=== PATIENT | female | born 1965 | race Caucasian/White ===

== ENCOUNTER → 2018-01-24 | Outpatient (CLI) | payer OTHER | END | disposition home or self-care (01) | LOC: C.LABMFLN 16:44 | PROVIDERS: ATTEND Family Medicine | DX: R60.0 Localized edema (principal) ==

== ENCOUNTER 2023-07-26 14:58 | Inpatient (IN) ==
[2023-07-26 16:12] LABS: Basophils # (auto) 0.05 K/uL (0.00-0.20); Basophils % (auto) 0.6 %; Eosinophils # (auto) 0.21 K/uL (0.00-0.50); Eosinophils % (auto) 2.6 %; Hematocrit (blood only) 38.3 % (37.0-47.0); Hemoglobin 12.8 g/dl (12.0-16.0); Immature Granulocytes # (auto) 0.04 K/uL (0.01-0.20); Immature Granulocytes % (auto) 0.5 %; Lymphocytes % (auto) 19.5 %; Mean Corpuscular Hemoglobin 32.3 pg (25.0-34.0); Mean Corpuscular Hgb Conc 33.4 g/dL (32.0-36.0); Mean Corpuscular Volume 96.7 fL (80.0-100.0); Mean Platelet Volume 9.7 fL (9.4-12.4); Monocytes % (auto) 10.9 %; Neutrophils # (auto) 5.42 K/uL (1.40-6.50); Neutrophils % (auto) 65.9 %; Platelet Count 299 K/uL (130-400); RDW Coefficient of Variation 12.2 % (11.5-14.5); RDW Standard Deviation 43.5 fL (36.4-46.3); Red Blood Count 3.96 M/uL (4.20-5.40); White Blood Count 8.22 K/ul (4.8-10.8)
[2023-07-26 16:30] LABS: Alanine Aminotransferase 50 U/L (7-52); Albumin Globulin Ratio 1.7 (0.9-2); Albumin Level 4.6 gm/dl (3.4-5.0); Alkaline Phosphatase 102 U/L (34-104); Anion Gap 11 (3-11); BUN Creatinine Ratio 22.5 (10-20); Bilirubin,Total 0.6 mg/dl (0.2-1.0); Blood Urea Nitrogen 50 mg/dl (6-23); Carbon Dioxide 19 mmol/L (21-32); Chloride 100 mmol/L (98-107); Est GFR (Non-African American) 23.3 ml/min; Globulin 2.7 gm/dl (2.5-4.0); Glucose 82 mg/dl (70-99(Fasting)); Sodium 130 mmol/L (136-145); Total Protein 7.3 gm/dl (6.0-8.3)
[2023-07-26 16:39] LABS: Partial Thromboplastin Ratio 0.9; Partial Thromboplastin Time 26 Seconds (21-31)
[2023-07-26 18:40] LABS: Appearance Urine Clear (Clear); Bacteria Urine Automated Negative (Negative); Bilirubin Urine Negative (Negative); Blood Urine Negative (Negative); Color Urine Yellow; Glucose Urine UA Negative (Negative); Ketones Urine Negative (Negative); Leukocyte Esterase Urine 3+ (Negative); Nitrite Urine Negative (Negative); Protein Urine Negative (Negative); RBC Urine Automated 0-4 /hpf (0-4); Specific Gravity Urine 1.007 (1.000-1.030); Urobilinogen Urine Negative (Negative)
--- NOTE | 2023-07-26 18:59 | Emergency Department Note ---
Impression & Plan Hypotension, ARTUR (acute kidney injury), Weakness, Acute hyponatremia, Fall ED Provider Note NAME: JADEN NOBLE AGE: 58 SEX: F : 1965 ARRIVES VIA: Walk-In INFORMANT: [Patient][family] ED PROVIDER(S): [Ricky Gatica MD] CHIEF COMPLAINT: Fall HISTORY OF PRESENT ILLNESS: The patient is a 58-year-old female who fell a few days ago, she tripped going into her home and hit her right lower jaw. She did not seek medical attention. The patient states that today, she was having some outpatient laboratory work performed and she fell off a stool. The patient was sent here for evaluation because of the falling. The patient has been weaker. Her blood pressure was noted to be low in her doctor's office recently and they did cut back on some of her BP meds. There has been no fever, no cough or congestion. No chest pain or shortness of breath. No vomiting or diarrhea. No real urinary complaints. She states that she is keeping up with her fluid intake. PMHx/PSHx/Social Hx: See Below PHYSICAL EXAM: GENERAL: Patient is in no acute distress. HEENT: There is an older contusion and healing laceration to the right lower jaw. Bite is intact. No other facial trauma seen. NECK: No stridor, no adenopathy, nontender cervical spine, trachea is midline. LUNGS: Clear to auscultation bilaterally, no wheeze, no rhonchi, breath sounds equal. Breath sounds are diminished bilaterally. HEART: Without murmurs gallops or rubs, regular rate and rhythm. Heart tones are distant. ABDOMEN: Soft, nontender, no peritonitis. EXTREMITIES: No cyanosis, full range of motion of all the joints without pain or difficulty. NEUROLOGIC: Oriented x 3, no acute motor or sensory deficits, no focal weakness. Excellent historian. SKIN: No jaundice, no diaphoresis. DIFFERENTIAL DIAGNOSIS: Dehydration, facial fracture, intracranial bleeding, electrolyte imbalance, anemia, UTI, medication reaction, among others. EMERGENCY DEPARTMENT PROCEDURES: MEDICAL DECISION MAKING: There is no leukocytosis or concerning anemia. There is a normal platelet count. Renal panel testing shows acute kidney injury with a creatinine over 2. Patient was hyponatremic with a sodium of 130. No concerning liver enzyme elevation. The patient appeared to be in a euthyroid state. ECG shows a sinus rhythm, no ischemia. Cardiac enzyme testing x 1 is not consistent with acute cardiac injury. Urinalysis shows potential infection. Chest x-ray does not show pneumonia or CHF. Brain CT shows no acute bleed or mass effect. Sinusitis was seen. Facial CT did not show any acute fracture. On exam, the patient was somewhat hypotensive. She did have a contusion to the right lower jaw. The patient was aggressively managed given the hypotension. She was given IV saline, 1 L. She received IV ceftriaxone as empiric antibiotic coverage. The ceftriaxone was for the urinary infection and sinusitis. Patient was found to be in acute kidney injury. She was hyponatremic, she has fallen, she is hypotensive. She appears to have a UTI in addition to a sinusitis. She does require a hospital stay. Patient's blood pressure has improved status post IV fluids. I did speak with case management, the on-call hospitalist was consulted. Prior/Outside records/notes reviewed: None. ECG per my interpretation: Indication was weakness. The ECG shows a normal sinus rhythm with a rate of 82. There is no ST elevation, no PVCs. The QTc is 443. Continuous Cardiac Monitoring per my interpretation: An order was placed for continuous cardiac monitoring. The monitor shows a rate of 74 with normal sinus rhythm. Imaging/x-ray results per my interpretation: Chest x-ray does not show mediastinal widening, pneumonia or pneumothorax. Chronic Medical/Social conditions affecting care: Care/Management discussed with: Case management, the on-call hospitalist. Level of care consideration(s): After review of the information above and other included data: --I believe the patient requires escalation of care to admission Critical Care Note: I have personally spent 42 minutes of critical care time in the direct management of this patient. This includes bedside care, interpretation of diagnostic studies, and testing, discussion with consultants, patient, and family members, and other required patient management activities. This 42 minutes is in excess of all separately billable procedures. DISPOSITION: Admission Past Med/Surg History Medical History MCCLAIN (nonalcoholic steatohepatitis) hx Depression Asthma no inhalers, well controlled per pt Enlarged liver hx > resolved per pt Arthritis Spinal stenosis History of urinary retention "just happens when I take too many pain pills" GERD (gastroesophageal reflux disease) Hyperlipidemia DVT (deep venous thrombosis) 2020 > can't recall which leg > no longer on thinner > s/p fall HTN (hypertension) History of COVID-19 06/29/20 HOSPITALIZED WITH PNEUMONIA DIA HAINES 06/2021 RECOVERED AT HOME Opioid dependence with current use Anxiety disorder Cervical post-laminectomy syndrome Postlaminectomy syndrome of lumbosacral region Surgical History (Updated 07/26/23 @ 14:32 by Lela Obrien RN) History of colonoscopy History of tooth extraction History of surgery on right wrist History of cataract surgery bilat Nausea and vomiting after administration of anesthetic agent History of back surgery x3 total > 06/02/19 Dr. Simon Templeton at [facility]- Midline prone multilevel osteotomies, Correction of flat back deformity, Extension of fusion to T9, T10, and T11 kyphoplasty History of tonsillectomy and adenoidectomy History of appendectomy History of gastric bypass History of neck surgery ACDF > has trouble tilting head back for long periods History of hysterectomy History of esophagogastroduodenoscopy History of cholecystectomy History of section x4 History of arthroscopy of knee right Family History Father Diabetes Heart problem Cancer Other No family history of adverse response to anesthesia Social History Smoking Status: Former smoker Second Hand Exposure: No; Do You Dip or Chew Tobacco: No; Hx Alcohol Use: No Hx Substance Use: No Preferred Language: Macedonian Communication Ability: Effective Hearing Ability: Use of Hearing Aid Press Assistant Required: No Beliefs That Will Affect Care: None marital status: Current Living Situation: Spouse Current Living Situation Comment: LIVES WITH SPOUSE, ADULT SON current occupational status: disabled Feels Safe at Home: Yes Assistive Devices: Cane, Glasses, Hearing Aid - Bilateral and Walker Allergies Allergies Allergy/AdvReac Type Severity Reaction Status Date / Time carisoprodol Allergy Intermediate HALLUCINATI Verified 07/26/23 14:17 ONS Penicillins Allergy Intermediate Hives Verified 07/26/23 14:17 aspirin Allergy Unknown NOT TO Verified 07/26/23 14:17 TAKE S/P GATRIC BYPASS clarithromycin [From Biaxin] Allergy Unknown Unknown Verified 07/26/23 14:17 glycopyrrolate [From Evelyn] Allergy Unknown Unknown Verified 07/26/23 14:17 oxymorphone Allergy Unknown Unknown Verified 07/26/23 14:17 lactose AdvReac Mild Gastrointestinal Verified 07/26/23 14:17 Upset Home Meds Home Medications Medication Instructions Recorded Confirmed ferrous sulfate 325 mg (65 mg 325 mg PO BID 10/23/19 07/26/23 iron) tablet bupropion HCl 150 mg tablet,12 hr 150 mg PO QAM 01/13/22 07/26/23 sustained-release diclofenac sodium 1 % topical gel 2 gm topical QID PRN Pain 01/13/22 07/26/23 calcium citrate 200 mg (950 mg) 200 mg PO DAILY 05/15/22 07/26/23 tablet docusate sodium 100 mg capsule 100 mg PO BID PRN Constipation 05/22/23 07/26/23 (Colace) nystatin-triamcinolone 100,000 1 applic topical BID PRN Rash 05/22/23 07/26/23 unit/g-0.1 % topical cream cetirizine 5 mg-pseudoephedrine ER 1 tab PO BID PRN Congestion 07/26/23 07/26/23 120 mg tablet,extended release,12hr lisinopril 10 mg tablet 10 mg PO QAM 07/26/23 07/26/23 pantoprazole 40 mg tablet,delayed 40 mg PO QAM 07/26/23 07/26/23 release Previous Rx's Medication Instructions Recorded multivitamin (Multiple Vitamins 1 tab PO BID #90 tabs 06/22/20 tablet) buspirone 15 mg tablet 15 mg PO TID #90 tabs 10/20/21 montelukast 10 mg tablet 10 mg PO HS #90 tabs 01/16/23 pravastatin 40 mg tablet 40 mg PO QAM #90 tabs 02/08/23 metoprolol succinate 100 mg 100 mg PO QAM #90 tabs 02/16/23 tablet,extended release 24 hr ketoconazole 1 % shampoo (Nizoral 1 applic topical .twice daily #125 03/29/23 A-D) mL furosemide 20 mg tablet 20 mg PO QAM #90 tabs 05/24/23 cyclobenzaprine 10 mg tablet 10 mg PO TID #90 tabs 01/15/24 gabapentin 600 mg tablet 600 mg PO TID #90 tabs 06/24/23 lorazepam 0.5 mg tablet 0.5 mg PO HS #30 tabs 06/24/23 meclizine 25 mg tablet 25 mg PO TID PRN dizziness #90 tabs 06/25/23 oxycodone 10 mg tablet 10 mg PO Q6H PRN pain #60 tabs 06/28/23 sucralfate 1 gram tablet 1 g PO QID #120 tabs 07/07/23 nystatin 100,000 unit/gram topical 1 applic topical BID PRN yeast #60 07/10/23 powder grams ondansetron 4 mg disintegrating 4 mg PO TID PRN nausea and 07/18/23 tablet vomiting #30 tabs sulfamethoxazole 800 1 tab PO BID #20 tabs 07/19/23 mg-trimethoprim 160 mg tablet (Bactrim DS) Results & Data (ED) Vital Signs Vital Signs - 24 hr 07/26/23 15:33 07/26/23 19:14 07/26/23 20:00 Temperature 36.1 C L Temperature Source Temporal Artery Scan Pulse Rate 74 77 Pulse Rate [Apical] 77 Pulse Rhythm Regular Pulse Strength Normal Respiratory Rate 20 18 Respiratory Effort / Characteristics Non-Labored Spontaneous Respiratory Depth Normal Blood Pressure 97/50 L Blood Pressure [Right Arm] 117/70 Blood Pressure Mean 65 Blood Pressure Mean [Right Arm] 85 Blood Pressure Position Sitting Pulse Oximetry 96 98 Oxygen Delivery Method Room Air Room Air Sepsis Recent Fever Within 48 Hours No Sepsis New/Unexplained Change in Mental Status N/A Sepsis Action Taken by Nursing No Action Required 07/26/23 23:10 07/26/23 23:19 07/26/23 23:56 Temperature Temperature Source Pulse Rate 80 Pulse Rate [Apical] 85 63 Pulse Rhythm Pulse Strength Respiratory Rate 15 16 Respiratory Effort / Characteristics Respiratory Depth Blood Pressure Blood Pressure [Right Arm] 95/60 L 104/52 L Blood Pressure Mean Blood Pressure Mean [Right Arm] 71 69 Blood Pressure Position Pulse Oximetry 95 94 Oxygen Delivery Method Room Air Room Air Sepsis Recent Fever Within 48 Hours Sepsis New/Unexplained Change in Mental Status Sepsis Action Taken by Usp Medications Current Medication List: was personally reviewed by me Laboratory Data Attestation: I reviewed the patient's lab results. 07/26/23 15:52 07/26/23 18:35 Lab Results 07/26/23 07/26/23 07/26/23 Range/Units 15:52 18:05 18:35 WBC 8.22 (4.8-10.8) K/ul RBC 3.96 L (4.20-5.40) M/uL Hgb 12.8 (12.0-16.0) g/dl Hct 38.3 (37.0-47.0) % MCV 96.7 (80.0-100.0) fL MCH 32.3 (25.0-34.0) pg MCHC 33.4 (32.0-36.0) g/dL RDW Std Deviation 43.5 (36.4-46.3) fL RDW Coeff of Arvin 12.2 (11.5-14.5) % Plt Count 299 (130-400) K/uL MPV 9.7 (9.4-12.4) fL Immature Gran % (Auto) 0.5 % Neut % (Auto) 65.9 % Lymph % (Auto) 19.5 % Rooks % (Auto) 10.9 % Eos % (Auto) 2.6 % Baso % (Auto) 0.6 % Neut # (Auto) 5.42 (1.40-6.50) K/uL Lymph # (Auto) 1.60 (1.20-3.40) K/uL Rooks # (Auto) 0.90 H (0.11-0.59) K/uL Eos # (Auto) 0.21 (0.00-0.50) K/uL Baso # (Auto) 0.05 (0.00-0.20) K/uL Immature Gran # (Auto) 0.04 (0.01-0.20) K/uL APTT 26 (21-31) Seconds PTT Ratio 0.9 Sodium 130 L (136-145) mmol/L Potassium TNP 3.7 Chloride 100 (98-107) mmol/L Carbon Dioxide 19 L (21-32) mmol/L Anion Gap 11 (3-11) BUN 50 H (6-23) mg/dl Creatinine 2.22 H (0.6-1.2) mg/dl Est Cr Clr Drug Dosing Not Reportable Est GFR ( Amer) 27.0 ml/min Est GFR (Non-Af Amer) 23.3 ml/min BUN/Creatinine Ratio 22.5 H (10-20) Glucose 82 (70-99(Fasting)) mg/dl Osmolality 284 (280-300) mOsm/kg Calcium 9.0 (8.6-10.3) mg/dl Magnesium 2.0 (1.7-2.4) mg/dl Total Bilirubin 0.6 (0.2-1.0) mg/dl AST TNP 39 ALT 50 (7-52) U/L Alkaline Phosphatase 102 (34-104) U/L Troponin I High Sens 2.6 (0-14) pg/ml Total Protein 7.3 (6.0-8.3) gm/dl Albumin 4.6 (3.4-5.0) gm/dl Globulin 2.7 (2.5-4.0) gm/dl Albumin/Globulin Ratio 1.7 (0.9-2) TSH 2.027 (0.300-4.500) uIu/ml Urine Color Yellow Urine Appearance Clear (Clear) Urine pH 6.0 (4.5-7.5) Ur Specific [place] 1.007 (1.000-1.030) Urine Protein Negative (Negative) Urine Glucose (UA) Negative (Negative) Urine Ketones Negative (Negative) Urine Blood Negative (Negative) Urine Nitrite Negative (Negative) Urine Bilirubin Negative (Negative) Urine Urobilinogen Negative (Negative) Ur Leukocyte Esterase 3+ H (Negative) Urine WBC (Auto) 10-30 H (0-5) /hpf Urine RBC (Auto) 0-4 (0-4) /hpf U Hyaline Cast (Auto) 0 (0-5) /lpf U Epithel Cells (Auto) 5-10 H (0-5) /lpf Urine Bacteria (Auto) Negative (Negative) Urine Crystals Not Reportable Urine Osmolality 197 L (500-800) mOsm/kg Ur Random Sodium 42 mmol/L Administered Medications Sodium Chloride (Nss) 1,000 mls @ 100 mls/hr IV .Q10H BRAYDEN Stop: 07/27/23 07:29 Last Admin: 07/26/23 22:58 Dose: 100 mls/hr Documented By: BS Discontinued Medications Sodium Chloride (Nss) 1,000 mls @ 999 mls/hr IV .Q1H1M ONE Stop: 07/26/23 19:44 Last Infusion: 07/26/23 21:37 Dose: Infused Documented By: Admin: 07/26/23 19:21 Dose: 999 mls/hr Documented By: CHRISTOPHER Ceftriaxone Sodium (Rocephin) 2,000 mg in 50 mls @ 100 mls/hr IV NOW STA Stop: 07/26/23 19:44 Last Infusion: 07/26/23 20:23 Dose: Infused Documented By: Admin: 07/26/23 19:21 Dose: 100 mls/hr Documented By: CHRISTOPHER Imaging Data Radiologist's Impression: Head CT 07/26/23 18:44 Exam(s): CT HEAD Without Contrast EXAM: CT Head Without Intravenous Contrast CLINICAL HISTORY: Trauma. TECHNIQUE: Axial computed tomography images of the head/brain without intravenous contrast. CTDI is 36.9 mGy and DLP is 624.41 mGy-cm. Automated exposure control was utilized for the study. A dose lowering technique was utilized adhering to the principles of ALARA. COMPARISON: No relevant prior studies available. FINDINGS: Brain: No intracranial hemorrhage, mass-effect or midline shift. No abnormal extra axial fluid. No evidence of acute infarct. Mild periventricular white matter hypodensities are most consistent with chronic microangiopathy. Ventricles: Unremarkable. No ventriculomegaly. Bones/joints: Unremarkable. No acute fracture. Soft tissues: Unremarkable. Sinuses: Unremarkable as visualized. No acute sinusitis. Mastoid air cells: Unremarkable as visualized. No mastoid effusion. IMPRESSION: No acute intracranial finding. Electronically signed by: Ruth Olivares MD 07/26/23 19:[address] 07/26/23 18:53 Exam(s): CT FACIAL Without Contrast EXAM: CT Maxillofacial Without Intravenous Contrast CLINICAL HISTORY: Fall. TECHNIQUE: Axial computed tomography images of the face without intravenous contrast. CTDI is 9.61 mGy and DLP is 167.87 mGy-cm. Automated exposure control was utilized for the study. A dose lowering technique was utilized adhering to the principles of ALARA. COMPARISON: No relevant prior studies available. FINDINGS: Bones/joints: No fracture. Soft tissues: There is a contusion and laceration of the right lower lip. Orbits: Unremarkable. Sinuses: There is mucus in the right ethmoid and maxillary sinus is concerning for acute sinusitis. IMPRESSION: 1. No fracture. 2. There is mucus in the right ethmoid and maxillary sinus is concerning for acute sinusitis. 3. There is a contusion and laceration of the right lower lip. Electronically signed by: Ruth Olivares MD 07/26/23 19:58 PM Discharge Plan Visit Data Chief Complaint: Fall Stated Complaint: FALLS AND HEADACHES ED Provider: Ricky Gatica Discharge Problem: Hypotension, ARTUR (acute kidney injury), Weakness, Acute hyponatremia, Fall Patient Disposition: Admitted As Inpatient Condition: Fair Discharge Instructions Interventions: ED Discharge Assessment Last Done: 07/27/23 00:01 Prescriptions Prescriptions: No Action multivitamin [Multiple Vitamins] Tablet 1 tab PO BID Qty: 90 3RF buspirone 15 mg tablet 15 mg PO TID Qty: 90 0RF montelukast 10 mg tablet 10 mg PO HS Qty: 90 3RF pravastatin 40 mg tablet 40 mg PO QAM Qty: 90 3RF metoprolol succinate 100 mg tablet extended release 24 hr 100 mg PO QAM Qty: 90 1RF furosemide 20 mg tablet 20 mg PO QAM Qty: 90 0RF cyclobenzaprine 10 mg tablet 10 mg PO TID Qty: 90 1RF lorazepam 0.5 mg tablet 0.5 mg PO HS Qty: 30 0RF gabapentin 600 mg tablet 600 mg PO TID Qty: 90 0RF meclizine 25 mg tablet 25 mg PO TID PRN (Reason: dizziness) Qty: 90 2RF oxycodone 10 mg tablet 10 mg PO Q6H PRN (Reason: pain) Qty: 60 0RF sucralfate 1 gram tablet 1 g PO QID Qty: 120 1RF nystatin 100,000 unit/gram powder 1 applic topical BID PRN (Reason: yeast) Qty: 60 0RF ondansetron 4 mg tablet,disintegrating 4 mg PO TID PRN (Reason: nausea and vomiting) Qty: 30 0RF sulfamethoxazole-trimethoprim [Bactrim DS] 800-160 mg tablet 1 tab PO BID Qty: 20 0RF Patient Comments: for UTI calcium citrate 200 mg (950 mg) tablet 200 mg PO DAILY ferrous sulfate 325 mg (65 mg iron) tablet 325 mg PO BID docusate sodium [Colace] 100 mg capsule 100 mg PO BID PRN (Reason: Constipation) nystatin-triamcinolone 100,000-0.1 unit/g-% cream 1 applic topical BID PRN (Reason: Rash) Nizoral A-D 1 % shampoo 1 applic topical .twice daily Qty: 125 0RF bupropion HCl 150 mg tablet sustained-release 12 hr 150 mg PO QAM diclofenac sodium 1 % gel 2 gm TOP QID PRN (Reason: Pain) Rx Instructions: apply to single elbow, wrist or hand; for hand includes palm/fingers/back of hand cetirizine-pseudoephedrine 5-120 mg tablet extended release 12 hr 1 tab PO BID PRN (Reason: Congestion) pantoprazole 40 mg tablet,delayed release (DR/EC) 40 mg PO QAM lisinopril 10 mg tablet 10 mg PO QAM Discharge Problem: Hypotension Qualifiers: Hypotension type: unspecified hypotension type Qualified Code(s): I95.9 - Hypotension, unspecified Fall Qualifiers: Encounter type: initial encounter Qualified Code(s): W19.XXXA - Unspecified fall, initial encounter
[2023-07-26 19:00] LABS: Cast Urine Automated 0 /lpf (0-5)
[2023-07-26 19:05] LABS: Potassium 3.7 mmol/L (3.5-5.1)
[2023-07-26 19:20] LABS: Thyroid Stimulating Hormone 2.027 uIu/ml (0.300-4.500)
[2023-07-26] MEDS: cefTRIAXone SODIUM 2,000 MG/50 ML BAG IV STA (19:21)
[2023-07-26] MEDS: SODIUM CHLORIDE 0.9% 1,000 ML IV ONE (19:21)
[2023-07-26 19:36] LABS: Troponin I High Sensitivity 2.6 pg/ml (0-14)
--- NOTE | 2023-07-26 19:58 | CT Scan Report ---
Exam(s): CT HEAD Without Contrast EXAM: CT Head Without Intravenous Contrast CLINICAL HISTORY: Trauma. TECHNIQUE: Axial computed tomography images of the head/brain without intravenous contrast. CTDI is 36.9 mGy and DLP is 624.41 mGy-cm. Automated exposure control was utilized for the study. A dose lowering technique was utilized adhering to the principles of ALARA. COMPARISON: No relevant prior studies available. FINDINGS: Brain: No intracranial hemorrhage, mass-effect or midline shift. No abnormal extra axial fluid. No evidence of acute infarct. Mild periventricular white matter hypodensities are most consistent with chronic microangiopathy. Ventricles: Unremarkable. No ventriculomegaly. Bones/joints: Unremarkable. No acute fracture. Soft tissues: Unremarkable. Sinuses: Unremarkable as visualized. No acute sinusitis. Mastoid air cells: Unremarkable as visualized. No mastoid effusion. IMPRESSION: No acute intracranial finding. Electronically signed by: Ruth Olivares MD 07/26/23 19:57 PM
--- NOTE | 2023-07-26 19:59 | CT Scan Report ---
Exam(s): CT FACIAL Without Contrast EXAM: CT Maxillofacial Without Intravenous Contrast CLINICAL HISTORY: Fall. TECHNIQUE: Axial computed tomography images of the face without intravenous contrast. CTDI is 9.61 mGy and DLP is 167.87 mGy-cm. Automated exposure control was utilized for the study. A dose lowering technique was utilized adhering to the principles of ALARA. COMPARISON: No relevant prior studies available. FINDINGS: Bones/joints: No fracture. Soft tissues: There is a contusion and laceration of the right lower lip. Orbits: Unremarkable. Sinuses: There is mucus in the right ethmoid and maxillary sinus is concerning for acute sinusitis. IMPRESSION: 1. No fracture. 2. There is mucus in the right ethmoid and maxillary sinus is concerning for acute sinusitis. 3. There is a contusion and laceration of the right lower lip. Electronically signed by: Ruth Olivares MD 07/26/23 19:58 PM
[2023-07-26] MEDS ORDERED: ACETAMINOPHEN 325 MG TAB PO PRN (21:18)
--- NOTE | 2023-07-26 21:34 | History & Physical Report ---
Date of Service July 26, 2023 Assessment & Plan (1) Acute kidney injury: Plan Assessment: 1. Acute kidney injury probably on the basis of Bactrim. This will be discontinued. The patient be placed on IV Rocephin which she received her first dose. Will hydrate overnight and recheck renal function in the morning. We are going to hold her benzodiazepine at night. We will decrease her oxycodone we are going to decrease Flexeril as well.. 2. Acute maxillary and ethmoid right sinusitis. IV Rocephin for now. Monitor clinical response. 3. Generalized weakness probably secondary to acute kidney injury etc. We will go ahead and consult PT and OT. 4. Falls x 2. Probably from generalized weakness due to decreasing renal function. PT and OT has been consulted. Her neuro exam is normal tonight. 5. History of morbid obesity status post gastric bypass surgery therefore NSAIDs are relatively contraindicated for pain. 6. Osteoarthritis/degenerative joint disease. 7. Chronic pain with chronic narcotic dependency. 8. Essential hypertension. 9. Dyslipidemia. 10. MCCLAIN. 11. Anxiety disorder with associated insomnia. 12. Postlaminectomy syndrome Assessment/plan: As described above. Please refer to orders for further planning. History of Present Illness Chief Complaint: Multiple falls weakness. Primary Care Provider: Larry Gonzalze DO This is a pleasant 58-year-old female who was diagnosed with a urinary tract infection in July 19, 2023. At that time she was placed on oral Bactrim as an outpatient. Over the last 2 days she has had 2 falls. Her first fall was at home it was mechanical she was walking with her she tripped her legs were too weak to catch her and she fell to the ground striking her chin and lips. Her second fall was today when she went to sit on her stool with wheels on when it slid out from under her and she fell on her buttock. She comes in with generalized weakness is her biggest complaints she has no focal neurologic deficits. CT of the facial bones demonstrated contusion and laceration of the right lower lip and demonstrated right ethmoid and maxillary acute sinusitis. Thepatient also had a nonacute CT of the brain which was negative for acute finding. Urinalysis still showed 10-30 WBCs but negative bacteria but 3+ leukocyte E[facility] laboratory studies demonstrated acute kidney injury with a creatinine of 2.22 with a baseline of 1.4. The patient received a liter of saline in the ER with IV Rocephin. We are called admit the patient for further evaluation and treatment for acute kidney injury dehydration and acute maxillary and ethmoid sinusitis. Allergies Allergy/AdvReac Type Severity Reaction Status Date / Time carisoprodol Allergy Intermediate HALLUCINATI Verified 07/26/23 14:17 ONS Penicillins Allergy Intermediate Hives Verified 07/26/23 14:17 aspirin Allergy Unknown NOT TO Verified 07/26/23 14:17 TAKE S/P GATRIC BYPASS clarithromycin [From Biaxin] Allergy Unknown Unknown Verified 07/26/23 14:17 glycopyrrolate [From Robinul] Allergy Unknown Unknown Verified 07/26/23 14:17 oxymorphone Allergy Unknown Unknown Verified 07/26/23 14:17 lactose AdvReac Mild Gastrointestinal Verified 07/26/23 14:17 Upset Home Medications Medication Instructions Recorded Confirmed Type ferrous sulfate 325 mg (65 mg 325 mg PO BID 10/23/19 07/26/23 History iron) tablet multivitamin (Multiple Vitamins 1 tab PO BID #90 tabs 06/22/20 07/26/23 Rx tablet) buspirone 15 mg tablet 15 mg PO TID #90 tabs 10/20/21 07/26/23 Rx bupropion HCl 150 mg tablet,12 hr 150 mg PO QAM 01/13/22 07/26/23 History sustained-release diclofenac sodium 1 % topical gel 2 gm topical QID PRN Pain 01/13/22 07/26/23 History calcium citrate 200 mg (950 mg) 200 mg PO DAILY 05/15/22 07/26/23 History tablet montelukast 10 mg tablet 10 mg PO HS #90 tabs 01/16/23 07/26/23 Rx pravastatin 40 mg tablet 40 mg PO QAM #90 tabs 02/08/23 07/26/23 Rx metoprolol succinate 100 mg 100 mg PO QAM #90 tabs 02/16/23 07/26/23 Rx tablet,extended release 24 hr ketoconazole 1 % shampoo (Nizoral 1 applic topical .twice daily #125 03/29/23 07/26/23 Rx A-D) mL docusate sodium 100 mg capsule 100 mg PO BID PRN Constipation 05/22/23 07/26/23 History (Colace) nystatin-triamcinolone 100,000 1 applic topical BID PRN Rash 05/22/23 07/26/23 History unit/g-0.1 % topical cream furosemide 20 mg tablet 20 mg PO QAM #90 tabs 05/24/23 07/26/23 Rx cyclobenzaprine 10 mg tablet 10 mg PO TID #90 tabs 06/18/23 07/26/23 Rx gabapentin 600 mg tablet 600 mg PO TID #90 tabs 06/24/23 07/26/23 Rx lorazepam 0.5 mg tablet 0.5 mg PO HS #30 tabs 06/24/23 07/26/23 Rx meclizine 25 mg tablet 25 mg PO TID PRN dizziness #90 tabs 06/25/23 07/26/23 Rx oxycodone 10 mg tablet 10 mg PO Q6H PRN pain #60 tabs 06/28/23 07/26/23 Rx sucralfate 1 gram tablet 1 g PO QID #120 tabs 07/07/23 07/26/23 Rx nystatin 100,000 unit/gram topical 1 applic topical BID PRN yeast #60 07/10/23 07/26/23 Rx powder grams ondansetron 4 mg disintegrating 4 mg PO TID PRN nausea and 07/18/23 07/26/23 Rx tablet vomiting #30 tabs sulfamethoxazole 800 1 tab PO BID #20 tabs 07/19/23 07/26/23 Rx mg-trimethoprim 160 mg tablet (Bactrim DS) cetirizine 5 mg-pseudoephedrine ER 1 tab PO BID PRN Congestion 07/26/23 07/26/23 History 120 mg tablet,extended release,12hr lisinopril 10 mg tablet 10 mg PO QAM 07/26/23 07/26/23 History pantoprazole 40 mg tablet,delayed 40 mg PO QAM 07/26/23 07/26/23 History release Past Med/Surg History Medical History (Updated 07/26/23 @ 21:35 by Gianluca Pedro, PhD, DO) MCCLAIN (nonalcoholic steatohepatitis) hx Depression Asthma no inhalers, well controlled per pt Enlarged liver hx > resolved per pt Arthritis Spinal stenosis History of urinary retention "just happens when I take too many pain pills" GERD (gastroesophageal reflux disease) Hyperlipidemia DVT (deep venous thrombosis) 2020 > can't recall which leg > no longer on thinner > s/p fall HTN (hypertension) History of COVID-19 06/29/20 HOSPITALIZED WITH PNEUMONIA DIA HAINES 06/2021 RECOVERED AT HOME Opioid dependence with current use Anxiety disorder Cervical post-laminectomy syndrome Postlaminectomy syndrome of lumbosacral region Surgical History (Updated 07/26/23 @ 14:32 by Lela Obrien RN) History of colonoscopy History of tooth extraction History of surgery on right wrist History of cataract surgery bilat Nausea and vomiting after administration of anesthetic agent History of back surgery x3 total > 06/02/19 Dr. Simon Templeton at [facility]- Midline prone multilevel osteotomies, Correction of flat back deformity, Extension of fusion to T9, T10, and T11 kyphoplasty History of tonsillectomy and adenoidectomy History of appendectomy History of gastric bypass History of neck surgery ACDF > has trouble tilting head back for long periods History of hysterectomy History of esophagogastroduodenoscopy History of cholecystectomy History of section x4 History of arthroscopy of knee right Family History Father Diabetes Heart problem Cancer Other No family history of adverse response to anesthesia Social History Smoking Status: Former smoker Second Hand Exposure: No; Do You Dip or Chew Tobacco: No; Hx Alcohol Use: No Hx Substance Use: No Preferred Language: Ug[place]an Communication Ability: Effective Hearing Ability: Use of Hearing Aid Pad Machine Operator Required: No Beliefs That Will Affect Care: None marital status: Current Living Situation: Spouse Current Living Situation Comment: LIVES WITH SPOUSE, ADULT SON current occupational status: disabled Feels Safe at Home: Yes Assistive Devices: Cane, Glasses, Hearing Aid - Bilateral and Walker Review of Systems Review of Systems: A 10 point review of system was obtained and unless otherwise stated here or in history of present illness are negative and noncontributory to chief complaint. Physical Exam Physical Exam: In General: In general 58-year-old female is alert and oriented x 3 at time my exam she interacts appropriately and pleasantly at the time my examination. HEENT: Normocephalic the patient has lacerations of the chin as well as the right lip. These are scabbed over. With surrounding ecchymoses. Pupils are equal round and reactive to light bilaterally. No scleral icterus no conjunctival injection external auditory canals are patent septum is in the midline nose is without discharge oral mucosa is pink and moist without lesion. She does have tenderness palpation over the right maxillary sinus compared to the left. NECK: Supple no rigidity no lymphadenopathy no thyromegaly no carotid bruits no JVD no masses. HEART: Regular rate and rhythm I do not appreciate any ectopy or rub. No murmur. LUNGS: Clear to auscultation bilaterally and anteriorly with no evidence of adventitious sounds/wheezes rales or rhonchi. ABDOMEN: Soft nontender, no rebound, no peritoneal signs, positive bowel sounds, no appreciable organomegaly. EXTREMITIES: Intact, no peripheral cyanosis, clubbing or edema. She is decreased lower extremity strength bilaterally but no focality. No pathologic reflexes NEUROLOGICAL: Cranial nerves II through XII are grossly intact with no focal deficit elicited upon examination. No tremor. Results & Data Results & Data Vital Signs (Past 12 Hours) Vital Signs Temp Pulse Pulse Resp BP BP Pulse Ox 07/26/23 20:00 77 18 117/70 98 07/26/23 19:14 77 07/26/23 15:33 36.1 C L 74 20 97/50 L 96 O2 Del Method 07/26/23 20:00 Room Air 07/26/23 19:14 07/26/23 15:33 Room Air Code Status & VTE Plan VTE Prophylaxis Plan VTE Prophylaxis will be ordered: Yes PG Care Time/CCT Total # of Minutes Spent Total Time Spent with Patient: Total time spent is greater than 50% in coordination of care (as documented) at patient's floor/unit and/or counseling patient: Coding Level of Care Code 96852 INT INP/OBS CARE 3/75MIN Diagnoses Acute kidney injury N17.9
[2023-07-26] MEDS: SODIUM CHLORIDE 0.9% 1,000 ML IV SCH (22:58)
[2023-07-27] MEDS: oxyCODONE HCL IR 5 MG TAB (IMMEDIATE RELEASE) PO PRN (03:37)
[2023-07-27] MEDS: CYCLOBENZAPRINE HCL 5 MG TAB PO SCH (03:37)
[2023-07-27] MEDS: busPIRone 15 MG TAB PO SCH (03:38)
[2023-07-27] MEDS: SUCRALFATE 1 GM TAB PO SCH (03:38)
[2023-07-27] MEDS: GABAPENTIN 100 MG CAP PO SCH (03:38)
[2023-07-27 06:22] LABS: Albumin Globulin Ratio 1.8 (0.9-2); Albumin Level 3.5 gm/dl (3.4-5.0); Bilirubin,Total 0.4 mg/dl (0.2-1.0); Creatinine Clr Calc Pharmacy 32.3 ml/min; Est GFR (African American) 41.4 ml/min; Est GFR (Non-African American) 35.7 ml/min; Potassium 3.9 mmol/L (3.5-5.1); Total Protein 5.5 gm/dl (6.0-8.3)
[2023-07-27 06:27] LABS: Basophils # (auto) 0.02 K/uL (0.00-0.20); Basophils % (auto) 0.4 %; Eosinophils # (auto) 0.18 K/uL (0.00-0.50); Eosinophils % (auto) 3.6 %; Hematocrit (blood only) 29.8 % (37.0-47.0); Hemoglobin 10.1 g/dl (12.0-16.0); Immature Granulocytes # (auto) 0.01 K/uL (0.01-0.20); Immature Granulocytes % (auto) 0.2 %; Lymphocytes # (auto) 1.08 K/uL (1.20-3.40); Lymphocytes % (auto) 21.3 %; Mean Corpuscular Hemoglobin 32.4 pg (25.0-34.0); Mean Corpuscular Hgb Conc 33.9 g/dL (32.0-36.0); Mean Corpuscular Volume 95.5 fL (80.0-100.0); Mean Platelet Volume 9.8 fL (9.4-12.4); Monocytes # (auto) 0.69 K/uL (0.11-0.59); Monocytes % (auto) 13.6 %; Neutrophils # (auto) 3.08 K/uL (1.40-6.50); Neutrophils % (auto) 60.9 %; Platelet Count 249 K/uL (130-400); RDW Coefficient of Variation 12.3 % (11.5-14.5); RDW Standard Deviation 42.7 fL (36.4-46.3); Red Blood Count 3.12 M/uL (4.20-5.40); White Blood Count 5.06 K/ul (4.8-10.8)
[2023-07-27 06:28] LABS: INR 0.9 (0.9-1.1); Prothrombin Time 10.4 Seconds (9.0-12.0)
--- NOTE | 2023-07-27 07:38 | XRay Report ---
XR chest 1V portable HISTORY: weak COMPARISON: None. FINDINGS: No pneumothorax. No pleural effusions. There are low lung volumes with mild elevation of th e left hemidiaphragm. No focal lung consolidations to suggest a pneumonia. No evidence for pulmonary edema. The heart is top normal in size. Cervical and lumbar spinal fusion hardware is noted. Prior ch olecystectomy. IMPRESSION: No acute process. ACT 112: Negative or not required by law. Electronically signed by: Juan Carlos Joseph M.D. 07/27/2023 7:37 AM
[2023-07-27] MEDS: PANTOprazole 40 MG TAB PO SCH (08:11)
[2023-07-27] MEDS: PRAVASTATIN SOD 40 MG TAB PO SCH (08:11)
[2023-07-27] MEDS: buPROPion SR 150 MG TABCR PO SCH (08:11)
[2023-07-27] MEDS: METOPROLOL SUCC 50MG EXT REL TAB PO SCH (10:18)
--- NOTE | 2023-07-27 13:42 | Communication Note ---
Date of Service: July 27, 2023 By CMS guidelines, a determination that the admission or continued stay is not medically necessary has been made by a member of the UR committee and vera rincon for this hospital stay, therefore a Code 44 will be completed and the Inpatient admission will be changed to outpatient.
--- NOTE | 2023-07-27 13:43 | Communication Note ---
Date of Service: July 27, 2023 By CMS guidelines, a determination that the admission or continued stay is not medically necessary has been made by a member of the UR committee and a physician for this hospital stay, therefore a Code 44 will be completed and the Inpatient admission will be changed to outpatient.
--- NOTE | 2023-07-27 19:18 | Discharge Summary ---
Date of Service July 27, 2023 Admission HPI Per Admitting Provider This is a pleasant 58-year-old female who was diagnosed with a urinary tract infection in July 19, 2023. At that time she was placed on oral Bactrim as an outpatient. Over the last 2 days she has had 2 falls. Her first fall was at home it was mechanical she was walking with her she tripped her legs were too weak to catch her and she fell to the ground striking her chin and lips. Her second fall was today when she went to sit on her stool with wheels on when it slid out from under her and she fell on her buttock. She comes in with generalized weakness is her biggest complaints she has no focal neurologic deficits. CT of the facial bones demonstrated contusion and laceration of the right lower lip and demonstrated right ethmoid and maxillary acute sinusitis. Thepatient also had a nonacute CT of the brain which was negative for acute finding. Urinalysis still showed 10-30 WBCs but negative bacteria but 3+ leukocyte Estrace laboratory studies demonstrated acute kidney injury with a creatinine of 2.22 with a baseline of 1.4. The patient received a liter of saline in the ER with IV Rocephin. We are called admit the patient for further evaluation and treatment for acute kidney injury dehydration and acute maxillary and ethmoid sinusitis. Principal Diagnosis ARTUR and hyponatremia, multifactorial and related to bactrim Discharge Data Allergies Allergy/AdvReac Type Severity Reaction Status Date / Time carisoprodol Allergy Intermediate HALLUCINATI Verified 07/26/23 14:17 ONS Penicillins Allergy Intermediate Hives Verified 07/26/23 14:17 aspirin Allergy Unknown NOT TO Verified 07/26/23 14:17 TAKE S/P GATRIC BYPASS clarithromycin [From Biaxin] Allergy Unknown Unknown Verified 07/26/23 14:17 glycopyrrolate [From Robinul] Allergy Unknown Unknown Verified 07/26/23 14:17 oxymorphone Allergy Unknown Unknown Verified 07/26/23 14:17 lactose AdvReac Mild Gastrointestinal Verified 07/26/23 14:17 Upset Consultations 07/26/23 20:42 ED Decision to Admit Stat 07/27/23 13:47 Consult [facility] community worker Routine Ordered Studies 07/26/23 18:44 CT head/brain wo con Stat 07/26/23 18:53 CT face [CT facial bones wo con] Stat Head CT 07/26/23 18:44 Exam(s): CT HEAD Without Contrast EXAM: CT Head Without Intravenous Contrast CLINICAL HISTORY: Trauma. TECHNIQUE: Axial computed tomography images of the head/brain without intravenous contrast. CTDI is 36.9 mGy and DLP is 624.41 mGy-cm. Automated exposure control was utilized for the study. A dose lowering technique was utilized adhering to the principles of ALARA. COMPARISON: No relevant prior studies available. FINDINGS: Brain: No intracranial hemorrhage, mass-effect or midline shift. No abnormal extra axial fluid. No evidence of acute infarct. Mild periventricular white matter hypodensities are most consistent with chronic microangiopathy. Ventricles: Unremarkable. No ventriculomegaly. Bones/joints: Unremarkable. No acute fracture. Soft tissues: Unremarkable. Sinuses: Unremarkable as visualized. No acute sinusitis. Mastoid air cells: Unremarkable as visualized. No mastoid effusion. IMPRESSION: No acute intracranial finding. Electronically signed by: Ruth Olivares MD 07/26/23 19:57 PM Chest X-Ray 07/26/23 18:53 XR chest 1V portable HISTORY: weak COMPARISON: None. FINDINGS: No pneumothorax. No pleural effusions. There are low lung volumes with mild elevation of the left hemidiaphragm. No focal lung consolidations to suggest a pneumonia. No evidence for pulmonary edema. The heart is top normal in size. Cervical and lumbar spinal fusion hardware is noted. Prior cholecystectomy. IMPRESSION: No acute process. ACT 112: Negative or not required by law. Electronically signed by: Juan Carlos Joseph M.D. 07/27/2023 7:[address] 07/26/23 18:53 Exam(s): CT FACIAL Without Contrast EXAM: CT Maxillofacial Without Intravenous Contrast CLINICAL HISTORY: Fall. TECHNIQUE: Axial computed tomography images of the face without intravenous contrast. CTDI is 9.61 mGy and DLP is 167.87 mGy-cm. Automated exposure control was utilized for the study. A dose lowering technique was utilized adhering to the principles of ALARA. COMPARISON: No relevant prior studies available. FINDINGS: Bones/joints: No fracture. Soft tissues: There is a contusion and laceration of the right lower lip. Orbits: Unremarkable. Sinuses: There is mucus in the right ethmoid and maxillary sinus is concerning for acute sinusitis. IMPRESSION: 1. No fracture. 2. There is mucus in the right ethmoid and maxillary sinus is concerning for acute sinusitis. 3. There is a contusion and laceration of the right lower lip. Electronically signed by: Ruth Olivares MD 07/26/23 19:58 PM 07/27/23 05:40 07/27/23 05:40 Hospital Course (1) Acute kidney injury: Plan Acute kidney injury - mostly related to bactrim and prerenal given rapid improvement, also on lasix and lisinopril. -Cr improved from 2.22 --> 1.56 overnight with IV saline -recent baseline 1.1-1.4 -instructed to hold lasix and lisinopril, will follow up with PCP next week, recommend BMP at that time -she may no longer require lasix, has lost a lot of weight since gastric bypass Urinary retention - has been a chronic problem. Retained urine this AM but then was able to void spontaneously without catheterization, and again spontaneously in the afternoon -recommended she stop pseudoepehedrine/cetirizine and take plain cetirizine -reduction in opioids would help -could have neurogenic bladder related to her spine disease, though recent cspine and tspine MRI without significant spinal stenosis -made outpatient referral to urology Recent UTI - already has had 8 days of bactrim, stopped, replaced with cephalosporin for two more days Sinusitis - chronic, no change in usual symptoms, already on course of bactrim which would have been effective, continue flonase and cetirizine Fell x 2, weakness resolved after fluids, independently ambulating, PT evaluated and cleared for home discharge History of morbid obesity status post gastric bypass surgery therefore NSAIDs are relatively contraindicated for pain. Osteoarthritis/degenerative joint disease. Chronic pain with chronic narcotic dependency. Essential hypertension. Dyslipidemia. MCCLAIN. Anxiety disorder with associated insomnia. Postlaminectomy syndrome Total Time Total Time Spent Total Time Spent (In Minutes): 25 minutes Discharge Plan Discharge Items Patient Disposition: Home - Self-Care Reason For Visit: FALLS, WEAKNESS, HYPONATREMIA, ACUTE SINUSITIS Discharge Diagnosis: Acute kidney injury, hyponatremia Condition on Discharge: Fair Activity: Resume your previous activity Non-emergency contact: Primary Care Provider Call non-emergency contact if: you have any medication questions and your symptoms worsen Follow-up/Referrals: Larry Gonzalez DO [Primary Care Provider] - 08/10/23 1:30 pm Diet: Regular Addtl Attending Provider Instructions: You were treated for acute kidney injury and low blood sodium I think this was probably provoked by bactrim, in combination with your other medications Your kidney labs are most of the way back to normal today -stay hydrated -go see Dr. Gonzalez next week and get your labs checked -STOP bactrim - replaced with cefadroxil for 2 more days -HOLD lisinopril and furosemide (lasix) - talk to Dr. Gonzalez about when/whether to restart these based on your lab tests We made a referral to urology for your difficulty voiding -avoiding constipation and minimizing opioid pain medications like oxycodone will help you be able to urinate easier -you can take miralax or senna every day or as needed to prevent constipation, if that is an issue - these are available at the drug store -I would also recommend stopping cetirizine-pseudoephedrine because pseudoephedrine causes urinary retention. you can replace it with cetirizine 5 mg daily- this is available over the counter -you might have bladder nerve damage related to your spine problems that contributes to this Pending Studies at Discharge: No Stand-Alone Forms: My [facility] [employer], Smoking Cessation Medications and DC Order Prescriptions: New cefadroxil 500 mg capsule 500 mg PO BID Qty: 5 0RF Continued multivitamin [Multiple Vitamins] Tablet 1 tab PO BID Qty: 90 3RF buspirone 15 mg tablet 15 mg PO TID Qty: 90 0RF montelukast 10 mg tablet 10 mg PO HS Qty: 90 3RF pravastatin 40 mg tablet 40 mg PO QAM Qty: 90 3RF metoprolol succinate 100 mg tablet extended release 24 hr 100 mg PO QAM Qty: 90 1RF cyclobenzaprine 10 mg tablet 10 mg PO TID Qty: 90 1RF lorazepam 0.5 mg tablet 0.5 mg PO HS Qty: 30 0RF gabapentin 600 mg tablet 600 mg PO TID Qty: 90 0RF meclizine 25 mg tablet 25 mg PO TID PRN (Reason: dizziness) Qty: 90 2RF oxycodone 10 mg tablet 10 mg PO Q6H PRN (Reason: pain) Qty: 60 0RF sucralfate 1 gram tablet 1 g PO QID Qty: 120 1RF nystatin 100,000 unit/gram powder 1 applic topical BID PRN (Reason: yeast) Qty: 60 0RF ondansetron 4 mg tablet,disintegrating 4 mg PO TID PRN (Reason: nausea and vomiting) Qty: 30 0RF calcium citrate 200 mg (950 mg) tablet 200 mg PO DAILY ferrous sulfate 325 mg (65 mg iron) tablet 325 mg PO BID docusate sodium [Colace] 100 mg capsule 100 mg PO BID PRN (Reason: Constipation) nystatin-triamcinolone 100,000-0.1 unit/g-% cream 1 applic topical BID PRN (Reason: Rash) Nizoral A-D 1 % shampoo 1 applic topical .twice daily Qty: 125 0RF bupropion HCl 150 mg tablet sustained-release 12 hr 150 mg PO QAM diclofenac sodium 1 % gel 2 gm TOP QID PRN (Reason: Pain) Rx Instructions: apply to single elbow, wrist or hand; for hand includes palm/fingers/back of hand pantoprazole 40 mg tablet,delayed release (DR/EC) 40 mg PO QAM Held furosemide 20 mg tablet 20 mg PO QAM Qty: 90 0RF Hold Instructions: Resume on 08/10/23. hold until restarted by your doctor lisinopril 10 mg tablet 10 mg PO QAM Hold Instructions: Resume on 08/10/23. hold until restarted by your doctor Discontinued sulfamethoxazole-trimethoprim [Bactrim DS] 800-160 mg tablet 1 tab PO BID Qty: 20 0RF Patient Comments: for UTI cetirizine-pseudoephedrine 5-120 mg tablet extended release 12 hr 1 tab PO BID PRN (Reason: Congestion) Discharge Orders: Discharge Order (Routine); Ordered 07/27/23 Ordered By: Angelika Dewey Admission Data Admit Date/Time: 07/26/23 21:13 Attending Provider: Angelika Dewey Admit Provider: Gianluca Pedro Primary Care Provider: Larry Gonzalez Other Providers: Alberto Arriaga Other Interventions: Discharge Summary Assessment (RN) Last Done: 07/27/23 14:49 Coding Level of Care Code 41272 IN/OBS DISCH 30 MIN/LESS Diagnoses Acute kidney injury N17.9
[2023-07-27] MEDS ORDERED: cefTRIAXone SODIUM 2,000 MG in DEXTROSE 5 % MINI-B 50 ML IV SCH (20:00)
--- OUTSIDE RECORDS SUMMARY | 2023-07-27 23:46 | External Medical Summary | Summary of Care ---
Author Name Unknown Organization [facility] Address [address] [place] [address] Phone [phone] Care Team Providers Care Rod Mill Operator Name Role Phone Larry Gonzalez DO Primary Care Provider [phone] Reason for Referral * Precert (Within 10 days (routine)) - Authorized Specialty Diagnoses / Procedures Referred By Contac t Referred To Contact Radiology Diagnoses Disorientation, unspecified Dizziness and giddiness Procedures MRI BRAIN W WO CONTRAST Larry Gonzalez DO [address] [place] [address] Referral ID Status Reason Start Date Expiration Date V isits Requested Visits Authorized [id number] Authorized 07/26/2023 [id number] Encounter Details Date Type Department Care Team (Late st Contact Info) Description 07/26/2023 Orders Only Access Center, [address] Ext *DO NOT REMOVE THIS DEPARTMENT* MARYSOL HAINES [id number] Requisition, External Radiology [address] [place] [address] Disorientation, unspecified*; Dizziness and giddiness Allergies Active Allergy Reactions Criticality Noted Date Comments Acetaminophen 12/17/2013 Aspirin 07/14/2015 Clarithromycin Nausea/vomiting 10/19/2014 Carisoprodol-Aspirin 07/14/2015 Hallucinations Hallucinations Hallucinations Hallucinations Meperidine 02/12/2018 Nsaids 12/17/2013 Oxymorphone Hcl Anaphylaxis High 10/12/2014 Pt became SOB then stopped breathing Pt became SOB then stopped breathing Pt became SOB then stopped breathing Other Allergy (See Comments) High 09/10/2013 opiods - demerol Oxymorphone Anaphylaxis High 07/14/2015 Pt became SOB then stopped breathing Penicillin G 08/03/2011 Penicillins Rash Low 03/28/2013 Hives Hives Glycopyrrolate Other (Please comment) 03/26/2014 Other reaction(s): Other (see comments) Other reaction(s): Other (Please comment) Not able to void Not able to void Not able to void Carisoprodol-Aspirin 03/28/2013 Hallucinations Sulfamethoxazole 08/03/2011 Trimethoprim 08/03/2011 documented as of this encounter (statuses as of 07/26/2023) Medications Medication Sig Dispensed Refills Start Date End Date Status Tetrahydrozoline-Zn Sulfate (VISINE-AC) 0.05-0.25 % SOLN as needed for Dry eyes. 0 Active montelukast (SINGULAIR) 10 MG Tablet Take one tablet by mouth once daily 30 Tab 11 10/23/2016 Active Additional Information Patient taking differently: Take one tablet by mouth once daily-anum, Reported on 02/05/2018 lisinopril (PRINIVIL) 20 MG Tablet TAKE ONE TABLET BY MOUTH TWICE DAILY 60 Tab 11 10/23/2016 Active gabapentin (NEURONTIN) 100 MG Capsule TAKE TWO CAPSULES BY MOUTH THREE TIMES DAILY 180 Cap 11 11/14/2016 Active metoprolol succinate XL (TOPROL XL) 100 MG TB24 TAKE ONE TABLET BY MOUTH ONCE DAILY 30 Tab 5 01/04/2017 Active Additional Information Patient taking differently: TAKE ONE TABLET BY MOUTH ONCE DAILY -am, Reported on 02/05/2018 pravastatin sodium (PRAVACHOL) 10 MG TabletIndications:Hy perlipidemia with target LDL less than 130 Take 1 Tab by mouth daily. 30 Tab 5 03/01/2017 Active Glucosamine-Chondroi tin 500-400 MG TABS Take 1 Tab by mouth 2 times a day. 0 Active Multiple Vitamins-Minerals (ONE-A-DAY WOMENS PETITES) TABS Take by mouth 2 times a day. 0 Active gabapentin (NEURONTIN) 300 MG Capsule TAKE ONE CAPSULE BY MOUTH THREE TIMES DAILY 90 Cap 3 04/10/2017 Active pantoprazole (PROTONIX) 40 MG TBEC TAKE ONE TABLET BY MOUTH TWICE DAILY 60 Tab 2 04/16/2017 Active buPROPion extended release, SR, (WELLBUTRIN SR) 150 MG TB12 TAKE ONE TABLET BY MOUTH ONCE DAILY 30 Tab 1 04/24/2017 Active Additional Information Patient taking differently: TAKE ONE TABLET BY MOUTH ONCE DAILY-am, Reported on 02/05/2018 busPIRone (BUSPAR) 15 MG Tablet Take 1 Tab by mouth 3 times a day. 90 Tab 2 05/04/2017 Active cyclobenzaprine (FLEXERIL) 10 MG Tablet Take 1 Tab by mouth 3 times a day. 90 Tab 0 06/05/2017 Active sucralfate (CARAFATE) 1 GM TabletIndications:Ga stric erosions Take 1 Tab by mouth 4 times a day. Crush tab and mix with water to make a slurry 120 Tab 5 06/05/2017 Active Cetirizine-Pseudoeph edrine ER (ZYRTEC-D ALLERGY & CONGESTION) 5-120 MG TB12 twice a day 60 Tab 5 06/12/2017 Active LORAzepam (ATIVAN) 0.5 MG Tablet TAKE ONE TABLET BY MOUTH TWICE DAILY 12 Tab 0 06/19/2017 Active Additional Information Patient taking differently: TAKe two TABLETs BY MOUTH TWICE DAILY, Reported on 02/05/2018 ondansetron ODT (ZOFRAN) 4 MG TBDP DISSOLVE ONE TABLET IN MOUTH EVERY EIGHT HOURS NEEDED 30 Tab 1 08/09/2017 Active furosemide (LASIX) 20 MG Tablet Take 20 mg by mouth daily. 0 Active amLODIPine (NORVASC) 5 MG Tablet 0 01/21/2018 Active Ferrous Sulfate (IRON) 325 (65 Fe) MG TABS 2 times a day. 0 Active oxyCODONE HCl 10 MG Oral Tablet (Roxicodone) 0 06/13/2021 Active Meclizine HCl 25 MG Oral Tablet (Antivert) 0 06/01/2021 Active Econazole Nitrate 1 % External Cream (Spectazole) Apply to rash on buttocks and under abdominal folds twice daily 85 g 2 09/19/2021 Active documented as of this encounter (statuses as of 07/26/2023) Active Problems Problem Noted Date Diagnosed Date Pneumonia due to COVID-19 virus 06/19/2020 Memory deficit 06/19/2020 Carpal tunnel syndrome of left wrist 08/07/2018 Hyperlipidemia with target LDL less than 130 01/2017 H/O gastric bypass 09/07/2016 MCCLAIN (nonalcoholic steatohepatitis) 09/07/2016 HTN, goal below 140/90 09/07/2016 Lumbar degenerative disc disease 09/07/2016 DDD (degenerative disc disease), cervical 2016 Asthma in remission 09/07/2016 Glucose intolerance (impaired glucose tolerance) 09/07/2016 MEDICATION USE AGREEMENT 09/06/2016 Overview: Med use agreement discussed with pt. She did not want to sign while in the office she needed to talk with her regarding the approved people to worm picker the rxs. She will sign and bring back to the clinic Candidiasis of skin 09/06/2016 documented as of this encounter (statuses as of 07/26/2023) Immunizations Name Administration Dates Next Due Pneumococcal Polysaccharide PPV23 (Pneumovax) Seasonal Influenza, Split, IIV3, With Preserve, Inj 05/23/2011 documented as of this encounter Social History Tobacco Use Types Packs/Day Years Used Date Smoking Tobacco: Former Cigarettes Q uit: 07/05/2004 Smokeless Tobacco: Never Comments:states she smoked " off and on" quit 2004 Alcohol Use Standard Drinks/Week Comments No 0 (1 standard drink = 0.6 oz pur e alcohol) PHQ-2 Answer Date Recorded PHQ-2 Score 0 04/07/2018 Sex and Gender Information Value Date Recorded Sex Assigned at Female 09/19/2021 2:48 PM EDT Gender Identity Female 09/19/2021 2:48 PM EDT Sexual Orientation Straight 09/19/2021 2: 48 PM EDT Job Start Date Occupation Industry Not on file Not on file Not on file documented as of this encounter Functional Status Functional Status Response Date of Assess ment Are you deaf or do you have serious difficulty h earing? Yes 10/19/2014 Are you blind or do you have serious difficulty seeing, even when wearing glasses? No 10/19/2014 Do you have serious difficul ty walking or climbing stairs? (5 years old or older) No 10/19/2014 Do you have difficulty dress ing or bathing? (5 years old or older) No 10/19/2014 Because of a physical, menta l, or emotional condition, do you have difficulty doing errands alone such as visiting a doctor s office or shopping? (15 years old or older) No 10/20/19 15 Cognitive Status Response Date of Assessm ent Because of a physical, menta l, or emotional condition, do you have serious difficulty concentrating, remembering, or making decisions? (5 years old or older) Yes-sometimes 10/19/2014 documented as of this encounter Plan of Treatment Upcoming Encounters Date Type Department Care Team (Late st Contact Info) Description 07/30/2023 3:30 PM EST Imaging Radiology, [place] [address] [place] [address] Scheduled Orders Name Type Priority Associated Diagnoses Orde r Schedule MRI BRAIN W WO CONTRAST Medical Imaging Routine Disorientation, unspecified Dizziness and giddiness Expected: 07/26/2023 (Approximate), Expires: 08/23/2024 Scheduled Procedures Name Priority Associated Diagnoses Date/Ti me COLONOSCOPY FLEXIBLE PROXIMA L DIAGNOSTIC Recall History of colonic polyps Health Maintenance Due Date Last Done Comments HIV Screening 1978 Albumin/Creatinine Ratio 1981 Hepatitis C Screening 1981 DTaP,Tdap,and Td Vaccines (1 - Tdap) 1982 Zoster Vaccines (1 of 2) 2013 Pneumococcal Vaccine: Pediatrics (0 to 5 Years) and At-Risk Patients (6 to 64 Years) (2 of 2 - PCV) 05/23/2013 05/23/2012 DXA Scan 12/12/2016 12/12/2013 Depression Screening 05/15/2018 05/15/2017 COVID-19 Vaccine ( - 24 season) 2023 Influenza Vaccine (FLU shot) (#1) 2023 05/23/2011 Mammogram 04/12/2023 04/12/2022, 04/0 12/2016, 12/12/2013 COLONOSCOPY-EVERY 5 YRS AGES 18-100 10/03/2023 10/02/2018, 10/02/2018 GFR 01/30/2024 01/29/2023, 08/02, 04/13/2021, Additional history exists Lipid Panel 01/30/2028 01/29/2023, 08/02, 04/13/2021, Additional history exists Pap Smear Discontinued 04/17/2017 (Discussed) GARDASIL-HPV IMMUNIZATION SERIES Aged Out No longer eligible based on patient's age to complete this topic Hepatitis B Aged Out No longer eligi ble based on patient's age to complete this topic MENINGOCOCCAL (MENACTRA/MENVEO) Aged Out No longer eligible based on patient's age to complete this topic documented as of this encounter Medical Devices Implanted Type Area Building Construction Inspector Device Identifier Shelf Expiration Date Model / Serial / Lot Cement Bone Lv [id number] - [id number] Implanted:Qty: 2 on 10/19/2014 by Alonzo Mabry MD at OR [facility] Right: Knee [employer] 06/04/2016 [id number] / / [id number] Persona Femur Implanted:Qty: 1 on 10/19/2014 by Alonzo Mabry MD at OR [facility] Right: Knee [employer] 10/03/2023 [id number] / / [id number] Persona Natural Tibia Implanted:Qty: 1 on 10/19/2014 by Alonzo Mabry MD at OR [facility] Right: Knee [employer] 08/02/2024 [id number] / / [id number] Persona All-Poly Patella Implanted:Qty: 1 on 10/19/2014 by Alonzo Mabry MD at OR [facility] Right: Knee [employer] 03/04/2019 [id number] / / [id number] Persona Articular Surface Implanted:Qty: 1 on 10/19/2014 by Alonzo Mabry MD at OR [facility] Right: Knee [employer] 07/05/2017 [id number] / / [id number] documented as of this encounter Visit Diagnoses Diagnosis Disorientation, unspecified- Primary Dizziness and giddiness documented in this encounter Advance Directives Latest Code Status on File Code Status Date Activated Date Inactivated Comments Full Code 06/19/2020 7:08 PM 06/20/2020 4:46 PM This order reflects the patients wishes and were consensually agreed upon. Question Answer Comments Discussion of Advance Directives occurred with: Patient Does the patient have a Living Will? No Does the patient have Health Care Power of Inspectors And Regulatory Officers? No Code Status History Code Status Date Activated Date Inactivated Comments Full Code 08/08/2018 9:17 AM 08/08/2018 2:17 PM This or aida reflects the patients wishes and were consensually agreed upon. Question Answer Comments Discussion of Advance Directives occurred with: Not Discussed Full Code 02/12/2018 8:30 AM 02/12/2018 3:58 PM This order reflects the patients wishes and were consensually agreed upon. Full Code 10/19/2014 11:00 AM 10/22/2014 5:15 PM . Question Answer Comments Discussion of Advance Directives occurred with: Not Discussed Care Teams Rod Mill Operator Relationship Specialty Start Date End Date Larry Gonzalez DO [address] [facility] [place] [address] PCP - General Family Medicine 04/09/22 documented as of this encounter
== END 2023-07-27 17:31 | disposition home or self-care (01) | DRG 683 ==
LOC: ED 14:58 → 2W 21:13 → SUATTDRO 21:13 → 2W 07-27 00:01

== ENCOUNTER 2023-08-15 10:08 | Observation (INO) ==
--- NOTE | 2023-07-26 14:25 | Anesthesiology Consultation ---
Date of Service July 26, 2023 Assessment & Plan (1) Encounter for pre-operative examination: Plan - awaiting ER [facility] report. Patient will need [place] PCP pre-operative evaluation prior to proceeding with surgery. - I entered exam room and patient was resting comfortably in chair in NAD, alert and oriented, responding appropriately; accompanied by her . She had reportedly gone to sit on stool in room from patient chair and fell off stool during PAT RN phone call per patient and her . She tells me that she went to sit at the edge of the stool for her feet to touch the ground and the stool slid out from under her. She denies dizziness or lightheadedness, reports mild gluteal discomfort. I noticed bruising of her right cheek and chin and inquired if she hit head. She denies hitting head in PAT clinic, states that she did fall forward hitting her head 2 days ago after seeing her PCP, denies seeking medical evaluation. She has been experiencing headaches since fall. Denies dizziness or lightheadedness, nausea, vomiting, visual changes, changed numbness or weakness, her denies confusion. I discussed with patient and her concern for reported symptoms at PCP visit 2 days ago, head injury and new headaches; associated risks and needing further evaluation in ER. Patient and her verbalized understanding and agreement. She remained stable, was given medicatio n instructions, chlorhexidine wipes and wipe instructional paper. PAT testing and note to be done in future pending ER evaluation. Patient was transported to ER via wheelchair. Surgeon's office, Danny made aware patient was transported to ER. Detailed report called to Sydni, with [facility] ER. - PCP office visit 07/24/23 [place]: "...follow up and pre op with her . she is having her left knee replaced on 08/[address] felix. she is having her pat done on . she did have an mri of her knee with u. she is not having any chest pain or sob. she has been more lightheaded and dizzy for the past week. she has been having difficulty with her speech. no facial droop or slurred speech. she has been dropping things more frequently. she started with numbness on the top of her left foot today. it is gone now. we did discuss it could be coming from her back. she is going to opthalmology [sic] on sunday to have her film removed from her eyes from her cataract surgery. she has not been to [facility] for her pain pump yet. she is going to have her knee done first. her pain is stable on her oxycodone. her bowels are moving. no melena or hematochezia. her stomach has been stable on her meds...to have her mri of her brain to rule out stroke...to continue with her current meds...to have her pat testing on to get her cleared..." - Outpatient joint assessment: Patient is currently scheduled for inpatient pathway. If re-evaluated and patient/surgeon requests outpatient pathway, patient is not candidate for outpatient joint program from anesthesia standpoint Chart Review Chart Review: Pending: Refer to Additional Notes / Consult section and Patient seen in Pre Admission Testing Teaching & Discussion Pre-Anesthesia Teaching/Discussion Notes: Instructed NPO after midnight before surgery, except medications with 15 cc of water. Medication instructions provided according to the PAT guidelines. History Surgery Operation Date: 08/15/23 09:35 Proposed Procedures p Left Total Knee Arthroplasty - Kwasi Felix MD Height/Weight Height: 4 ft 10 in Weight: 65 kg Allergies Allergy/AdvReac Type Severity Reaction Status Date / Time carisoprodol Allergy Intermediate HALLUCINATI Verified 07/26/23 14:17 ONS Penicillins Allergy Intermediate Hives Verified 07/26/23 14:17 aspirin Allergy Unknown NOT TO Verified 07/26/23 14:17 TAKE S/P GATRIC BYPASS clarithromycin [From Biaxin] Allergy Unknown Unknown Verified 07/26/23 14:17 glycopyrrolate [From Robinul] Allergy Unknown Unknown Verified 07/26/23 14:17 oxymorphone Allergy Unknown Unknown Verified 07/26/23 14:17 lactose AdvReac Mild Gastrointestinal Verified 07/26/23 14:17 Upset Medications Home Medications Medication Instructions Recorded Confirmed Last Taken ferrous sulfate 325 mg (65 mg 325 mg PO BID 10/23/19 07/26/23 01/16/22 iron) tablet multivitamin (Multiple Vitamins 1 tab PO BID #90 tabs 06/22/20 07/26/23 01/16/22 tablet) buspirone 15 mg tablet 15 mg PO TID #90 tabs 05/07/26/23 01/31/22 bupropion HCl 150 mg tablet,12 hr 150 mg PO QAM 01/13/22 07/26/23 01/31/22 sustained-release diclofenac sodium 1 % topical gel 2 gm topical QID PRN Pain 01/13/22 07/26/23 Unknown calcium citrate 200 mg (950 mg) 200 mg PO DAILY 05/15/22 07/26/23 Unknown tablet montelukast 10 mg tablet 10 mg PO HS #90 tabs 01/16/23 07/26/23 Unknown pravastatin 40 mg tablet 40 mg PO QAM #90 tabs 02/08/23 07/26/23 Unknown metoprolol succinate 100 mg 100 mg PO QAM #90 tabs 02/16/23 07/26/23 Unknown tablet,extended release 24 hr ketoconazole 1 % shampoo (Nizoral 1 applic topical .twice daily #125 03/29/23 07/26/23 Unknown A-D) mL docusate sodium 100 mg capsule 100 mg PO BID PRN Constipation 05/22/23 07/26/23 Unknown (Colace) nystatin-triamcinolone 100,000 1 applic topical BID PRN Rash 05/22/23 07/26/23 Unknown unit/g-0.1 % topical cream furosemide 20 mg tablet 20 mg PO QAM #90 tabs 05/24/23 07/26/23 Unknown cyclobenzaprine 10 mg tablet 10 mg PO TID #90 tabs 06/18/23 07/26/23 Unknown gabapentin 600 mg tablet 600 mg PO TID #90 tabs 06/24/23 07/26/23 Unknown lorazepam 0.5 mg tablet 0.5 mg PO HS #30 tabs 06/24/23 07/26/23 Unknown meclizine 25 mg tablet 25 mg PO TID PRN dizziness #90 tabs 06/25/23 07/26/23 Unknown oxycodone 10 mg tablet 10 mg PO Q6H PRN pain #60 tabs 06/28/23 07/26/23 Unknown sucralfate 1 gram tablet 1 g PO QID #120 tabs 07/07/23 07/26/23 Unknown nystatin 100,000 unit/gram topical 1 applic topical BID PRN yeast #60 07/10/23 07/26/23 Unknown powder grams ondansetron 4 mg disintegrating 4 mg PO TID PRN nausea and 07/18/23 07/26/23 Unknown tablet vomiting #30 tabs sulfamethoxazole 800 1 tab PO BID #20 tabs 07/19/23 07/26/23 Unknown mg-trimethoprim 160 mg tablet (Bactrim DS) cetirizine 5 mg-pseudoephedrine ER 1 tab PO BID PRN Congestion 07/26/23 07/26/23 Unknown 120 mg tablet,extended release,12hr lisinopril 10 mg tablet 10 mg PO QAM 07/26/23 07/26/23 Unknown pantoprazole 40 mg tablet,delayed 40 mg PO QAM 07/26/23 07/26/23 Unknown release Past Medical History Medical History (Updated 07/26/23 @ 14:44 by Lela Obrien, SARAH) Anxiety disorder Arthritis Asthma no inhalers, well controlled per pt Cervical post-laminectomy syndrome Depression DVT (deep venous thrombosis) 2020 > can't recall which leg > no longer on thinner > s/p fall Enlarged liver hx > resolved per pt GERD (gastroesophageal reflux disease) History of COVID-19 06/29/20 HOSPITALIZED WITH PNEUMONIA [facility] RAMIREZZunilda 06/2021 RECOVERED AT HOME History of urinary retention "just happens when I take too many pain pills" HTN (hypertension) Hyperlipidemia MCCLAIN (nonalcoholic steatohepatitis) hx Opioid dependence with current use Postlaminectomy syndrome of lumbosacral region Spinal stenosis Past Family History Family History Father Diabetes Heart problem Cancer Other No family history of adverse response to anesthesia Past Surgical History Surgical History (Updated 07/26/23 @ 14:32 by Lela Obrien RN) History of appendectomy History of arthroscopy of knee right History of back surgery x3 total > 06/02/19 Dr. Simon Templeton at [facility]- Midline prone multilevel osteotomies, Correction of flat back deformity, Extension of fusion to T9, T10, and T11 kyphoplasty History of cataract surgery bilat History of section x4 History of cholecystectomy History of colonoscopy History of esophagogastroduodenoscopy History of gastric bypass History of hysterectomy History of neck surgery ACDF > has trouble tilting head back for long periods History of surgery on right wrist History of tonsillectomy and adenoidectomy History of tooth extraction Nausea and vomiting after administration of anesthetic agent History of PONV History of PONV Social History Smoking Status: Former smoker Do You Dip or Chew Tobacco: No Hx Alcohol Use: No Hx Substance Use: No substance use type: prescription drug
--- NOTE | 2023-07-26 14:37 | PAT Medication Instructions ---
Medication Instructions Date of Service July 26, 2023 Home Medications Medication Instructions Recorded multivitamin (Multiple Vitamins 1 tab PO BID #90 tabs 06/22/20 tablet) buspirone 15 mg tablet 15 mg PO TID #90 tabs 10/20/21 montelukast 10 mg tablet 10 mg PO HS #90 tabs 01/16/23 pravastatin 40 mg tablet 40 mg PO QAM #90 tabs 02/08/23 metoprolol succinate 100 mg 100 mg PO QAM #90 tabs 02/16/23 tablet,extended release 24 hr ketoconazole 1 % shampoo (Nizoral 1 applic topical .twice daily #125 03/29/23 A-D) mL furosemide 20 mg tablet 20 mg PO QAM #90 tabs 05/24/23 cyclobenzaprine 10 mg tablet 10 mg PO TID #90 tabs 06/18/23 gabapentin 600 mg tablet 600 mg PO TID #90 tabs 06/24/23 lorazepam 0.5 mg tablet 0.5 mg PO HS #30 tabs 06/24/23 meclizine 25 mg tablet 25 mg PO TID PRN dizziness #90 tabs 06/25/23 oxycodone 10 mg tablet 10 mg PO Q6H PRN pain #60 tabs 06/28/23 sucralfate 1 gram tablet 1 g PO QID #120 tabs 07/07/23 nystatin 100,000 unit/gram topical 1 applic topical BID PRN yeast #60 07/10/23 powder grams ondansetron 4 mg disintegrating 4 mg PO TID PRN nausea and 07/18/23 tablet vomiting #30 tabs sulfamethoxazole 800 1 tab PO BID #20 tabs 07/19/23 mg-trimethoprim 160 mg tablet (Bactrim DS) ferrous sulfate 325 mg (65 mg iron) tablet 325 mg PO BID multivitamin (Multiple Vitamins tablet) 1 tab PO BID buspirone 15 mg tablet 15 mg PO TID bupropion HCl 150 mg tablet,12 hr sustained-release 150 mg PO QAM diclofenac sodium 1 % topical gel 2 gm topical QID PRN calcium citrate 200 mg (950 mg) tablet 200 mg PO DAILY montelukast 10 mg tablet 10 mg PO HS pravastatin 40 mg tablet 40 mg PO QAM metoprolol succinate 100 mg tablet,extended release 24 hr 100 mg PO QAM ketoconazole 1 % shampoo (Nizoral A-D) 1 applic topical .twice daily docusate sodium 100 mg capsule (Colace) 100 mg PO BID PRN nystatin-triamcinolone 100,000 unit/g-0.1 % topical cream 1 applic topical BID PRN furosemide 20 mg tablet 20 mg PO QAM cyclobenzaprine 10 mg tablet 10 mg PO TID gabapentin 600 mg tablet 600 mg PO TID lorazepam 0.5 mg tablet 0.5 mg PO HS meclizine 25 mg tablet 25 mg PO TID PRN oxycodone 10 mg tablet 10 mg PO Q6H PRN sucralfate 1 gram tablet 1 g PO QID nystatin 100,000 unit/gram topical powder 1 applic topical BID PRN ondansetron 4 mg disintegrating tablet 4 mg PO TID PRN sulfamethoxazole 800 mg-trimethoprim 160 mg tablet (Bactrim DS) 1 tab PO BID cetirizine 5 mg-pseudoephedrine ER 120 mg tablet,extended release,12hr 1 tab PO BID PRN lisinopril 10 mg tablet 10 mg PO QAM pantoprazole 40 mg tablet,delayed release 40 mg PO QAM STOP taking 24 hours before surgery diclofenac sodium 1 % topical gel 2 gm topical QID PRN ketoconazole 1 % shampoo (Nizoral A-D) 1 applic topical .twice daily nystatin-triamcinolone 100,000 unit/g-0.1 % topical cream 1 applic topical BID PRN nystatin 100,000 unit/gram topical powder 1 applic topical BID PRN DO NOT take the morning of surgery ferrous sulfate 325 mg (65 mg iron) tablet 325 mg PO BID multivitamin (Multiple Vitamins tablet) 1 tab PO BID calcium citrate 200 mg (950 mg) tablet 200 mg PO DAILY docusate sodium 100 mg capsule (Colace) 100 mg PO BID PRN furosemide 20 mg tablet 20 mg PO QAM sucralfate 1 gram tablet 1 g PO QID cetirizine 5 mg-pseudoephedrine ER 120 mg tablet,extended release,12hr 1 tab PO BID PRN lisinopril 10 mg tablet 10 mg PO QAM Take morning of surgery With a small sip of water, OTHERWISE NOTHING TO EAT OR DRINK AFTER MIDNIGHT: buspirone 15 mg tablet 15 mg PO TID bupropion HCl 150 mg tablet,12 hr sustained-release 150 mg PO QAM pravastatin 40 mg tablet 40 mg PO QAM metoprolol succinate 100 mg tablet,extended release 24 hr 100 mg PO QAM cyclobenzaprine 10 mg tablet 10 mg PO TID gabapentin 600 mg tablet 600 mg PO TID meclizine 25 mg tablet 25 mg PO TID PRN(if needed) oxycodone 10 mg tablet 10 mg PO Q6H PRN(if needed) ondansetron 4 mg disintegrating tablet 4 mg PO TID PRN(if needed) sulfamethoxazole 800 mg-trimethoprim 160 mg tablet (Bactrim DS) 1 tab PO BID pantoprazole 40 mg tablet,delayed release 40 mg PO QAM Take evening before surgery ferrous sulfate 325 mg (65 mg iron) tablet 325 mg PO BID multivitamin (Multiple Vitamins tablet) 1 tab PO BID buspirone 15 mg tablet 15 mg PO TID montelukast 10 mg tablet 10 mg PO HS docusate sodium 100 mg capsule (Colace) 100 mg PO BID PRN(if needed) cyclobenzaprine 10 mg tablet 10 mg PO TID gabapentin 600 mg tablet 600 mg PO TID lorazepam 0.5 mg tablet 0.5 mg PO HS meclizine 25 mg tablet 25 mg PO TID PRN(if needed) oxycodone 10 mg tablet 10 mg PO Q6H PRN(if needed) sucralfate 1 gram tablet 1 g PO QID ondansetron 4 mg disintegrating tablet 4 mg PO TID PRN(if needed) sulfamethoxazole 800 mg-trimethoprim 160 mg tablet (Bactrim DS) 1 tab PO BID cetirizine 5 mg-pseudoephedrine ER 120 mg tablet,extended release,12hr 1 tab PO BID PRN Other Notes If you have any questions please call us at [phone] or [phone] or [phone] or [phone]
--- NOTE | 2023-08-12 19:46 | History & Physical Report ---
Date of Service August 12, 2023 Assessment & Plan (1) Primary osteoarthritis of left knee: Plan: Treatment options discussed with the patient. She would like to proceed with surgery. Risks, benefits and alternatives to surgery including but not limited to infection, DVT, pain, stiffness, need for revision surgery, damage to blood vessels, damage to nerves, PE, , were discussed with the patient and they wish to proceed. Plan on left total knee arthroplasty scheduled for August 14 at [facility] with Dr. Felix. Plan on Xarelto postop for DVT prophylaxis. Plan on home health therapy. All questions answered. Patient follow-up postop. History of Present Illness Chief Complaint: Left knee pain Primary Care Provider: Larry Gonzalez DO 58-year-old female with past medical history significant for hypertension, DVT, MCCLAIN, asthma, who presents with ongoing left knee pain. Pain is interfering with her daily activities. She has failed conservative measures and would like to proceed with surgery. Patient denies headaches, sweats, fevers, chills, double vision, blurred vision, cough, sore throat, dysphagia, chest pain, sob, wheezing, n/v/d/c, numbness, tingling, fatigue, urinary symptoms, mood disorders. ROS positive for left knee pain and stiffness. Allergies Allergy/AdvReac Type Severity Reaction Status Date / Time carisoprodol Allergy Intermediate HALLUCINATI Verified 08/10/23 13:33 ONS Penicillins Allergy Intermediate Hives Verified 08/10/23 13:33 aspirin Allergy Unknown NOT TO Verified 08/10/23 13:33 TAKE S/P GATRIC BYPASS clarithromycin [From Biaxin] Allergy Unknown Unknown Verified 08/10/23 13:33 glycopyrrolate [From Robinul] Allergy Unknown Unknown Verified 08/10/23 13:33 oxymorphone Allergy Unknown Unknown Verified 08/10/23 13:33 lactose AdvReac Mild Gastrointestinal Verified 08/10/23 13:33 Upset sulfamethoxazole AdvReac Verified 08/10/23 13:33 [From Bactrim] trimethoprim [From Bactrim] AdvReac Verified 08/10/23 13:33 Home Medications Medication Instructions Recorded Confirmed Type ferrous sulfate 325 mg (65 mg 325 mg PO BID 10/23/19 08/10/23 History iron) tablet multivitamin (Multiple Vitamins 1 tab PO BID #90 tabs 06/22/20 08/10/23 Rx tablet) buspirone 15 mg tablet 15 mg PO TID #90 tabs 10/20/21 08/10/23 Rx bupropion HCl 150 mg tablet,12 hr 150 mg PO QAM 01/13/22 08/10/23 History sustained-release diclofenac sodium 1 % topical gel 2 gm topical QID PRN Pain 01/13/22 08/10/23 History calcium citrate 200 mg (950 mg) 200 mg PO DAILY 05/15/22 08/10/23 History tablet montelukast 10 mg tablet 10 mg PO HS #90 tabs 01/16/23 08/10/23 Rx pravastatin 40 mg tablet 40 mg PO QAM #90 tabs 02/08/23 08/10/23 Rx ketoconazole 1 % shampoo (Nizoral 1 applic topical .twice daily #125 03/29/23 08/10/23 Rx A-D) mL docusate sodium 100 mg capsule 100 mg PO BID PRN Constipation 05/22/23 08/10/23 History (Colace) nystatin-triamcinolone 100,000 1 applic topical BID PRN Rash 05/22/23 08/10/23 History unit/g-0.1 % topical cream furosemide 20 mg tablet 20 mg PO QAM #90 tabs 05/24/23 08/10/23 Rx cyclobenzaprine 10 mg tablet 10 mg PO TID #90 tabs 06/18/23 08/10/23 Rx nystatin 100,000 unit/gram topical 1 applic topical BID PRN yeast #60 07/10/23 08/10/23 Rx powder grams lisinopril 10 mg tablet 10 mg PO QAM 07/26/23 08/10/23 History oxycodone 10 mg tablet 10 mg PO Q6H PRN pain #60 tabs 07/30/23 08/10/23 Rx meclizine 25 mg tablet 25 mg PO TID PRN dizziness #90 tabs 08/03/23 08/10/23 Rx ondansetron 4 mg disintegrating 4 mg PO TID PRN nausea and 08/03/23 08/10/23 Rx tablet vomiting #30 tabs gabapentin 600 mg tablet 600 mg PO TID #90 tabs 08/06/23 08/10/23 Rx metoprolol succinate 100 mg 100 mg PO QAM #90 tabs 08/06/23 08/10/23 Rx tablet,extended release 24 hr pantoprazole 40 mg tablet,delayed 40 mg PO QAM #90 tabs 08/06/23 08/10/23 Rx release sucralfate 1 gram tablet 1 g PO QID #120 tabs 08/06/23 08/10/23 Rx lorazepam 0.5 mg tablet 0.5 mg PO HS #30 tabs 08/07/23 08/10/23 Rx Walking Cane #1 ea 08/10/23 08/10/23 Rx Past Med/Surg History Medical History MCCLAIN (nonalcoholic steatohepatitis) Depression Asthma Enlarged liver Arthritis Spinal stenosis History of urinary retention GERD (gastroesophageal reflux disease) Hyperlipidemia DVT (deep venous thrombosis) HTN (hypertension) History of COVID-19 Opioid dependence with current use Anxiety disorder Cervical post-laminectomy syndrome Postlaminectomy syndrome of lumbosacral region Surgical History History of colonoscopy History of tooth extraction History of surgery on right wrist History of cataract surgery Nausea and vomiting after administration of anesthetic agent History of back surgery History of tonsillectomy and adenoidectomy History of appendectomy History of gastric bypass History of neck surgery History of hysterectomy History of esophagogastroduodenoscopy History of cholecystectomy History of section History of arthroscopy of knee Family History Father Diabetes Heart problem Cancer Other No family history of adverse response to anesthesia Social History Smoking Status: Former smoker Second Hand Exposure: No; Do You Dip or Chew Tobacco: No; Hx Alcohol Use: No Hx Substance Use: No Preferred Language: Palestinian Communication Ability: Effective Hearing Ability: Use of Hearing Aid Shagger Required: No Beliefs That Will Affect Care: None marital status: Current Living Situation: Spouse and Family Current Living Situation Comment: LIVES WITH SPOUSE, ADULT SON current occupational status: disabled Feels Safe at Home: Yes Assistive Devices: Cane, Glasses and Hearing Aid - Bilateral Review of Systems All systems reviewed & are unremarkable except as noted in HPI & below Physical Exam Constitutional: well developed and well nourished; no acute distress Eyes: PERRL, conjunctivae normal, anicteric sclerae ENMT: external ear and nose normal, oropharynx normal Neck: trachea midline, no thyromegaly Respiratory: normal respiratory effort, lungs clear to auscultation Cardiovascular: RRR, no murmur, no edema Musculoskeletal: Left knee: Mild effusion. Tenderness medial joint line. Positive Guillermina's. Stable to varus and valgus stress test. Range of motion 0 to 115 degrees. Skin: no rashes, warm and dry Neurologic: patellar DTR's 2+ bilat, sensation intact Psychiatric: A+Ox3, euthymic affect Results & Data Diagnostic Findings Left knee radiographs demonstrate end-stage osteoarthritis left knee, bone-on- bone medial compartment. There is periarticular osteophytes.
[~2023-08-15 10:08] MED LIST: BUPIVACAINE 0.25% PF 30 ML VIAL ONE; BUPIVACAINE 0.5 % 5 MG/1 ML PF 10ML VIAL ONE; MIDAZOLAM HCL 1 MG/ML 2ML VIAL ONE
[2023-08-15 11:02] LABS: Partial Thromboplastin Ratio 0.9; Partial Thromboplastin Time 25 Seconds (21-31)
[2023-08-15] MEDS ORDERED: EPINEPHrine INJ 1 MG/ML AMP ONE (11:08)
[2023-08-15] MEDS: LR 60ML/HR IV SCH (11:08)
[2023-08-15] MEDS ORDERED: ROPIVACAINE 0.5% 5 MG/ML 30 ML VIAL ONE (11:08)
[2023-08-15] MEDS: LR 500ML BOLUS, THEN 15ML/HR IV SCH (11:08)
[2023-08-15] MEDS: GABAPENTIN 600 MG DOSE PO SCH (11:09)
[2023-08-15] MEDS: FAMOTIDINE 20 MG TAB PO SCH (11:10)
[2023-08-15] MEDS: METOCLOPRAMIDE HCL 10 MG TABLET PO SCH (11:11)
[2023-08-15] MEDS: dexAMETHasone**PF** 10 MG/ML VIAL IV SCH (11:11)
--- NOTE | 2023-08-15 11:22 | History & Physical Bridge Note ---
Date of Service August 15, 2023 History & Physical Bridge Note I have examined the patient, reviewed the History & Physical and in the interval since the performance of the History & Physical I have noted the following changes of clinical significance: no changes noted
[2023-08-15] MEDS ORDERED: fentaNYL citrate PF 100 MCG/2 ML VIAL ONE ×2 (11:29→13:10)
[2023-08-15] MEDS: TRANEXAMIC ACID 1,000 MG **IV Pre-op IV SCH (11:30)
[2023-08-15] MEDS: ceFAZolin 2000MG 2,000 MG/15 ML SYR IV SCH (11:38)
[2023-08-15] MEDS ORDERED: ONDANSETRON INJ 2 MG/ML 2 ML VIAL ONE (12:06)
[2023-08-15] MEDS ORDERED: DEXAMETHASONE SOD INJ 4 MG/ML VIAL ONE (12:06)
[2023-08-15] MEDS ORDERED: PROPOFOL IV EMULSION 10 MG/ML 20 ML VIAL IV ONE ×2 (12:06→13:25)
[2023-08-15] MEDS ORDERED: diphenhydrAMINE 50 MG/ML VIAL ONE (12:10)
[2023-08-15] MEDS: ORTHO JOINT ANESTHETIC ONE (12:17)
[2023-08-15] MEDS: TRANEXAMIC ACID 1,000 MG **IV Intra-op IV SCH (13:10)
[2023-08-15] MEDS: ROPIVACAINE 0.5% HCL/PF 246 MG, EPINEPHrine 30MG/30ML (OR USE) 0.5 MG in SODIUM CHLORID... INFIL SCH (13:11)
--- NOTE | 2023-08-15 13:55 | Operative Report ---
Post Operative Report Pre & Post Diagnosis Operation Date: 08/15/23 11:25 Pre-Op Diagnosis: Left Knee Osteoarthritis Post-Op Diagnosis: Left Knee Osteoarthritis I identified the patient and participated in the time-out.: Yes Procedure Operation Date: 08/15/23 11:25 Actual Procedures p Left Total Knee Arthroplasty(Left), lateral release, kendrick and Acticoat superficial wound VAC application- Kwasi Felix MD Surgeon Kwasi Felix MD Medical Diagnostic Radiographer Tomer GREGG Estimated Blood Loss 5 Findings Consistent with Post-Op Diagnosis Specimens Bone cuts Drains 2 Hemovac Anesthesia Type General Regional Complications none Disposition Disposition: Recovery Room Indications 58-year-old female with chronic left knee pain failed conservative management. Patient history of knee replacement right knee but ended up with arthrofibrosis and knee stiffness. Patient does not feel she can live with her left knee at this time and wants to proceed with knee replacement. Radiographs demonstrate [id number] medial compartment with tricompartmental osteoarthritic changes. Description of Procedure The patient was taken to the operating room and anesthetized under general regional block anesthetic. Patient was placed supine on the the operating table. A pneumatic tourniquet was placed about the left upper thigh. The knee exam demonstrated 0 through 120 degrees range of motion. Opposite knee was 0 to 70 degrees range of motion. Left knee had a varus knee no pseudolaxity moderate effusion crepitation range of motion.. The involved leg was elevated exsanguinated with Esmarch bandage and the pneumatic tourniquet was raised to 325 millimeters mercury. A longitudinal incision was made across the anterior knee. Skin flaps were elevated. An incision was made into the medial retinaculum and extended up into the mid third of the quadriceps tendon and extended down to the tibial tubercle. Intra-articular findings demonstrated degeneration of the ACL with partial tearing with large radial tear posterior horn medial meniscus with [id number] medial compartment grade 4 osteoarthritis in the lateral femoral condyle as well and grade 3-4 medial facet patellofemoral osteoarthritis. The knee was exposed by excising cruciate ligaments and menisci. The infrapatellar fat pad was resected. The fat pad over the anterior femur at the upper aspect of the articular surface was resected for placement of the component in that area. A subperiosteal peel lateral release was performed around the patella. The [employer] journey 2.0 total knee arthroplasty system was utilized for the procedure. Also utilized with the aqua mantis for hemostasis throughout the procedure as well as electrocautery when needed. The custom femoral cutting guide was pinned in position. The distal femoral cut was made. The size 4, 5 in 1 cutting block was placed. The anterior posterior and chamfer cuts were made. The knee was extended and a free hand cut technique was performed to the patella. The patella width was measured and the width was reproduced using a 32 symmetrical patella component. The excess lateral facet was beveled off to prevent any impingement. 3 drill holes are made for the patella component pegs. The tibia was then subluxed. The custom tibial cutting block was pinned in position and the proximal tibial cut was made with the oscillating saw. Flexion and extension gaps were balanced. Medial posterior medial and piecrust MCL releases were required. The size 2 tibial trial was externally rotated in line with the tibial tubercle and pinned in position. The punch for the stem was used. The femoral trial was inserted and centered the notch cutting devices were used and the collet was placed. Tibial trials were used for the insert. The size 11 trial gave balanced ligaments through full range of motion. Patella tracking was assessed with range of motion. The patella tracked with some lateral patellar tilt and slight lift off so I did a lateral release leaving the synovium intact and the patella tracked centrally.. The trials were removed. The Orthomix anesthetic cocktail was injected per protocol. The cut bone surfaces and soft tissue were copiously irrigated with pulsatile lavage saline solution. The final components were cemented with Refobacin cement. The final components were [employer] journey 2.0 size 4 left posterior stabilized femoral component, size 2 left tibial component, 11 mm left posterior stabilized tibial polyethylene and a 32 mm symmetrical patella. Xperience irrigation was placed over metal tray prior to polyethyle insertion. After the cement cured, the knee was then copiously irrigated with pulsatile lavage Xperience solution. 2 drains were brought out laterally connected to Hemovac. The quadriceps tendon and medial retinaculum were closed with interrupted [id number] #1 Vicryl sutures. The knee was taken through full range of motion and repair was secure. Knee range of motion was 0 through 130 degrees. the subcutaneous tissues were closed with 2-0 Vicryl sutures. The skin was closed with surgical peter. A kendrick and Acticoat superficial wound VAC was applied. The tourniquet was let down and the patient had good capillary refill to the extremity. The patient tolerated the procedure well. My physician water quality assistant Tomer GREGG participated as assistant teacher primary and was integral part in all aspects of the procedure including prepping, draping, leg positioning, soft tissue retraction, instrument management and assisted in the c losure , superficial wound VAC application and will participate in postoperative care the patient. I attest to the content of the Intraoperative Record and any orders documented therein. Any exceptions are noted below.
[2023-08-15] MEDS ORDERED: LABETALOL HCL IV 5 MG/ML 20ML IV PRN (14:32)
[2023-08-15] MEDS ORDERED: ATROPINE SULFATE 0.1 MG/ML 10ML SYR IV PRN (14:32)
[2023-08-15] MEDS ORDERED: NALOXONE HCL 0.4 MG/1 ML VIAL/CARP IV PRN ×2 (14:32→15:22)
[2023-08-15] MEDS ORDERED: fentaNYL citrate PF 100 MCG/2 ML VIAL IV PRN (14:32)
[2023-08-15] MEDS ORDERED: ONDANSETRON INJ 2 MG/ML 2 ML VIAL IV PRN ×2 (14:32→15:22)
[2023-08-15] MEDS ORDERED: ePHEDrine sulfate 50 MG/ML AMP IV PRN (14:32)
[2023-08-15] MEDS ORDERED: PROMETHAZINE HCL 6.25 MG in SODIUM CHLORIDE 0.9% 50 ML IV PRN (14:32)
[2023-08-15] MEDS ORDERED: HYDROmorphone INJ 1 MG/ML SYRINGE IV PRN (14:32)
[2023-08-15] MEDS ORDERED: FLUMAZENIL 0.1 MG/1 ML 10 ML VIAL IV PRN (14:32)
--- NOTE | 2023-08-15 14:44 | Anesthesiology Progress Note ---
Date of Service August 15, 2023 Anesthesia Post Procedure Vital Signs Vital Signs: Temp Pulse Pulse Resp BP Pulse Ox O2 Del Method 08/15/23 14:35 89 16 132/83 96 Room Air 08/15/23 14:25 89 12 127/73 98 Oxymask 08/15/23 14:15 89 12 122/75 99 Oxymask 08/15/23 14:05 36.6 C 95 H 16 126/77 95 Oxymask 08/15/23 10:55 36.8 C 79 20 117/92 97 Room Air O2 Flow Rate 08/15/23 14:35 08/15/23 14:25 4 08/15/23 14:15 15 08/15/23 14:05 15 08/15/23 10:55 Transfer of Care Handoff Completed per policy Notes Mental Status: alert / awake / arousable Patient Amnestic to Procedure: Yes Nausea / Vomiting: adequately controlled Pain: adequately controlled Airway Patency, RR, SpO2: stable & adequate BP & HR: stable & adequate Hydration State: stable & adequate Anesthetic Complications: no major complications apparent
--- NOTE | 2023-08-15 14:52 | XRay Report ---
XR knee LT 1 or 2V routine CLINICAL HISTORY: Surgical Post Op TECHNIQUE: 2 views of the left knee were obtained. Comparison: None available at the time of this dictation. FINDINGS: Patient is status post total knee arthroplasty with expected postsurgical changes including soft tiss ue swelling and subcutaneous emphysema. No periarticular lucency or hardware fracture is seen. IMPRESSION: Expected postoperative appearance status post placement of total knee arthroplasty. ACT 112: Negative or not required by law. Electronically signed by: Casey Collins M.D. 08/15/2023 2:51 PM
[2023-08-15] MEDS ORDERED: bisacodyL 10 MG SUPP PR PRN (15:22)
[2023-08-15] MEDS ORDERED: MECLIZINE HCL 25 MG TAB PO PRN (15:22)
[2023-08-15] MEDS ORDERED: MAGNESIUM HYDROXIDE SUSP 30 ML UDC PO PRN (15:22)
[2023-08-15] MEDS ORDERED: DOCUSATE SODIUM 100 MG CAP PO PRN (15:22)
[2023-08-15] MEDS ORDERED: METOCLOPRAMIDE HCL INJ 5 MG/ML 2 ML VIAL IV PRN (15:22)
[2023-08-15] MEDS: SODIUM CHLORIDE 0.9% 1,000 ML IV SCH (16:17)
[2023-08-15] MEDS: HYDROmorphone INJ 0.5 MG/0.5 ML SYR IV PRN (16:25)
[2023-08-15] MEDS: SUCRALFATE 1 GM TAB PO SCH (19:47)
[2023-08-15] MEDS: DOCUSATE SODIUM 100 MG CAP PO SCH (20:32)
[2023-08-15] MEDS: busPIRone 15 MG TAB PO SCH (20:32)
[2023-08-15] MEDS: MONTELUKAST SODIUM 10 MG TABLET PO SCH (20:32)
[2023-08-15] MEDS: ceFAZolin 1000MG 1,000 MG/7.5 ML SYR IV SCH (20:32)
[2023-08-15] MEDS: LORazepam 0.5 MG TAB PO SCH (20:32)
[2023-08-15] MEDS: SENNA 8.6 MG TAB PO SCH (20:33)
[2023-08-15] MEDS: CYCLOBENZAPRINE HCL 10 MG TAB PO SCH (20:33)
[2023-08-15] MEDS: GABAPENTIN 600 MG TAB PO SCH (20:33)
[2023-08-15] MEDS: FERROUS SULFATE 325 MG TAB PO SCH (20:33)
[2023-08-15] MEDS ORDERED: NON-FORMULARY MEDICATION (Multivitamin [Multiple Vitamins] tablet) PO SCH (21:00)
[2023-08-15] MEDS: CETIRIZINE HCL 10 MG TABLET PO SCH (22:10)
[2023-08-15] MEDS: ACETAMINOPHEN 500 MG TAB PO SCH (22:10)
[2023-08-16] MEDS: oxyCODONE HCL IR 5 MG TAB (IMMEDIATE RELEASE) PO PRN (03:09)
[2023-08-16 06:42] LABS: Hematocrit (blood only) 31.3 % (37.0-47.0); Hemoglobin 10.6 g/dl (12.0-16.0); Mean Corpuscular Hemoglobin 32.5 pg (25.0-34.0); Mean Corpuscular Hgb Conc 33.9 g/dL (32.0-36.0); Mean Platelet Volume 9.4 fL (9.4-12.4); Platelet Count 223 K/uL (130-400); RDW Coefficient of Variation 12.5 % (11.5-14.5); RDW Standard Deviation 43.8 fL (36.4-46.3); Red Blood Count 3.26 M/uL (4.20-5.40); White Blood Count 8.72 K/ul (4.8-10.8)
[2023-08-16 07:09] LABS: BUN Creatinine Ratio 12.7 (10-20); Calcium 7.8 mg/dl (8.6-10.3); Creatinine Clr Calc Pharmacy 61.1 ml/min; Est GFR (African American) 94.3 ml/min; Est GFR (Non-African American) 81.4 ml/min; Potassium 3.5 mmol/L (3.5-5.1)
--- NOTE | 2023-08-16 07:22 | Orthopedic Progress Note ---
Date of Service August 16, 2023 Assessment & Plan (1) Primary osteoarthritis of left knee: Plan: Postop day #1 left total knee arthroplasty -PT/OT -Pain management: Patient takes oxycodone 10 mg every 6 hours as needed at home. States she does not usually take it 4 times a day however does just take it daily. Consult pain management for pain management recommendations for discharge. Patient -DVT prophylaxis: SCDs, teds, Xarelto 10 mg daily -A.m. labs: Hemoglobin 10.6. Acute blood loss anemia due to surgical loss versus dilutional. Patient is asymptomatic -Discharge planning: Plan to discharge home with home health therapy, likely tomorrow. Admission and Anticipated Discharge Date Admission Date: August 15, 2023 Subjective Postop day 1 left total knee. Patient is having moderate amount of pain this morning. Otherwise no complaints. Denies chest pain, shortness of breath, nausea/vomiting/diarrhea, headaches or dizziness. Review of Systems Review of Systems: All systems reviewed & are unremarkable except as noted in Subjective Physical Exam Physical Exam: Left knee: Dressing is clean, dry, intact. Toes are mobile with good dorsiflexion. No calf tenderness. Able to straight leg raise. Distal neurovascular status and sensation is grossly intact. Results & Data Vital Signs (Past 12 Hours) Vital Signs Temp Pulse Resp BP Pulse Ox O2 Del Method 08/16/23 02:19 36.6 C 88 18 120/73 96 Room Air 08/15/23 23:16 36.9 C 84 16 118/74 96 Room Air 08/15/23 20:35 Room Air Laboratory Results Lab Results 08/15/23 08/16/23 Range/Units 10:23 06:30 WBC 8.72 (4.8-10.8) K/ul RBC 3.26 L (4.20-5.40) M/uL Hgb 10.6 L (12.0-16.0) g/dl Hct 31.3 L (37.0-47.0) % MCV 96.0 (80.0-100.0) fL MCH 32.5 (25.0-34.0) pg MCHC 33.9 (32.0-36.0) g/dL RDW Std Deviation 43.8 (36.4-46.3) fL RDW Coeff of Arvin 12.5 (11.5-14.5) % Plt Count 223 (130-400) K/uL MPV 9.4 (9.4-12.4) fL APTT 25 (21-31) Seconds PTT Ratio 0.9 Sodium 140 (136-145) mmol/L Potassium 3.5 (3.5-5.1) mmol/L Chloride 110 H (98-107) mmol/L Carbon Dioxide 24 (21-32) mmol/L Anion Gap 6 (3-11) BUN 10 (6-23) mg/dl Creatinine 0.79 (0.6-1.2) mg/dl Est Cr Clr Drug Dosing 61.1 ml/min Est GFR ( Amer) 94.3 ml/min Est GFR (Non-Af Amer) 81.4 ml/min BUN/Creatinine Ratio 12.7 (10-20) Glucose 112 H (70-99(Fasting)) mg/dl Calcium 7.8 L (8.6-10.3) mg/dl Blood Type O Positive Antibody Screen NEGATIVE
--- NOTE | 2023-08-16 08:35 | Pain Management Consultation ---
Date of Consultation August 16, 2023 Assessment & Plan (1) Primary osteoarthritis of left knee: (2) History of back surgery: (3) Opioid dependence with current use: Plan 1. Recommend continuing oxycodone 10 mg every 6 hours if needed for pain 2. Consider adding OxyContin 10 mg twice daily x 1 week if oxycodone is not providing adequate pain relief. 3. If OxyContin is added then I would recommend making sure that the patient has a prescription for Narcan in case of opioid overdose 4. Encouraged the patient to limit his use of IV Dilaudid in preparation for discharge. Patient is understanding. Will sign off on the patient. Please contact with any questions or concerns. History of Present Illness Reason for Consultation: post op pain Attending Physician: Kwasi Felix MD History of Present Illness This 58-year-old female that does have a significant history of chronic low back pain that has required chronic opioid use. She did have a left knee arthroplasty yesterday by Dr. Felix and is having difficulty with postoperative pain. Chronically she is on oxycodone 10 mg 2-3 times daily. She describes a deep aching and intermittent sharp pain in the left knee. Has required IV Dilaudid 0.5 mg x 2 and has taken oxycodone 10 mg x 1 since surgery. Patient denies any side effects to the medications. Currently patient rates her pain 6/10. Patient does also take Flexeril 10 mg 3 times daily and gabapentin 600 mg 3 times daily. Case discussed with Dr. Mariaelena Kerr Allergies Allergy/AdvReac Type Severity Reaction Status Date / Time carisoprodol Allergy Intermediate HALLUCINATI Verified 08/15/23 10:43 ONS Penicillins Allergy Intermediate Hives Verified 08/15/23 10:43 aspirin Allergy Unknown NOT TO Verified 08/15/23 10:43 TAKE S/P GATRIC BYPASS clarithromycin [From Biaxin] Allergy Unknown Unknown Verified 08/15/23 10:43 glycopyrrolate [From Robinul] Allergy Unknown Unknown Verified 08/15/23 10:43 oxymorphone Allergy Unknown Unknown Verified 08/15/23 10:43 lactose AdvReac Mild Gastrointestinal Verified 08/15/23 10:43 Upset sulfamethoxazole AdvReac Verified 08/15/23 10:43 [From Bactrim] trimethoprim [From Bactrim] AdvReac Verified 08/15/23 10:43 Home Medications Medication Instructions Recorded Confirmed Type ferrous sulfate 325 mg (65 mg 325 mg PO BID 10/23/19 08/15/23 History iron) tablet multivitamin (Multiple Vitamins 1 tab PO BID #90 tabs 06/22/20 08/15/23 Rx tablet) buspirone 15 mg tablet 15 mg PO TID #90 tabs 10/20/21 08/15/23 Rx bupropion HCl 150 mg tablet,12 hr 150 mg PO QAM 01/13/22 08/15/23 History sustained-release diclofenac sodium 1 % topical gel 2 gm topical QID PRN Pain 01/13/22 08/15/23 History calcium citrate 200 mg (950 mg) 200 mg PO DAILY 05/15/22 08/15/23 History tablet montelukast 10 mg tablet 10 mg PO HS #90 tabs 01/16/23 08/15/23 Rx pravastatin 40 mg tablet 40 mg PO QAM #90 tabs 02/08/23 08/15/23 Rx ketoconazole 1 % shampoo (Nizoral 1 applic topical .twice daily #125 03/29/23 08/15/23 Rx A-D) mL docusate sodium 100 mg capsule 100 mg PO BID PRN Constipation 05/22/23 08/15/23 History (Colace) nystatin-triamcinolone 100,000 1 applic topical BID PRN Rash 05/22/23 08/15/23 History unit/g-0.1 % topical cream furosemide 20 mg tablet 20 mg PO QAM #90 tabs 05/24/23 08/15/23 Rx cyclobenzaprine 10 mg tablet 10 mg PO TID #90 tabs 06/18/23 08/15/23 Rx nystatin 100,000 unit/gram topical 1 applic topical BID PRN yeast #60 07/10/23 08/15/23 Rx powder grams lisinopril 10 mg tablet 10 mg PO QAM 07/26/23 08/15/23 History oxycodone 10 mg tablet 10 mg PO Q6H PRN pain #60 tabs 07/30/23 08/15/23 Rx meclizine 25 mg tablet 25 mg PO TID PRN dizziness #90 tabs 08/03/23 08/15/23 Rx ondansetron 4 mg disintegrating 4 mg PO TID PRN nausea and 08/03/23 08/15/23 Rx tablet vomiting #30 tabs gabapentin 600 mg tablet 600 mg PO TID #90 tabs 08/06/23 08/15/23 Rx metoprolol succinate 100 mg 100 mg PO QAM #90 tabs 08/06/23 08/15/23 Rx tablet,extended release 24 hr pantoprazole 40 mg tablet,delayed 40 mg PO QAM #90 tabs 08/06/23 08/15/23 Rx release sucralfate 1 gram tablet 1 g PO QID #120 tabs 08/06/23 08/15/23 Rx lorazepam 0.5 mg tablet 0.5 mg PO HS #30 tabs 08/07/23 08/15/23 Rx Walking Cane #1 ea 08/10/23 08/10/23 Rx Patient History Medical History MCCLAIN (nonalcoholic steatohepatitis) hx Depression Asthma no inhalers, well controlled per pt Enlarged liver hx > resolved per pt Arthritis Spinal stenosis History of urinary retention "just happens when I take too many pain pills" GERD (gastroesophageal reflux disease) Hyperlipidemia DVT (deep venous thrombosis) 2020 > can't recall which leg > no longer on thinner > s/p fall HTN (hypertension) History of COVID-19 06/29/20 HOSPITALIZED WITH PNEUMONIA Korina RAMIREZZunilda 06/2021 RECOVERED AT HOME Opioid dependence with current use Anxiety disorder Cervical post-laminectomy syndrome Postlaminectomy syndrome of lumbosacral region Surgical History History of colonoscopy History of tooth extraction History of surgery on right wrist History of cataract surgery bilat Nausea and vomiting after administration of anesthetic agent History of back surgery x3 total > 06/02/19 Dr. Simon Templeton at [facility]- Midline prone multilevel osteotomies, Correction of flat back deformity, Extension of fusion to T9, T10, and T11 kyphoplasty History of tonsillectomy and adenoidectomy History of appendectomy History of gastric bypass History of neck surgery ACDF > has trouble tilting head back for long periods History of hysterectomy History of esophagogastroduodenoscopy History of cholecystectomy History of section x4 History of arthroscopy of knee right Family History Father Diabetes Heart problem Cancer Other No family history of adverse response to anesthesia Social History Smoking Status: Former smoker Smoking End Date: 2004; Second Hand Exposure: No; Do You Dip or Chew Tobacco: No; Tobacco Cessation Education Requested by Patient: No Hx Alcohol Use: No Hx Substance Use: No Preferred Language: Georgian Communication Ability: Effective Hearing Ability: Use of Hearing Aid Benefits Processor Required: No Beliefs That Will Affect Care: None marital status: Current Living Situation: Spouse and Family Current Living Situation Comment: LIVES WITH SPOUSE, ADULT SON current occupational status: disabled Other Information That Helps Us Care for You: No Feels Safe at Home: Yes Safety Concerns: Feels Safe At This Time Assistive Devices: Cane, Glasses and Hearing Aid - Bilateral Physical Exam Physical Exam: GENERAL: This is a 58 year old female in no acute distress. Hard of hearing. HEAD/FACE: Normocephalic and atraumatic. EYES: No drainage or conjunctival injection. ENT: Nose without bleeding or discharge. Oral mucosa moist. RESPIRATORY: Patient with unlabored breathing. No signs of respiratory distress. CHEST/AXILLA: Chest movement symmetrical. No deformities noted. SKIN: [place], warm and dry. No rash noted. MS/EXTREMITY: Knee not inspected. NEURO: Alert and appears oriented. Speech is fluent. Cranial Nerves are grossly intact. PSYCH: Alert, pleasant, affect is calm
[2023-08-16] MEDS: buPROPion SR 150 MG TABCR PO SCH (09:29)
[2023-08-16] MEDS: CALCIUM CITRATE 950 MG TAB PO SCH (09:30)
[2023-08-16] MEDS: METOPROLOL SUCC 50MG EXT REL TAB PO SCH (09:33)
[2023-08-16] MEDS: MULTIVITAMIN TAB PO SCH (09:33)
[2023-08-16] MEDS: RIVAROXABAN 10 MG TABLET PO SCH (09:34)
[2023-08-16] MEDS: PRAVASTATIN SOD 40 MG TAB PO SCH (09:34)
[2023-08-16] MEDS: PANTOprazole 40 MG TAB PO SCH (09:34)
--- NOTE | 2023-08-16 09:38 | Hospitalist Consultation ---
Date of Consultation August 16, 2023 Assessment & Plan (1) Primary osteoarthritis of left knee: - S/p left TKA with Dr Felix 08/14 - DVT proh / pain control / abx per primary team - EBL 5 - Hgb 10.6, down from 12.6 preoperatively. - acute blood loss anemia vs dilutional (2) HTN, goal below 140/80: - of note, lasix and lisinopril recently held after ARTUR suspected 2/2 to bactrim --> would not resume at this point - continue metoprolol (3) Chronic pain syndrome: - Home gabapentin 600mg TID and oxycodone 10mg q6H prn and cyclobenzaprine 10mg TID - pain management consulted by primary team (4) Depression: Continue buspar and welbutrin (5) Hyperlipidemia: Continue statin (6) S/P gastric bypass: - hx of DM prior to this. Reports no issues since 01/2023 hgb A1c 5.3, no need to repeat - avoid NSAIDs Plan Dispo: medically stable Thank you for allowing us to participate in the care of this patient, we will continue to follow, please reach out with any questions or concerns Supervising Physician Co-Signing Physician Notes Attending Attestation - Chart reviewed, care plan d/w MARYSOL Ernandez. I agree w/ the headley components of her consult documentation. I did not perform a personal bedside visit or physical exam. s/p L TKR. Stable post-op from medical standpoint. Thank you for the consult. Will follow with you. Bao Crowder MD History of Present Illness Reason for Consultation: post op medical management Attending Physician: Kwasi Felix MD History of Present Illness Yvrose is a 58F with a PMH of HTN, DLD, chronic pain on narcotics, anxiety/depression, MCCLAIN who presents for elective left knee replacement. Evaluated this afternoon, reports pain with knee - wondering if she walked too much. States her PCP told her she could keep her lasix on hand for prn weight gain. Was not told to restart her lisinopril but she reports she has taken 1 pill a few mornings to see where her BP was at Hx of DM but resolved with gastric bypass. Has not had a BM yet. Allergies Allergy/AdvReac Type Severity Reaction Status Date / Time carisoprodol Allergy Intermediate HALLUCINATI Verified 08/15/23 10:43 ONS Penicillins Allergy Intermediate Hives Verified 08/15/23 10:43 aspirin Allergy Unknown NOT TO Verified 08/15/23 10:43 TAKE S/P GATRIC BYPASS clarithromycin [From Biaxin] Allergy Unknown Unknown Verified 08/15/23 10:43 glycopyrrolate [From Robinul] Allergy Unknown Unknown Verified 08/15/23 10:43 oxymorphone Allergy Unknown Unknown Verified 08/15/23 10:43 lactose AdvReac Mild Gastrointestinal Verified 08/15/23 10:43 Upset sulfamethoxazole AdvReac Verified 08/15/23 10:43 [From Bactrim] trimethoprim [From Bactrim] AdvReac Verified 08/15/23 10:43 Home Medications Medication Instructions Recorded Confirmed Type ferrous sulfate 325 mg (65 mg 325 mg PO BID 10/23/19 08/15/23 History iron) tablet multivitamin (Multiple Vitamins 1 tab PO BID #90 tabs 06/22/20 08/15/23 Rx tablet) buspirone 15 mg tablet 15 mg PO TID #90 tabs 10/20/21 08/15/23 Rx bupropion HCl 150 mg tablet,12 hr 150 mg PO QAM 01/13/22 08/15/23 History sustained-release diclofenac sodium 1 % topical gel 2 gm topical QID PRN Pain 01/13/22 08/15/23 History calcium citrate 200 mg (950 mg) 200 mg PO DAILY 05/15/22 08/15/23 History tablet montelukast 10 mg tablet 10 mg PO HS #90 tabs 01/16/23 08/15/23 Rx pravastatin 40 mg tablet 40 mg PO QAM #90 tabs 02/08/23 08/15/23 Rx ketoconazole 1 % shampoo (Nizoral 1 applic topical .twice daily #125 03/29/23 08/15/23 Rx A-D) mL docusate sodium 100 mg capsule 100 mg PO BID PRN Constipation 05/22/23 08/15/23 History (Colace) nystatin-triamcinolone 100,000 1 applic topical BID PRN Rash 05/22/23 08/15/23 History unit/g-0.1 % topical cream cyclobenzaprine 10 mg tablet 10 mg PO TID #90 tabs 06/18/23 08/15/23 Rx nystatin 100,000 unit/gram topical 1 applic topical BID PRN yeast #60 07/10/23 08/15/23 Rx powder grams meclizine 25 mg tablet 25 mg PO TID PRN dizziness #90 tabs 08/03/23 08/15/23 Rx ondansetron 4 mg disintegrating 4 mg PO TID PRN nausea and 08/03/23 08/15/23 Rx tablet vomiting #30 tabs gabapentin 600 mg tablet 600 mg PO TID #90 tabs 08/06/23 08/15/23 Rx metoprolol succinate 100 mg 100 mg PO QAM #90 tabs 08/06/23 08/15/23 Rx tablet,extended release 24 hr pantoprazole 40 mg tablet,delayed 40 mg PO QAM #90 tabs 08/06/23 08/15/23 Rx release sucralfate 1 gram tablet 1 g PO QID #120 tabs 08/06/23 08/15/23 Rx lorazepam 0.5 mg tablet 0.5 mg PO HS #30 tabs 08/07/23 08/15/23 Rx Walking Cane #1 ea 08/10/23 08/10/23 Rx acetaminophen 500 mg tablet 1,000 mg (2 x 500 mg) PO Q8 #60 08/17/23 Rx (Tylenol Extra Strength) tabs naloxone 4 mg/actuation nasal spray 1 spray intranasal Q3M PRN opioid 08/17/23 Rx overdose #2 ea oxycodone 10 mg tablet,crush 10 mg PO Q12H #10 tabs 08/17/23 Rx resistant,extended release 12 hr (OxyContin) rivaroxaban 10 mg tablet (Xarelto) 10 mg PO DAILY #30 tabs 08/17/23 Rx oxycodone 10 mg tablet 10 mg PO Q6H PRN pain #60 tabs 08/20/23 Rx Patient History Medical History MCCLAIN (nonalcoholic steatohepatitis) hx Depression Asthma no inhalers, well controlled per pt Enlarged liver hx > resolved per pt Arthritis Spinal stenosis History of urinary retention "just happens when I take too many pain pills" GERD (gastroesophageal reflux disease) Hyperlipidemia DVT (deep venous thrombosis) 2020 > can't recall which leg > no longer on thinner > s/p fall HTN (hypertension) History of COVID-19 06/29/20 HOSPITALIZED WITH PNEUMONIA DIA HAINES 06/2021 RECOVERED AT HOME Opioid dependence with current use Anxiety disorder Cervical post-laminectomy syndrome Postlaminectomy syndrome of lumbosacral region Surgical History History of colonoscopy History of tooth extraction History of surgery on right wrist History of cataract surgery bilat Nausea and vomiting after administration of anesthetic agent History of back surgery x3 total > 06/02/19 Dr. Simon Templeton at [facility]- Midline prone multilevel osteotomies, Correction of flat back deformity, Extension of fusion to T9, T10, and T11 kyphoplasty History of tonsillectomy and adenoidectomy History of appendectomy History of gastric bypass History of neck surgery ACDF > has trouble tilting head back for long periods History of hysterectomy History of esophagogastroduodenoscopy History of cholecystectomy History of section x4 History of arthroscopy of knee right Family History Father Diabetes Heart problem Cancer Other No family history of adverse response to anesthesia Social History Smoking Status: Former smoker Smoking End Date: 2004; Second Hand Exposure: No; Do You Dip or Chew Tobacco: No; Tobacco Cessation Education Requested by Patient: No Hx Alcohol Use: No Hx Substance Use: No Preferred Language: American Communication Ability: Effective Hearing Ability: Use of Hearing Aid Wireless Sales Associate Required: No Beliefs That Will Affect Care: None marital status: Current Living Situation: Spouse and Family Current Living Situation Comment: LIVES WITH SPOUSE, ADULT SON current occupational status: disabled Other Information That Helps Us Care for You: No Feels Safe at Home: Yes Safety Concerns: Feels Safe At This Time Assistive Devices: Walker Review of Systems Review of Systems: All systems reviewed & are unremarkable except as noted in Subjective Physical Exam Physical Exam: General: NAD, VS as above Resp: normal respiratory effort, lungs clear to auscultation CV: RRR, no murmur, Extremities: Moves all extremities,angella wrap and ice present over left knee Neuro: A&O x3, Results & Data Results & Data Vital Signs (Past 12 Hours) Vital Signs Temp Pulse Pulse Resp BP Pulse Ox O2 Del Method 08/16/23 09:15 Room Air 08/16/23 07:44 36.8 C 86 16 146/81 H 95 Room Air 08/16/23 02:19 36.6 C 88 18 120/73 96 Room Air 08/15/23 23:16 36.9 C 84 16 118/74 96 Room Air Laboratory Results CBC and Chemistry reviewed PG Care Time/CCT Total # of Minutes Spent Total Time Spent with Patient: Total time spent is greater than 50% in coordination of care (as documented) at patient's floor/unit and/or counseling patient: Coding Level of Care Code 90182 IN/OBS CONSULT LVL 3,45M Diagnoses Primary osteoarthritis of left knee M17.12 HTN, goal below 140/80 I10 Chronic pain syndrome G89.4 Depression F32.9 Hyperlipidemia E78.5 S/P gastric bypass Z98.84
[2023-08-16] MEDS: oxyCODONE HCL 10 MG TABCR (OxyCONTIN) PO SCH (17:19)
--- NOTE | 2023-08-17 07:04 | Orthopedic Progress Note ---
Date of Service August 17, 2023 Assessment & Plan (1) Primary osteoarthritis of left knee: Plan: Postop day #2 left total knee arthroplasty -PT/OT -DVT prophylaxis: SCDs, teds, Xarelto 10 mg daily -Pain management: Patient is on oxycodone 10 mg every 6 hours as needed. Added OxyContin 10 mg twice daily per pain management recommendations. Patient is still relying on hydromorphone IV. Will need to limit this as she will not be going home on IV pain medication -Discharge planning: Plan to discharge home with home health when stable. Therapy recommending rehab however patient would like to go home. Currently her pain is not well-controlled and she does not feel she can go home in her current state. Will see how she does today with therapy. If pain better controlled and progresses well therapy plan to discharge home today. Admission and Anticipated Discharge Date Admission Date: August 15, 2023 Subjective Patient is resting in bed on arrival. Has complaint of pain, otherwise no current complaints. Denies chest pain, shortness of breath, nausea/vomiting/diarrhea, headaches or dizziness. Review of Systems Review of Systems: All systems reviewed & are unremarkable except as noted in Subjective Physical Exam Physical Exam: Right knee: Dressing is clean, dry, intact. Toes are mobile with good dorsiflexion. No calf tenderness. Able to straight leg raise. Distal neurovascular status and sensation is grossly intact. Results & Data Vital Signs (Past 12 Hours) Vital Signs Temp Pulse Resp BP Pulse Ox O2 Del Method 08/16/23 19:50 Room Air 08/16/23 19:27 36.9 C 89 16 161/82 H 95 Room Air Laboratory Results Lab Results 08/15/23 08/16/23 Range/Units 10:23 06:30 WBC 8.72 (4.8-10.8) K/ul RBC 3.26 L (4.20-5.40) M/uL Hgb 10.6 L (12.0-16.0) g/dl Hct 31.3 L (37.0-47.0) % MCV 96.0 (80.0-100.0) fL MCH 32.5 (25.0-34.0) pg MCHC 33.9 (32.0-36.0) g/dL RDW Std Deviation 43.8 (36.4-46.3) fL RDW Coeff of Arvin 12.5 (11.5-14.5) % Plt Count 223 (130-400) K/uL MPV 9.4 (9.4-12.4) fL APTT 25 (21-31) Seconds PTT Ratio 0.9 Sodium 140 (136-145) mmol/L Potassium 3.5 (3.5-5.1) mmol/L Chloride 110 H (98-107) mmol/L Carbon Dioxide 24 (21-32) mmol/L Anion Gap 6 (3-11) BUN 10 (6-23) mg/dl Creatinine 0.79 (0.6-1.2) mg/dl Est Cr Clr Drug Dosing 61.1 ml/min Est GFR ( Amer) 94.3 ml/min Est GFR (Non-Af Amer) 81.4 ml/min BUN/Creatinine Ratio 12.7 (10-20) Glucose 112 H (70-99(Fasting)) mg/dl Calcium 7.8 L (8.6-10.3) mg/dl Blood Type O Positive Antibody Screen NEGATIVE
--- NOTE | 2023-08-17 13:44 | Hospitalist Progress Note ---
Date of Service August 17, 2023 Assessment & Plan (1) Primary osteoarthritis of left knee: Plan: - S/p left TKA with Dr Felix 08/14 - DVT proh / pain control / abx per primary team - EBL 5 - Hgb 10.6, down from 12.6 preoperatively. - acute blood loss anemia vs dilutional patient struggling with pain control, has required IV medications but wanting to go home. again will defer pain management to the pain management team and primary team (2) HTN, goal below 140/80: Plan: - of note, lasix and lisinopril recently held after ARTUR suspected 07/06 to bactrim --> would not resume at this point - continue metoprolol (3) Chronic pain syndrome: Plan: - Home gabapentin 600mg TID and oxycodone 10mg q6H prn and cyclobenzaprine 10mg TID - pain management consulted by primary team (4) Depression: Plan: Continue buspar and welbutrin (5) Hyperlipidemia: Plan: Continue statin (6) S/P gastric bypass: Plan: - hx of DM prior to this. Reports no issues since 01/2023 hgb A1c 5.3, no need to repeat - avoid NSAIDs Plan Dispo: medically stable, agree with discharge when pain is controlled Thank you for allowing us to participate in the care of this patient, we will sign off. Please reach our or reconsult with any new concerns. Admission and Anticipated Discharge Date Admission Date: August 15, 2023 Supervising Physician Co-Signing Physician Notes Attending Attestation - Chart reviewed, care plan d/w MARYSOL Ernandez. I agree w/ the headley components of her consult documentation. Bao Crowder MD Subjective Resting in bed complains of hip pain that radiates down to the knee. Tolerating diet with no issues passing gas. not lightheaded or dizzy. Denies chest pain or shortness of breath Review of Systems Review of Systems: All systems reviewed & are unremarkable except as noted in Subjective Physical Exam Physical Exam: General: NAD, VS as above Resp: normal respiratory effort, lungs clear to auscultation CV: RRR, no murmur, Extremities: Moves all extremities,angella wrap and Hemovac present Neuro: A&O x3, Results & Data Results & Data Vital Signs (Past 12 Hours) Vital Signs Temp Pulse Resp BP Pulse Ox O2 Del Method 08/17/23 07:09 36.7 C 100 H 16 148/88 H 93 Room Air PG Care Time/CCT Total # of Minutes Spent Total Time Spent with Patient: Total time spent is greater than 50% in coordination of care (as documented) at patient's floor/unit and/or counseling patient: Coding Level of Care Code 30985 SUB INP/OBS CARE 2/35MIN Diagnoses Primary osteoarthritis of left knee M17.12 HTN, goal below 140/80 I10 Chronic pain syndrome G89.4 Depression F32.9 Hyperlipidemia E78.5 S/P gastric bypass Z98.84
--- NOTE | 2023-08-18 09:54 | Orthopedic Progress Note ---
Date of Service August 18, 2023 Assessment & Plan (1) Status post left knee replacement: Plan: 58 yo female stable POD #3 s/p left TKA 1. Med management 2. DVT prophylaxis- Xarelto daily, SCDs 3. PT/OT 4. D/C planning- home w/ HH Admission and Anticipated Discharge Date Admission Date: August 15, 2023 Subjective Pt resting in chair, pain controlled, denies complaints Physical Exam Physical Exam: SARAI dressing in place, toes mobile, NVI, calves soft, NT Results & Data Vital Signs (Past 12 Hours) Vital Signs Temp Pulse Resp BP Pulse Ox O2 Del Method 08/18/23 07:19 37.0 C 95 H 16 120/78 95 Room Air 08/17/23 23:15 Room Air
[2023-08-18] MEDS ORDERED: INFLUENZA VIRUS QUADRIVALENT VACCINE (IIV4) 0.5 ML SYR IM ONE (11:39)
[2023-08-18] MEDS: PNEUMOCOCCAL VACCINE (PCV20) 20-VAL CONJ-DIP CRM/PF 0.5 ML SYR IM ONE (11:55)
--- NOTE | 2023-08-19 07:49 | Discharge Summary ---
Date of Service August 19, 2023 Admission HPI Per Admitting Provider 58-year-old female with past medical history significant for hypertension, DVT, MCCLAIN, asthma, who presents with ongoing left knee pain. Pain is interfering with her daily activities. She has failed conservative measures and would like to proceed with surgery. Patient denies headaches, sweats, fevers, chills, double vision, blurred vision, cough, sore throat, dysphagia, chest pain, sob, wheezing, n/v/d/c, numbness, tingling, fatigue, urinary symptoms, mood disorders. ROS positive for left knee pain and stiffness. Admission Exam Per Admitting Provider Constitutional: well developed and well nourished; no acute distress Eyes: PERRL, conjunctivae normal, anicteric sclerae ENMT: external ear and nose normal, oropharynx normal Neck: trachea midline, no thyromegaly Respiratory: normal respiratory effort, lungs clear to auscultation Cardiovascular: RRR, no murmur, no edema Musculoskeletal: Left knee: Mild effusion. Tenderness medial joint line. Positive Guillermina's. Stable to varus and valgus stress test. Range of motion 0 to 115 degrees. Skin: no rashes, warm and dry Neurologic: patellar DTR's 2+ bilat, sensation intact Psychiatric: A+Ox3, euthymic affect Principal Diagnosis Left knee osteoarthritis Discharge Exam Physical Exam: SARAI dressing in place, toes mobile, NVI, calves soft, NT Discharge Data Allergies Allergy/AdvReac Type Severity Reaction Status Date / Time carisoprodol Allergy Intermediate HALLUCINATI Verified 08/15/23 10:43 ONS Penicillins Allergy Intermediate Hives Verified 08/15/23 10:43 aspirin Allergy Unknown NOT TO Verified 08/15/23 10:43 TAKE S/P GATRIC BYPASS clarithromycin [From Biaxin] Allergy Unknown Unknown Verified 08/15/23 10:43 glycopyrrolate [From Robinul] Allergy Unknown Unknown Verified 08/15/23 10:43 oxymorphone Allergy Unknown Unknown Verified 08/15/23 10:43 lactose AdvReac Mild Gastrointestinal Verified 08/15/23 10:43 Upset sulfamethoxazole AdvReac Verified 08/15/23 10:43 [From Bactrim] trimethoprim [From Bactrim] AdvReac Verified 08/15/23 10:43 Consultations 08/14/23 10:55 Consult Hospitalist Routine 08/15/23 15:22 Consult Pain Management Routine Procedures Performed Operation Date: 08/15/23 11:25 Actual Procedures p Left Total Knee Arthroplasty(Left) - Kwasi Felix MD Ordered Studies 08/15/23 05:00 US - OR guided needle placemen Routine Hospital Course (1) Status post left knee replacement: 58 yo female stable POD #3 s/p left TKA 1. Med management 2. DVT prophylaxis- Xarelto daily, SCDs 3. PT/OT 4. D/C planning- home w/ HH Postop day #2 left total knee arthroplasty -PT/OT -DVT prophylaxis: SCDs, teds, Xarelto 10 mg daily -Pain management: Patient is on oxycodone 10 mg every 6 hours as needed. Added OxyContin 10 mg twice daily per pain management recommendations. Patient is still relying on hydromorphone IV. Will need to limit this as she will not be going home on IV pain medication -Discharge planning: Plan to discharge home with home health when stable. Therapy recommending rehab however patient would like to go home. Currently her pain is not well-controlled and she does not feel she can go home in her current state. Will see how she does today with therapy. If pain better controlled and progresses well therapy plan to discharge home today. Postop day #1 left total knee arthroplasty -PT/OT -Pain management: Patient takes oxycodone 10 mg every 6 hours as needed at home. States she does not usually take it 4 times a day however does just take it daily. Consult pain management for pain management recommendations for discharge. Patient -DVT prophylaxis: SCDs, teds, Xarelto 10 mg daily -A.m. labs: Hemoglobin 10.6. Acute blood loss anemia due to surgical loss versus dilutional. Patient is asymptomatic -Discharge planning: Plan to discharge home with home health therapy, likely tomorrow. Lab Results 08/15/23 08/16/23 Range/Units 10:23 06:30 WBC 8.72 (4.8-10.8) K/ul RBC 3.26 L (4.20-5.40) M/uL Hgb 10.6 L (12.0-16.0) g/dl Hct 31.3 L (37.0-47.0) % MCV 96.0 (80.0-100.0) fL MCH 32.5 (25.0-34.0) pg MCHC 33.9 (32.0-36.0) g/dL RDW Std Deviation 43.8 (36.4-46.3) fL RDW Coeff of Arvin 12.5 (11.5-14.5) % Plt Count 223 (130-400) K/uL MPV 9.4 (9.4-12.4) fL APTT 25 (21-31) Seconds PTT Ratio 0.9 Sodium 140 (136-145) mmol/L Potassium 3.5 (3.5-5.1) mmol/L Chloride 110 H (98-107) mmol/L Carbon Dioxide 24 (21-32) mmol/L Anion Gap 6 (3-11) BUN 10 (6-23) mg/dl Creatinine 0.79 (0.6-1.2) mg/dl Est Cr Clr Drug Dosing 61.1 ml/min Est GFR ( Amer) 94.3 ml/min Est GFR (Non-Af Amer) 81.4 ml/min BUN/Creatinine Ratio 12.7 (10-20) Glucose 112 H (70-99(Fasting)) mg/dl Calcium 7.8 L (8.6-10.3) mg/dl Blood Type O Positive Antibody Screen NEGATIVE Total Time Total Time Spent Total Time Spent (In Minutes): 20 Discharge Plan Discharge Items Patient Disposition: Home - Home Health Services Reason For Visit: Left Knee Osteoarthritis Discharge Diagnosis: Left knee osteoarthritis Activity: Per Instructions section Non-emergency contact: Surgeon Call non-emergency contact if: you have any medication questions, your pain is not controlled, you have a fever, your temperature is above 101, your wound has increased redness and your wound has increased drainage Follow-up/Referrals: Larry Gonzalez DO [Primary Care Provider] - Diet: Regular Addtl Attending Provider Instructions: ACTIVITY RECOMMENDATIONS: SELF CARE INSTRUCTIONS AFTER TOTAL KNEE REPLACEMENT A. You may need to continue a physical therapy program after discharge from the hospital. There are several options available to you. Your doctor will assist you in selecting the best one for you. 1. An out-patient facility 2 to 3 times a week for therapy or home therapy. 2. Continue working on all exercises taught to you in the hospital. Your goals should be to increase bending of your knee to 90 degrees and beyond and to fully straighten your knee. B. You may progress at your own pace from walking with a walker or crutches to a cane; then to no assistive devices. C. Make walking a part of your daily routine. Be up as much as comfortable with rest periods throughout the day. Rest with leg elevation is very important. Use the ice wrap frequently for the first 3-4 weeks. D. There are no restrictions on activities. You may ride in a car, shop, participate in paste mixer liquid and all social activities. E. Wear the long elastic stockings (PERLA hose) 20 hours a day for 2 weeks after surgery. They can be removed several times a day for laundering and for a bath. F. You may shower, no tub baths until cleared by your doctor. SPECIAL CARE INSTRUCTIONS: VERY IMPORTANT TO READ AND REVIEW A. There are a few signs you need to watch for after you are home. Call [facility] if you notice any of the followin. Increased severe knee pain. Some pain is expected especially when you exercise. 2. Increased swelling in your leg or knee; pain or swelling of the calf muscle in either lower leg. 3. Any fluid drainage from the incision. 4. Shortness of breath or chest pain. B. Please call [facility] at if you have any concerns or questions about your operation or recovery. The doctor or his nurse will return your call promptly. C. You must take antibiotics before dental work, bladder, bowel or other surgery. Your doctor will provide you with a permanent care to carry describing this precaution. IMPORTANT: * REMEMBER TO TAKE ASPIRIN, 81 MG, TWICE DAILY FOR 4 WEEKS UNLESS OTHERWISE DIRECTED. THIS IS YOUR BLOOD THINNER. * HIGH RISK PATIENTS MAY BE PRESCRIBED A STRONGER BLOOD THINNER. THIS WILL BE PROVIDED AT DISCHARGE. * CALL IF INCREASED PAIN, REDNESS, DRAINAGE OR FEVER GREATER THAT 101. * WEAR PERLA HOSE 20 HOURS PER DAY FOR 2 WEEKS. There is a large suction dressing covering your incision. This will help pull any excess drainage from the wound and allow your incision to heal properly. You may shower with this if you can keep the unit outside of the shower. If any bleeding or leakage is noted please call your doctor's office. This will remain on your incision for 7 days and then should be removed. This can be done yourself or by the home nursing staff if applicable. The entire unit is disposable once removed. Once removed, keep incision clean and dry. If redness or drainage is noted, please call your surgeon. IF INCISION IS LEAKING THROUGH DRESSING, CALL THE OFFICE . FOLLOW UP VISIT: If appointment is not already scheduled: Please call [facility] to make a follow-up appointment for 2 weeks after your surgery at . Pending Studies at Discharge: No Stand-Alone Forms: My [facility], Pain - Opioid Pain Management, Smoking Cessation Medications and DC Order Prescriptions: New Xarelto 10 mg Tablet 10 mg PO DAILY Qty: 30 0RF acetaminophen [Tylenol Extra Strength] 500 mg Tablet 1,000 mg PO Q8 Qty: 60 0RF oxycodone [OxyContin] 10 mg Tablet,Oral Only,Ext.Rel.12 Hr 10 mg PO Q12H Qty: 10 0RF Rx Instructions: Ongoing therapy, Dr. Felix supervising naloxone 4 mg/actuation spray,non-aerosol 1 spray intranasal Q3M PRN (Reason: opioid overdose) Qty: 2 0RF Continued multivitamin [Multiple Vitamins] Tablet 1 tab PO BID Qty: 90 3RF buspirone 15 mg tablet 15 mg PO TID Qty: 90 0RF montelukast 10 mg tablet 10 mg PO HS Qty: 90 3RF pravastatin 40 mg tablet 40 mg PO QAM Qty: 90 3RF cyclobenzaprine 10 mg tablet 10 mg PO TID Qty: 90 1RF nystatin 100,000 unit/gram powder 1 applic topical BID PRN (Reason: yeast) Qty: 60 0RF oxycodone 10 mg tablet 10 mg PO Q6H PRN (Reason: pain) Qty: 60 0RF meclizine 25 mg tablet 25 mg PO TID PRN (Reason: dizziness) Qty: 90 2RF ondansetron 4 mg tablet,disintegrating 4 mg PO TID PRN (Reason: nausea and vomiting) Qty: 30 0RF sucralfate 1 gram tablet 1 g PO QID Qty: 120 1RF pantoprazole 40 mg tablet,delayed release (DR/EC) 40 mg PO QAM Qty: 90 0RF metoprolol succinate 100 mg tablet extended release 24 hr 100 mg PO QAM Qty: 90 1RF gabapentin 600 mg tablet 600 mg PO TID Qty: 90 0RF lorazepam 0.5 mg tablet 0.5 mg PO HS Qty: 30 0RF calcium citrate 200 mg (950 mg) tablet 200 mg PO DAILY ferrous sulfate 325 mg (65 mg iron) tablet 325 mg PO BID docusate sodium [Colace] 100 mg capsule 100 mg PO BID PRN (Reason: Constipation) nystatin-triamcinolone 100,000-0.1 unit/g-% cream 1 applic topical BID PRN (Reason: Rash) Nizoral A-D 1 % shampoo 1 applic topical .twice daily Qty: 125 0RF (DME) Walking Cane Misc See Rx Instructions .Route Qty: 1 0RF Rx Instructions: As directed; falls bupropion HCl 150 mg tablet sustained-release 12 hr 150 mg PO QAM diclofenac sodium 1 % gel 2 gm TOP QID PRN (Reason: Pain) Rx Instructions: apply to single elbow, wrist or hand; for hand includes palm/fingers/back of hand Discontinued furosemide 20 mg tablet 20 mg PO QAM Qty: 90 0RF Hold Instructions: Resume on 08/10/23. hold until restarted by your doctor lisinopril 10 mg tablet 10 mg PO QAM Hold Instructions: Resume on 08/10/23. hold until restarted by your doctor Marycruz/Other Patient Handouts: DVT Post Op Prevention Admission Data Admit Date/Time: 08/15/23 14:11 Attending Provider: Kwasi Felix Admit Provider: Kwasi Felix Primary Care Provider: Larry Gonzalez Other Providers: Nadeem Saldaña; Juan Francisco,Home Health Other Interventions: Discharge Summary Assessment (RN) Last Done: 08/18/23 11:30
== END 2023-08-18 14:21 | disposition home health service (06) ==
LOC: ASU 10:08 → 3E 10:08

== ENCOUNTER 2023-10-01 12:53 | Inpatient (IN) ==
--- NOTE | 2023-09-28 19:08 | History & Physical Report ---
Date of Service September 28, 2023 Assessment & Plan (1) Necrosis of surgical wound: Plan: Patient had some complications post knee replacement with some marginal skin necrosis and could have contamination due to necrotic skin with bacteria and could possibly have infected prepatellar bursitis versus skin necrosis and inflammatory bursitis. Not 100% definitive that she has infection. Cannot rule out deep infection or sinus tract. She is not acting like a septic knee as does not have a knee effusion and knee motion not overtly painful and remainder of the rest of the knee not overly sensitive to palpation or range of motion. Plan is to proceed with debridement necrotic skin and granulation tissue and irrigation debridement of prepatellar bursa. Have to inspect for any deep mutation within the joint. Possibility of opening up the knee joint and irrigation debridement and polyethylene exchange if felt necessary. Manipulation under anesthesia for arthrofibrosis. If too much necrotic tissue may not be able to close wound 100% and may need a wound VAC possibly delayed secondary closure. (2) Prepatellar bursitis: (3) Status post left knee replacement: History of Present Illness Primary Care Provider: Larry Gonzalez DO Patient currently 6 weeks post left total knee replacement and patient had some skin necrosis at edges of skin and was placed on some prophylactic antibiotics[cefadroxil] however recently developed some swelling in the lower incision and small amount of drainage and was noted to have some granulation tissue in the incision. Because of wound issues has not had any aggressive physical therapy and has knee stiffness consistent with arthrofibrosis. 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 Patient denies headaches, sweats, fevers, chills, double vision, blurred vision, cough, sore throat, dysphagia, chest pain, sob, wheezing, n/v/d/c, numbness, tingling, fatigue, urinary symptoms. Allergies Allergy/AdvReac Type Severity Reaction Status Date / Time carisoprodol Allergy Intermediate HALLUCINATI Verified 09/25/23 15:32 ONS Penicillins Allergy Intermediate Hives Verified 09/25/23 15:32 aspirin Allergy Unknown NOT TO Verified 09/25/23 15:32 TAKE S/P GATRIC BYPASS clarithromycin [From Biaxin] Allergy Unknown Unknown Verified 09/25/23 15:32 glycopyrrolate [From Robinul] Allergy Unknown Unknown Verified 09/25/23 15:32 oxymorphone Allergy Unknown Unknown Verified 09/25/23 15:32 lactose AdvReac Mild Gastrointestinal Verified 09/25/23 15:32 Upset sulfamethoxazole AdvReac Verified 09/25/23 15:32 [From Bactrim] trimethoprim [From Bactrim] AdvReac Verified 09/25/23 15:32 Home Medications Medication Instructions Recorded Confirmed Type ferrous sulfate 325 mg (65 mg 325 mg PO BID 10/23/19 09/25/23 History iron) tablet multivitamin (Multiple Vitamins 1 tab PO BID #90 tabs 06/22/20 09/25/23 Rx tablet) buspirone 15 mg tablet 15 mg PO TID #90 tabs 10/20/21 09/25/23 Rx bupropion HCl 150 mg tablet,12 hr 150 mg PO QAM 01/13/22 09/25/23 History sustained-release diclofenac sodium 1 % topical gel 2 gm topical QID PRN Pain 01/13/22 09/25/23 History calcium citrate 200 mg (950 mg) 200 mg PO DAILY 05/15/22 09/25/23 History tablet montelukast 10 mg tablet 10 mg PO HS #90 tabs 01/16/23 09/25/23 Rx pravastatin 40 mg tablet 40 mg PO QAM #90 tabs 02/08/23 09/25/23 Rx ketoconazole 1 % shampoo (Nizoral 1 applic topical .twice daily #125 03/29/23 09/25/23 Rx A-D) mL docusate sodium 100 mg capsule 100 mg PO BID PRN Constipation 05/22/23 09/25/23 History (Colace) nystatin-triamcinolone 100,000 1 applic topical BID PRN Rash 05/22/23 09/25/23 History unit/g-0.1 % topical cream metoprolol succinate 100 mg 100 mg PO QAM #90 tabs 08/06/23 09/25/23 Rx tablet,extended release 24 hr pantoprazole 40 mg tablet,delayed 40 mg PO QAM #90 tabs 08/06/23 09/25/23 Rx release sucralfate 1 gram tablet 1 g PO QID #120 tabs 08/06/23 09/25/23 Rx Walking Cane #1 ea 08/10/23 09/25/23 Rx acetaminophen 500 mg tablet 1,000 mg (2 x 500 mg) PO Q8 #60 08/17/23 09/25/23 Rx (Tylenol Extra Strength) tabs naloxone 4 mg/actuation nasal spray 1 spray intranasal Q3M PRN opioid 08/17/23 09/25/23 Rx overdose #2 ea rivaroxaban 10 mg tablet (Xarelto) 10 mg PO DAILY #30 tabs 08/17/23 09/25/23 Rx meclizine 25 mg tablet 25 mg PO TID PRN dizziness #90 tabs 08/29/23 09/25/23 Rx nystatin 100,000 unit/gram topical 1 applic topical BID PRN yeast #60 09/10/23 09/25/23 Rx powder grams lorazepam 0.5 mg tablet 0.5 mg PO HS #30 tabs 09/19/23 09/25/23 Rx gabapentin 600 mg tablet 600 mg PO TID #90 tabs 09/22/23 09/25/23 Rx cyclobenzaprine 10 mg tablet 10 mg PO TID #90 tabs 09/24/23 09/25/23 Rx cefadroxil 500 mg capsule 500 mg PO BID 09/25/23 09/25/23 History ondansetron 4 mg disintegrating 4 mg PO TID PRN nausea and 09/25/23 09/25/23 Rx tablet vomiting #30 tabs oxycodone 10 mg tablet 10 mg PO Q6H PRN pain #60 tabs 09/25/23 09/25/23 Rx oxycodone 10 mg tablet,crush 10 mg PO BID #30 tabs 09/25/23 09/25/23 Rx resistant,extended release 12 hr (OxyContin) Past Med/Surg History Medical History MCCLAIN (nonalcoholic steatohepatitis) hx Depression Asthma no inhalers, well controlled per pt Enlarged liver hx > resolved per pt Arthritis Spinal stenosis History of urinary retention "just happens when I take too many pain pills" GERD (gastroesophageal reflux disease) Hyperlipidemia DVT (deep venous thrombosis) 2020 > can't recall which leg > no longer on thinner > s/p fall HTN (hypertension) History of COVID-19 06/29/20 H[facility]PITALIZED WITH [facility] 06/2021 RECOVERED AT HOME Opioid dependence with current use Anxiety disorder Cervical post-laminectomy syndrome Postlaminectomy syndrome of lumbosacral region Surgical History History of colonoscopy History of tooth extraction History of surgery on right wrist History of cataract surgery bilat Nausea and vomiting after administration of anesthetic agent History of back surgery x3 total > 06/02/19 Dr. Simon Templeton at [facility]- Midline prone multilevel osteotomies, Correction of flat back deformity, Extension of fusion to T9, T10, and T11 kyphoplasty History of tonsillectomy and adenoidectomy History of appendectomy History of gastric bypass History of neck surgery ACDF > has trouble tilting head back for long periods History of hysterectomy History of esophagogastroduodenoscopy History of cholecystectomy History of section x4 History of arthroscopy of knee right Family History Father Diabetes Heart problem Cancer Other No family history of adverse response to anesthesia Social History Smoking Status: Former smoker Second Hand Exposure: No; Do You Dip or Chew Tobacco: No; Hx Alcohol Use: No Hx Substance Use: No Preferred Language: Indonesian Communication Ability: Effective Hearing Ability: Use of Hearing Aid Group Exercise Instructor Required: No Beliefs That Will Affect Care: None marital status: Current Living Situation: Spouse and Family Current Living Situation Comment: LIVES WITH SPOUSE, ADULT SON current occupational status: disabled Feels Safe at Home: Yes Assistive Devices: Walker Review of Systems All systems reviewed & are unremarkable except as noted in HPI & below Specifically no fever, no significant knee pain, no chills, no signs of any sepsis. Physical Exam Constitutional: WD/WN, vitals as above Respiratory: normal respiratory effort; no respiratory distress Cardiovascular: Rate/Rhythm: regular rate and regular rhythm Musculoskeletal: Left knee 0 to 60 degrees range of motion, no knee effusion, no increased warmth, 4 mm wide area of skin necrosis along the central incision and in the lower incision there is a thin layer of tissue overlying the prepatellar bursa which is still intact however deep tissue has a defect that could represent some fat necrosis. Underlying this area is some swelling consistent with prepatellar bursa inflammation. No pus could be expressed from the incision area. Only clear serosanguineous type fluid. There is an area 4 mm in diameter with proud flesh/granulation type tissue. There is mild marginal erythema around the incisional area but no broad erythema consistent with any cellulitis. Skin: no rashes, warm and dry Neurologic: normal touch/pain/proprioception Psychiatric: Affect: + flat affect Results & Data Laboratory Results White blood cell count 7.05 hemoglobin 14.0 hematocrit 43.7, . new CBC with differential ESR and CRP pending. Superficial swab culture pending. Diagnostic Findings Normal well-fixed implants with no evidence of knee effusion but some evidence of prepatellar bursal swelling
[~2023-10-01 12:53] MED LIST changes: -BUPIVACAINE 0.25% PF 30 ML VIAL ONE; -BUPIVACAINE 0.5 % 5 MG/1 ML PF 10ML VIAL ONE; -MIDAZOLAM HCL 1 MG/ML 2ML VIAL ONE; +Patient's HEIGHT &/or WEIGHT Needed SCH
[2023-10-01] MEDS ORDERED: fentaNYL citrate PF 100 MCG/2 ML VIAL ONE (13:17)
[2023-10-01] MEDS ORDERED: LIDOCAINE 2% 2 ML VIAL/AMP(20MG/ML) INFIL ONE (13:17)
[2023-10-01] MEDS ORDERED: PROPOFOL IV EMULSION 10 MG/ML 20 ML VIAL IV ONE ×2 (13:17→14:20)
[2023-10-01] MEDS ORDERED: MIDAZOLAM HCL 1 MG/ML 2ML VIAL ONE (13:17)
[2023-10-01 13:22] LABS: Basophils # (auto) 0.05 K/uL (0.00-0.20); Basophils % (auto) 0.7 %; Eosinophils # (auto) 0.28 K/uL (0.00-0.50); Eosinophils % (auto) 3.9 %; Hematocrit (blood only) 39.2 % (37.0-47.0); Hemoglobin 12.6 g/dl (12.0-16.0); Immature Granulocytes # (auto) 0.02 K/uL (0.01-0.20); Immature Granulocytes % (auto) 0.3 %; Lymphocytes # (auto) 1.55 K/uL (1.20-3.40); Lymphocytes % (auto) 21.8 %; Mean Corpuscular Hemoglobin 30.6 pg (25.0-34.0); Mean Corpuscular Hgb Conc 32.1 g/dL (32.0-36.0); Mean Corpuscular Volume 95.1 fL (80.0-100.0); Mean Platelet Volume 9.2 fL (9.4-12.4); Monocytes # (auto) 0.75 K/uL (0.11-0.59); Monocytes % (auto) 10.5 %; Neutrophils # (auto) 4.46 K/uL (1.40-6.50); Neutrophils % (auto) 62.8 %; Platelet Count 368 K/uL (130-400); RDW Coefficient of Variation 12.5 % (11.5-14.5); RDW Standard Deviation 43.3 fL (36.4-46.3); Red Blood Count 4.12 M/uL (4.20-5.40); White Blood Count 7.11 K/ul (4.8-10.8)
[2023-10-01 13:40] LABS: BUN Creatinine Ratio 22.2 (10-20); C Reactive Protein 0.56 mg/dl (0-0.5); Calcium 8.7 mg/dl (8.6-10.3); Creatinine Clr Calc Pharmacy 58.7 ml/min; Est GFR (African American) 91.5 ml/min; Est GFR (Non-African American) 78.9 ml/min; Potassium 4.4 mmol/L (3.5-5.1)
[2023-10-01] MEDS: LACTATED RINGER'S 1,000 ML IV SCH (13:44)
--- NOTE | 2023-10-01 13:47 | History & Physical Bridge Note ---
Date of Service October 01, 2023 History & Physical Bridge Note I have examined the patient, reviewed the History & Physical and in the interval since the performance of the History & Physical I have noted the following changes of clinical significance: no changes noted
--- NOTE | 2023-10-01 13:59 | Anesthesiology Consultation ---
Date of Service October 01, 2023 Assessment & Plan Consults Requested medical & cardiac Pulmonary History Surgery Operation Date: 10/01/23 07:00 Proposed Procedures p Left Knee Irrigation and Debridement Pre-Patellar Bursa, Skin Debridement, - Kwasi Felix MD s Possible Poly Exchange - Kwasi Felix MD Height/Weight Height: 4 ft 10 in Weight: 64.6 kg Allergies Allergy/AdvReac Type Severity Reaction Status Date / Time carisoprodol Allergy Intermediate HALLUCINATI Verified 10/01/23 13:17 ONS Penicillins Allergy Intermediate Hives Verified 10/01/23 13:17 aspirin Allergy Unknown NOT TO Verified 10/01/23 13:17 TAKE S/P GATRIC BYPASS clarithromycin [From Biaxin] Allergy Unknown Unknown Verified 10/01/23 13:17 glycopyrrolate [From Robinul] Allergy Unknown Unknown Verified 10/01/23 13:17 oxymorphone Allergy Unknown Unknown Verified 10/01/23 13:17 lactose AdvReac Mild Gastrointestinal Verified 10/01/23 13:17 Upset sulfamethoxazole AdvReac Verified 10/01/23 13:17 [From Bactrim] trimethoprim [From Bactrim] AdvReac Verified 10/01/23 13:17 Medications Home Medications Medication Instructions Recorded Confirmed Last Taken ferrous sulfate 325 mg (65 mg 325 mg PO BID 10/23/19 10/01/23 09/30/23 07:00 iron) tablet multivitamin (Multiple Vitamins 1 tab PO BID #90 tabs 06/22/20 10/01/23 09/30/23 22:00 tablet) buspirone 15 mg tablet 15 mg PO TID #90 tabs 10/20/21 10/01/23 10/01/23 10:30 bupropion HCl 150 mg tablet,12 hr 150 mg PO QAM 01/13/22 10/01/23 10/01/23 10:30 sustained-release diclofenac sodium 1 % topical gel 2 gm topical QID PRN Pain 01/13/22 10/01/23 Unknown calcium citrate 200 mg (950 mg) 200 mg PO DAILY 05/15/22 10/01/23 09/30/23 07:00 tablet montelukast 10 mg tablet 10 mg PO HS #90 tabs 01/16/23 10/01/23 09/30/23 22:00 pravastatin 40 mg tablet 40 mg PO QAM #90 tabs 02/08/23 10/01/23 10/01/23 10:30 ketoconazole 1 % shampoo (Nizoral 1 applic topical .twice daily #125 03/29/23 10/01/23 08/15/23 08:00 A-D) mL docusate sodium 100 mg capsule 100 mg PO BID PRN Constipation 05/22/23 10/01/23 10/01/23 10:30 (Colace) nystatin-triamcinolone 100,000 1 applic topical BID PRN Rash 05/22/23 10/01/23 08/15/23 10:00 unit/g-0.1 % topical cream metoprolol succinate 100 mg 100 mg PO QAM #90 tabs 08/06/23 10/01/23 10/01/23 10:30 tablet,extended release 24 hr pantoprazole 40 mg tablet,delayed 40 mg PO QAM #90 tabs 08/06/23 10/01/23 10/01/23 10:30 release sucralfate 1 gram tablet 1 g PO QID #120 tabs 08/06/23 10/01/23 10/01/23 10:30 Walking Cane #1 ea 08/10/23 09/25/23 Unknown acetaminophen 500 mg tablet 1,000 mg (2 x 500 mg) PO Q8 #60 08/17/23 10/01/23 Unknown (Tylenol Extra Strength) tabs naloxone 4 mg/actuation nasal spray 1 spray intranasal Q3M PRN opioid 08/17/23 10/01/23 Unknown overdose #2 ea meclizine 25 mg tablet 25 mg PO TID PRN dizziness #90 tabs 08/29/23 10/01/23 10/01/23 10:30 nystatin 100,000 unit/gram topical 1 applic topical BID PRN yeast #60 09/10/23 10/01/23 10/01/23 10:30 powder grams lorazepam 0.5 mg tablet 0.5 mg PO HS #30 tabs 09/19/23 10/01/23 09/30/23 22:00 cyclobenzaprine 10 mg tablet 10 mg PO TID #90 tabs 09/24/23 10/01/23 10/01/23 10:30 cefadroxil 500 mg capsule 500 mg PO BID 09/25/23 10/01/23 10/01/23 10:30 ondansetron 4 mg disintegrating 4 mg PO TID PRN nausea and 09/25/23 10/01/23 09/30/23 22:00 tablet vomiting #30 tabs oxycodone 10 mg tablet 10 mg PO Q6H PRN pain #60 tabs 09/25/23 10/01/23 Unknown oxycodone 10 mg tablet,crush 10 mg PO BID #30 tabs 09/25/23 10/01/23 10/01/23 06:30 resistant,extended release 12 hr (OxyContin) gabapentin 600 mg tablet 600 mg PO TID #90 tabs 09/30/23 10/01/23 10/01/23 10:30 fluticasone propionate 50 1 spray intranasal DAILY 10/01/23 10/01/23 10/01/23 10:30 mcg/actuation nasal spray,suspension Active Medications Generic Name Dose Route Start Last Admin Trade Name Freq PRN Reason Stop Dose Admin Lactated Ringer's 1,000 mls @ 15 mls/hr 10/01/23 13:45 10/01/23 13:44 Lr IV 10/31/23 13:44 15 mls/hr .Q24H BRAYDEN Administration NPO Date Last Intake of Fluids: 10/01/23 Time Last Intake of Fluids: 10:30 Last Intake of Fluids Comment: sip black coffee with pills. otherwise before [place] Past Medical History Medical History MCCLAIN (nonalcoholic steatohepatitis) hx Depression Asthma no inhalers, well controlled per pt Enlarged liver hx > resolved per pt Arthritis Spinal stenosis History of urinary retention "just happens when I take too many pain pills" GERD (gastroesophageal reflux disease) Hyperlipidemia DVT (deep venous thrombosis) 2020 > can't recall which leg > no longer on thinner > s/p fall HTN (hypertension) History of COVID-19 06/29/20 HOSPITALIZED WITH PNEUMONIA Korina RAMIREZSARANYA 06/2021 RECOVERED AT HOME Opioid dependence with current use Anxiety disorder Cervical post-laminectomy syndrome Postlaminectomy syndrome of lumbosacral region Past Family History Family History Father Diabetes Heart problem Cancer Other No family history of adverse response to anesthesia Past Surgical History Surgical History History of colonoscopy History of tooth extraction History of surgery on right wrist History of cataract surgery bilat Nausea and vomiting after administration of anesthetic agent History of back surgery x3 total > 06/02/19 Dr. Simon Templeton at [facility]- Midline prone multilevel osteotomies, Correction of flat back deformity, Extension of fusion to T9, T10, and T11 kyphoplasty History of tonsillectomy and adenoidectomy History of appendectomy History of gastric bypass History of neck surgery ACDF > has trouble tilting head back for long periods History of hysterectomy History of esophagogastroduodenoscopy History of cholecystectomy History of section x4 History of arthroscopy of knee right Social History Smoking Status: Former smoker Do You Dip or Chew Tobacco: No Hx Alcohol Use: No Hx Substance Use: No substance use type: does not use Physical Exam Vital Signs Last Vital Signs Temp 36.6 C 10/01/23 13:29 Pulse 80 10/01/23 13:29 Resp 20 10/01/23 13:29 BP 150/90 H 10/01/23 13:29 Pulse Ox 98 10/01/23 13:29 O2 Del Method Room Air 10/01/23 13:29 Testing Laboratory Results 10/01/23 13:06 10/01/23 13:06
[2023-10-01] MEDS ORDERED: ePHEDrine sulfate 50 MG/ML AMP IV PRN (14:01)
[2023-10-01] MEDS ORDERED: DROPERIDOL 5 MG/2 ML VIAL IV PRN (14:01)
[2023-10-01] MEDS ORDERED: ATROPINE SULFATE 0.1 MG/ML 10ML SYR IV PRN (14:01)
[2023-10-01] MEDS ORDERED: DEXAMETHASONE SOD INJ 4 MG/ML VIAL ONE (14:20)
[2023-10-01] MEDS ORDERED: ONDANSETRON INJ 2 MG/ML 2 ML VIAL ONE (14:20)
[2023-10-01] MEDS ORDERED: HYDROmorphone INJ 2 MG/ML SYR/VIAL ONE (15:44)
--- NOTE | 2023-10-01 17:25 | Post Operative Brief Note ---
Immediate Post Op Note v1 Date of Surgery October 01, 2023 Pre & Post Diagnosis Operation Date: 10/01/23 07:00 Pre-Op Diagnosis: (1) Necrosis of surgical wound: (2) Prepatellar bursitis: (3) Status post left knee replacement: (4) arthrofibrosis Post-Op Diagnosis: (1) Necrosis of surgical wound: (2) Prepatellar bursitis: (3) Status post left knee replacement: (4) probable deep infection (5)arthrofibrosis (6) synovitis I identified the patient and participated in the time-out.: Yes Procedure Operation Date: 10/01/23 07:00 Actual Procedures p Left Knee Irrigation and Debridement Pre-Patellar Bursa, Skin Debridement,(Left) - Kwasi Felix MD s Poly Exchange(Left) - Kwasi Felix MD Surgeon Kwasi Felix MD Ticket Scheduler none Estimated Blood Loss 50 Findings Consistent with Post-Op Diagnosis Specimens Swab cultures x 3 Drains Hemovac Drain (x2) Anesthesia Type General Regional Complications none Disposition Disposition: Recovery Room Overlapping Procedure I was immediately available: during the entire case.
[2023-10-01] MEDS: HYDROmorphone INJ 2 MG/ML SYR/VIAL IV PRN (17:36)
--- NOTE | 2023-10-01 18:23 | Operative Report ---
Post Operative Report Pre & Post Diagnosis Operation Date: 10/01/23 07:00 Pre-Op Diagnosis: (1) Necrosis of surgical wound: (2) Prepatellar bursitis: (3) Status post left knee replacement: (4) arthrofibrosis Post-Op Diagnosis: (1) Necrosis of surgical wound: (2) Prepatellar bursitis: (3) Status post left knee replacement: (4) arthrofibrosis (5) synovitis (6) probable septic knee replacement I identified the patient and participated in the time-out.: Yes Procedure Operation Date: 10/01/23 07:00 Actual Procedures p Left Knee Irrigation and Debridement Pre-Patellar Bursa, Skin Debridement,(Left) - Kwasi Felix MD Poly Exchange(Left), electrocautery synovectomy, irrigation debridement knee joint, lateral release, closure over drain- Kwasi Felix MD Surgeon Kwasi Felix MD Boxing Trainer none Estimated Blood Loss 50 Findings Consistent with Post-Op Diagnosis Specimens Swab cultures x 2 Drains 2 Hemovac Anesthesia Type General Complications none Disposition Disposition: Recovery Room Indications 58-year-old female status post primary left knee replacement 08/15/2023. Patient's postoperative course complicated by skin edge necrosis and wound was dry until 6 weeks postop upon which there was drainage from the inferior aspect of the wound and the scab from the skin necrosis came off the wound and now patient has a draining wound and fluid in the prepatellar bursa. There is serosanguineous type fluid no pus. White blood cell count was 7 and CRP and ESR were pending. Swab culture demonstrated 1 colony Enterococcus possible contaminant. Description of Procedure Patient taken to the operating anesthetized under general anesthetic. A pneumatic tourniquet placed about the left upper thigh. Range of motion was 0 to 60 degrees. There was skin necrosis and slight dehiscence of the distal incision. Distally the skin necrosis was about 6 mm wide and central incisional area 3 mm wide. There was serosanguineous drainage from the wound. There was no erythema. There was no significant knee effusion. No collateral instability. The left lower extremity was prepped with Betadine scrub and paint. The leg was elevated no Esmarch was used. The pneumatic tourniquet was raised to 300 mmHg. The necrotic skin edges were debrided sharply through the skin and dermis into the subcutaneous tissues which were also debrided. The prepatellar bursal tissue was all resected. Then subcutaneous flaps were carefully elevated and this exposed a 3 and half centimeter defect along the medial patella tendon which communicated with the joint. The proximal medial retinaculum and quad tendon repair was intact still. Subcutaneous flaps were elevated carefully and the edge necrosis of the fat material was debrided. All skin edges were debrided back to better appearing tissue. The edge of the patella tendon and retinaculum in that area was debrided and old suture material was removed in that area. Deep culture was obtained from the joint. Incision was then carried up through the medial retinaculum up and to the mid third of the quadriceps tendon through the old incision. The knee joint demonstrated chronic appearing synovitis no pus. No loosening of any components. There was thickened scar tissue of the synovium. The knee joint was copiously irrigated with pulsatile lavage saline solution. 3 L was utilized. Electrocautery synovectomy was performed moving all the scarred synovial tissue in the gutters and suprapatellar pouch and some of the infrapatellar fat. Retractors were placed and then the polyethylene was removed uneventfully. The membrane under that was cultured. Then further debridement of the synovium and posterior capsular area in the intercondylar notch area of the prosthetic was performed. Further irrigation with 3 more liters of pulsatile lavage saline solution was performed. A Betadine scrub brush was used to scrub the metallic surfaces. Further irrigation performed. A trial reduction was performed and the 11 mm polyethylene size to insert was inserted and had normal stability full extension however with flexion the patella tracked laterally due to the arthrofibrosis and scar tissue so I did a lateral release maintaining as much synovium intact as possible. With a towel clip in place to the O the patella tracked centrally. Further pulsatile lavage saline solution was to cut the metal surfaces prior to placing in the new size 211 mm posterior stabilized polyethylene component. Utilized to irrigate out the knee joint and then we used the xperience 2 drains were brought out laterally connected to Hemovac. The quadriceps tendon and medial retinaculum were repaired with interrupted #1 Vicryl bacterial resistance suture material. The retinacular tissue adjacent to the patella tendon. Was poor so I put a ripstop suture through that tissue to help pull out and then performed [id number] sutures around that ripstop suture in that area. That was under some tension but I wanted to create a seal of the joint in that area. I was able to flex the knee up to 90 degrees without any failure of the suture repair. The subcutaneous tissues were closed proximally with 2-0 Vicryl bacterial resistance sutures where there was thicker fat and the remainder decision proximally and distally was closed with interrupted 2-0 nylon vertical mattress sutures and simple sutures. These were stable 0 to 90 degrees range of motion. We did let the tourniquet down prior to completing the closure and appeared to be satisfactory circulation of the skin flaps. Xeroform bandage was placed followed by gauze and ABDs and compressive Webril dressing about the knee and an Cm wrap from the foot to the thigh and a knee immobilizer was applied. Patient was noted to have normal capillary refill to the foot after the completion of the procedure. I attest to the content of the Intraoperative Record and any orders documented t herein. Any exceptions are noted below.
[2023-10-01] MEDS ORDERED: HYDROmorphone INJ 2 MG/ML SYR/VIAL IV PRN (18:24)
--- NOTE | 2023-10-01 18:29 | Anesthesiology Progress Note ---
Date of Service October 01, 2023 Anesthesia Post Procedure Vital Signs Vital Signs: Temp Pulse Resp BP Pulse Ox O2 Del Method O2 Flow Rate 10/01/23 18:25 90 16 142/86 H 100 Oxymask 4 10/01/23 18:15 36.8 C 83 16 139/76 100 Oxymask 4 10/01/23 18:05 36.8 C 97 H 18 141/85 H 100 Oxymask 4 10/01/23 17:55 36.8 C 97 H 16 163/104 H 100 Oxymask 7 10/01/23 17:45 89 16 155/85 H 100 Oxymask 7 10/01/23 17:35 87 18 152/88 H 96 Oxymask 7 10/01/23 17:25 86 11 L 154/87 H 100 Oxymask 7 10/01/23 17:18 87 18 152/88 H 96 Oxymask 7 10/01/23 17:18 36.3 C L 89 11 L 152/94 H 100 Oxymask 7 10/01/23 13:29 36.6 C 80 20 150/90 H 98 Room Air Pain Intensity Left Knee: Pain Intensity: 10 Transfer of Care Handoff Completed per policy Notes Mental Status: alert / awake / arousable and participated in evaluation Patient Amnestic to Procedure: Yes Nausea / Vomiting: adequately controlled Pain: improving with treatment Airway Patency, RR, SpO2: stable & adequate BP & HR: stable & adequate Hydration State: stable & adequate Anesthetic Complications: no major complications apparent and Pt Satisfied with anesthetic care Notes: Patient with significant pain medicine requirement. Also was tearful and anxious in PACU but responded well to a very small dose of IV ativan.
--- NOTE | 2023-10-01 18:41 | XRay Report ---
TWO VIEWS LEFT KNEE CLINICAL HISTORY: Postoperative examination. FINDINGS: AP and crosstable lateral portable views of the left knee are obtained. A left knee arthrop lasty is in near anatomic alignment. There has been undersurface remodeling of the patella. No acute fracture is seen. There are expected postoperative changes around the knee including a surgical drai n, soft tissue edema, and subcutaneous gas. IMPRESSION: Expected postoperative changes status post left knee arthroplasty. No acute fracture is s een. ACT 112: Negative or not required by law. Electronically signed by: Ricky Tate M.D. 10/01/2023 6:39 PM
[2023-10-01] MEDS ORDERED: NALOXONE HCL 0.4 MG/1 ML VIAL/CARP IV PRN (19:45)
[2023-10-01] MEDS ORDERED: MAGNESIUM HYDROXIDE SUSP 30 ML UDC PO PRN (19:45)
[2023-10-01] MEDS ORDERED: bisacodyL 10 MG SUPP PR PRN (19:45)
[2023-10-01] MEDS ORDERED: NYSTATIN POWDER 15GM BTL EXT PRN (19:45)
[2023-10-01] MEDS ORDERED: ALUMINUM/MAGNESIUM SUSP 30 ML UDC PO PRN (19:45)
[2023-10-01] MEDS ORDERED: DOCUSATE SODIUM 100 MG CAP PO PRN (19:45)
[2023-10-01] MEDS ORDERED: MECLIZINE HCL 25 MG TAB PO PRN (19:45)
[2023-10-01] MEDS ORDERED: VANCOMYCIN CONSULT ACTIVE PRN (19:45)
[2023-10-01] MEDS: SODIUM CHLORIDE 0.9% 1,000 ML IV SCH (20:00)
[2023-10-01] MEDS: ceFAZolin 330 MG/ML 1 GM VIAL ONE (20:30)
[2023-10-01] MEDS: LORazepam 2 MG/1 ML VIAL ONE (20:30)
[2023-10-01] MEDS: KETOROLAC 30 MG/ML VIAL ONE (20:30)
[2023-10-01] MEDS: ceFAZolin 2000MG 2,000 MG/15 ML SYR IV SCH (20:30)
[2023-10-01] MEDS ORDERED: NON-FORMULARY MEDICATION (Ferrous Sulfate 325 mg (65 mg iron) tablet) PO SCH (21:00)
[2023-10-01] MEDS ORDERED: NON-FORMULARY MEDICATION (Multivitamin [Multiple Vitamins] tablet) PO SCH (21:00)
--- NOTE | 2023-10-01 21:14 | Hospitalist Consultation ---
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 01/2023 hgb A1c 5.3- has not had issues since gastric bypass - avoid NSAIDs (6) HTN, goal below 140/80: - continue metoprolol (7) Hyperlipidemia: - continue statin (8) History of DVT (deep vein thrombosis): - history of DVT 2020- not currently on anticoagulation - SCD/Esteban stockings at present - plan to start on Xarelto 10mg q24H tomorrow (9) Anemia: - noted post-op anemia after initial surgery 6 weeks ago - would hold iron supplementation with concern for acute infection - continue to trend CBC Supervising Physician Co-Signing Physician Notes Attending addendum: I have supervised the medical residents activities, and agree with the H&P unless as otherwise noted. Assessment and Plan: Status post left TKA with surgical wound infection- Continue vancomycin IV Consulting infectious disease and request per primary team Chronic pain syndrome- Per primary team Depression- Continue BuSpar and Wellbutrin, with Ativan at bedtime as needed History of DVT 2020 Xarelto to begin Hypertension- Continue metoprolol with hold parameters Hospital medicine will follow along during hospital stay History of Present Illness Attending Physician: Kwasi Felix MD History of Present Illness 58 year old female with a past medical history of HTN, chronic pain on narcotics, anxiety/depression, MCCLAIN that is currently admitted with concern for post-op infection after elective left knee replacement 08/15/23. Pt notes continued pain in LE from knee up, denies erythema/swelling. Notes concern for skin necrosis at edges of wounds. Was placed on cefadroxil as an outpatient, but noticed some d/c. Also notes stiffness similar to when she had arthrofibrosis with right knee replacement. Notes history of penicillin allergy, rash/hives when she was 10; denies reaction with cephalosporin. She is now post-op day 0 from skin debridement, irrigation and drainage, synovectomy. 2 dra[address] are now in place with Hemovac. Denies fever, chills, nausea, vomiting, calf swelling/pain. Allergies Allergy/AdvReac Type Severity Reaction Status Date / Time carisoprodol Allergy Intermediate HALLUCINATI Verified 10/01/23 13:17 ONS Penicillins Allergy Intermediate Hives Verified 10/01/23 13:17 aspirin Allergy Unknown NOT TO Verified 10/01/23 13:17 TAKE S/P GATRIC BYPASS clarithromycin [From Biaxin] Allergy Unknown Unknown Verified 10/01/23 13:17 glycopyrrolate [From Robinul] Allergy Unknown Unknown Verified 10/01/23 13:17 oxymorphone Allergy Unknown Unknown Verified 10/01/23 13:17 lactose AdvReac Mild Gastrointestinal Verified 10/01/23 13:17 Upset sulfamethoxazole AdvReac Verified 10/01/23 13:17 [From Bactrim] trimethoprim [From Bactrim] AdvReac Verified 10/01/23 13:17 Home Medications Medication Instructions Recorded Confirmed Type ferrous sulfate 325 mg (65 mg 325 mg PO BID 10/23/19 10/01/23 History iron) tablet multivitamin (Multiple Vitamins 1 tab PO BID #90 tabs 06/22/20 10/01/23 Rx tablet) buspirone 15 mg tablet 15 mg PO TID #90 tabs 10/20/21 10/01/23 Rx bupropion HCl 150 mg tablet,12 hr 150 mg PO QAM 01/13/22 10/01/23 History sustained-release diclofenac sodium 1 % topical gel 2 gm topical QID PRN Pain 01/13/22 10/01/23 History calcium citrate 200 mg (950 mg) 200 mg PO DAILY 05/15/22 10/01/23 History tablet montelukast 10 mg tablet 10 mg PO HS #90 tabs 01/16/23 10/01/23 Rx pravastatin 40 mg tablet 40 mg PO QAM #90 tabs 02/08/23 10/01/23 Rx ketoconazole 1 % shampoo (Nizoral 1 applic topical .twice daily #125 03/29/23 10/01/23 Rx A-D) mL docusate sodium 100 mg capsule 100 mg PO BID PRN Constipation 05/22/23 10/01/23 History (Colace) nystatin-triamcinolone 100,000 1 applic topical BID PRN Rash 05/22/23 10/01/23 History unit/g-0.1 % topical cream metoprolol succinate 100 mg 100 mg PO QAM #90 tabs 08/06/23 10/01/23 Rx tablet,extended release 24 hr pantoprazole 40 mg tablet,delayed 40 mg PO QAM #90 tabs 08/06/23 10/01/23 Rx release sucralfate 1 gram tablet 1 g PO QID #120 tabs 08/06/23 10/01/23 Rx Walking Cane #1 ea 08/10/23 09/25/23 Rx acetaminophen 500 mg tablet 1,000 mg (2 x 500 mg) PO Q8 #60 08/17/23 10/01/23 Rx (Tylenol Extra Strength) tabs naloxone 4 mg/actuation nasal spray 1 spray intranasal Q3M PRN opioid 08/17/23 10/01/23 Rx overdose #2 ea meclizine 25 mg tablet 25 mg PO TID PRN dizziness #90 tabs 08/29/23 10/01/23 Rx nystatin 100,000 unit/gram topical 1 applic topical BID PRN yeast #60 09/10/23 10/01/23 Rx powder grams lorazepam 0.5 mg tablet 0.5 mg PO HS #30 tabs 09/19/23 10/01/23 Rx cyclobenzaprine 10 mg tablet 10 mg PO TID #90 tabs 09/24/23 10/01/23 Rx cefadroxil 500 mg capsule 500 mg PO BID 09/25/23 10/01/23 History ondansetron 4 mg disintegrating 4 mg PO TID PRN nausea and 09/25/23 10/01/23 Rx tablet vomiting #30 tabs oxycodone 10 mg tablet 10 mg PO Q6H PRN pain #60 tabs 09/25/23 10/01/23 Rx oxycodone 10 mg tablet,crush 10 mg PO BID #30 tabs 09/25/23 10/01/23 Rx resistant,extended release 12 hr (OxyContin) gabapentin 600 mg tablet 600 mg PO TID #90 tabs 09/30/23 10/01/23 Rx fluticasone propionate 50 1 spray intranasal DAILY 10/01/23 10/01/23 History mcg/actuation nasal spray,suspension Patient History Medical History (Updated 10/02/23 @ 07:57 by Kwasi Felix MD) MCCLAIN (nonalcoholic steatohepatitis) hx Depression Asthma no inhalers, well controlled per pt Enlarged liver hx > resolved per pt Arthritis Spinal stenosis History of urinary retention "just happens when I take too many pain pills" GERD (gastroesophageal reflux disease) Hyperlipidemia DVT (deep venous thrombosis) 2020 > can't recall which leg > no longer on thinner > s/p fall HTN (hypertension) History of COVID-19 06/29/20 HOSPITALIZED WITH PNEUMONIA [facility] 06/2021 RECOVERED AT HOME Opioid dependence with current use Anxiety disorder Cervical post-laminectomy syndrome Postlaminectomy syndrome of lumbosacral region Surgical History History of colonoscopy History of tooth extraction History of surgery on right wrist History of cataract surgery bilat Nausea and vomiting after administration of anesthetic agent History of back surgery x3 total > 06/02/19 Dr. Simon Templeton at [facility]- Midline prone multilevel osteotomies, Correction of flat back deformity, Extension of fusion to T9, T10, and T11 kyphoplasty History of tonsillectomy and adenoidectomy History of appendectomy History of gastric bypass History of neck surgery ACDF > has trouble tilting head back for long periods History of hysterectomy History of esophagogastroduodenoscopy History of cholecystectomy History of section x4 History of arthroscopy of knee right Family History Father Diabetes Heart problem Cancer Other No family history of adverse response to anesthesia Social History Smoking Status: Never smoker Second Hand Exposure: No; Do You Dip or Chew Tobacco: No; Hx Alcohol Use: No Hx Substance Use: No Preferred Language: [place]guill[place] Communication Ability: Effective Hearing Ability: Use of Hearing Aid Flatwork Supervisor Required: No Beliefs That Will Affect Care: None marital status: Current Living Situation: Spouse Current Living Situation Comment: LIVES WITH SPOUSE, ADULT SON current occupational status: disabled Other Information That Helps Us Care for You: No Feels Safe at Home: Yes Safety Concerns: Feels Safe At This Time Assistive Devices: Cane, Crutches and Walker Review of Systems Review of Systems: As per above Physical Exam Physical Exam: Constitutional: well-appearing, no acute distress HEENT: NCAT, no conjunctival injection CV: regular rhythm, no murmur appreciated, extremities well-perfused, no LE edema Resp: CTABL, no wheezes/rales/rhonchi appreciated, no increased work of breathing GI: soft, nondistended, nontender, BS normoactive MSK: no gross deformities appreciated; surgical dressing/brace in place left knee; drains remain in place and are draining serosanguineous fluid Skin: warm, dry, no rash appreciated Neuro: alert, oriented, no focal neurologic deficit appreciated Results & Data Results & Data Vital Signs (Past 12 Hours) Vital Signs Temp Pulse Pulse Resp BP Pulse Ox O2 Del Method 10/01/23 20:45 36.6 C 85 18 152/76 H 99 Room Air 10/01/23 20:14 36.7 C 84 16 135/84 94 Room Air 10/01/23 19:47 36.8 C 84 18 124/79 95 Room Air 10/01/23 19:25 84 14 117/79 95 Room Air 10/01/23 19:15 88 12 138/76 94 Room Air 10/01/23 19:05 84 16 132/79 93 Room Air 10/01/23 18:55 85 14 136/77 93 Room Air 10/01/23 18:45 86 11 L 135/74 93 Room Air 10/01/23 18:35 88 21 138/80 97 Oxymask 10/01/23 18:25 90 16 142/86 H 100 Oxymask 10/01/23 18:15 36.8 C 83 16 139/76 100 Oxymask 10/01/23 18:05 36.8 C 97 H 18 141/85 H 100 Oxymask 10/01/23 17:55 36.8 C 97 H 16 163/104 H 100 Oxymask 10/01/23 17:45 89 16 155/85 H 100 Oxymask 10/01/23 17:35 87 18 152/88 H 96 Oxymask 10/01/23 17:25 86 11 L 154/87 H 100 Oxymask 10/01/23 17:18 87 18 152/88 H 96 Oxymask 10/01/23 17:18 36.3 C L 89 11 L 152/94 H 100 Oxymask 10/01/23 13:29 36.6 C 80 20 150/90 H 98 Room Air O2 Flow Rate 10/01/23 20:45 10/01/23 20:14 10/01/23 19:47 10/01/23 19:25 10/01/23 19:15 10/01/23 19:05 10/01/23 18:55 10/01/23 18:45 10/01/23 18:35 2 10/01/23 18:25 4 10/01/23 18:15 4 10/01/23 18:05 4 10/01/23 17:55 7 10/01/23 17:45 7 10/01/23 17:35 7 10/01/23 17:25 7 10/01/23 17:18 7 10/01/23 17:18 7 10/01/23 13:29 Resident Activity Tracking Resident Involvement: Resident Care Provided Care Provided: Adult Hospital Medicine
[2023-10-01] MEDS: oxyCODONE HCL 10 MG TABCR (OxyCONTIN) PO SCH (21:40)
[2023-10-01] MEDS: DOCUSATE SODIUM 100 MG CAP PO SCH (21:40)
[2023-10-01] MEDS: LORazepam 0.5 MG TAB PO SCH (21:40)
[2023-10-01] MEDS: CYCLOBENZAPRINE HCL 10 MG TAB PO SCH (21:40)
[2023-10-01] MEDS: GABAPENTIN 600 MG TAB PO SCH (21:40)
[2023-10-01] MEDS: SUCRALFATE 1 GM TAB PO SCH (21:41)
[2023-10-01] MEDS: SENNA 8.6 MG TAB PO SCH (21:42)
[2023-10-01] MEDS: MONTELUKAST SODIUM 10 MG TABLET PO SCH (21:42)
[2023-10-01] MEDS: busPIRone 15 MG TAB PO SCH (21:42)
[2023-10-01] MEDS: ACETAMINOPHEN 500 MG TAB PO SCH (21:43)
--- OUTSIDE RECORDS SUMMARY | 2023-10-01 22:09 | External Medical Summary ---
Author Name Unknown Address Unknown Organization K01:[facility] [place] [address] [place] [id number] Laboratory Report Ordering Provider Test Date Status AMANUEL ANDRE 09/28/2023 17:20:00 Preliminary No anaerobic growth. Observation Date Value Abnormality Reference (Units) Status Bacteria identified in Specimen by Culture 09/28/2023 17:20:00 [id number]^ENTER OCOCCUS SPECIES Abnormal Preliminary One colony Enterococcus spec ies
This result may not be clinically significant and should be interpreted in the context of the microbe detected. Gram Stain 09/28/2023 17:20:00 Occasional P olymorphonuclear leukocytes Preliminary Gram Stain 09/28/2023 17:20:00 No organisms seen Preliminary Test: Culture, Wound, Deep, Aerobic and Anaerobic
Specimen Source: Knee, Left
Specimen Type: Deep Wound
Specimen Date: 09/28/2023 5:20 PM
Result Date: 09/30/2023 11:40 AM
Result Status: Preliminary result
Abnormal: Yes
Resulting Lab: [facility]
[address]
[place] [id number]

CULTURE

One colony Enterococcus species (Abnormal)

This result may not be clinically significant and should be interpreted in
the context of the microbe detected.

No anaerobic growth.

STAIN

Occasional Polymorphonuclear leukocytes

No organisms seen

null Performing Location [facility] [place] - [address] [facility] [id number]
[2023-10-01] MEDS: CETIRIZINE HCL 10 MG TABLET PO PRN (23:13)
[2023-10-01] MEDS: HYDROmorphone INJ 0.5 MG/0.5 ML SYR IV PRN (23:33)
[2023-10-02] MEDS: oxyCODONE HCL IR 5 MG TAB (IMMEDIATE RELEASE) PO PRN (02:08)
[2023-10-02] MEDS ORDERED: VANCOMYCIN HCL 1,000 MG in SODIUM CHLORIDE 0.9% 500 ML IV SCH (03:45)
[2023-10-02] MEDS: VANCOMYCIN HCL 1,000 MG in SODIUM CHLORIDE 0.9% 250 ML IV ONE (04:13)
[2023-10-02 07:35] LABS: Hematocrit (blood only) 29.3 % (37.0-47.0); Hemoglobin 9.5 g/dl (12.0-16.0); Mean Corpuscular Hemoglobin 30.3 pg (25.0-34.0); Mean Corpuscular Hgb Conc 32.4 g/dL (32.0-36.0); Mean Corpuscular Volume 93.3 fL (80.0-100.0); Mean Platelet Volume 9.5 fL (9.4-12.4); Platelet Count 299 K/uL (130-400); RDW Coefficient of Variation 12.5 % (11.5-14.5); RDW Standard Deviation 42.4 fL (36.4-46.3); Red Blood Count 3.14 M/uL (4.20-5.40); White Blood Count 6.27 K/ul (4.8-10.8)
[2023-10-02 07:47] LABS: BUN Creatinine Ratio 23.3 (10-20); Calcium 7.2 mg/dl (8.6-10.3); Creatinine Clr Calc Pharmacy 79.3 ml/min; Est GFR (African American) 114.8 ml/min; Est GFR (Non-African American) 99.1 ml/min; Potassium 3.7 mmol/L (3.5-5.1)
[2023-10-02] MEDS ORDERED: FERROUS GLUCONATE 324 MG TAB PO SCH (08:00)
--- NOTE | 2023-10-02 08:02 | Orthopedic Progress Note ---
Date of Service October 02, 2023 Postop day 1 status post I&D poly exchange debridement necrotic skin with presumed postoperative infection with deep infection likely Assessment & Plan (1) Infection of total knee replacement: Plan: Probable deep infection Status post total knee replacement with complications postoperative including skin necrosis. Status post excisional debridement necrotic skin irrigation debridement synovectomy and polyethylene exchange. Delvis ping knee in extension to control soft tissue envelope and allow healing for few weeks and then start therapy for range of motion at that time. Likely will need PICC line and IV antibiotics 6 weeks. Has postop anemia and had significant initial postop drainage which is decreased over the last shift. Hemoglobin 9.5. If hemoglobin less than 7 or becomes symptomatic consider transfusion. Admission and Anticipated Discharge Date Admission Date: October 01, 2023 Subjective Having moderate pain Physical Exam Physical Exam: Patient refused knee immobilizer resting comfortably with leg on pillows normal circulation sensation motor function distally dressings dry and intact. Results & Data Vital Signs (Past 12 Hours) Vital Signs Temp Pulse Resp BP Pulse Ox O2 Del Method 10/02/23 07:27 36.5 C 82 16 121/77 95 Room Air 10/02/23 02:07 36.4 C 82 16 134/81 94 Room Air 10/01/23 22:45 37.1 C 85 16 131/77 94 Room Air 10/01/23 21:47 36.8 C 88 17 136/75 96 Room Air 10/01/23 20:45 36.6 C 85 18 152/76 H 99 Room Air 10/01/23 20:14 36.7 C 84 16 135/84 94 Room Air Laboratory Results Cultures pending outside culture 1 colony Enterococcus sensitivity culture pending (1) Infection of total knee replacement Encounter type: initial encounter Qualified Code(s): T84.59XA - Infection and inflammatory reaction due to other internal joint prosthesis, initial encounter; Z96.659 - Presence of unspecified artificial knee joint
--- NOTE | 2023-10-02 08:04 | Hospitalist Progress Note ---
Date of Service October 02, 2023 Assessment & Plan (1) Necrosis of surgical wound: Plan: 6 weeks s/p left total knee replacement -concern for post-op infection/poor wound healing now POD# 1 s/p Left Knee Irrigation and Debridement Pre-Patellar Bursa, Skin Debridement,(Left), Poly Exchange(Left), electrocautery synovectomy, irrigation debridement knee joint, lateral release, closure over drain- Kwasi Felix MD on 09/30 [id number] WBC wnl, afebrile Hgb 12.6--> 9.5 -Hemovac output appears to have increased output overnight 1186cc thus far ??accuracy -acute blood loss anemia from surgery as well as dilutional from IVF suspected - No CP/SOB reported but monitor drain outpt (Xarelto to begin THIS EVENING- monitor as below) Wound cx pending -- no organisms seen, many/moderate WBCs seen on GS -- monitor cx -?wound care consult Given Ancef pre-op, reported some hives to her upper arms/no issues w/ SOB/wheezing, on RA. 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 Remains on Vancomycin ID consult pending PT/OT consulted DVT Proph: Xarelto to begin tonight -- monitor hemovac output as above/consider holding off if remaining significant, ?was output recorded accurately. RN did not get in report that significant output overnight by prior nurse during report. Transfuse if symptomatic or hgb <7.5 on repeat Will repeat CBC this afternoon to ensure stable/slowed/accurate, otherwise will plan to monitor labs in AM (2) Status post left knee replacement: Plan: plan as per above (3) Chronic pain syndrome: Plan: Continues on home regimen: gabapentin 600mg TID; oxycodone 10mg q6H prn and 10mg BID scheduled; cyclobenzaprine 10mg TID- plan to continue Breakthrough: Dilaudid 0.5mg q4H available Defer to primary for pain management, naloxone ordered/available (4) Depression: Plan: Continue BuSpar and Wellbutrin Ativan qHs Supportive care (5) S/P gastric bypass: Plan: Hx of DM prior to this. 01/2023 hgb A1c 5.3- has not had issues since gastric bypass Avoid NSAIDs Continue Protonix/Carafate home meds (6) HTN, goal below 140/80: Plan: Chronic, stable BP 121/77 this morning in setting of pain Continues on metoprolol (7) Hyperlipidemia: Plan: Continue statin (8) History of DVT (deep vein thrombosis): Plan: History of DVT 2020- not currently on anticoagulation . Of note, also w/ hx bakers cyst rupture on the left 2019 SCD/Esteban stockings at present, Xarelto to begin for today for DVT prophylaxis Monitor CBC on repeat/hemovac output (9) Anemia: Plan: Noted post-op anemia after initial surgery 6 weeks ago - would hold iron supplementation with concern for acute infection Will check iron studies w/ repeat CBC this afternoon for eval to ensure replete Plan Thank you for allowing hospitalist service to participate in the care of Mrs Burch. Hospitalist service will follow along. Please call with any questions/concerns. Admission and Anticipated Discharge Date Admission Date: October 01, 2023 Subjective Eval this morning, sitting in bed. Initially reported she wanted to get out of here. Inquired if seen by Dr Felix and she reports she has been. Has NOT been seen by infectious disease. She reports she had some hives last evening w/ the abx in the similar class as PCN which she cannot take. Discussed appears has been switched to Vancomycin and will await ID eval. Labs improved. Pain stable. Upon further inquiring, she does report thinking discharged too early last time and is agreeable to stay overnight and come up with finalized plan for at dc and monitoring cultures. No CP/SOB, abdominal pain reported. Disliked the food this morning but reported last time was great. She reports being cleared by therapy for dc home. Pain stable at present time and asking to rest, states gets woken up every time she goes to sleep. Phone is and her hearing aides are as well, hopefully able to bring in for her later today. Questions/concerns addressed at this time. Physical Exam Physical Exam: General: 58yo female sitting up in bed, NAD, wanting to sleep, irritable at times Head atraumatic, normocephalic, hearing aides in container on bedside table, trachea midline, mmm Resp: even/unlabored, no w/c/r, on room air CV: RRR, no significant m/r/g, trace pedal edema, calves nontender, pulses palpable GI: +BS, soft/NT MSK/Neuro: angella wrap/ice packs to her LLE, toes mobile, sensation intact, hemovac w/ bloody output, NOT wearing immobilizer Psych: AOx3, cooperative but irritable at times and wanting to sleep Results & Data Results & Data Vital Signs (Past 12 Hours) Vital Signs Temp Pulse Resp BP Pulse Ox O2 Del Method 10/02/23 07:27 36.5 C 82 16 121/77 95 Room Air 10/02/23 02:07 36.4 C 82 16 134/81 94 Room Air 10/01/23 22:45 37.1 C 85 16 131/77 94 Room Air 10/01/23 21:47 36.8 C 88 17 136/75 96 Room Air 10/01/23 20:45 36.6 C 85 18 152/76 H 99 Room Air 10/01/23 20:14 36.7 C 84 16 135/84 94 Room Air Laboratory Results 10/02/23 10/01/23 Range/Units 06:44 13:06 WBC 6.27 7.11 (4.8-10.8) K/ul RBC 3.14 L 4.12 L (4.20-5.40) M/uL Hgb 9.5 L D 12.6 (12.0-16.0) g/dl Hct 29.3 L 39.2 (37.0-47.0) % MCV 93.3 95.1 (80.0-100.0) fL MCH 30.3 30.6 (25.0-34.0) pg MCHC 32.4 32.1 (32.0-36.0) g/dL RDW Std Deviation 42.4 43.3 (36.4-46.3) fL RDW Coeff of Arvin 12.5 12.5 (11.5-14.5) % Plt Count 299 368 (130-400) K/uL MPV 9.5 9.2 L (9.4-12.4) fL Immature Gran % (Auto) 0.3 % Neut % (Auto) 62.8 % Lymph % (Auto) 21.8 % [place] % (Auto) 10.5 % Eos % (Auto) 3.9 % Baso % (Auto) 0.7 % Neut # (Auto) 4.46 (1.40-6.50) K/uL Lymph # (Auto) 1.55 (1.20-3.40) K/uL [place] # (Auto) 0.75 H (0.11-0.59) K/uL Eos # (Auto) 0.28 (0.00-0.50) K/uL Baso # (Auto) 0.05 (0.00-0.20) K/uL Immature Gran # (Auto) 0.02 (0.01-0.20) K/uL ESR 16 (0-30) mm/hr Sodium 138 140 (136-145) mmol/L Potassium 3.7 4.4 (3.5-5.1) mmol/L Chloride 108 H 105 (98-107) mmol/L Carbon Dioxide 25 29 (21-32) mmol/L Anion Gap 5 6 (3-11) BUN 14 18 (6-23) mg/dl Creatinine 0.60 0.81 (0.6-1.2) mg/dl Est Cr Clr Drug Dosing 79.3 58.7 ml/min Est GFR ( Amer) 114.8 91.5 ml/min Est GFR (Non-Af Amer) 99.1 78.9 ml/min BUN/Creatinine Ratio 23.3 H 22.2 H (10-20) Glucose 102 H 105 H (70-99(Fasting)) mg/dl Calcium 7.2 L 8.7 (8.6-10.3) mg/dl C-Reactive Protein 0.56 H (0-0.5) mg/dl Diagnostic Findings Knee X-Ray 10/01/23 18:11 TWO VIEWS LEFT KNEE CLINICAL HISTORY: Postoperative examination. FINDINGS: AP and crosstable lateral portable views of the left knee are obtained. A left knee arthroplasty is in near anatomic alignment. There has been undersurface remodeling of the patella. No acute fracture is seen. There are expected postoperative changes around the knee including a surgical drain, soft tissue edema, and subcutaneous gas. IMPRESSION: Expected postoperative changes status post left knee arthroplasty. No acute fracture is seen. ACT 112: Negative or not required by law. Electronically signed by: Ricky Tate M.D. 10/01/2023 6:39 PM PG Care Time/CCT Total # of Minutes Spent Total Time Spent with Patient: Total time spent is greater than 50% in coordination of care (as documented) at patient's floor/unit and/or counseling patient: Coding Level of Care Code 36681 SUB INP/OBS CARE 3/50MIN Diagnoses Necrosis of surgical wound I97.89; I96 Status post left knee replacement Z96.652 Chronic pain syndrome G89.4 Depression F32.9 S/P gastric bypass Z98.84 HTN, goal below 140/80 I10 Hyperlipidemia E78.5 History of DVT (deep vein thrombosis) Z86.718 Anemia D64.9
[2023-10-02] MEDS: MULTIVITAMIN TAB PO SCH (08:17)
[2023-10-02] MEDS: PRAVASTATIN SOD 40 MG TAB PO SCH (08:18)
[2023-10-02] MEDS: PANTOprazole 40 MG TAB PO SCH (08:18)
[2023-10-02] MEDS: buPROPion SR 150 MG TABCR PO SCH (08:19)
[2023-10-02] MEDS: METOPROLOL SUCC 50MG EXT REL TAB PO SCH (08:19)
[2023-10-02] MEDS: CALCIUM CITRATE 950 MG TAB PO SCH (08:20)
[2023-10-02] MEDS: FLUTICASONE PROPIONATE NA SPR 16 GM BTL SCH (08:21)
[2023-10-02 14:20] LABS: Hematocrit (blood only) 29.3 % (37.0-47.0); Hemoglobin 9.5 g/dl (12.0-16.0); Mean Corpuscular Hemoglobin 30.4 pg (25.0-34.0); Mean Corpuscular Hgb Conc 32.4 g/dL (32.0-36.0); Mean Corpuscular Volume 93.6 fL (80.0-100.0); Mean Platelet Volume 9.1 fL (9.4-12.4); Platelet Count 271 K/uL (130-400); RDW Coefficient of Variation 12.6 % (11.5-14.5); RDW Standard Deviation 42.9 fL (36.4-46.3); Red Blood Count 3.13 M/uL (4.20-5.40); White Blood Count 5.74 K/ul (4.8-10.8)
--- NOTE | 2023-10-02 14:45 | Infectious Disease Consult ---
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 After L TKA patient states site continued to drain. Patient isnt best historian and much of HPI via EMR. Patient had some skin necrosis at edges of skin and placed on cefadroxil. She was on this abx at time of admission. While on Cefadroxil she noted a rash. Difficult ot get a complete history on this. She was itchy around her knee but also states she had a rash on her arm. Patient admitted on 09/28/23 for surgery. Ortho notes state she had developed a dry necrotic lesion but about 6 weeks post opdrainage from the inferior aspect of the wound and the scab from the skin necrosis came off the wound and now patient has a draining wound and fluid in the prepatellar bursa. There is serosanguineous type fluid no pus. Swab cx enterococcus On admission, VSS, WBC 8.7, Cr 0.79. She went to OR on 09/[address] Isidro morejon for L knee I+D of prepatellar bursa, I+D of L knee with polyexchange. OR cultures are growing pinpoint organism. She is on Vancomycin. CRP 0.56 Discussion I will call micro to see what the update is on growth - Will ask ortho to get sensi for enterococcus growth from outpatient - I dont have access to review Recommend: -She is on Vancomycin for now -Im unclear if she was having a rash to cefadroxil? Exam is quite benign -Consideration of adding of quinolone but will d/w micro first -anticiapte 6 weeks of IV therapy--> I have ordered blood cultures if neg x 48 hours, rec picc line I d/w patient in depth Thank you for this consult ID will follow Liat Noland MD Infectious Diseases [facility], [facility] Consultation Information Consultation was provided via telemedicine using two-way real-time interactive telecommunication between the patient and the telemedicine provider. For the duration of the visit, the provider was performing the assessment from a different facility than the patient. This includesuse of bluetooth stethoscope forauscultationperformed by the telepresenter that the telemedicine provider can hear if described in the physical exam. Switchboard Wirer contact information: Please call [facility] Call Center . (Phone Number For Physician Use Only) After establishing a telemedicine visit, patient was: Patient was verified with two unique identifiers, Patient/authorized rep acknowledged consent and understanding and Gave permission to continue telehealth session Time Spent with Patient: Initial => 55 min History of Present Illness Reason for Consultation: PJI L knee Requesting Physician: Dr. Felix Attending Physician: Kwasi Felix MD History of Present Illness 58 yo F with h/o HTN, HLD, obesity, spinal hardware (cervical, lumbar), allergies to penicillin (hives as child) and bactrim, s/p Left TKA on 08/15/23 admittted to for c/f left knee prosthetic joint infection. After L TKA patient states site continued to drain. Patient isnt best historian and much of HPI via EMR. Patient had some skin necrosis at edges of skin and placed on cefadroxil. She was on this abx at time of admission. While on Cefadroxil she noted a rash. Difficult ot get a complete history on this. She was itchy around her knee but also states she had a rash on her arm. Patient admitted on 09/28/23 for surgery. Ortho notes state she had developed a dry necrotic lesion but about 6 weeks post opdrainage from the inferior aspect of the wound and the scab from the skin necrosis came off the wound and now patient has a draining wound and fluid in the prepatellar bursa. There is serosanguineous type fluid no pus. Swab cx enterococcus On admission, VSS, WBC 8.7, Cr 0.79. She went to OR on 09/[address] Isidro morejon for L knee I+D of prepatellar bursa, I+D of L knee with polyexchange. OR cultures are growing pinpoint organism. She is on Vancomycin. Allergies Allergy/AdvReac Type Severity Reaction Status Date / Time carisoprodol Allergy Intermediate HALLUCINATI Verified 10/01/23 13:17 ONS Penicillins Allergy Intermediate Hives Verified 10/01/23 13:17 aspirin Allergy Unknown NOT TO Verified 10/01/23 13:17 TAKE S/P GATRIC BYPASS clarithromycin [From Biaxin] Allergy Unknown Unknown Verified 10/01/23 13:17 glycopyrrolate [From Robinul] Allergy Unknown Unknown Verified 10/01/23 13:17 oxymorphone Allergy Unknown Unknown Verified 10/01/23 13:17 lactose AdvReac Mild Gastrointestinal Verified 10/01/23 13:17 Upset sulfamethoxazole AdvReac Verified 10/01/23 13:17 [From Bactrim] trimethoprim [From Bactrim] AdvReac Verified 10/01/23 13:17 Home Medications Medication Instructions Recorded Confirmed Type ferrous sulfate 325 mg (65 mg 325 mg PO BID 10/23/19 10/01/23 History iron) tablet multivitamin (Multiple Vitamins 1 tab PO BID #90 tabs 06/22/20 10/01/23 Rx tablet) buspirone 15 mg tablet 15 mg PO TID #90 tabs 10/20/21 10/01/23 Rx bupropion HCl 150 mg tablet,12 hr 150 mg PO QAM 01/13/22 10/01/23 History sustained-release diclofenac sodium 1 % topical gel 2 gm topical QID PRN Pain 01/13/22 10/01/23 History calcium citrate 200 mg (950 mg) 200 mg PO DAILY 05/15/22 10/01/23 History tablet montelukast 10 mg tablet 10 mg PO HS #90 tabs 01/16/23 10/01/23 Rx pravastatin 40 mg tablet 40 mg PO QAM #90 tabs 02/08/23 10/01/23 Rx ketoconazole 1 % shampoo (Nizoral 1 applic topical .twice daily #125 03/29/23 10/01/23 Rx A-D) mL docusate sodium 100 mg capsule 100 mg PO BID PRN Constipation 05/22/23 10/01/23 History (Colace) nystatin-triamcinolone 100,000 1 applic topical BID PRN Rash 05/22/23 10/01/23 History unit/g-0.1 % topical cream metoprolol succinate 100 mg 100 mg PO QAM #90 tabs 08/06/23 10/01/23 Rx tablet,extended release 24 hr pantoprazole 40 mg tablet,delayed 40 mg PO QAM #90 tabs 08/06/23 10/01/23 Rx release sucralfate 1 gram tablet 1 g PO QID #120 tabs 08/06/23 10/01/23 Rx Walking Cane #1 ea 08/10/23 09/25/23 Rx acetaminophen 500 mg tablet 1,000 mg (2 x 500 mg) PO Q8 #60 08/17/23 10/01/23 Rx (Tylenol Extra Strength) tabs naloxone 4 mg/actuation nasal spray 1 spray intranasal Q3M PRN opioid 08/17/23 10/01/23 Rx overdose #2 ea meclizine 25 mg tablet 25 mg PO TID PRN dizziness #90 tabs 08/29/23 10/01/23 Rx nystatin 100,000 unit/gram topical 1 applic topical BID PRN yeast #60 09/10/23 10/01/23 Rx powder grams lorazepam 0.5 mg tablet 0.5 mg PO HS #30 tabs 09/19/23 10/01/23 Rx cyclobenzaprine 10 mg tablet 10 mg PO TID #90 tabs 09/24/23 10/01/23 Rx cefadroxil 500 mg capsule 500 mg PO BID 09/25/23 10/01/23 History ondansetron 4 mg disintegrating 4 mg PO TID PRN nausea and 09/25/23 10/01/23 Rx tablet vomiting #30 tabs oxycodone 10 mg tablet 10 mg PO Q6H PRN pain #60 tabs 09/25/23 10/01/23 Rx oxycodone 10 mg tablet,crush 10 mg PO BID #30 tabs 09/25/23 10/01/23 Rx resistant,extended release 12 hr (OxyContin) gabapentin 600 mg tablet 600 mg PO TID #90 tabs 09/30/23 10/01/23 Rx fluticasone propionate 50 1 spray intranasal DAILY 10/01/23 10/01/23 History mcg/actuation nasal spray,suspension Patient History Medical History (Updated 10/02/23 @ 07:57 by Kwasi Felix MD) MCCLAIN (nonalcoholic steatohepatitis) hx Depression Asthma no inhalers, well controlled per pt Enlarged liver hx > resolved per pt Arthritis Spinal stenosis History of urinary retention "just happens when I take too many pain pills" GERD (gastroesophageal reflux disease) Hyperlipidemia DVT (deep venous thrombosis) 2020 > can't recall which leg > no longer on thinner > s/p fall HTN (hypertension) History of COVID-19 06/29/20 HOSPITALIZED WITH PNEUMONIA DIA HAINES 06/2021 RECOVERED AT HOME Opioid dependence with current use Anxiety disorder Cervical post-laminectomy syndrome Postlaminectomy syndrome of lumbosacral region Surgical History History of colonoscopy History of tooth extraction History of surgery on right wrist History of cataract surgery bilat Nausea and vomiting after administration of anesthetic agent History of back surgery x3 total > 06/02/19 Dr. Simon Templeton at [facility]- Midline prone multilevel osteotomies, Correction of flat back deformity, Extension of fusion to T9, T10, and T11 kyphoplasty History of tonsillectomy and adenoidectomy History of appendectomy History of gastric bypass History of neck surgery ACDF > has trouble tilting head back for long periods History of hysterectomy History of esophagogastroduodenoscopy History of cholecystectomy History of section x4 History of arthroscopy of knee right Family History Father Diabetes Heart problem Cancer Other No family history of adverse response to anesthesia Social History Smoking Status: Never smoker Second Hand Exposure: No; Do You Dip or Chew Tobacco: No; Hx Alcohol Use: No Hx Substance Use: No Preferred Language: Telugu Communication Ability: Effective Hearing Ability: Use of Hearing Aid Loan Operations Specialist Required: No Beliefs That Will Affect Care: None marital status: Current Living Situation: Spouse Current Living Situation Comment: LIVES WITH SPOUSE, ADULT SON current occupational status: disabled Other Information That Helps Us Care for You: No Feels Safe at Home: Yes Safety Concerns: Feels Safe At This Time Assistive Devices: Cane, Crutches and Walker Physical Exam Physical Exam: NAD No rash on extremities that can be seen L knee/leg wrapped Results & Data Vital Signs (Past 12 Hours) Vital Signs Temp Pulse Resp BP Pulse Ox O2 Del Method 10/02/23 12:03 36.7 C 76 16 132/78 96 Room Air 10/02/23 07:27 36.5 C 82 16 121/77 95 Room Air Laboratory Results Laboratory Results - last 48 hr 10/01/23 10/02/23 10/02/23 13:06 06:44 14:05 WBC 7.11 6.27 5.74 RBC 4.12 L 3.14 L 3.13 L Hgb 12.6 9.5 L D 9.5 L Hct 39.2 29.3 L 29.3 L MCV 95.1 93.3 93.6 MCH 30.6 30.3 30.4 MCHC 32.1 32.4 32.4 RDW Std Deviation 43.3 42.4 42.9 RDW Coeff of Arvin 12.5 12.5 12.6 Plt Count 368 299 271 MPV 9.2 L 9.5 9.1 L Immature Gran % (Auto) 0.3 Neut % (Auto) 62.8 Lymph % (Auto) 21.8 [place] % (Auto) 10.5 Eos % (Auto) 3.9 Baso % (Auto) 0.7 Neut # (Auto) 4.46 Lymph # (Auto) 1.55 [place] # (Auto) 0.75 H Eos # (Auto) 0.28 Baso # (Auto) 0.05 Immature Gran # (Auto) 0.02 ESR 16 Sodium 140 138 Potassium 4.4 3.7 Chloride 105 108 H Carbon Dioxide 29 25 Anion Gap 6 5 BUN 18 14 Creatinine 0.81 0.60 Est Cr Clr Drug Dosing 58.7 79.3 Est GFR ( Amer) 91.5 114.8 Est GFR (Non-Af Amer) 78.9 99.1 BUN/Creatinine Ratio 22.2 H 23.3 H Glucose 105 H 102 H Calcium 8.7 7.2 L Iron 34 L TIBC 209 L Unsaturated IBC 175 Transferrin % Sat 16 Ferritin 391.7 H C-Reactive Protein 0.56 H Microbiology 10/01/23 15:25 Knee,Left Gram Stain - Final 10/01/23 15:25 Knee,Left Aerobic and Anaerobic Culture - Preliminary No growth to date. 10/01/23 Unknown Knee,Left Gram Stain - Final 10/01/23 Unknown Knee,Left Aerobic and Anaerobic Culture - Preliminary Pin-point growth present, reincubating. Medications Administered Current Inpatient Medications Acetaminophen (Acetaminophen 500 Mg Tab) 1,000 mg PO Q8 [facility] Stop: 10/31/23 21:59 Last Admin: 10/03/23 05:21 Dose: 1,000 mg Al Hydrox/Mg Hydrox/Simethicone (Aluminum/Magnesium Susp 30 Ml Udc) 15 ml PO Q4H PRN PRN Reason: Heartburn Stop: 10/31/23 19:44 Bisacodyl (Bisacodyl 10 Mg Supp) 10 mg FL DAILY PRN PRN Reason: Constipation Stop: 10/31/23 19:44 Bupropion HCl (Bupropion Sr 150 Mg Tabcr) 150 mg PO QAM [facility] Stop: 11/01/23 08:59 Last Admin: 10/02/23 08:19 Dose: 150 mg Buspirone HCl (Buspirone 15 Mg Tab) 15 mg PO TID [facility] Stop: 10/31/23 20:59 Last Admin: 10/02/23 21:05 Dose: 15 mg Calcium Citrate (Calcium Citrate 950 Mg Tab) 950 mg PO DAILY [facility] Stop: 11/01/23 08:59 Last Admin: 10/02/23 08:20 Dose: 950 mg Cetirizine HCl (Cetirizine Hcl 10 Mg Tablet) 10 mg PO DAILY PRN PRN Reason: Allergy Symptoms Stop: 11/01/23 08:59 Last Admin: 10/01/23 23:13 Dose: 10 mg Cyclobenzaprine HCl (Cyclobenzaprine Hcl 10 Mg Tab) 10 mg PO TID [facility] Stop: 10/31/23 20:59 Last Admin: 10/02/23 21:05 Dose: 10 mg Docusate Sodium (Docusate Sodium 100 Mg Cap) 100 mg PO BID [facility] Stop: 10/31/23 20:59 Last Admin: 10/02/23 21:04 Dose: 100 mg Fluticasone Propionate (Fluticasone Propionate Na Spr 16 Gm Btl) 1 sprays NA DAILY [facility] Stop: 11/01/23 08:59 Last Admin: 10/02/23 08:21 Dose: 1 sprays Gabapentin (Gabapentin 600 Mg Tab) 600 mg PO TID [facility] Stop: 10/31/23 20:59 Last Admin: 10/02/23 21:05 Dose: 600 mg Hydromorphone HCl (Hydromorphone Inj 0.5 Mg/0.5 Ml Syr) 0.5 mg IV Q4H PRN PRN Reason: Pain or Pre PT Stop: 10/15/23 19:44 Last Admin: 10/03/23 08:23 Dose: 0.5 mg Vancomycin HCl 1,000 mg/ (Sodium Chloride) 270 mls @ 200 mls/hr IV Q12H [facility] Stop: 11/14/23 04:29 Last Admin: 10/03/23 05:19 Dose: 200 mls/hr Lorazepam (Lorazepam 0.5 Mg Tab) 0.5 mg PO HS [facility] Stop: 10/31/23 20:59 Last Admin: 10/02/23 21:03 Dose: 0.5 mg Magnesium Hydroxide (Magnesium Hydroxide Susp 30 Ml Udc) 30 ml PO Q6H PRN PRN Reason: Constipation Stop: 10/31/23 19:44 Meclizine HCl (Meclizine Hcl 25 Mg Tab) 25 mg PO TID PRN PRN Reason: dizziness Stop: 10/31/23 19:44 Melatonin (Melatonin 3 Mg Tab) 3 mg PO HS PRN PRN Reason: Sleep Stop: 11/02/23 01:04 Last Admin: 10/03/23 01:27 Dose: 3 mg Metoprolol Succinate (Metoprolol Succ 50mg Ext Rel Tab) 100 mg PO QAM [facility] Stop: 11/01/23 08:59 Last Admin: 10/02/23 08:19 Dose: 100 mg Miscellaneous Information (Vancomycin Consult Active) 1 each N/A UD PRN PRN Reason: Consult Stop: 11/01/23 15:57 Montelukast Sodium (Montelukast Sodium 10 Mg Tablet) 10 mg PO HS [facility] Stop: 10/31/23 20:59 Last Admin: 10/02/23 21:04 Dose: 10 mg Multivitamins (Multivitamin Tab) 1 tab PO QAM [facility] Stop: 11/01/23 08:59 Last Admin: 10/02/23 08:17 Dose: 1 tab Naloxone HCl (Naloxone Hcl 0.4 Mg/1 Ml Vial/Carp) 0.1 mg IV Q5M PRN PRN Reason: Oversedation/Resp Depression Stop: 10/31/23 19:44 Nystatin (Nystatin Powder 15gm Btl) 1 appln EXT BID PRN PRN Reason: yeast Stop: 10/31/23 19:44 Oxycodone HCl (Oxycodone Hcl 10 Mg Tabcr (Oxycontin)) 10 mg PO BID [facility] Stop: 10/15/23 20:59 Last Admin: 10/02/23 21:04 Dose: 10 mg Oxycodone HCl (Oxycodone Hcl Ir 5 Mg Tab (Immediate Release)) 10 mg PO Q6H PRN PRN Reason: pain Stop: 10/15/23 19:44 Last Admin: 10/03/23 02:56 Dose: 10 mg Pantoprazole Sodium (Pantoprazole 40 Mg Tab) 40 mg PO QAM [facility] Stop: 11/01/23 08:59 Last Admin: 10/02/23 08:18 Dose: 40 mg Pravastatin Sodium (Pravastatin Sod 40 Mg Tab) 40 mg PO QAM [facility] Stop: 11/01/23 08:59 Last Admin: 10/02/23 08:18 Dose: 40 mg Rivaroxaban (Rivaroxaban 10 Mg Tablet) 10 mg PO Q24H [facility] Stop: 11/01/23 17:59 Last Admin: 10/02/23 17:34 Dose: 10 mg Sennosides (Senna 8.6 Mg Tab) 17.2 mg PO HS [facility] Stop: 10/31/23 20:59 Last Admin: 10/02/23 21:04 Dose: 17.2 mg Sucralfate (Sucralfate 1 Gm Tab) 1 gm PO QID [facility] Stop: 10/31/23 20:59 Last Admin: 10/02/23 21:05 Dose: 1 gm Microbiology (1) Infection of total knee replacement Encounter type: initial encounter Qualified Code(s): T84.59XA - Infection and inflammatory reaction due to other internal joint prosthesis, initial encounter; Z96.659 - Presence of unspecified artificial knee joint
[2023-10-02 14:58] LABS: Ferritin 391.7 ng/ml (8-388)
[2023-10-02] MEDS ORDERED: VANCOMYCIN CONSULT ACTIVE PRN (15:58)
[2023-10-02] MEDS: VANCOMYCIN HCL 1,500 MG in SODIUM CHLORIDE 0.9% 500 ML IV ONE (16:44)
[2023-10-02] MEDS: RIVAROXABAN 10 MG TABLET PO SCH (17:34)
[2023-10-03] MEDS: MELATONIN 3 MG TAB PO PRN (01:27)
--- NOTE | 2023-10-03 02:19 | Billing Data ---
Date of Service October 03, 2023 Coding Level of Care Code 42081 IN/OBS CONSULT LVL 3,45M
[2023-10-03] MEDS: VANCOMYCIN HCL 1,000 MG in SODIUM CHLORIDE 0.9% 250 ML IV SCH (05:19)
--- NOTE | 2023-10-03 08:33 | Hospitalist Progress Note ---
Date of Service October 03, 2023 Assessment & Plan (1) Necrosis of surgical wound: Plan: 6 weeks s/p left total knee replacement -concern for post-op infection/poor wound healing now s/p Left Knee Irrigation and Debridement Pre-Patellar Bursa, Skin Debridement,(Left), Poly Exchange(Left), electrocautery synovectomy, irrigation debridement knee joint, lateral release, closure over drain- Kwasi Felix MD on 09/30 [id number] WBC wnl, afebrile Hgb 12.6--> 9.5 -Hemovac output recorded as 1186cc AM 10/01 however confirmed w/ nursing in afternoon incorrectly documented 1100cc instead of 110cc. 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 NO FURTHER RASH/resolved to hands/chest Wound cx pin point growth re-incubating this morning--> PROBABLY ENTEROCOCCUS ?wound care consult ID consult pending, -appears added blood cultures and if NGTD x 48hr, rec for PICC for ongoing treatment Labs from AM added/pending -- will f/u PT/OT consults pending, CM to follow as will need IV abx at dc (2) Status post left knee replacement: Plan: plan as per above (3) Chronic pain syndrome: Plan: Continues on home regimen: gabapentin 600mg TID; oxycodone 10mg q6H prn and 10mg BID scheduled; cyclobenzaprine 10mg TID- plan to continue Breakthrough: Dilaudid 0.5mg q4H available Defer to primary for pain management, naloxone ordered/available (4) Depression: Plan: Continue BuSpar and Wellbutrin Ativan qHs Supportive care (5) S/P gastric bypass: Plan: Hx of DM prior to this. 01/2023 hgb A1c 5.3- has not had issues since gastric bypass Avoid NSAIDs Continue Protonix/Carafate home meds (6) HTN, goal below 140/80: Plan: Chronic, stable BP 131/78 this morning in setting of pain Continues on metoprolol (7) Hyperlipidemia: Plan: Continue statin (8) History of DVT (deep vein thrombosis): Plan: History of DVT 2020- not currently on anticoagulation . Of note, also w/ hx bakers cyst rupture on the left 2019 SCD/Esteban radha Xarelto started 10/01 as above. No evidence for DVT on eam Monitor CBC on repeat since starting AC for DVt proph given hemovac output (9) Anemia: Plan: Noted post-op anemia after initial surgery 6 weeks ago - would hold iron supplementation with concern for acute infection Iron studies w/ borderline low iron but acceptable trans %, no elevation in unsaturated IBC. Ferritin likely elevated in setting of infection Monitor CBC Plan Thank you for allowing hospitalist service to participate in the care of Mrs Burch. Hospitalist service will follow along. Please call with any questions/concerns. Admission and Anticipated Discharge Date Admission Date: October 01, 2023 Subjective Evaluated this morning, getting back into bed. Pain controlled with ordered medications. No CP/SOB/lightheadedness, hemovac not yet emptied this morning. Moving her bowels Cultures from OR pending, waiting to finalize to determine plan. Remains on Vancomycin, no further rash/has resolved since discontinuing further Ancef. No abdominal pain/nausea. Continued inpatient stay. Questions/concerns addressed at this time. Physical Exam Physical Exam: General: 58yo female getting back into bed, working with nursing home assistant, NAD Head atraumatic, normocephalic, mmm, trachea midline Resp: even/unlabored, no w/c/r CV: RRR, no significant m/r/g, no pitting edema/calf tenderness GI: +BS, soft/NT : no celis MSK/Neuro: LLE with angella wrap in place, pulses palpable, toes mobile, calves nontender, hemovac in place with bloody output ~70cc thus far no immobilizer in place Psych: AOx3, cooperative with exam Results & Data Results & Data Vital Signs (Past 12 Hours) Vital Signs Temp Pulse Resp BP Pulse Ox O2 Del Method 10/03/23 07:26 36.7 C 77 18 131/78 94 Room Air 10/02/23 21:50 36.7 C 78 16 147/82 H 95 Room Air PG Care Time/CCT Total # of Minutes Spent Total Time Spent with Patient: Total time spent is greater than 50% in coordination of care (as documented) at patient's floor/unit and/or counseling patient: Coding Level of Care Code 64672 SUB INP/OBS CARE 3/50MIN Diagnoses Necrosis of surgical wound I97.89; I96 Status post left knee replacement Z96.652 Chronic pain syndrome G89.4 Depression F32.9 S/P gastric bypass Z98.84 HTN, goal below 140/80 I10 Hyperlipidemia E78.5 History of DVT (deep vein thrombosis) Z86.718 Anemia D64.9
--- NOTE | 2023-10-03 08:47 | Pharmacy Report ---
Pharmacy PK ABX Note - Date of Service October 03, 2023 - Assessment and Plan Assessment 58 year old F receiving IV VANCOMYCIN for treatment of surgical wound necrosis, 6 wk s/p TKA, s/p I&D on 09/30. Developed rash to cefazolin with preop dose, changed to Vancomycin post op. Left knee cultures probable enterococcus. Blood cultures pending. Day # 2 of antimicrobial therapy. ID consult states consideration of adding of quinolone but will d/w micro first, anticipate 6 weeks of IV therapy--> ordered blood cultures if neg x 48 hours, rec PICC line. Plan Vancomycin * Loading dose: 1500 mg IV x 1 (plus 1000mg IV received potop) on 10/01 * Maintenance dose: 1000 mg IV every 12 hours began at 0400 today. * Random level obtained 10/03/23 resulted as 19.2 mcg/mL. This is predicted to achieve target AUC/AMAIRANI of 400-600 mg/L.hr * Predicted AUC at steady state: 579 mg/L.hr * Continue 1000 mg IV every 12 hours * Will repeat level in the next 48-72 hours if therapy is continued and/or change in patient clinical status Pharmacy will continue to follow and will adjust dose/frequency as necessary. Thank you. Pharmacy has transitioned to AUC monitoring for vancomycin. AUC/AMAIRANI is the preferred PK/PD target and is associated with decreased risk of nephrotoxicity compared to traditional trough targets.
[2023-10-03 11:04] LABS: Basophils # (auto) 0.04 K/uL (0.00-0.20); Basophils % (auto) 0.7 %; Eosinophils # (auto) 0.22 K/uL (0.00-0.50); Eosinophils % (auto) 3.8 %; Hematocrit (blood only) 31.7 % (37.0-47.0); Hemoglobin 10.3 g/dl (12.0-16.0); Immature Granulocytes # (auto) 0.02 K/uL (0.01-0.20); Immature Granulocytes % (auto) 0.3 %; Lymphocytes # (auto) 0.97 K/uL (1.20-3.40); Lymphocytes % (auto) 16.9 %; Mean Corpuscular Hemoglobin 30.5 pg (25.0-34.0); Mean Corpuscular Hgb Conc 32.5 g/dL (32.0-36.0); Mean Corpuscular Volume 93.8 fL (80.0-100.0); Mean Platelet Volume 9.4 fL (9.4-12.4); Monocytes # (auto) 0.61 K/uL (0.11-0.59); Monocytes % (auto) 10.6 %; Neutrophils # (auto) 3.87 K/uL (1.40-6.50); Neutrophils % (auto) 67.7 %; Platelet Count 304 K/uL (130-400); RDW Coefficient of Variation 12.7 % (11.5-14.5); RDW Standard Deviation 43.4 fL (36.4-46.3); Red Blood Count 3.38 M/uL (4.20-5.40); White Blood Count 5.73 K/ul (4.8-10.8)
[2023-10-03 11:14] LABS: Albumin Level 3.2 gm/dl (3.4-5.0); Bilirubin,Total 0.4 mg/dl (0.2-1.0); Calcium 8.4 mg/dl (8.6-10.3); Magnesium 1.6 mg/dl (1.7-2.4); Potassium 3.2 mmol/L (3.5-5.1)
[2023-10-03 11:20] LABS: Albumin Globulin Ratio 1.4 (0.9-2); Est GFR (African American) 109.7 ml/min; Est GFR (Non-African American) 94.6 ml/min; Globulin 2.3 gm/dl (2.5-4.0); Total Protein 5.5 gm/dl (6.0-8.3)
[2023-10-03 11:43] LABS: Folate (Folic Acid),Ser orPlas > 22.30 ng/ml (>5.38)
[2023-10-03 11:44] LABS: Vitamin B12 360 pg/ml (180-914)
--- NOTE | 2023-10-03 15:58 | Orthopedic Progress Note ---
Date of Service October 03, 2023 Assessment & Plan (1) Infection of total knee replacement: Plan: Probable deep infection Status post total knee replacement with complications postoperative including skin necrosis. Status post excisional debridement necrotic skin irrigation debridement synovectomy and polyethylene exchange. Keeping knee in extension to control soft tissue envelope and allow healing for few weeks and then start therapy for range of motion at that time. Likely will need PICC line and IV antibiotics 6 weeks. Postop anemia stable. Patient asymptomatic from anemia. Cultures growing Enterococcus species sensitivities pending. [facility] cultures growing Enterococcus as well but I do not have the sensitivities on those yet. Continue IV vancomycin pending sensitivities. Maintain drains as monitorings as there is reasonable amount of drainage when this decreases to minimal amount will discontinue the drains possibly tomorrow. Admission and Anticipated Discharge Date Admission Date: October 01, 2023 Subjective Patient seen this afternoon and she is comfortable can do independent straight leg raise and the knee immobilizer back on and in place and drainage minimal from Hemovac Pain controlled with ordered medications. No CP/SOB/lightheadedness, hemovac not yet emptied this morning. Moving her bowels Cultures from OR pending, waiting to finalize to determine plan. Remains on Vancomycin, no further rash/has resolved since discontinuing further Ancef. No abdominal pain/nausea. Continued inpatient stay. Questions/concerns addressed at this time. Review of Systems Review of Systems: No fever chills or any signs of sepsis Physical Exam Physical Exam: Dressing dry and intact Hemovac intact. Toe circulation good capillary refill and normal motor function and patient can do an independent straight leg raise. Keeping knee in full extension for now so did not test range of motion. Results & Data Vital Signs (Past 12 Hours) Vital Signs Temp Pulse Resp BP BP Pulse Ox O2 Del Method 10/03/23 15:41 36.9 C 77 16 132/80 96 Room Air 10/03/23 11:41 36.4 C L 72 16 122/70 97 Room Air 10/03/23 07:26 36.7 C 77 18 131/78 94 Room Air (1) Infection of total knee replacement Encounter type: initial encounter Qualified Code(s): T84.59XA - Infection and inflammatory reaction due to other internal joint prosthesis, initial encounter; Z96.659 - Presence of unspecified artificial knee joint
[2023-10-03] MEDS: POTASSIUM CHLORIDE CRTAB 20 MEQ TABCR PO STA (17:48)
[2023-10-03] MEDS: MAGNESIUM SULFATE / D5W 1 GM/100 ML BAG IV SCH (17:49)
[2023-10-04 07:01] LABS: Albumin Globulin Ratio 1.6 (0.9-2); BUN Creatinine Ratio 12.5 (10-20); Bilirubin,Total 0.4 mg/dl (0.2-1.0); Calcium 7.8 mg/dl (8.6-10.3); Est GFR (African American) 117.5 ml/min; Est GFR (Non-African American) 101.3 ml/min; Globulin 1.9 gm/dl (2.5-4.0); Magnesium 1.8 mg/dl (1.7-2.4); Potassium 3.4 mmol/L (3.5-5.1); Total Protein 4.9 gm/dl (6.0-8.3)
--- NOTE | 2023-10-04 08:01 | Orthopedic Progress Note ---
Date of Service October 04, 2023 Assessment & Plan (1) Infection of total knee replacement: Plan: Probable deep infection Status post total knee replacement with complications postoperative including skin necrosis. Status post excisional debridement necrotic skin irrigation debridement synovectomy and polyethylene exchange. Keeping knee in extension to control soft tissue envelope and allow healing for few weeks and then start therapy for range of motion at that time. Likely will need PICC line and IV antibiotics 6 weeks. Postop anemia stable. Patient asymptomatic from anemia. Cultures growing Enterococcus species sensitivities pending. Outpatient [facility] cultures growing Enterococcus as well but I do not have the sensitivities on those yet. Continue IV vancomycin pending sensitivities. Maintain drains as monitorings as there is reasonable amount of drainage when this decreases to minimal amount will discontinue the drains tomorrow. Will consult pain management to maximize pain management. Admission and Anticipated Discharge Date Admission Date: October 03, 2023 Subjective Patient seen this morning and she is comfortable can do independent straight leg raise but more difficult and the knee immobilizer in place and in place and drainage minimal from Hemovac 25cc last noted.patient upset about pain in back and length of hospital stay. Pain however not controlled with ordered medications. No CP/SOB/lightheadedness, Moving her bowels Cultures from [facility] still without sensitivities ,OR pending as well, waiting to finalize to determine plan. Remains on Vancomycin, no further rash/has resolved since discontinuing further Ancef. No abdominal pain/nausea. Continued inpatient stay. Physical Exam Physical Exam: Dressing dry and intact circulation motor exam normal distally drain intact with small amount of drainage. Straight leg raise somewhat more difficult to do but she can still do it with knee brace on. Results & Data Vital Signs (Past 12 Hours) Vital Signs Temp Pulse Resp BP Pulse Ox O2 Del Method 10/04/23 07:07 36.9 C 91 H 18 146/82 H 95 Room Air (1) Infection of total knee replacement Encounter type: initial encounter Qualified Code(s): T84.59XA - Infection and inflammatory reaction due to other internal joint prosthesis, initial encounter; Z96.659 - Presence of unspecified artificial knee joint
[2023-10-04] MEDS: CYANOCOBALAMIN (B-12) 500 MCG TABLET PO SCH (08:05)
--- NOTE | 2023-10-04 08:30 | Hospitalist Progress Note ---
Date of Service October 04, 2023 Assessment & Plan (1) Necrosis of surgical wound: Plan: 6 weeks s/p left total knee replacement -concern for post-op infection/poor wound healing now s/p Left Knee Irrigation and Debridement Pre-Patellar Bursa, Skin Debridement,(Left), Poly Exchange(Left), electrocautery synovectomy, irrigation debridement knee joint, lateral release, closure over drain- Kwasi Felix MD on 09/30 [id number] WBC wnl, afebrile Hgb 12.6--> 9.5. Repeat hgb stable following staring xarelto on 10/01. Hgb 10.3. -acute blood loss anemia from surgery as well as dilutional from IVF suspected Continued on Vancomycin IV, enterococcus on cx outpatient. Prior ancef w/ rash (resolved since switch) E faecalis on final, sensitive to Vancomycin ID on consult, per Dr Noland, plans to switch to Dapto IV -- WILL NEED STATIN HELD if switched to Dapto Blood cultures NGTD Picc line to be obtained by primary service once NGTD x 48 hour Pain management consulted for ongoing pain in patient on chronic meds -- increased her oxycontin to 20mg BID, oxycodone IR to 10mg q4h as needed. Dilaudid frequency spaced to q7h for breakthrough but discussed should limit as will NOT be going home on this (she inquired as will have PICC, discussed this would be INAPPROPRIATE) PT/OT consulted and CM to follow for IV abx at discharge DVT Proph: Xarelto (2) Status post left knee replacement: Plan: plan as per above (3) Chronic pain syndrome: Plan: Continues on home regimen: gabapentin 600mg TID; oxycodone 10mg q6H prn and 10mg BID scheduled; cyclobenzaprine 10mg TID- plan to continue Pain management consulted as above , increased her Oxycontin/oxycodone IR, limit IV as needed but available for breakthrough/naloxone available Outpt f/u (4) Depression: Plan: Continue BuSpar and Wellbutrin Ativan qHs Supportive care (5) S/P gastric bypass: Plan: Hx of DM prior to this. 01/2023 hgb A1c 5.3- has not had issues since gastric bypass Avoid NSAIDs Continue Protonix/Carafate home meds (6) HTN, goal below 140/80: Plan: Chronic, BP 146/82 this morning in setting of pain, pain consulted as above Continues on metoprolol (7) Hyperlipidemia: Plan: Continue statin -- ABOVE, MAY NEED HELD IF SWITCHING TO DAPTO IV FOR ONGOING ABx tx (8) History of DVT (deep vein thrombosis): Plan: History of DVT 2020- not currently on anticoagulation . Of note, also w/ hx bakers cyst rupture on the left 2019 SCD/Esteban garcia Xarelto started 10/01 as above. No evidence for DVT on eam hgb stable on repeat since starting (9) Anemia: Plan: Noted post-op anemia after initial surgery 6 weeks ago - would hold iron supplementation with concern for acute infection Iron studies w/ borderline low iron but acceptable trans %, no elevation in unsaturated IBC. Ferritin likely elevated in setting of infection Hgb stable on repeat as above Plan Thank you for allowing hospitalist service to participate in the care of Mrs Burch. Hospitalist service will follow along to ensure no issues with arranging abx at discharge but likely able to sign off tomorrow. Please call with any questions/concerns. Admission and Anticipated Discharge Date Admission Date: October 03, 2023 Subjective Eval this morning, getting back into bed. Pain medications changed by pain management. ID changing abx around, PICC line to be placed after bcx ngtd x 48 hours. Wanting her zyrtec twice daily as at home as well as her flonase. Patient reports no fever/chills, chest pain, shortness of breath, abdominal pain, nausea or vomiting. Questions/concerns addressed at this time. Physical Exam Physical Exam: General: 58yo female getting back into bed, NAD, just medicated for pain Head atraumatic, normocephalic, mmm, trachea midline Resp: even/unlabored, no w/c/r CV: RRR, no significant m/r/g, no pitting edema/calf tenderness GI: +BS, soft/NT : no celis MSK/Neuro: LLE with angella wrap in place, pulses palpable, toes mobile, calves nontender, hemovac in place with bloody output no immobilizer in place Psych: AOx3, cooperative Results & Data Results & Data Vital Signs (Past 12 Hours) Vital Signs Temp Pulse Resp BP Pulse Ox O2 Del Method 10/04/23 07:07 36.9 C 91 H 18 146/82 H 95 Room Air Laboratory Results 10/04/23 10/03/23 10/03/23 Range/Units 05:39 11:08 10:25 WBC 5.73 (4.8-10.8) K/ul RBC 3.38 L (4.20-5.40) M/uL Hgb 10.3 L (12.0-16.0) g/dl Hct 31.7 L (37.0-47.0) % MCV 93.8 (80.0-100.0) fL MCH 30.5 (25.0-34.0) pg MCHC 32.5 (32.0-36.0) g/dL RDW Std Deviation 43.4 (36.4-46.3) fL RDW Coeff of Arvin 12.7 (11.5-14.5) % Plt Count 304 (130-400) K/uL MPV 9.4 (9.4-12.4) fL Immature Gran % (Auto) 0.3 % Neut % (Auto) 67.7 % Lymph % (Auto) 16.9 % Branch % (Auto) 10.6 % Eos % (Auto) 3.8 % Baso % (Auto) 0.7 % Neut # (Auto) 3.87 (1.40-6.50) K/uL Lymph # (Auto) 0.97 L (1.20-3.40) K/uL Branch # (Auto) 0.61 H (0.11-0.59) K/uL Eos # (Auto) 0.22 (0.00-0.50) K/uL Baso # (Auto) 0.04 (0.00-0.20) K/uL Immature Gran # (Auto) 0.02 (0.01-0.20) K/uL Sodium 140 141 (136-145) mmol/L Potassium 3.4 L 3.2 L (3.5-5.1) mmol/L Chloride 109 H 108 H (98-107) mmol/L Carbon Dioxide 26 27 (21-32) mmol/L Anion Gap 5 6 (3-11) BUN 7 9 (6-23) mg/dl Creatinine 0.56 L 0.69 (0.6-1.2) mg/dl Est Cr Clr Drug Dosing 85.0 69.0 ml/min Est GFR ( Amer) 117.5 109.7 ml/min Est GFR (Non-Af Amer) 101.3 94.6 ml/min BUN/Creatinine Ratio 12.5 13.0 (10-20) Glucose 121 H 166 H (70-99(Fasting)) mg/dl Calcium 7.8 L 8.4 L (8.6-10.3) mg/dl Magnesium 1.8 1.6 L (1.7-2.4) mg/dl Total Bilirubin 0.4 0.4 (0.2-1.0) mg/dl AST 19 25 (13-39) U/L ALT 24 31 (7-52) U/L Alkaline Phosphatase 99 114 H (34-104) U/L Total Protein 4.9 L 5.5 L (6.0-8.3) gm/dl Albumin 3.0 L 3.2 L (3.4-5.0) gm/dl Globulin 1.9 L 2.3 L (2.5-4.0) gm/dl Albumin/Globulin Ratio 1.6 1.4 (0.9-2) Vitamin B12 360 (180-914) pg/ml Folate > 22.30 (>5.38) ng/ml Random Vancomycin 19.2 (10-20) mcg/ml PG Care Time/CCT Total # of Minutes Spent Total Time Spent with Patient: Total time spent is greater than 50% in coordination of care (as documented) at patient's floor/unit and/or counseling patient: Coding Level of Care Code 75205 SUB INP/OBS CARE 2/35MIN Diagnoses Necrosis of surgical wound I97.89; I96 Status post left knee replacement Z96.652 Chronic pain syndrome G89.4 Depression F32.9 S/P gastric bypass Z98.84 HTN, goal below 140/80 I10 Hyperlipidemia E78.5 History of DVT (deep vein thrombosis) Z86.718 Anemia D64.9
--- NOTE | 2023-10-04 09:41 | Pain Management Consultation ---
Date of Consultation October 04, 2023 Assessment & Plan (1) Infection of total knee replacement: Encounter type: initial encounter Qualified Code(s): T84.59XA - Infection and inflammatory reaction due to other internal joint prosthesis, initial encounter; Z96.659 - Presence of unspecified artificial knee joint (2) Postoperative pain of left knee: (3) Postlaminectomy syndrome of lumbosacral region: (4) Opioid dependence with current use: Plan 1. Due to her recent knee surgery with irrigation and debridement, we discussed expectations regarding increased pain in the postsurgical setting in the short- term over the next few weeks pending healing. Will recommend increasing OxyContin to 20 mg every 12 hours over the next few weeks in the postsurgical setting. She continue with Oxy IR 10 mg-will transition to every 4 hours for as needed breakthrough pain. She was encouraged to limit utilization of IV hydromorphone for pain not well-controlled with the oxycodone and recent changes-patient verbalized understanding. 2. Patient has Narcan available at home. We discussed appropriate utilization. 3. All questions were answered at end of visit. Pain service will sign off on patient at this time. Thank you for allowing us to participate in the care of Mrs. Burch. History of Present Illness Reason for Consultation: Left knee pain status post debridement and chronic low back pain with opioid dependency Requesting Physician: Kwasi Felix MD Attending Physician: Kwasi Felix MD History of Present Illness Mrs. Burch is a 58-year-old white female who is known to the pain service from outpatient evaluation due to her chronic pain complaints associated with cervical and lumbar postlaminectomy syndromes. The patient has concomitant depression and anxiety disorder and opioid dependency who has failed multiple interventional treatments and surgical intervention as well as spinal stimulator placement. She was admitted due to left knee pain with history of a left TKA performed on 08/15/2023. She has subsequently developed an infection of the left total knee and underwent debridement on 10/01/2023. Patient has been placed in an immobilizing brace of the left knee. She has been lying supine due to the brace which has been increasing her back pain complaints. She is also experiencing increased pain of the left knee in the postsurgical setting predominantly with movement. Patient is rating her pain a 5-7/10. She reports moderate relief from use of Oxy IR, which she has been utilizing chronically. She was placed on OxyContin at the time of her hospitalization in August which she has continued on 10 mg daily-twice daily. She is utilizing IV hydromorphone upon this admission which she finds to be effective at diminishing her pain for 3-4 hours. She denies change in location or characteristic of her chronic axial low back pain. Patient is managed in the outpatient setting with her PCP-Dr. Gonzalez regarding her ongoing chronic opiate utilization. The patient denies any difficulties with constipation but has occasionally experienced difficulty with urinary retention with opiate utilization. The patient is eager to return to home but is uncertain as to her discharge planning as cultures are still pending regarding her left knee. She continues to receive IV antibiotic therapy upon this admission. Patient has no further constitutional complaints. Plan of care discussed with Dr. Mariaelena Kerr. Pain Assessment Full Body Front + Back: 2 1. Chronic axial low back pain 2. Left knee pain status post irrigation/debridement 10/01/2023 Pain scale - at its best (0-10): 5 Pain scale - at its worst (0-10): 7 Allergies Allergy/AdvReac Type Severity Reaction Status Date / Time carisoprodol Allergy Intermediate HALLUCINATI Verified 10/01/23 13:17 ONS Penicillins Allergy Intermediate Hives Verified 10/01/23 13:17 aspirin Allergy Unknown NOT TO Verified 10/01/23 13:17 TAKE S/P GATRIC BYPASS clarithromycin [From Biaxin] Allergy Unknown Unknown Verified 10/01/23 13:17 glycopyrrolate [From Robinul] Allergy Unknown Unknown Verified 10/01/23 13:17 oxymorphone Allergy Unknown Unknown Verified 10/01/23 13:17 lactose AdvReac Mild Gastrointestinal Verified 10/01/23 13:17 Upset sulfamethoxazole AdvReac Verified 10/01/23 13:17 [From Bactrim] trimethoprim [From Bactrim] AdvReac Verified 10/01/23 13:17 Home Medications Medication Instructions Recorded Confirmed Type ferrous sulfate 325 mg (65 mg 325 mg PO BID 10/23/19 10/01/23 History iron) tablet multivitamin (Multiple Vitamins 1 tab PO BID #90 tabs 06/22/20 10/01/23 Rx tablet) buspirone 15 mg tablet 15 mg PO TID #90 tabs 10/20/21 10/01/23 Rx bupropion HCl 150 mg tablet,12 hr 150 mg PO QAM 01/13/22 10/01/23 History sustained-release diclofenac sodium 1 % topical gel 2 gm topical QID PRN Pain 01/13/22 10/01/23 History calcium citrate 200 mg (950 mg) 200 mg PO DAILY 05/15/22 10/01/23 History tablet montelukast 10 mg tablet 10 mg PO HS #90 tabs 01/16/23 10/01/23 Rx pravastatin 40 mg tablet 40 mg PO QAM #90 tabs 02/08/23 10/01/23 Rx ketoconazole 1 % shampoo (Nizoral 1 applic topical .twice daily #125 03/29/23 10/01/23 Rx A-D) mL docusate sodium 100 mg capsule 100 mg PO BID PRN Constipation 05/22/23 10/01/23 History (Colace) nystatin-triamcinolone 100,000 1 applic topical BID PRN Rash 05/22/23 10/01/23 History unit/g-0.1 % topical cream metoprolol succinate 100 mg 100 mg PO QAM #90 tabs 08/06/23 10/01/23 Rx tablet,extended release 24 hr pantoprazole 40 mg tablet,delayed 40 mg PO QAM #90 tabs 08/06/23 10/01/23 Rx release sucralfate 1 gram tablet 1 g PO QID #120 tabs 08/06/23 10/01/23 Rx Walking Cane #1 ea 08/10/23 09/25/23 Rx acetaminophen 500 mg tablet 1,000 mg (2 x 500 mg) PO Q8 #60 08/17/23 10/01/23 Rx (Tylenol Extra Strength) tabs naloxone 4 mg/actuation nasal spray 1 spray intranasal Q3M PRN opioid 08/17/23 10/01/23 Rx overdose #2 ea meclizine 25 mg tablet 25 mg PO TID PRN dizziness #90 tabs 08/29/23 10/01/23 Rx nystatin 100,000 unit/gram topical 1 applic topical BID PRN yeast #60 09/10/23 10/01/23 Rx powder grams lorazepam 0.5 mg tablet 0.5 mg PO HS #30 tabs 09/19/23 10/01/23 Rx cyclobenzaprine 10 mg tablet 10 mg PO TID #90 tabs 09/24/23 10/01/23 Rx cefadroxil 500 mg capsule 500 mg PO BID 09/25/23 10/01/23 History ondansetron 4 mg disintegrating 4 mg PO TID PRN nausea and 09/25/23 10/01/23 Rx tablet vomiting #30 tabs oxycodone 10 mg tablet 10 mg PO Q6H PRN pain #60 tabs 09/25/23 10/01/23 Rx oxycodone 10 mg tablet,crush 10 mg PO BID #30 tabs 09/25/23 10/01/23 Rx resistant,extended release 12 hr (OxyContin) gabapentin 600 mg tablet 600 mg PO TID #90 tabs 09/30/23 10/01/23 Rx fluticasone propionate 50 1 spray intranasal DAILY 10/01/23 10/01/23 History mcg/actuation nasal spray,suspension Pain History Pain Intensity Pain scale - at its best (0-10): 5 Pain scale - at its worst (0-10): 7 Patient History Medical History (Updated 10/04/23 @ 09:37 by Abdiel Gandhi PA-C) Postoperative pain of left knee MCCLAIN (nonalcoholic steatohepatitis) hx Depression Asthma no inhalers, well controlled per pt Enlarged liver hx > resolved per pt Arthritis Spinal stenosis History of urinary retention "just happens when I take too many pain pills" GERD (gastroesophageal reflux disease) Hyperlipidemia DVT (deep venous thrombosis) 2020 > can't recall which leg > no longer on thinner > s/p fall HTN (hypertension) History of COVID-19 06/29/20 [facility] Opioid dependence with current use Anxiety disorder Cervical post-laminectomy syndrome Postlaminectomy syndrome of lumbosacral region Surgical History History of colonoscopy History of tooth extraction History of surgery on right wrist History of cataract surgery bilat Nausea and vomiting after administration of anesthetic agent History of back surgery x3 total > 06/02/19 Dr. Simon Templeton at [facility]- Midline prone multilevel osteotomies, Correction of flat back deformity, Extension of fusion to T9, T10, and T11 kyphoplasty History of tonsillectomy and adenoidectomy History of appendectomy History of gastric bypass History of neck surgery ACDF > has trouble tilting head back for long periods History of hysterectomy History of esophagogastroduodenoscopy History of cholecystectomy History of section x4 History of arthroscopy of knee right Family History Father Diabetes Heart problem Cancer Other No family history of adverse response to anesthesia Social History Smoking Status: Never smoker Second Hand Exposure: No; Do You Dip or Chew Tobacco: No; Hx Alcohol Use: No Hx Substance Use: No Preferred Language: Kiswahili Communication Ability: Effective Hearing Ability: Use of Hearing Aid 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 Speech and thought process appropriate. Mood and affect appropriate. Cognition intact. Head: Normocephalic and atraumatic. ENT: No evidence of nasal or oral mucosal lesions. Mucous membranes are moist. Eyes: Pupils equal round reactive to light. Neck: Supple without adenopathy and full range of motion. Abdomen: Soft and nondistended. No organomegaly. Bowel sounds active. Back/spine: Loss of lumbar lordosis with multiple well-healed midline surgical incisions. Some generalized tenderness of the lumbosacral region. Limited range of motion in all planes. Lower extremities: Immobilizer brace present in the left lower extremity. Neurologic: Cranial nerves grossly intact. Ambulatory function not witnessed.
[2023-10-04] MEDS: POTASSIUM CHLORIDE CRTAB 20 MEQ TABCR PO STA (10:14)
[2023-10-04] MEDS: HYDROmorphone INJ 0.5 MG/0.5 ML SYR IV PRN (10:14)
--- NOTE | 2023-10-04 11:28 | Infectious Disease Progress Nt ---
Date of Service October 04, 2023 Assessment & Plan (1) Infection of total knee replacement: Plan #Left knee PJI s/p I+D and polyexchange, pinpoint growth, amp S E. faecalis #PCN, Bactrim allergy #cefazolin allergy, rash 58 yo F with h/o HTN, HLD, obesity, spinal hardware (cervical, lumbar), allergies to penicillin (hives as child) and bactrim, s/p Left TKA on 08/15/23 admittted to [facility] for c/f left knee prosthetic joint infection. After L TKA patient states site continued to drain. Patient isnt best historian and much of HPI via EMR. Patient had some skin necrosis at edges of skin and placed on cefadroxil. She was on this abx at time of admission. While on Cefadroxil she noted a rash. Difficult ot get a complete history on this. She was itchy around her knee but also states she had a rash on her arm. Patient admitted on 09/28/23 for surgery. Ortho notes state she had developed a dry necrotic lesion but about 6 weeks post opdrainage from the inferior aspect of the wound and the scab from the skin necrosis came off the wound and now patient has a draining wound and fluid in the prepatellar bursa. There is serosanguineous type fluid no pus. Swab cx enterococcus On admission, VSS, WBC 8.7, Cr 0.79. She went to OR on 09/[address] Isidro morejon for L knee I+D of prepatellar bursa, I+D of L knee with polyexchange. OR cultures are growing pinpoint organism. She is on Vancomycin. CRP 0.56 Discussion I will call micro to see what the update is on growth - Will ask ortho to get sensi for enterococcus growth from outpatient - I dont have access to review Recommend: -She is on Vancomycin for now, will dc and start: -Daptomycin 8mg/kg IV [id number] IV daily -Hold statin, check morning CPK -Plan for 6 weeks of therapy from debridement so through 11/11/23 with weekly CBC with diff, CPK, CMP -Following her 6 weeks of IV therapy she will benefit from oral suppressive therapy for 1 year 11/12/23-11/11/24, I will ask Micro to add sensi to doxycycline and levofloxacin, if enterococcus is sensitive to both then would opt for doxycycline 100mg po BID once her IV tx is over -When her IV tx is over she can restart her cholesterol medication -Can place PICC line I discussed with patient in depth ID recs and AES with abx and picc line hygiene. I will try to update this note with micro results for oral suppressives. ID will s/o at this time Liat Noland MD Infectious Diseases [facility], [facility] Admission and Anticipated Discharge Date Admission Date: October 03, 2023 Subjective Subsequent visit was provided via telemedicine using two-way real-time interactive telecommunication between the patient and the telemedicine provider. For the duration of the visit, the provider was performing the assessment from a different facility than the patient. This includesuse of bluetooth stethoscope forauscultationperformed by the telepresenter that the telemedicine provider can hear if described in the physical exam. [facility] contact information: Please call [facility] Call Center . (Phone Number For Physician Use Only) After establishing a telemedicine visit, patient was: Patient was verified with two unique identifiers, Patient/authorized rep acknowledged consent and understanding and Gave permission to continue telehealth session Time Spent with Patient: Subsequent => 35 min No complaints Physical Exam Physical Exam: NAD No rash on extremities that can be seen L knee/leg wrapped Results & Data Vital Signs (Past 12 Hours) Vital Signs Temp Pulse Resp BP Pulse Ox O2 Del Method 10/04/23 07:07 36.9 C 91 H 18 146/82 H 95 Room Air (1) Infection of total knee replacement Encounter type: initial encounter Qualified Code(s): T84.59XA - Infection and inflammatory reaction due to other internal joint prosthesis, initial encounter; Z96.659 - Presence of unspecified artificial knee joint
[2023-10-04] MEDS: oxyCODONE HCL IR 5 MG TAB (IMMEDIATE RELEASE) PO PRN (14:51)
[2023-10-04] MEDS: DAPTOmycin 500 MG in SYRINGE 0 ML IV SCH (16:44)
[2023-10-04] MEDS: oxyCODONE HCL 20 MG TABCR (OxyCONTIN) PO SCH (21:03)
[2023-10-04] MEDS: CETIRIZINE HCL 10 MG TABLET PO SCH (21:04)
--- NOTE | 2023-10-05 07:58 | Hospitalist Progress Note ---
Date of Service October 05, 2023 Assessment & Plan (1) Necrosis of surgical wound: Plan: s/p Left Knee Irrigation and Debridement Pre-Patellar Bursa, Skin Debridement,(Left), Poly Exchange(Left), electrocautery synovectomy, irrigation debridement knee joint, lateral release, closure over drain- Kwasi Felix MD on 09/30 [id number] WBC, afebrile Hgb 12.6--> 9.5. Repeat hgb stable following staring xarelto on 10/01. Hgb 10.3. -acute blood loss anemia from surgery as well as dilutional from IVF suspected Blood cultures NGTD Cxs growing enterococcus from OR/outpatient cxs Vancomycin transitioned to Daptomycin for IV abx at discharge as discussed with ID/orthopedics last evening. CK not elevated. Statin should remain on hold while on Daptomycin therapy. Will need 6 wks abx. ID contacted micro to run sensitivities on Doxy and levaquin and if enterococcus sensitive to both would opt to continue doxycycline 100mg BID once over IV therapy Ortho obtained PICC consent this morning, IV team to place CM provided rx for IV abx by primary, working to arrange IV abx and should get her dose through PICC line at 1500 and could be discharged following if arranged by CM. Will need weekly labs while on abx. Should have ID outpt f/u Pain control per primary/pain management - defer on rx at [facility] to primary/pain management and rec f/u outpatient for titration down once pain better controlled with ongoing treatment PT/OT, HH to begin on Sunday DVT proph: Xarelto Messaged primary service as review med rec at [facility] includes the IV abx but NO XARELTO. Should be ordered by primary to continue for DVT proph given her history. Also rec to hold her pravastatin while on dapto, this was placed on hold while on Dapto as was initially continued. ALso sent rx for B12 given borderline/neuropathy. Hospitalist service will sign off at this time. Please call with any questions/concerns. (2) Status post left knee replacement: Plan: plan as per above (3) Chronic pain syndrome: Plan: Continued on home regimen: gabapentin 600mg TID; oxycodone 10mg q6H prn and 10mg BID scheduled; cyclobenzaprine 10mg TID --> Pain management consulted as above and increased oxycontin 20mg BID and her oxy IR. Continued pain management at dc as above naloxone available and patient reports she has this at home (4) Depression: Plan: Continue BuSpar and Wellbutrin [facility] qHs Supportive care (5) S/P gastric bypass: Plan: Hx of DM prior to this. 01/2023 hgb A1c 5.3- has not had issues since gastric bypass Avoid NSAIDs Continued Protonix/Carafate home meds (6) HTN, goal below 140/80: Plan: Chronic, BP 125/79 with improvement in pain control Remains on metoprolol (7) Hyperlipidemia: Plan: STATIN placed on hold while on dapto-- should continue to hold at dc (8) History of DVT (deep vein thrombosis): Plan: History of DVT 2020- not on AC at [facility]. Of note, also w/ hx bakers cyst rupture on the left 2018 SCD/Esteban garcia Xarelto started 10/01 as above. No evidence for DVT on eam hgb stable on repeat since starting (9) Anemia: Plan: Noted post-op anemia after initial surgery 6 weeks ago - would hold iron supplementation with concern for acute infection Iron studies w/ borderline low iron but acceptable trans %, no elevation in unsaturated IBC. Ferritin likely elevated in setting of infection Hgb stable on repeat as above Plan Much improved/labs stable, patient wanting discharge today if able. PICC line to be placed and consent obtained by primary/rx for abx to CM and CM arranging IV abx/HH. Hopeful dc this afternoon if arranged. Hospitalist service will SIGN OFF at this time. Please call with any questions/concerns. Admission and Anticipated Discharge Date Admission Date: October 03, 2023 Subjective Evaluated this morning, resting in bed. Had a nightmare and wanted to go home overnight but is hoping to be able to go today. Discussed I finalized abx plan with ID and orthopedics last night, ortho obtained PICC line consent today and IV team to place. TO get her IV dose this afternoon and has help at home over the weekend, HH to begin on Sunday. Pain improved/stable on increased regimen -- at dc per primary service as discussed last evening. Moving her bowels without issue, abdomen soft/nontender. She is hoping to be able to come back down on the oxycontin once pain improved but does have chronic back pain/post laminctomy syndrome and discussed should continue to have decreased needs as goal as infection and pain improving with treatment. No fever/chills, chest pain, shortness of breath. Questions/concerns addressed at this time. Physical Exam Physical Exam: General: 58yo female sitting up in bed, NAD, ready to go home once abx arranged Head atraumatic, normocephalic, mmm, trachea midline Resp: even/unlabored, no w/c/r CV: RRR, no significant m/r/g, no pitting edema/calf tenderness GI: +BS, soft/NT : no celis MSK/Neuro: LLE with angella wrap in place, pulses palpable, toes mobile, calves nontender, sensation intact Psych: AOx3, cooperative Results & Data Results & Data Vital Signs (Past 12 Hours) Vital Signs Temp Pulse Resp BP BP Pulse Ox O2 Del Method 10/05/23 07:22 37.2 C 94 H 17 125/79 96 Room Air 10/05/23 03:00 36.9 C 88 20 130/77 Room Air Laboratory Results 10/05/23 Range/Units 07:01 Sodium 141 (136-145) mmol/L Potassium 3.6 (3.5-5.1) mmol/L Chloride 110 H (98-107) mmol/L Carbon Dioxide 25 (21-32) mmol/L Anion Gap 6 (3-11) BUN 7 (6-23) mg/dl Creatinine 0.59 L (0.6-1.2) mg/dl Est Cr Clr Drug Dosing 80.6 ml/min Est GFR ( Amer) 115.5 ml/min Est GFR (Non-Af Amer) 99.6 ml/min BUN/Creatinine Ratio 11.9 (10-20) Glucose 137 H (70-99(Fasting)) mg/dl Calcium 8.1 L (8.6-10.3) mg/dl Magnesium 1.7 (1.7-2.4) mg/dl Total Creatine Kinase 20 L (26-192) U/L PG Care Time/CCT Total # of Minutes Spent Total Time Spent with Patient: Total time spent is greater than 50% in coordination of care (as documented) at patient's floor/unit and/or counseling patient: Coding Level of Care Code 23800 SUB INP/OBS CARE 2/35MIN Diagnoses Necrosis of surgical wound I97.89; I96 Status post left knee replacement Z96.652 Chronic pain syndrome G89.4 Depression F32.9 S/P gastric bypass Z98.84 HTN, goal below 140/80 I10 Hyperlipidemia E78.5 History of DVT (deep vein thrombosis) Z86.718 Anemia D64.9
[2023-10-05 08:00] LABS: BUN Creatinine Ratio 11.9 (10-20); Calcium 8.1 mg/dl (8.6-10.3); Creatinine Clr Calc Pharmacy 80.6 ml/min; Est GFR (African American) 115.5 ml/min; Est GFR (Non-African American) 99.6 ml/min; Magnesium 1.7 mg/dl (1.7-2.4); Potassium 3.6 mmol/L (3.5-5.1)
--- NOTE | 2023-10-05 08:01 | Orthopedic Progress Note ---
Date of Service October 05, 2023 Assessment & Plan (1) Infection of total knee replacement: Plan: Probable deep infection Status post total knee replacement with complications postoperative including skin necrosis. Status post excisional debridement necrotic skin irrigation debridement synovectomy and polyethylene exchange. Keeping knee in extension to control soft tissue envelope and allow healing for few weeks and then start therapy for range of motion at that time. Likely will need PICC line and IV antibiotics 6 weeks. Postop anemia stable. Patient asymptomatic from anemia. Cultures growing Enterococcus species sensitivities pending. Outpatient [facility] cultures growing Enterococcus . Due to pinpoint culture and myself not being an infectious disease specialist today refused to do any sensitivities on this per their protocol. Continue IV vancomycin pending sensitivities. Drain discontinued. Knee brace can be off when at rest and in bed. Knee immobilizer when walking. Weightbearing as tolerated. Appreciate pain medicine consult, maximize pain management, patient appears to be comfortable today. Discharge home with [facility] was excepted patient when PICC line placed patient has appropriate antibiotics c hosen by infectious disease.. Admission and Anticipated Discharge Date Admission Date: October 03, 2023 Subjective Pain seems to be better today Review of Systems Review of Systems: No fever chills or signs of any sepsis Physical Exam Physical Exam: Incision well opposed there is 1 tiny area of a scab in the central incisional area could be a set up for a small amount of skin necrosis otherwise the entire main decision has pink flaps with no drainage. Hemovac drain no longer dr carter. Minimal swelling about the knee. Independent straight leg raise without difficulty. Neurological exam intact. Results & Data Vital Signs (Past 12 Hours) Vital Signs Temp Pulse Resp BP BP Pulse Ox O2 Del Method 10/05/23 07:22 37.2 C 94 H 17 125/79 96 Room Air 10/05/23 03:00 36.9 C 88 20 130/77 Room Air Diagnostic Findings Cultures growing Enterococcus pansensitive. She will talk about this. Discussed (1) Infection of total knee replacement Encounter type: initial encounter Qualified Code(s): T84.59XA - Infection and inflammatory reaction due to other internal joint prosthesis, initial encounter; Z96.659 - Presence of unspecified artificial knee joint
--- NOTE | 2023-10-18 16:08 | Discharge Summary ---
Date of Service October 18, 2023 Admission HPI Per Admitting Provider Patient currently 6 weeks post left total knee replacement and patient had some skin necrosis at edges of skin and was placed on some prophylactic antibiotics[cefadroxil] however recently developed some swelling in the lower incision and small amount of drainage and was noted to have some granulation tissue in the incision. Because of wound issues has not had any aggressive physical therapy and has knee stiffness consistent with arthrofibrosis. 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 Patient denies headaches, sweats, fevers, chills, double vision, blurred vision, cough, sore throat, dysphagia, chest pain, sob, wheezing, n/v/d/c, numbness, tingling, fatigue, urinary symptoms. Admission Exam Per Admitting Provider Patient: JADEN NOBLE Admit Date: 09/28/23 MR#: [id number] Att Phy: Kwasi Felix M.D. Acct ID: [id number] [place] Phy: Laryr Gonzalez DO Date: 1965 Fam Phy: Age: 58 Location: U Sex: F Room/Bed: cc: ~ *NOTICE TO RECEIVING GREEN PARTY/AGENCY This information is strictly Confidential and protected under [place] law. [place] law prohibits you from making any further disclosure of this information unless further disclosure is expressly permitted by the written consent of the person to whom it pertains or is authorized by law. A general authorization for the release of medical or other information is not sufficient for this purpose. Hospital accepts no responsibility if the information is made available to any other person, INCLUDING THE PATIENT. Date of Service September 28, 2023 Assessment & Plan (1) Necrosis of surgical wound: Plan: Patient had some complications post knee replacement with some marginal skin necrosis and could have contamination due to necrotic skin with bacteria and could possibly have infected prepatellar bursitis versus skin necrosis and inflammatory bursitis. Not 100% definitive that she has infection. Cannot rule out deep infection or sinus tract. She is not acting like a septic knee as does not have a knee effusion and knee motion not overtly painful and remainder of the rest of the knee not overly sensitive to palpation or range of motion. Plan is to proceed with debridement necrotic skin and granulation tissue and irrigation debridement of prepatellar bursa. Have to inspect for any deep mutation within the joint. Possibility of opening up the knee joint and irrigation debridement and polyethylene exchange if felt necessary. Manipulation under anesthesia for arthrofibrosis. If too much necrotic tissue may not be able to close wound 100% and may need a wound VAC possibly delayed secondary closure. (2) Prepatellar bursitis: (3) Status post left knee replacement: History of Present Illness Primary Care Provider: Larry Gonzalez DO Patient currently 6 weeks post left total knee replacement and patient had some skin necrosis at edges of skin and was placed on some prophylactic antibiotics[cefadroxil] however recently developed some swelling in the lower incision and small amount of drainage and was noted to have some granulation tissue in the incision. Because of wound issues has not had any aggressive physical therapy and has knee stiffness consistent with arthrofibrosis. 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 Patient denies headaches, sweats, fevers, chills, double vision, blurred vision, cough, sore throat, dysphagia, chest pain, sob, wheezing, n/v/d/c, numbness, tingling, fatigue, urinary symptoms. Allergies Allergy/AdvReac Type Severity Reaction Status Date / Time carisoprodol Allergy Intermediate HALLUCINATI Verified 09/25/23 15:32 ONS Penicillins Allergy Intermediate Hives Verified 09/25/23 15:32 aspirin Allergy Unknown NOT TO Verified 09/25/23 15:32 TAKE S/P GATRIC BYPASS clarithromycin [From Biaxin] Allergy Unknown Unknown Verified 09/25/23 15:32 glycopyrrolate [From Robinul] Allergy Unknown Unknown Verified 09/25/23 15:32 oxymorphone Allergy Unknown Unknown Verified 09/25/23 15:32 lactose AdvReac Mild Gastrointestinal Verified 09/25/23 15:32 Upset sulfamethoxazole AdvReac Verified 09/25/23 15:32 [From Bactrim] trimethoprim [From Bactrim] AdvReac Verified 09/25/23 15:32 Home Medications Medication Instructions Recorded Confirmed Type ferrous sulfate 325 mg (65 mg 325 mg PO BID 10/23/19 09/25/23 History iron) tablet multivitamin (Multiple Vitamins 1 tab PO BID #90 tabs 06/22/20 09/25/23 Rx tablet) buspirone 15 mg tablet 15 mg PO TID #90 tabs 10/20/21 09/25/23 Rx bupropion HCl 150 mg tablet,12 hr 150 mg PO QAM 01/13/22 09/25/23 History sustained-release diclofenac sodium 1 % topical gel 2 gm topical QID PRN Pain 01/13/22 09/25/23 History calcium citrate 200 mg (950 mg) 200 mg PO DAILY 05/15/22 09/25/23 History tablet montelukast 10 mg tablet 10 mg PO HS #90 tabs 01/16/23 09/25/23 Rx pravastatin 40 mg tablet 40 mg PO QAM #90 tabs 02/08/23 09/25/23 Rx ketoconazole 1 % shampoo (Nizoral 1 applic topical .twice daily #125 03/29/23 09/25/23 Rx A-D) mL docusate sodium 100 mg capsule 100 mg PO BID PRN Constipation 05/22/23 09/25/23 History (Colace) nystatin-triamcinolone 100,000 1 applic topical BID PRN Rash 05/22/23 09/25/23 History unit/g-0.1 % topical cream metoprolol succinate 100 mg 100 mg PO QAM #90 tabs 08/06/23 09/25/23 Rx tablet,extended release 24 hr pantoprazole 40 mg tablet,delayed 40 mg PO QAM #90 tabs 08/06/23 09/25/23 Rx release sucralfate 1 gram tablet 1 g PO QID #120 tabs 08/06/23 09/25/23 Rx Walking Cane #1 ea 08/10/23 09/25/23 Rx acetaminophen 500 mg tablet 1,000 mg (2 x 500 mg) PO Q8 #60 08/17/23 09/25/23 Rx (Tylenol Extra Strength) tabs naloxone 4 mg/actuation nasal spray 1 spray intranasal Q3M PRN opioid 08/17/23 09/25/23 Rx overdose #2 ea rivaroxaban 10 mg tablet (Xarelto) 10 mg PO DAILY #30 tabs 08/17/23 09/25/23 Rx meclizine 25 mg tablet 25 mg PO TID PRN dizziness #90 tabs 08/29/23 09/25/23 Rx nystatin 100,000 unit/gram topical 1 applic topical BID PRN yeast #60 09/10/23 09/25/23 Rx powder grams lorazepam 0.5 mg tablet 0.5 mg PO HS #30 tabs 09/19/23 09/25/23 Rx gabapentin 600 mg tablet 600 mg PO TID #90 tabs 09/22/23 09/25/23 Rx cyclobenzaprine 10 mg tablet 10 mg PO TID #90 tabs 09/24/23 09/25/23 Rx cefadroxil 500 mg capsule 500 mg PO BID 09/25/23 09/25/23 History ondansetron 4 mg disintegrating 4 mg PO TID PRN nausea and 09/25/23 09/25/23 Rx tablet vomiting #30 tabs oxycodone 10 mg tablet 10 mg PO Q6H PRN pain #60 tabs 09/25/23 09/25/23 Rx oxycodone 10 mg tablet,crush 10 mg PO BID #30 tabs 09/25/23 09/25/23 Rx resistant,extended release 12 hr (OxyContin) Past Med/Surg History Medical History MCCLAIN (nonalcoholic steatohepatitis) hxDepression Asthma no inhalers, well controlled per ptEnlarged liver hx > resolved per ptArthritis Spinal stenosis History of urinary retention "just happens when I take too many pain pills"GERD (gastroesophageal reflux disease) Hyperlipidemia DVT (deep venous thrombosis) 2020 > can't recall which leg > no longer on thinner > s/p fallHTN (hypertension) History of COVID-19 06/29/20 HOSPITALIZED WITH PNEUMONIA S IZANEW CASTLEN 06/2021 RECOVERED AT HOMEOpioid dependence with current use Anxiety disorder Cervical post-laminectomy syndrome Postlaminectomy syndrome of lumbosacral region Surgical History History of colonoscopy History of tooth extraction History of surgery on right wrist History of cataract surgery bilatNausea and vomiting after administration of anesthetic agent History of back surgery x3 total > 06/02/19 Dr. Simon Templeton at [facility]- Midline prone multilevel osteotomies, Correction of flat back deformity, Extension of fusion to T9, T10, and T11 kyphoplastyHistory of tonsillectomy and adenoidectomy History of appendectomy History of gastric bypass History of neck surgery ACDF > has trouble tilting head back for long periodsHistory of hysterectomy History of esophagogastroduodenoscopy History of cholecystectomy History of section [id number] of arthroscopy of knee right Family History Father Diabetes Heart problem CancerOther No family history of adverse response to anesthesia Social History Smoking Status: Former smoker Second Hand Exposure: No; Do You Dip or Chew Tobacco: No; Hx Alcohol Use: No Hx Substance Use: No Preferred Language: Macedonian Communication Ability: Effective Hearing Ability: Use of Hearing Aid Software Qa Manager Required: No Beliefs That Will Affect Care: None marital status: Current Living Situation: Spouse and Family Current Living Situation Comment: LIVES WITH SPOUSE, ADULT SON current occupational status: disabled Feels Safe at Home: Yes Assistive Devices: Walker Review of Systems All systems reviewed & are unremarkable except as noted in HPI & below Specifically no fever, no significant knee pain, no chills, no signs of any sepsis. Physical Exam Constitutional: WD/WN, vitals as above Respiratory: normal respiratory effort; no respiratory distress Cardiovascular: Rate/Rhythm: regular rate and regular rhythm Musculoskeletal: Left knee 0 to 60 degrees range of motion, no knee effusion, no increased warmth, 4 mm wide area of skin necrosis along the central incision and in the lower incision there is a thin layer of tissue overlying the prepatellar bursa which is still intact however deep tissue has a defect that could represent some fat necrosis. Underlying this area is some swelling consistent with prepatellar bursa inflammation. No pus could be expressed from the incision area. Only clear serosanguineous type fluid. There is an area 4 mm in diameter with proud flesh/granulation type tissue. There is mild marginal erythema around the incisional area but no broad erythema consistent with any cellulitis. Skin: no rashes, warm and dry Neurologic: normal touch/pain/proprioception Psychiatric: Affect: + flat affect Results & Data Laboratory Results White blood cell count 7.05 hemoglobin 14.0 hematocrit 43.7, . new CBC with differential ESR and CRP pending. Superficial swab culture pending. Diagnostic Findings Normal well-fixed implants with no evidence of knee effusion but some evidence of prepatellar bursal swelling Signed By: <Electronically signed by Kwasi Felix MD> 09/28/231932 Created: 09/28/231906 The status of this report is Signed. Draft = Not yet reviewed or approved by Medical Physician. Signed = Reviewed and approved by Medical Physician. 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 Skin necrosis with delayed postoperative wound healing. Discharge Data Allergies Allergy/AdvReac Type Severity Reaction Status Date / Time carisoprodol Allergy Intermediate HALLUCINATI Verified 10/01/23 13:17 ONS Penicillins Allergy Intermediate Hives Verified 10/01/23 13:17 aspirin Allergy Unknown NOT TO Verified 10/01/23 13:17 TAKE S/P GATRIC BYPASS clarithromycin [From Biaxin] Allergy Unknown Unknown Verified 10/01/23 13:17 glycopyrrolate [From Robinul] Allergy Unknown Unknown Verified 10/01/23 13:17 oxymorphone Allergy Unknown Unknown Verified 10/01/23 13:17 lactose AdvReac Mild Gastrointestinal Verified 10/01/23 13:17 Upset sulfamethoxazole AdvReac Verified 10/01/23 13:17 [From Bactrim] trimethoprim [From Bactrim] AdvReac Verified 10/01/23 13:17 Consultations 10/01/23 19:45 Consult Hospitalist Routine 10/01/23 22:17 Consult Infectious Diseases Routine 10/04/23 08:02 Consult Pain Management Routine Procedures Performed Operation Date: 10/01/23 07:00 Actual Procedures p Left Knee Irrigation and Debridement Pre-Patellar Bursa, Skin Debridement,(Left) - Kwasi Felix MD s Poly Exchange(Left) - Kwasi Felix MD Hospital Course (1) Infection of total knee replacement: Deep infection Status post total knee replacement with complications postoperative including skin necrosis. Status post excisional debridement necrotic skin irrigation debridement synovectomy and polyethylene exchange. Keeping knee in extension to control soft tissue envelope and allow healing for few weeks and then start therapy for range of motion at that time. Likely will need PICC line and IV antibiotics 6 weeks. Postop anemia stable. Patient asymptomatic from anemia. Cultures growing Enterococcus species sensitivities pending. Outpatient [facility] cultures growing Enterococcus . Due to pinpoint culture and myself not being an infectious disease specialist today refused to do any sensitivities on this per their protocol. Continue IV vancomycin pending sensitivities. Drain discontinued. Knee brace can be off when at rest and in bed. Knee immobilizer when walking. Weightbearing as tolerated. Appreciate pain medicine consult, maximize pain management, patient appears to be comfortable today. Discharge home with [facility].Daptomycin 8mg/kg IV [id number] IV daily -Hold statin, check morning CPK -Plan for 6 weeks of therapy from debridement so through 11/11/23 with weekly CBC with diff, CPK, CMP -Following her 6 weeks of IV therapy she will benefit from oral suppressive therapy for 1 year 11/12/23-11/11/24, I will ask Micro to add sensi to doxycycline and levofloxacin, if enterococcus is sensitive to both then would opt for doxycycline 100mg po BID once her IV tx is over -When her IV tx is over she can restart her cholesterol medication PICC line placed. Total Time Total Time Spent Total Time Spent (In Minutes): 20 Discharge Plan Discharge Items Patient Disposition: Home - Home Health Services Reason For Visit: SEPTIC TOTAL KNEE LEFT Discharge Diagnosis: Septic left TKA Activity: Per Instructions section Weightbearing: Full weightbearing Non-emergency contact: Surgeon Call non-emergency contact if: you have any medication questions, your pain is not controlled, your temperature is above 101.5, your wound has increased redness and your wound has increased drainage Follow-up/Referrals: Larry Gonzalez DO [Primary Care Provider] - Kwasi Felix MD [Surgeon] - ( follow-up with Dr. Felix in 1 week from the day of your surgery for your first postoperative visit.) Diet: Regular Addtl Attending Provider Instructions: Dr. Felix will be sending your pain medications to your pharmacy through his office. You will be taking an IV antibiotic daily at home. Home Health services will help you with this and will help to maintain your PICC line. You will also have weekly blood draws that Home Health will draw. The results will be sent to Dr. Felix and he will make any changes necessary. You can be weight bearing as tolerated with the Immobilizer on. No range of motion of the knee at this time. You can do straight leg raises without the Immobilizer on remembering not to bend your knee. Change your dressing daily as needed with a dry sterile gauze. If available, you can use Adaptic non stick gauze on the wound prior to putting on gauze. Secure gauze with angella wrap or tape. Follow up with Dr Felix in 1 week for a wound check. Addtl Plate Inspector Provider Instructions: You should HOLD your PRAVASTATIN while on IV antibiotics please. This can be resumed once you have completed your course. You should be sent home on Xarelto for DVT prevention given history of blood clots and have been started on this while in the hospital. YOu should AVOID taking any NSAID/ibuprofen/naproxen/aleve/motrin while on blood thinner as they increase risk of bleeding. Stand-Alone Forms: My [facility] [employer], Smoking Cessation Medications and DC Order Prescriptions: New daptomycin 500 mg recon soln 500 mg IV DAILY 42 Days Qty: 10 0RF Rx Instructions: administer over 30 mins cyanocobalamin (vitamin B-12) 1,000 mcg capsule 1,000 mcg PO DAILY Qty: 30 0RF oxycodone 5 mg Tablet 10 mg PO Q4H PRN (Reason: pain) Qty: 20 0RF Xarelto 10 mg Tablet 10 mg PO Q24H Qty: 14 0RF oxycodone [OxyContin] 20 mg Tablet,Oral Only,Ext.Rel.12 Hr 20 mg PO BID Qty: 20 0RF Continued multivitamin [Multiple Vitamins] Tablet 1 tab PO BID Qty: 90 3RF buspirone 15 mg tablet 15 mg PO TID Qty: 90 0RF montelukast 10 mg tablet 10 mg PO HS Qty: 90 3RF sucralfate 1 gram tablet 1 g PO QID Qty: 120 1RF pantoprazole 40 mg tablet,delayed release (DR/EC) 40 mg PO QAM Qty: 90 0RF metoprolol succinate 100 mg tablet extended release 24 hr 100 mg PO QAM Qty: 90 1RF meclizine 25 mg tablet 25 mg PO TID PRN (Reason: dizziness) Qty: 90 2RF lorazepam 0.5 mg tablet 0.5 mg PO HS Qty: 30 0RF cyclobenzaprine 10 mg tablet 10 mg PO TID Qty: 90 1RF gabapentin 600 mg tablet 600 mg PO TID Qty: 90 0RF calcium citrate 200 mg (950 mg) tablet 200 mg PO DAILY ferrous sulfate 325 mg (65 mg iron) tablet 325 mg PO BID docusate sodium [Colace] 100 mg capsule 100 mg PO BID PRN (Reason: Constipation) nystatin-triamcinolone 100,000-0.1 unit/g-% cream 1 applic topical BID PRN (Reason: Rash) Nizoral A-D 1 % shampoo 1 applic topical .twice daily Qty: 125 0RF (DME) Walking Cane Misc See Rx Instructions .Route Qty: 1 0RF Rx Instructions: As directed; falls ondansetron 4 mg tablet,disintegrating 4 mg PO TID PRN (Reason: nausea and vomiting) Qty: 30 0RF oxycodone [OxyContin] 10 mg tablet,oral only,ext.rel.12 hr 10 mg PO BID Qty: 30 0RF oxycodone 10 mg tablet 10 mg PO Q6H PRN (Reason: pain) Qty: 60 0RF bupropion HCl 150 mg tablet sustained-release 12 hr 150 mg PO QAM diclofenac sodium 1 % gel 2 gm TOP QID PRN (Reason: Pain) Rx Instructions: apply to single elbow, wrist or hand; for hand includes palm/fingers/back of hand acetaminophen [Tylenol Extra Strength] 500 mg Tablet 1,000 mg PO Q8 Qty: 60 0RF naloxone 4 mg/actuation spray,non-aerosol 1 spray intranasal Q3M PRN (Reason: opioid overdose) Qty: 2 0RF fluticasone propionate 50 mcg/actuation [place],Suspension 1 spray INTRANASAL DAILY Held pravastatin 40 mg tablet 40 mg PO QAM Qty: 90 3RF Hold Instructions: Resume on 11/15/23. hold while on IV daptomycin Discontinued cefadroxil 500 mg capsule 500 mg PO BID No Action nystatin 100,000 unit/gram powder 1 applic topical BID PRN (Reason: yeast) Qty: 60 0RF Discharge Orders: Discharge Order (Routine); Ordered 10/05/23 Ordered By: Abhay Joel/Other Patient Handouts: Caring for Your Central Vein Access, Flushing Your PICC Line at Home Admission Data Admit Date/Time: 10/03/23 15:58 Attending Provider: Kwasi Felix Admit Provider: Kwasi Felix Primary Care Provider: Larry Gonzalez Other Providers: Dary Ramires; Harjit Blandon; Liat Noland; Mimi Juares; Makenzie Moralez; Angelika Bansal; Faith Boyd; Angelika Dewey; Mariaelena Kerr Other Interventions: Discharge Summary Assessment (RN) Last Done: 10/05/23 16:37
== END 2023-10-05 19:19 | disposition home health service (06) | DRG 486 ==
LOC: ASU 12:53 → 3N 12:53
DX: T84.54XA Infection and inflammatory reaction due to internal left knee prosthesis, initial encounter; F32.A Depression, unspecified; Z79.899 Other long term (current) drug therapy; Z88.6 Allergy status to analgesic agent; L76.82 Other postprocedural complications of skin and subcutaneous tissue; M65.162 Other infective (teno)synovitis, left knee; Z88.0 Allergy status to penicillin; T81.42XA Infection following a procedure, deep incisional surgical site, initial encounter; I10 Essential (primary) hypertension; E78.5 Hyperlipidemia, unspecified; D62 Acute posthemorrhagic anemia; M00.862 Arthritis due to other bacteria, left knee; Z86.718 Personal history of other venous thrombosis and embolism; M70.42 Prepatellar bursitis, left knee; M24.662 Ankylosis, left knee; Z88.8 Allergy status to other drugs, medicaments and biological substances; I96 Gangrene, not elsewhere classified; G89.4 Chronic pain syndrome; Z86.16 Personal history of COVID-19

== ENCOUNTER 2023-12-20 17:25 | Inpatient (IN) ==
--- NOTE | 2023-12-20 17:51 | Emergency Department Note ---
Impression & Plan Elevated troponin I level, Tachycardia ED Provider Note NAME: JADEN NOBLE AGE: 58 SEX: F : 1965 ARRIVES VIA: Walk-In INFORMANT: Patient, ED PROVIDER(S): Pollo Salazar DO CHIEF COMPLAINT: Tachycardia HPI: The patient is a 58-year-old female who had recent knee replacement in the spring. This was complicated by an infection. She required revision of the knee some months later but she has had ongoing IV antibiotics. The patient recently stopped the IV antibiotics 2 weeks ago but she is on oral antibiotic which she will be on likely for a year. The patient states that she has been doing well. She denies having any chest pain or difficulty breathing. She denies having any leg swelling. She was going to physical therapy and was found to have an elevated blood pressure as well as an elevated pulse rate. Because of this she was sent to the emergency department for further evaluation. The patient did not have a fever. She states the pain in her knee is significantly improved. She denies having any abdominal pain. ROS: See above HPI for pertinent positives & negatives. A total of 10 systems reviewed and were otherwise negative. PAST MEDICAL HISTORY: See Below PAST SURGICAL HISTORY: See Below FAMILY HISTORY: See Below SOCIAL HISTORY: See Below HOME MEDICATIONS: See Below ALLERGIES: See Below VITALS: See Below PHYSICAL EXAMINATION: GENERAL: Patient is awake alert in no acute distress patient is resting comfortably and showing no signs of anxiety EYES: The conjunctivae are clear. The pupils are round and reactive. EARS, NOSE, MOUTH AND THROAT: The nose is without any evidence of any deformity. Mucous membranes are moist. Tongue is midline. NECK: The neck is nontender and supple. RESPIRATORY: Normal respiratory effort is noted there is no evidence of wheezing rhonchi or rales CARDIOVASCULAR: Tachycardic but regular heart sounds were noted to auscultation. There is no definite murmur. GASTROINTESTINAL: The abdomen is soft. Abdomen is nontender. MUSCULOSKELETAL/EXTREMITIES: Left knee was evaluated. There is some skin changes overlying but not necessarily erythema. The joint is warm compared to the right knee. Range of motion is intact. SKIN: There is no obvious evidence of any rash. There are no petechiae, pallor or cyanosis noted. NEUROLOGIC: Patient is awake alert and oriented x3 MEDICAL DECISION MAKING: The is a 58-year-old female who was sent to the emergency department from rehab for an evaluation of tachycardia. The patient has a recent septic joint after surgery. This was treated with IV antibiotics for multiple weeks. She is currently taking oral antibiotics. The patient was found to have an elevated pulse rate. She was sent to the emergency department for further evaluation. No definite cause for her tachycardia could be found. Her D-dimer was elevated so CT of the chest was obtained. This did not show any signs of venous thromboembolic disease. The patient was found to have an elevated troponin as well. I am concerned this could represent cardiac involvement of this infection. I will defer antibiotic coverage to the admitting team however blood cultures were ordered. I discussed this case with the on-call [place] [facility]ist. Triage Nursing notes reviewed. Prior medical records reviewed Vital Signs: reviewed and remarkable for initial retention and tachycardia. Differential diagnosis: Premature contractions, electrolyte abnormality, cardiac dysrhythmia, thyroid dysfunction, pulmonary embolism, infection, gastrointestinal, as well as other pathologies. ER treatment provided: See below Diagnostics interpreted by me: ECG: EKG was obtained in the emergency department. My interpretation is sinus tachycardia 119 bpm. There is no ectopy. There is no acute ST segment abnormalities noted. This was compared to a tracing from July 26, 2023. There is an increase in rate otherwise no changes were noted Cardiac Monitoring: An order was placed for continuous cardiac monitoring. The monitor shows a rate of 116 bpm with sinus tachycardia. Laboratory studies: As stated above and show below. Imaging studies: See below. Radiographic imaging was reviewed by myself Consultation(s): I discussed this case with Dr. Flynn who [facility] Past Med/Surg History Problem List Tachycardia (Acute) Elevated troponin I level (Acute) Postoperative pain of left knee Infection of total knee replacement Anemia History of DVT (deep vein thrombosis) Prepatellar bursitis Necrosis of surgical wound Postoperative skin necrosis Status post left knee replacement Primary osteoarthritis of left knee Fall (Acute) Acute hyponatremia (Acute) ARTUR (acute kidney injury) (Acute) Confusion Dysuria Seborrheic dermatitis of scalp Cellulitis of skin Lower abdominal pain Facial contusion Status post fall Elevated blood sugar Chronic narcotic use Elevated liver enzymes Left knee DJD Status post right knee replacement Bilateral knee pain Lightheaded Asthma (Chronic) Cervical disc disease (Chronic) Chronic pain syndrome (Chronic) Depression (Chronic) Gastritis (Chronic) HTN, goal below 140/80 (Chronic) Hyperlipidemia (Chronic) Intervertebral disc degeneration (Chronic) MCCLAIN (nonalcoholic steatohepatitis) (Chronic) S/P gastric bypass (Chronic) Status post lumbar surgery (Chronic) Opioid dependence with current use Anxiety disorder Cervical post-laminectomy syndrome Postlaminectomy syndrome of lumbosacral region History of back surgery x3 total > 06/02/19 Dr. Simon Templeton at [facility]- Midline prone multilevel osteotomies, Correction of flat back deformity, Extension of fusion to T9, T10, and T11 kyphoplasty Medical History MCCLAIN (nonalcoholic steatohepatitis) hx Depression Asthma no inhalers, well controlled per pt Enlarged liver hx > resolved per pt Arthritis Spinal stenosis History of urinary retention "just happens when I take too many pain pills" GERD (gastroesophageal reflux disease) Hyperlipidemia DVT (deep venous thrombosis) 2020 > can't recall which leg > no longer on thinner > s/p fall HTN (hypertension) History of COVID-19 06/29/20 HOSPITALIZED WITH PNEUMONIA Korina HAINES 06/2021 RECOVERED AT HOME Surgical History History of colonoscopy History of tooth extraction History of surgery on right wrist History of cataract surgery bilat Nausea and vomiting after administration of anesthetic agent History of tonsillectomy and adenoidectomy History of appendectomy History of gastric bypass History of neck surgery ACDF > has trouble tilting head back for long periods History of hysterectomy History of esophagogastroduodenoscopy History of cholecystectomy History of section x4 History of arthroscopy of knee right Family History Father Diabetes Heart problem Cancer Other No family history of adverse response to anesthesia Social History Smoking Status: Never smoker Second Hand Exposure: No; Do You Dip or Chew Tobacco: No; Hx Alcohol Use: No Hx Substance Use: No Preferred Language: French Communication Ability: Effective Hearing Ability: Use of Hearing Aid Crnp Required: No Beliefs That Will Affect Care: None marital status: Current Living Situation: Spouse Current Living Situation Comment: LIVES WITH SPOUSE, ADULT SON current occupational status: disabled Feels Safe at Home: Yes Assistive Devices: Cane, Crutches and Walker Allergies Allergies Allergy/AdvReac Type Severity Reaction Status Date / Time carisoprodol Allergy Intermediate HALLUCINATI Verified 11/29/23 15:38 ONS Penicillins Allergy Intermediate Hives Verified 11/29/23 15:38 aspirin Allergy Unknown NOT TO Verified 11/29/23 15:38 TAKE S/P GATRIC BYPASS clarithromycin [From Biaxin] Allergy Unknown Unknown Verified 11/29/23 15:38 glycopyrrolate [From Robinul] Allergy Unknown Unknown Verified 11/29/23 15:38 oxymorphone Allergy Unknown Unknown Verified 11/29/23 15:38 lactose AdvReac Mild Gastrointestinal Verified 11/29/23 15:38 Upset sulfamethoxazole AdvReac Verified 11/29/23 15:38 [From Bactrim] trimethoprim [From Bactrim] AdvReac Verified 11/29/23 15:38 Home Meds Home Medications Medication Instructions Recorded Confirmed ferrous sulfate 325 mg (65 mg 325 mg PO BID 10/23/19 12/20/23 iron) tablet diclofenac sodium 1 % topical gel 2 gm topical QID PRN Pain 01/13/22 12/20/23 calcium citrate 200 mg (950 mg) 200 mg PO DAILY 05/15/22 12/20/23 tablet docusate sodium 100 mg capsule 100 mg PO BID PRN Constipation 05/22/23 12/20/23 (Colace) nystatin-triamcinolone 100,000 1 applic topical BID PRN Rash 05/22/23 12/20/23 unit/g-0.1 % topical cream fluticasone propionate 50 1 spray intranasal DAILY 10/01/23 12/20/23 mcg/actuation nasal spray,suspension doxycycline hyclate 100 mg capsule 100 mg PO BID 11/29/23 12/20/23 Previous Rx's Medication Instructions Recorded multivitamin (Multiple Vitamins 1 tab PO BID #90 tabs 06/22/20 tablet) buspirone 15 mg tablet 15 mg PO TID #90 tabs 10/20/21 montelukast 10 mg tablet 10 mg PO HS #90 tabs 01/16/23 pravastatin 40 mg tablet 40 mg PO QAM #90 tabs 02/08/23 ketoconazole 1 % shampoo (Nizoral 1 applic topical .twice daily #125 03/29/23 A-D) mL Walking Cane #1 ea 08/10/23 acetaminophen 500 mg tablet 1,000 mg (2 x 500 mg) PO Q8 #60 08/17/23 (Tylenol Extra Strength) tabs naloxone 4 mg/actuation nasal spray 1 spray intranasal Q3M PRN opioid 08/17/23 overdose #2 ea meclizine 25 mg tablet 25 mg PO TID PRN dizziness #90 tabs 08/29/23 cyanocobalamin (vitamin B-12) 1,000 mcg PO DAILY #30 caps 10/05/23 1,000 mcg capsule oxycodone 20 mg tablet,crush 20 mg PO BID #20 tabs 10/05/23 resistant,extended release 12 hr (OxyContin) rivaroxaban 10 mg tablet (Xarelto) 10 mg PO Q24H #14 tabs 10/05/23 lorazepam 0.5 mg tablet 0.5 mg PO HS #30 tabs 10/19/23 metoprolol succinate 100 mg 100 mg PO QAM #90 tabs 10/30/23 tablet,extended release 24 hr oxycodone 10 mg tablet 10 mg PO Q6H PRN pain #60 tabs 10/31/23 cyclobenzaprine 10 mg tablet 10 mg PO TID #90 tabs 11/01/23 nystatin 100,000 unit/gram topical 1 applic topical BID PRN yeast #60 11/01/23 powder grams pantoprazole 40 mg tablet,delayed 40 mg PO QAM #90 tabs 11/01/23 release bupropion HCl 150 mg tablet,12 hr 150 mg PO QAM #90 ea 11/27/23 sustained-release gabapentin 600 mg tablet 600 mg PO TID #90 tabs 11/27/23 ondansetron 4 mg disintegrating 4 mg PO TID PRN nausea and 11/27/23 tablet vomiting #30 tabs sucralfate 1 gram tablet 1 g PO QID #120 tabs 11/27/23 losartan 25 mg tablet 25 mg PO DAILY #30 tabs 11/29/23 Results & Data (ED) Vital Signs Vital Signs - 24 hr 12/20/23 17:29 12/20/23 18:00 12/20/23 19:26 Temperature 36.6 C Temperature Source Temporal Artery Scan Pulse Rate 128 H 120 H Pulse Rate [Apical] 109 H Respiratory Rate 16 18 Respiratory Effort / Characteristics Non-Labored Spontaneous Non-Labored Respiratory Depth Normal Normal Respiratory Pattern Regular Blood Pressure 174/87 H Blood Pressure [Left Arm] 143/88 H Blood Pressure Mean 116 Blood Pressure Mean [Left Arm] 106 Pulse Oximetry 99 96 Oxygen Delivery Method Room Air Room Air Sepsis Recent Fever Within 48 Hours No Sepsis New/Unexplained Change in Mental Status No Sepsis Action Taken by Nursing No Action Required 12/20/23 21:00 12/20/23 21:52 Temperature Temperature Source Pulse Rate 116 H Pulse Rate [Apical] 109 H Respiratory Rate 18 Respiratory Effort / Characteristics Non-Labored Respiratory Depth Normal Respiratory Pattern Regular Blood Pressure Blood Pressure [Left Arm] 140/88 Blood Pressure Mean Blood Pressure Mean [Left Arm] 105 Pulse Oximetry 97 Oxygen Delivery Method Room Air Sepsis Recent Fever Within 48 Hours Sepsis New/Unexplained Change in Mental Status Sepsis Action Taken by Usp Medications Current Medication List: was personally reviewed by me Laboratory Data Attestation: I reviewed the patient's lab results. 12/20/23 17:49 12/20/23 17:49 Lab Results 12/20/23 12/20/23 12/20/23 Range/Units 17:49 18:32 20:39 WBC 5.58 (4.8-10.8) K/ul RBC 4.88 (4.20-5.40) M/uL Hgb 13.7 (12.0-16.0) g/dl Hct 42.9 (37.0-47.0) % MCV 87.9 (80.0-100.0) fL MCH 28.1 (25.0-34.0) pg MCHC 31.9 L (32.0-36.0) g/dL RDW Std Deviation 46.7 H (36.4-46.3) fL RDW Coeff of Arvin 14.6 H (11.5-14.5) % Plt Count 319 (130-400) K/uL MPV 9.3 L (9.4-12.4) fL Immature Gran % (Auto) 0.4 % Neut % (Auto) 67.8 % Lymph % (Auto) 17.7 % [place] % (Auto) 9.5 % Eos % (Auto) 3.9 % Baso % (Auto) 0.7 % Neut # (Auto) 3.78 (1.40-6.50) K/uL Lymph # (Auto) 0.99 L (1.20-3.40) K/uL [place] # (Auto) 0.53 (0.11-0.59) K/uL Eos # (Auto) 0.22 (0.00-0.50) K/uL Baso # (Auto) 0.04 (0.00-0.20) K/uL Immature Gran # (Auto) 0.02 (0.01-0.20) K/uL PT 10.4 (9.0-12.0) Seconds INR 1.0 (0.9-1.1) APTT 24 (21-31) Seconds PTT Ratio 0.9 D-Dimer 2100 H* (0-500) ug/L FEU Sodium 141 (136-145) mmol/L Potassium 3.6 (3.5-5.1) mmol/L Chloride 107 (98-107) mmol/L Carbon Dioxide 25 (21-32) mmol/L Anion Gap 9 (3-11) BUN 17 (6-23) mg/dl Creatinine 0.76 (0.6-1.2) mg/dl Est Cr Clr Drug Dosing 61.0 ml/min Est GFR ( Amer) 98.8 ml/min Est GFR (Non-Af Amer) 85.3 ml/min BUN/Creatinine Ratio 22.4 H (10-20) Glucose 157 H (70-99(Fasting)) mg/dl Lactate 1.7 (0.4-2.0) mmol/L Calcium 9.3 (8.6-10.3) mg/dl Magnesium 1.7 (1.7-2.4) mg/dl Total Bilirubin 0.4 (0.2-1.0) mg/dl Direct Bilirubin 0.0 (0-0.2) mg/dl AST 24 (13-39) U/L ALT 27 (7-52) U/L Alkaline Phosphatase 122 H (34-104) U/L Troponin I High Sens 15.0 H (0-14) pg/ml C-Reactive Protein 1.61 H (0-0.5) mg/dl Total Protein 7.0 (6.0-8.3) gm/dl Albumin 4.0 (3.4-5.0) gm/dl Procalcitonin < 0.02 (0-0.5) ng/ml Urine Color Yellow Urine Appearance Clear (Clear) Urine pH 6.5 (4.5-7.5) Ur Specific [place] 1.020 (1.000-1.030) Urine Protein Negative (Negative) Urine Glucose (UA) Negative (Negative) Urine Ketones Negative (Negative) Urine Blood Negative (Negative) Urine Nitrite Negative (Negative) Urine Bilirubin Negative (Negative) Urine Urobilinogen Negative (Negative) Ur Leukocyte Esterase Trace H (Negative) Urine WBC (Auto) 0-5 (0-5) /hpf Urine RBC (Auto) 0-2 (0-2) /hpf U Hyaline Cast (Auto) 0-2 (0-2) /lpf U Epithel Cells (Auto) 0-2 (0-2) /hpf Urine Bacteria (Auto) None Seen (None Seen) 12/20/23 Range/Units 20:41 WBC (4.8-10.8) K/ul RBC (4.20-5.40) M/uL Hgb (12.0-16.0) g/dl Hct (37.0-47.0) % MCV (80.0-100.0) fL MCH (25.0-34.0) pg MCHC (32.0-36.0) g/dL RDW Std Deviation (36.4-46.3) fL RDW Coeff of Arvin (11.5-14.5) % Plt Count (130-400) K/uL MPV (9.4-12.4) fL Immature Gran % (Auto) % Neut % (Auto) % Lymph % (Auto) % [place] % (Auto) % Eos % (Auto) % Baso % (Auto) % Neut # (Auto) (1.40-6.50) K/uL Lymph # (Auto) (1.20-3.40) K/uL [place] # (Auto) (0.11-0.59) K/uL Eos # (Auto) (0.00-0.50) K/uL Baso # (Auto) (0.00-0.20) K/uL Immature Gran # (Auto) (0.01-0.20) K/uL PT (9.0-12.0) Seconds INR (0.9-1.1) APTT (21-31) Seconds PTT Ratio D-Dimer (0-500) ug/L FEU Sodium (136-145) mmol/L Potassium (3.5-5.1) mmol/L Chloride (98-107) mmol/L Carbon Dioxide (21-32) mmol/L Anion Gap (3-11) BUN (6-23) mg/dl Creatinine (0.6-1.2) mg/dl Est Cr Clr Drug Dosing ml/min Est GFR ( Amer) ml/min Est GFR (Non-Af Amer) ml/min BUN/Creatinine Ratio (10-20) Glucose (70-99(Fasting)) mg/dl Lactate (0.4-2.0) mmol/L Calcium (8.6-10.3) mg/dl Magnesium (1.7-2.4) mg/dl Total Bilirubin (0.2-1.0) mg/dl Direct Bilirubin (0-0.2) mg/dl AST (13-39) U/L ALT (7-52) U/L Alkaline Phosphatase (34-104) U/L Troponin I High Sens 14.3 H (0-14) pg/ml C-Reactive Protein (0-0.5) mg/dl Total Protein (6.0-8.3) gm/dl Albumin (3.4-5.0) gm/dl Procalcitonin (0-0.5) ng/ml Urine Color Urine Appearance (Clear) Urine pH (4.5-7.5) Ur Specific [place] (1.000-1.030) Urine Protein (Negative) Urine Glucose (UA) (Negative) Urine Ketones (Negative) Urine Blood (Negative) Urine Nitrite (Negative) Urine Bilirubin (Negative) Urine Urobilinogen (Negative) Ur Leukocyte Esterase (Negative) Urine WBC (Auto) (0-5) /hpf Urine RBC (Auto) (0-2) /hpf U Hyaline Cast (Auto) (0-2) /lpf U Epithel Cells (Auto) (0-2) /hpf Urine Bacteria (Auto) (None Seen) Administered Medications Discontinued Medications Ioversol (Optiray 320 125ml) 116 ml IV ONCE ONE Stop: 12/20/23 19:15 Last Admin: 12/20/23 19:14 Dose: 116 ml Documented By: BEBE Morphine Sulfate (Morphine Sulfate 4 Mg/Ml 1 Ml Carp\\Vial) 4 mg IV NOW STA Stop: 12/20/23 21:22 Last Admin: 12/20/23 21:28 Dose: 4 mg Documented By: JAVAN Ondansetron HCl (Ondansetron Inj 2 Mg/Ml 2 Ml Vial) 4 mg IV NOW STA Stop: 12/20/23 21:22 Last Admin: 12/20/23 21:28 Dose: 4 mg Documented By: JAVAN Imaging Data Attestation: I personally reviewed and interpreted this imaging study as follows: My Impression: 1 view chest x-ray was obtained in the emergency department. My interpretation is elevated left hemidiaphragm, final report pending. Radiologist's Impression: Chest CTA 12/20/23 19:06 Exam(s): CTA CHEST IV Amt: 116 ml optiray 320 EXAM: CT Angiography Chest With Intravenous Contrast CLINICAL HISTORY: PE. TECHNIQUE: Axial computed tomographic angiography images of the chest with intravenous contrast. MIPS images were created and reviewed. CTDI is 22. 08 mGy and DLP is 541.8 mGy-cm. Automated exposure control was utilized for the study. A dose lowering technique was utilized adhering to the principles of ALARA. MIP reconstructed images were created and reviewed. COMPARISON: Chest radiograph 12/20/2023 FINDINGS: Pulmonary arteries: Unremarkable. No pulmonary embolus. Aorta: Mild atherosclerosis. No thoracic aortic aneurysm. Lungs: Interseptal thickening could relate to atelectasis and/or pulmonary edema. No mass. Pleural space: Unremarkable. No significant effusion. No pneumothorax. Heart: Unremarkable. No cardiomegaly. No significant pericardial effusion. No evidence of RV dysfunction. Bones/joints: There are degenerative changes of the spine. No acute fracture. Soft tissues: Unremarkable. Lymph nodes: Unremarkable. No enlarged lymph nodes. Upper abdomen: There is elevation of the left hemidiaphragm. IMPRESSION: 1. No pulmonary embolus. 2. Interseptal thickening could relate to atelectasis and/or pulmonary edema. 3. There is elevation of the left hemidiaphragm. Electronically signed by: Ruth Olivares MD 12/20/23 21:09 PM Discharge Plan Visit Data Chief Complaint: Cardiac Assessment Stated Complaint: HEART RATE, HYPERTENSION ED Provider: Pollo Salazar Discharge Problem: Elevated troponin I level, Tachycardia Patient Disposition: Being Evaluated by Hospitalist Forms Stand Alone Forms: My [facility] Prescriptions Prescriptions: No Action multivitamin [Multiple Vitamins] Tablet 1 tab PO BID Qty: 90 3RF buspirone 15 mg tablet 15 mg PO TID Qty: 90 0RF montelukast 10 mg tablet 10 mg PO HS Qty: 90 3RF pravastatin 40 mg tablet 40 mg PO QAM Qty: 90 3RF Hold Instructions: Resume on 11/15/23. hold while on IV daptomycin meclizine 25 mg tablet 25 mg PO TID PRN (Reason: dizziness) Qty: 90 2RF lorazepam 0.5 mg tablet 0.5 mg PO HS Qty: 30 0RF metoprolol succinate 100 mg tablet extended release 24 hr 100 mg PO QAM Qty: 90 1RF oxycodone 10 mg tablet 10 mg PO Q6H PRN (Reason: pain) Qty: 60 0RF pantoprazole 40 mg tablet,delayed release (DR/EC) 40 mg PO QAM Qty: 90 0RF nystatin 100,000 unit/gram powder 1 applic topical BID PRN (Reason: yeast) Qty: 60 0RF cyclobenzaprine 10 mg tablet 10 mg PO TID Qty: 90 1RF gabapentin 600 mg tablet 600 mg PO TID Qty: 90 0RF ondansetron 4 mg tablet,disintegrating 4 mg PO TID PRN (Reason: nausea and vomiting) Qty: 30 0RF bupropion HCl 150 mg tablet sustained-release 12 hr 150 mg PO QAM Qty: 90 0RF sucralfate 1 gram tablet 1 g PO QID Qty: 120 1RF calcium citrate 200 mg (950 mg) tablet 200 mg PO DAILY ferrous sulfate 325 mg (65 mg iron) tablet 325 mg PO BID docusate sodium [Colace] 100 mg capsule 100 mg PO BID PRN (Reason: Constipation) nystatin-triamcinolone 100,000-0.1 unit/g-% cream 1 applic topical BID PRN (Reason: Rash) Nizoral A-D 1 % shampoo 1 applic topical .twice daily Qty: 125 0RF (DME) Walking Cane Misc See Rx Instructions .Route Qty: 1 0RF Rx Instructions: As directed; falls doxycycline hyclate 100 mg capsule 100 mg PO BID losartan 25 mg tablet 25 mg PO DAILY Qty: 30 2RF diclofenac sodium 1 % gel 2 gm TOP QID PRN (Reason: Pain) Rx Instructions: apply to single elbow, wrist or hand; for hand includes palm/fingers/back of hand acetaminophen [Tylenol Extra Strength] 500 mg Tablet 1,000 mg PO Q8 Qty: 60 0RF naloxone 4 mg/actuation spray,non-aerosol 1 spray intranasal Q3M PRN (Reason: opioid overdose) Qty: 2 0RF fluticasone propionate 50 mcg/actuation [place],Suspension 1 spray INTRANASAL DAILY cyanocobalamin (vitamin B-12) 1,000 mcg capsule 1,000 mcg PO DAILY Qty: 30 0RF Xarelto 10 mg Tablet 10 mg PO Q24H Qty: 14 0RF oxycodone [OxyContin] 20 mg Tablet,Oral Only,Ext.Rel.12 Hr 20 mg PO BID Qty: 20 0RF Referrals Referrals: Larry Gonzalez DO [Primary Care Provider] -
[2023-12-20 18:00] LABS: Basophils # (auto) 0.04 K/uL (0.00-0.20); Basophils % (auto) 0.7 %; Eosinophils # (auto) 0.22 K/uL (0.00-0.50); Eosinophils % (auto) 3.9 %; Hematocrit (blood only) 42.9 % (37.0-47.0); Hemoglobin 13.7 g/dl (12.0-16.0); Immature Granulocytes # (auto) 0.02 K/uL (0.01-0.20); Immature Granulocytes % (auto) 0.4 %; Lymphocytes # (auto) 0.99 K/uL (1.20-3.40); Lymphocytes % (auto) 17.7 %; Mean Corpuscular Hemoglobin 28.1 pg (25.0-34.0); Mean Corpuscular Hgb Conc 31.9 g/dL (32.0-36.0); Mean Corpuscular Volume 87.9 fL (80.0-100.0); Mean Platelet Volume 9.3 fL (9.4-12.4); Monocytes # (auto) 0.53 K/uL (0.11-0.59); Monocytes % (auto) 9.5 %; Neutrophils # (auto) 3.78 K/uL (1.40-6.50); Neutrophils % (auto) 67.8 %; Platelet Count 319 K/uL (130-400); RDW Coefficient of Variation 14.6 % (11.5-14.5); RDW Standard Deviation 46.7 fL (36.4-46.3); Red Blood Count 4.88 M/uL (4.20-5.40); White Blood Count 5.58 K/ul (4.8-10.8)
[2023-12-20 18:20] LABS: BUN Creatinine Ratio 22.4 (10-20); Bilirubin,Total 0.4 mg/dl (0.2-1.0); C Reactive Protein 1.61 mg/dl (0-0.5); Calcium 9.3 mg/dl (8.6-10.3); Est GFR (African American) 98.8 ml/min; Est GFR (Non-African American) 85.3 ml/min; Magnesium 1.7 mg/dl (1.7-2.4); Potassium 3.6 mmol/L (3.5-5.1)
[2023-12-20 18:32] LABS: Partial Thromboplastin Ratio 0.9; Partial Thromboplastin Time 24 Seconds (21-31); Prothrombin Time 10.4 Seconds (9.0-12.0)
[2023-12-20 19:06] LABS: D Dimer 2100 ug/L FEU (0-500)
[2023-12-20] MEDS: OPTIRAY 320 125ml IV ONE (19:14)
[2023-12-20 20:53] LABS: Appearance Urine Clear (Clear); Bacteria Urine Automated None Seen (None Seen); Bilirubin Urine Negative (Negative); Blood Urine Negative (Negative); Cast Urine Automated 0-2 /lpf (0-2); Color Urine Yellow; Epithelial Cell Urine Auto 0-2 /hpf (0-2); Glucose Urine UA Negative (Negative); Ketones Urine Negative (Negative); Leukocyte Esterase Urine Trace (Negative); Nitrite Urine Negative (Negative); Protein Urine Negative (Negative); RBC Urine Automated 0-2 /hpf (0-2); Urobilinogen Urine Negative (Negative); WBC Urine Automated 0-5 /hpf (0-5); pH Urine 6.5 (4.5-7.5)
--- NOTE | 2023-12-20 21:10 | CT Scan Report ---
Exam(s): CTA CHEST IV Amt: 116 ml optiray 320 EXAM: CT Angiography Chest With Intravenous Contrast CLINICAL HISTORY: PE. TECHNIQUE: Axial computed tomographic angiography images of the chest with intravenous contrast. MIPS images were created and reviewed. CTDI is 22. 08 mGy and DLP is 541.8 mGy-cm. Automated exposure control was utilized for the study. A dose lowering technique was utilized adhering to the principles of ALARA. MIP reconstructed images were created and reviewed. COMPARISON: Chest radiograph 12/20/2023 FINDINGS: Pulmonary arteries: Unremarkable. No pulmonary embolus. Aorta: Mild atherosclerosis. No thoracic aortic aneurysm. Lungs: Interseptal thickening could relate to atelectasis and/or pulmonary edema. No mass. Pleural space: Unremarkable. No significant effusion. No pneumothorax. Heart: Unremarkable. No cardiomegaly. No significant pericardial effusion. No evidence of RV dysfunction. Bones/joints: There are degenerative changes of the spine. No acute fracture. Soft tissues: Unremarkable. Lymph nodes: Unremarkable. No enlarged lymph nodes. Upper abdomen: There is elevation of the left hemidiaphragm. IMPRESSION: 1. No pulmonary embolus. 2. Interseptal thickening could relate to atelectasis and/or pulmonary edema. 3. There is elevation of the left hemidiaphragm. Electronically signed by: Ruth Olivares MD 12/20/23 21:09 PM
[2023-12-20] MEDS: ONDANSETRON INJ 2 MG/ML 2 ML VIAL IV STA (21:28)
[2023-12-20] MEDS: MoRPHine SULFATE 4 MG/ML 1 ML CARP\\VIAL IV STA (21:28)
[2023-12-20] MEDS ORDERED: DAPTOMYCIN IV SCH (22:15)
--- NOTE | 2023-12-20 22:34 | History & Physical Report ---
Date of Service December 20, 2023 Assessment & Plan (1) Infection of total knee replacement: (2) Postoperative pain of left knee: (3) Necrosis of surgical wound: (4) Status post left knee replacement: (5) Infection due to Enterococcus: (6) Elevated troponin I level: (7) Tachycardia: (8) History of DVT (deep vein thrombosis): Plan Infection of left TKA/postoperative pain/history necrosis of surgical wound/history of Enterococcus- During admission from 09/22-10/05/2023, patient was found to have Enterococcus in her necrotic wound. She completed 6 weeks of IV antibiotics, initially vancomycin, then changed to daptomycin IV, with completion date 11/30 Patient had worsening symptoms of increased heart rate, shakiness and generalized weakness, had surgical drainage performed in the ED by Ortho this afternoon, and presents to the ED for assessment. Patient be placed on daptomycin IV and ertapenem IV. N.p.o. after midnight NSS + KCl 20 mill equivalents at 80 mL/h x 1 L Acetaminophen 650 mg by mouth every 6 hours as needed for mild pain or fever Continue OxyContin 20 mg p.o. every 12 hours Continue oxycodone 10 mg p.o. every 6 hours as needed for breakthrough pain Morphine sulfate 4 mg IV every 3 hours as needed for severe pain Consult orthopedic surgery Sinus tachycardia/hypertension/minimally elevated troponin- Optimize potassium and magnesium Likely secondary to physiologic stress of infection Continue metoprolol succinate with hold parameters Hold losartan History of DVT- Continue Xarelto Left lower extremity Doppler negative for DVT tonight GERD- Continue pantoprazole History of Present Illness Chief Complaint: The patient presents to the emergency department feeling shaky and weak for several days, with having been seen by home nursing, and was told that she had increased heart rate and blood pressure. She was then went to her appointment with Dr. Luna at 3:30 in the afternoon, where she had fluid drained out of her left knee arthroplasty, and then presents to the ED for assessment. Primary Care Provider: Larry Gonzalez DO The patient is a 58-year-old female with a past medical history including DVT, prepatellar bursitis, surgical wound necrosis, acute kidney injury, chronic narcotic use, asthma, hypertension, hyperlipidemia, MCCLAIN, anxiety, and postlaminectomy syndrome of lumbosacral region. She underwent admission on 09/30-10/05/2023, where she was found to have an Enterococcus infection associated with wound necrosis of her left total knee arthroplasty. She was initially placed on vancomycin IV, then changed to daptomycin IV for a total of 6 weeks, which she completed on 11/30. As noted above, she has been seen by home nursing and found to have increased heart rate around 130 this afternoon, and then was seen by Dr. Fleix at 330, she had drainage performed from her left knee. She then presents to the ED due to worsening generalized shakiness, weakness and fatigue. She complains of worsening pain in her left leg, for which she is on OxyContin 20 mg p.o. every 12 hours, and recently increased oxycodone to 10 mg p.o. every 6 hours as needed breakthrough pain. Allergies Allergy/AdvReac Type Severity Reaction Status Date / Time carisoprodol Allergy Intermediate HALLUCINATI Verified 12/20/23 22:57 ONS Penicillins Allergy Intermediate Hives Verified 12/20/23 22:57 aspirin Allergy Unknown NOT TO Verified 12/20/23 22:57 TAKE S/P GATRIC BYPASS clarithromycin [From Biaxin] Allergy Unknown Unknown Verified 12/20/23 22:57 glycopyrrolate [From Robinul] Allergy Unknown Unknown Verified 12/20/23 22:57 oxymorphone Allergy Unknown Unknown Verified 12/20/23 22:57 lactose AdvReac Mild Gastrointestinal Verified 12/20/23 22:57 Upset sulfamethoxazole AdvReac Unknown Verified 12/20/23 22:57 [From Bactrim] trimethoprim [From Bactrim] AdvReac Unknown Verified 12/20/23 22:57 Home Medications Medication Instructions Recorded Confirmed Type ferrous sulfate 325 mg (65 mg 325 mg PO BID 10/23/19 12/20/23 History iron) tablet multivitamin (Multiple Vitamins 1 tab PO BID #90 tabs 06/22/20 12/20/23 Rx tablet) buspirone 15 mg tablet 15 mg PO TID #90 tabs 10/20/21 12/20/23 Rx diclofenac sodium 1 % topical gel 2 gm topical QID PRN Pain 01/13/22 12/20/23 History calcium citrate 200 mg (950 mg) 200 mg PO DAILY 05/15/22 12/20/23 History tablet montelukast 10 mg tablet 10 mg PO HS #90 tabs 01/16/23 12/20/23 Rx pravastatin 40 mg tablet 40 mg PO QAM #90 tabs 02/08/23 12/20/23 Rx ketoconazole 1 % shampoo (Nizoral 1 applic topical .twice daily #125 03/29/23 12/20/23 Rx A-D) mL docusate sodium 100 mg capsule 100 mg PO BID PRN Constipation 05/22/23 12/20/23 History (Colace) nystatin-triamcinolone 100,000 1 applic topical BID PRN Rash 05/22/23 12/20/23 History unit/g-0.1 % topical cream Walking Cane #1 ea 08/10/23 12/20/23 Rx acetaminophen 500 mg tablet 1,000 mg (2 x 500 mg) PO Q8 #60 08/17/23 12/20/23 Rx (Tylenol Extra Strength) tabs naloxone 4 mg/actuation nasal spray 1 spray intranasal Q3M PRN opioid 08/17/23 12/20/23 Rx overdose #2 ea meclizine 25 mg tablet 25 mg PO TID PRN dizziness #90 tabs 08/29/23 12/20/23 Rx fluticasone propionate 50 1 spray intranasal DAILY 10/01/23 12/20/23 History mcg/actuation nasal spray,suspension cyanocobalamin (vitamin B-12) 1,000 mcg PO DAILY #30 caps 10/05/23 12/20/23 Rx 1,000 mcg capsule oxycodone 20 mg tablet,crush 20 mg PO BID #20 tabs 10/05/23 12/20/23 Rx resistant,extended release 12 hr (OxyContin) rivaroxaban 10 mg tablet (Xarelto) 10 mg PO Q24H #14 tabs 10/05/23 12/20/23 Rx lorazepam 0.5 mg tablet 0.5 mg PO HS #30 tabs 10/19/23 12/20/23 Rx metoprolol succinate 100 mg 100 mg PO QAM #90 tabs 10/30/23 12/20/23 Rx tablet,extended release 24 hr oxycodone 10 mg tablet 10 mg PO Q6H PRN pain #60 tabs 10/31/23 12/20/23 Rx cyclobenzaprine 10 mg tablet 10 mg PO TID #90 tabs 11/01/23 12/20/23 Rx nystatin 100,000 unit/gram topical 1 applic topical BID PRN yeast #60 11/01/23 12/20/23 Rx powder grams pantoprazole 40 mg tablet,delayed 40 mg PO QAM #90 tabs 11/01/23 12/20/23 Rx release bupropion HCl 150 mg tablet,12 hr 150 mg PO QAM #90 ea 11/27/23 12/20/23 Rx sustained-release gabapentin 600 mg tablet 600 mg PO TID #90 tabs 11/27/23 12/20/23 Rx ondansetron 4 mg disintegrating 4 mg PO TID PRN nausea and 11/27/23 12/20/23 Rx tablet vomiting #30 tabs sucralfate 1 gram tablet 1 g PO QID #120 tabs 11/27/23 12/20/23 Rx doxycycline hyclate 100 mg capsule 100 mg PO BID 11/29/23 12/20/23 History losartan 25 mg tablet 25 mg PO DAILY #30 tabs 11/29/23 12/20/23 Rx Past Med/Surg History Problem List Infection due to Enterococcus Tachycardia (Acute) Elevated troponin I level (Acute) Postoperative pain of left knee Infection of total knee replacement Anemia History of DVT (deep vein thrombosis) Prepatellar bursitis Necrosis of surgical wound Postoperative skin necrosis Status post left knee replacement Primary osteoarthritis of left knee Fall (Acute) Acute hyponatremia (Acute) ARTUR (acute kidney injury) (Acute) Confusion Dysuria Seborrheic dermatitis of scalp Cellulitis of skin Lower abdominal pain Facial contusion Status post fall Elevated blood sugar Chronic narcotic use Elevated liver enzymes Left knee DJD Status post right knee replacement Bilateral knee pain Lightheaded Asthma (Chronic) Cervical disc disease (Chronic) Chronic pain syndrome (Chronic) Depression (Chronic) Gastritis (Chronic) HTN, goal below 140/80 (Chronic) Hyperlipidemia (Chronic) Intervertebral disc degeneration (Chronic) MCCLAIN (nonalcoholic steatohepatitis) (Chronic) S/P gastric bypass (Chronic) Status post lumbar surgery (Chronic) Opioid dependence with current use Anxiety disorder Cervical post-laminectomy syndrome Postlaminectomy syndrome of lumbosacral region History of back surgery x3 total > 06/02/19 Dr. Simon Templeton at [facility]- Midline prone multilevel osteotomies, Correction of flat back deformity, Extension of fusion to T9, T10, and T11 kyphoplasty Medical History MCCLAIN (nonalcoholic steatohepatitis) hx Depression Asthma no inhalers, well controlled per pt Enlarged liver hx > resolved per pt Arthritis Spinal stenosis History of urinary retention "just happens when I take too many pain pills" GERD (gastroesophageal reflux disease) Hyperlipidemia DVT (deep venous thrombosis) 2020 > can't recall which leg > no longer on thinner > s/p fall HTN (hypertension) History of COVID-19 06/29/20 HOSPITALIZED WITH PNEUMONIA Korina HAINES 06/2021 RECOVERED AT HOME Surgical History History of colonoscopy History of tooth extraction History of surgery on right wrist History of cataract surgery bilat Nausea and vomiting after administration of anesthetic agent History of tonsillectomy and adenoidectomy History of appendectomy History of gastric bypass History of neck surgery ACDF > has trouble tilting head back for long periods History of hysterectomy History of esophagogastroduodenoscopy History of cholecystectomy History of section x4 History of arthroscopy of knee right Family History Father Diabetes Heart problem Cancer Other No family history of adverse response to anesthesia Social History Smoking Status: Former smoker Second Hand Exposure: No; Do You Dip or Chew Tobacco: No; Hx Alcohol Use: No Hx Substance Use: No Preferred Language: Pakistani Communication Ability: Effective Hearing Ability: Use of Hearing Aid Tax Revenue Officer Required: No Beliefs That Will Affect Care: None marital status: Current Living Situation: Family Current Living Situation Comment: LIVES WITH SPOUSE, ADULT SON current occupational status: disabled Feels Safe at Home: Yes Safety Concerns: Feels Safe At This Time Assistive Devices: Cane and Walker Review of Systems Review of Systems: The patient denies chest pain, palpitations, shortness of breath, dyspnea on exertion, cough, lower extremity swelling, sore throat, fevers, chills, sweats, nausea, vomiting, diarrhea , constipation, abdominal pain, pelvic pain, blood in urine or stool, dysuria, urinary frequency or urgency, lightheadedness, dizziness, headache, memory loss, loss of consciousness, focal or generalized weakness, numbness or tingling in arms, neck pain, or night sweats. The review of systems is otherwise negative other than for that already noted above, and at least 10 systems have been reviewed. Physical Exam Physical Exam: The patient is awake, alert and oriented 3, well developed and well nourished, normocephalic and atraumatic, lying in bed and in no acute distress. HEENT--PERRL, EOMI, mucous membranes and oropharynx dry. Neck--supple. No JVD. No bruits. Thyroid normal, trachea midline, no adenopathy. Heart--normal S1 and S2. No murmurs, rubs or gallops. Lungs--clear bilaterally, no respiratory distress, no accessory muscle use. Abdomen--normal bowel sounds and soft. Nontender. Nondistended, no hernias or masses, no organomegaly. Extremities--left TKA with erythema, warmth and induration Dermatologic--rashes noted left TKA Neurologic--cranial nerves II through XII grossly intact. Rheumatologic--limited range of motion associated with left leg pain Psychiatric--normal affect. Results & Data Results & Data Vital Signs (Past 12 Hours) Vital Signs Temp Pulse Pulse Resp BP BP Pulse Ox 12/20/23 21:52 116 H 12/20/23 21:00 109 H 18 140/88 97 12/20/23 19:26 109 H 18 143/88 H 96 12/20/23 18:00 120 H 12/20/23 17:29 36.6 C 128 H 16 174/87 H 99 O2 Del Method 12/20/23 21:52 12/20/23 21:00 Room Air 12/20/23 19:26 Room Air 12/20/23 18:00 12/20/23 17:29 Room Air Laboratory Results Laboratory Results WBC 4.78 K/ul (4.8-10.8) L 12/22/23 09:09 WBC 4.80 K/ul (4.8-10.8) 12/22/23 09:09 RBC 4.54 M/uL (4.20-5.40) 12/22/23 09:09 RBC 4.54 M/uL (4.20-5.40) 12/22/23 09:09 Hgb 12.6 g/dl (12.0-16.0) 12/22/23 09:09 Hgb 12.7 g/dl (12.0-16.0) 12/22/23 09:09 Hct 40.2 % (37.0-47.0) 12/22/23 09:09 Hct 40.3 % (37.0-47.0) 12/22/23 09:09 MCV 88.5 fL (80.0-100.0) 12/22/23 09:09 MCV 88.8 fL (80.0-100.0) 12/22/23 09:09 MCH 27.8 pg (25.0-34.0) 12/22/23 09:09 MCH 28.0 pg (25.0-34.0) 12/22/23 09:09 MCHC 31.3 g/dL (32.0-36.0) L 12/22/23 09:09 MCHC 31.5 g/dL (32.0-36.0) L 12/22/23 09:09 RDW Std Deviation 46.5 fL (36.4-46.3) H 12/22/23 09:09 RDW Std Deviation 46.7 fL (36.4-46.3) H 12/22/23 09:09 RDW Coeff of Arvin 14.5 % (11.5-14.5) 12/22/23 09:09 RDW Coeff of Arvin 14.5 % (11.5-14.5) 12/22/23 09:09 Plt Count 256 K/uL (130-400) 12/22/23 09:09 Plt Count 258 K/uL (130-400) 12/22/23 09:09 MPV 9.0 fL (9.4-12.4) L 12/22/23 09:09 MPV 9.0 fL (9.4-12.4) L 12/22/23 09:09 Immature Gran % (Auto) 0.4 % 12/22/23 09:09 Neut % (Auto) 71.7 % 12/22/23 09:09 Lymph % (Auto) 15.4 % 12/22/23 09:09 O'Brien % (Auto) 7.9 % 12/22/23 09:09 Eos % (Auto) 4.0 % 12/22/23 09:09 Baso % (Auto) 0.6 % 12/22/23 09:09 Neut # (Auto) 3.44 K/uL (1.40-6.50) 12/22/23 09:09 Lymph # (Auto) 0.74 K/uL (1.20-3.40) L 12/22/23 09:09 O'Brien # (Auto) 0.38 K/uL (0.11-0.59) 12/22/23 09:09 Eos # (Auto) 0.19 K/uL (0.00-0.50) 12/22/23 09:09 Baso # (Auto) 0.03 K/uL (0.00-0.20) 12/22/23 09:09 Immature Gran # (Auto) 0.02 K/uL (0.01-0.20) 12/22/23 09:09 PT 10.4 Seconds (9.0-12.0) 12/20/23 17:49 INR 1.0 (0.9-1.1) 12/20/23 17:49 APTT 24 Seconds (21-31) 12/20/23 17:49 PTT Ratio 0.9 12/20/23 17:49 D-Dimer 2100 ug/L FEU (0-500) H* 12/20/23 17:49 Sodium 136 mmol/L (136-145) 12/22/23 09:09 Sodium 137 mmol/L (136-145) 12/22/23 09:09 Potassium 4.1 mmol/L (3.5-5.1) 12/22/23 09:09 Potassium 4.2 mmol/L (3.5-5.1) 12/22/23 09:09 Chloride 104 mmol/L (98-107) 12/22/23 09:09 Chloride 105 mmol/L (98-107) 12/22/23 09:09 Carbon Dioxide 19 mmol/L (21-32) L 12/22/23 09:09 Carbon Dioxide 20 mmol/L (21-32) L 12/22/23 09:09 Anion Gap 12 (3-11) H 12/22/23 09:09 Anion Gap 13 (3-11) H 12/22/23 09:09 BUN 11 mg/dl (6-23) 12/22/23 09:09 BUN 12 mg/dl (6-23) 12/22/23 09:09 Creatinine 0.70 mg/dl (0.6-1.2) 12/22/23 09:09 Creatinine 0.72 mg/dl (0.6-1.2) 12/22/23 09:09 Est Cr Clr Drug Dosing 65.7 ml/min 12/22/23 09:09 Est Cr Clr Drug Dosing 67.6 ml/min 12/22/23 09:09 Est GFR ( Amer) 105.5 ml/min 12/22/23 09:09 Est GFR ( Amer) 109.1 ml/min 12/22/23 09:09 Est GFR (Non-Af Amer) 91.0 ml/min 12/22/23 09:09 Est GFR (Non-Af Amer) 94.2 ml/min 12/22/23 09:09 BUN/Creatinine Ratio 15.3 (10-20) 12/22/23 09:09 BUN/Creatinine Ratio 17.1 (-20) 12/22/23 09:09 Glucose 277 mg/dl (70-99(Fasting)) H 12/22/23 09:09 Glucose 281 mg/dl (70-99(Fasting)) H 12/22/23 09:09 Lactate 1.7 mmol/L (0.4-2.0) 12/20/23 18:32 Calcium 8.5 mg/dl (8.6-10.3) L 12/22/23 09:09 Calcium 8.5 mg/dl (8.6-10.3) L 12/22/23 09:09 Phosphorus 3.4 mg/dl (2.5-4.9) 12/22/23 09:09 Magnesium 1.6 mg/dl (1.7-2.4) L 12/22/23 09:09 Total Bilirubin 0.4 mg/dl (0.2-1.0) 12/20/23 17:49 Direct Bilirubin 0.0 mg/dl (0-0.2) 12/20/23 17:49 AST 24 U/L (13-39) 12/20/23 17:49 ALT 27 U/L (7-52) 12/20/23 17:49 Alkaline Phosphatase 122 U/L (34-104) H 12/20/23 17:49 Total Creatine Kinase 24 U/L (26-192) L 12/22/23 09:09 Troponin I High Sens 14.3 pg/ml (0-14) H 12/20/23 20:41 C-Reactive Protein 1.61 mg/dl (0-0.5) H 12/20/23 17:49 Total Protein 7.0 gm/dl (6.0-8.3) 12/20/23 17:49 Albumin 3.5 gm/dl (3.4-5.0) 12/22/23 09:09 Procalcitonin < 0.02 ng/ml (0-0.5) 12/20/23 17:49 Urine Color Yellow 12/20/23 20:39 Urine Appearance Clear (Clear) 12/20/23 20:39 Urine pH 6.5 (4.5-7.5) 12/20/23 20:39 Ur Specific Cades 1.020 (1.000-1.030) 12/20/23 20:39 Urine Protein Negative (Negative) 12/20/23 20:39 Urine Glucose (UA) Negative (Negative) 12/20/23 20:39 Urine Ketones Negative (Negative) 12/20/23 20:39 Urine Blood Negative (Negative) 12/20/23 20:39 Urine Nitrite Negative (Negative) 12/20/23 20:39 Urine Bilirubin Negative (Negative) 12/20/23 20:39 Urine Urobilinogen Negative (Negative) 12/20/23 20:39 Ur Leukocyte Esterase Trace (Negative) H 12/20/23 20:39 Urine WBC (Auto) 0-5 /hpf (0-5) 12/20/23 20:39 Urine RBC (Auto) 0-2 /hpf (0-2) 12/20/23 20:39 U Hyaline Cast (Auto) 0-2 /lpf (0-2) 12/20/23 20:39 U Epithel Cells (Auto) 0-2 /hpf (0-2) 12/20/23 20:39 Urine Bacteria (Auto) None Seen (None Seen) 12/20/23 20:39 Impressions Chest X-Ray 12/20/23 17:45 SINGLE VIEW CHEST CLINICAL HISTORY: Sepsis FINDINGS: An AP, portable, upright chest radiograph is compared to study dated 07/26/2023. The examination is degraded by portable technique and apical lordotic positioning. The cardiomediastinal silhouette is unremarkable noting atherosclerotic calcification of the thoracic aorta. Chronic interstitial thickening is similar to previous. There is mild bibasilar scarring/atelectasis. The lungs and pleural spaces are otherwise clear. No pneumothorax is seen. The skeletal structures are osteopenic. The bony thorax is grossly intact. Fusion hardware is seen in the lower cervical spine as well as at the thoracolumbar junction. Cholecystectomy clips are noted in the right upper quadrant. IMPRESSION: No active disease in the chest. ACT 112: Negative or not required by law. Electronically signed by: Ricky Tate M.D. 12/21/2023 9:38 AM Chest CTA 12/20/23 19:06 Exam(s): CTA CHEST IV Amt: 116 ml optiray 320 EXAM: CT Angiography Chest With Intravenous Contrast CLINICAL HISTORY: PE. TECHNIQUE: Axial computed tomographic angiography images of the chest with intravenous contrast. MIPS images were created and reviewed. CTDI is 22. 08 mGy and DLP is 541.8 mGy-cm. Automated exposure control was utilized for the study. A dose lowering technique was utilized adhering to the principles of ALARA. MIP reconstructed images were created and reviewed. COMPARISON: Chest radiograph 12/20/2023 FINDINGS: Pulmonary arteries: Unremarkable. No pulmonary embolus. Aorta: Mild atherosclerosis. No thoracic aortic aneurysm. Lungs: Interseptal thickening could relate to atelectasis and/or pulmonary edema. No mass. Pleural space: Unremarkable. No significant effusion. No pneumothorax. Heart: Unremarkable. No cardiomegaly. No significant pericardial effusion. No evidence of RV dysfunction. Bones/joints: There are degenerative changes of the spine. No acute fracture. Soft tissues: Unremarkable. Lymph nodes: Unremarkable. No enlarged lymph nodes. Upper abdomen: There is elevation of the left hemidiaphragm. IMPRESSION: 1. No pulmonary embolus. 2. Interseptal thickening could relate to atelectasis and/or pulmonary edema. 3. There is elevation of the left hemidiaphragm. Electronically signed by: Ruth Olivares MD 12/20/23 21:09 PM Venous Doppler Study 12/20/23 21:57 Exam(s): US VENOUS BILATERAL LOWER EXTREMITIES EXAM: US Duplex Bilateral Lower Extremities Veins CLINICAL HISTORY: Swelling. TECHNIQUE: Real-time duplex ultrasound scan of the bilateral lower extremity veins integrating B-mode two-dimensional vascular structure, Doppler spectral analysis, color flow Doppler imaging and compression. COMPARISON: No relevant prior studies available. FINDINGS: Right deep veins: Unremarkable. No Deep vein thrombosis in the right common femoral, femoral, proximal deep femoral or popliteal veins. The veins demonstrate normal color flow, are normally compressible, with normal phasic flow and/or augmentation response. Right superficial veins: Unremarkable. No thrombus in the visualized right great saphenous vein. Left deep veins: Unremarkable. No Deep vein thrombosis in the left common femoral, femoral, proximal deep femoral or popliteal veins. The veins demonstrate normal color flow, are normally compressible, with normal phasic flow and/or augmentation response. Left superficial veins: Unremarkable. No thrombus in the visualized left great saphenous vein. Soft tissues: Mild nonspecific subcutaneous edema of the left calf. No popliteal cyst. IMPRESSION: 1. Mild nonspecific subcutaneous edema of the left calf. 2. No deep vein thrombosis of either lower extremity. Electronically signed by: Ruth Olivares MD 12/21/23 01:36 AM Code Status & VTE Plan Code Status Full code VTE Prophylaxis Plan VTE Prophylaxis will be ordered: Yes PG Care Time/CCT Total # of Minutes Spent Total Time Spent with Patient: Total time spent is greater than 50% in coordination of care (as documented) at patient's floor/unit and/or counseling patient: Coding Level of Care Code 54314 INT INP/OBS CARE 3/75MIN Diagnoses Infection of total knee replacement, initial encounter T84.59XA; Z96.659 Encounter type: initial encounter Postoperative pain of left knee G89.18; M25.562 Necrosis of surgical wound I97.89; I96 Status post left knee replacement Z96.652 Infection due to Enterococcus A49.1 Elevated troponin I level R79.89 Tachycardia R00.0 History of DVT (deep vein thrombosis) Z86.718 (1) Infection of total knee replacement Encounter type: initial encounter Qualified Code(s): T84.59XA - Infection and inflammatory reaction due to other internal joint prosthesis, initial encounter; Z96.659 - Presence of unspecified artificial knee joint
[2023-12-20] MEDS: POTASSIUM CHLORIDE CRTAB 20 MEQ TABCR PO STA (23:15)
[2023-12-20] MEDS: NSS + 20MEQ KCL 20 MEQ/1,000 ML BAG IV SCH (23:16)
[2023-12-20] MEDS: MAGNESIUM SULFATE / D5W 1 GM/100 ML BAG IV ONE (23:16)
[2023-12-20] MEDS: DAPTOmycin 250 MG in SYRINGE 0 ML IV STA (23:17)
[2023-12-20] MEDS ORDERED: MECLIZINE HCL 25 MG TAB PO PRN (23:46)
--- NOTE | 2023-12-21 12:00 | Ultrasound Report ---
Exam(s): US VENOUS BILATERAL LOWER EXTREMITIES EXAM: US Duplex Bilateral Lower Extremities Veins CLINICAL HISTORY: Swelling. TECHNIQUE: Real-time duplex ultrasound scan of the bilateral lower extremity veins integrating B-mode two-dimensional vascular structure, Doppler spectral analysis, color flow Doppler imaging and compression. COMPARISON: No relevant prior studies available. FINDINGS: Right deep veins: Unremarkable. No Deep vein thrombosis in the right common femoral, femoral, proximal deep femoral or popliteal veins. The veins demonstrate normal color flow, are normally compressible, with normal phasic flow and/or augmentation response. Right superficial veins: Unremarkable. No thrombus in the visualized right great saphenous vein. Left deep veins: Unremarkable. No Deep vein thrombosis in the left common femoral, femoral, proximal deep femoral or popliteal veins. The veins demonstrate normal color flow, are normally compressible, with normal phasic flow and/or augmentation response. Left superficial veins: Unremarkable. No thrombus in the visualized left great saphenous vein. Soft tissues: Mild nonspecific subcutaneous edema of the left calf. No popliteal cyst. IMPRESSION: 1. Mild nonspecific subcutaneous edema of the left calf. 2. No deep vein thrombosis of either lower extremity. Electronically signed by: Ruth Olivares MD 12/21/23 01:36 AM
--- NOTE | 2023-12-21 12:01 | XRay Report ---
SINGLE VIEW CHEST CLINICAL HISTORY: Sepsis FINDINGS: An AP, portable, upright chest radiograph is compared to study dated 07/26/2023. The examina tion is degraded by portable technique and apical lordotic positioning. The cardiomediastinal silhoue tte is unremarkable noting atherosclerotic calcification of the thoracic aorta. Chronic interstitial thickening is similar to previous. There is mild bibasilar scarring/atelectasis. The lungs and pleura l spaces are otherwise clear. No pneumothorax is seen. The skeletal structures are osteopenic. The [place] thorax is grossly intact. Fusion hardware is seen in the lower cervical spine as well as at the th oracolumbar junction. Cholecystectomy clips are noted in the right upper quadrant. IMPRESSION: No active disease in the chest. ACT 112: Negative or not required by law. Electronically signed by: Ricky Tate M.D. 12/21/2023 9:38 AM
--- NOTE | 2023-12-21 16:08 | Electrocardiogram Report ---
Test Reason : Blood Pressure : / mmHG Vent. Rate : 119 BPM Atrial Rate : 119 BPM P-R Int : 136 ms QRS Dur : 066 ms QT Int : 314 ms P-R-T Axes : 061 023 043 degrees QTc Int : 441 ms Sinus tachycardia Otherwise normal ECG When compared with ECG of 26-JUL-2023 15:41, Nonspecific T wave abnormality no longer evident in Lateral leads Confirmed by Pollo Ruelas ([id number]) on 12/21/2023 4:08:15 PM Referred By: REFERRED SELF Confirmed By:Pollo Ruelas
[2023-12-21] MEDS: MoRPHine SULFATE 4 MG/ML 1 ML CARP\\VIAL IV PRN (16:23)
[2023-12-21] MEDS: SUCRALFATE 1 GM TAB PO SCH (16:24)
--- NOTE | 2023-12-21 16:35 | XCELERA ---
[id number]
[2023-12-21] MEDS: busPIRone 15 MG TAB PO SCH (17:19)
[2023-12-21] MEDS: ERTAPENEM SODIUM 1,000 MG in SYRINGE 0 ML IV STA (17:19)
[2023-12-21] MEDS: buPROPion SR 150 MG TABCR PO SCH (17:19)
[2023-12-21] MEDS: ACETAMINOPHEN 500 MG TAB PO SCH (17:19)
[2023-12-21] MEDS: DOCUSATE SODIUM 100 MG CAP PO SCH (17:20)
[2023-12-21] MEDS: FERROUS SULFATE 325 MG TAB PO SCH (17:20)
[2023-12-21] MEDS: CALCIUM CITRATE 950 MG TAB PO SCH (17:20)
[2023-12-21] MEDS: CYCLOBENZAPRINE HCL 10 MG TAB PO SCH (17:20)
[2023-12-21] MEDS: CYANOCOBALAMIN (B-12) 500 MCG TABLET PO SCH (17:20)
[2023-12-21] MEDS: FLUTICASONE PROPIONATE NA SPR 16 GM BTL NAE SCH (17:21)
[2023-12-21] MEDS: METOPROLOL SUCC 50MG EXT REL TAB PO SCH (17:21)
[2023-12-21] MEDS: MULTIVITAMIN TAB PO SCH (17:21)
[2023-12-21] MEDS: PANTOprazole 40 MG TAB PO SCH (17:21)
[2023-12-21] MEDS: oxyCODONE HCL 10 MG TABCR (OxyCONTIN) PO SCH (17:21)
[2023-12-21] MEDS: GABAPENTIN 600 MG TAB PO SCH (17:21)
[2023-12-21] MEDS: LORazepam 0.5 MG TAB PO SCH (20:10)
[2023-12-21] MEDS: MONTELUKAST SODIUM 10 MG TABLET PO SCH (20:14)
[2023-12-21] MEDS: DAPTOmycin 450 MG in SYRINGE 0 ML IV SCH (23:01)
[2023-12-21] MEDS: ERTAPENEM SODIUM 1,000 MG in SYRINGE 0 ML IV SCH (23:02)
[2023-12-22] MEDS: CETIRIZINE HCL 10 MG TABLET PO SCH (08:55)
[2023-12-22 09:39] LABS: Basophils # (auto) 0.03 K/uL (0.00-0.20); Basophils % (auto) 0.6 %; Eosinophils # (auto) 0.19 K/uL (0.00-0.50); Hematocrit (blood only) 40.2 % (37.0-47.0); Hematocrit (blood only) 40.3 % (37.0-47.0); Hemoglobin 12.6 g/dl (12.0-16.0); Hemoglobin 12.7 g/dl (12.0-16.0); Immature Granulocytes # (auto) 0.02 K/uL (0.01-0.20); Immature Granulocytes % (auto) 0.4 %; Lymphocytes # (auto) 0.74 K/uL (1.20-3.40); Lymphocytes % (auto) 15.4 %; Mean Corpuscular Hemoglobin 27.8 pg (25.0-34.0); Mean Corpuscular Hgb Conc 31.3 g/dL (32.0-36.0); Mean Corpuscular Hgb Conc 31.5 g/dL (32.0-36.0); Mean Corpuscular Volume 88.5 fL (80.0-100.0); Mean Corpuscular Volume 88.8 fL (80.0-100.0); Monocytes # (auto) 0.38 K/uL (0.11-0.59); Monocytes % (auto) 7.9 %; Neutrophils # (auto) 3.44 K/uL (1.40-6.50); Neutrophils % (auto) 71.7 %; Platelet Count 256 K/uL (130-400); Platelet Count 258 K/uL (130-400); RDW Coefficient of Variation 14.5 % (11.5-14.5); RDW Standard Deviation 46.5 fL (36.4-46.3); RDW Standard Deviation 46.7 fL (36.4-46.3); Red Blood Count 4.54 M/uL (4.20-5.40); White Blood Count 4.78 K/ul (4.8-10.8)
[2023-12-22 09:52] LABS: BUN Creatinine Ratio 15.3 (10-20); Calcium 8.5 mg/dl (8.6-10.3); Creatinine Clr Calc Pharmacy 65.7 ml/min; Est GFR (African American) 105.5 ml/min; Potassium 4.1 mmol/L (3.5-5.1)
[2023-12-22 11:05] LABS: Albumin Level 3.5 gm/dl (3.4-5.0); BUN Creatinine Ratio 17.1 (10-20); Calcium 8.5 mg/dl (8.6-10.3); Creatinine Clr Calc Pharmacy 67.6 ml/min; Est GFR (African American) 109.1 ml/min; Est GFR (Non-African American) 94.2 ml/min; Magnesium 1.6 mg/dl (1.7-2.4); Phosphorus 3.4 mg/dl (2.5-4.9); Potassium 4.2 mmol/L (3.5-5.1)
[2023-12-22] MEDS: oxyCODONE HCL IR 5 MG TAB (IMMEDIATE RELEASE) PO PRN (12:36)
[2023-12-22] MEDS: DOXYCYCLINE HYCLATE 100 MG CAP PO SCH (12:48)
--- NOTE | 2023-12-22 16:59 | Hospitalist Progress Note ---
Date of Service December 22, 2023 Assessment & Plan (1) Tachycardia: Plan Left knee effusion / redness / warm - improved from yesterday s/p IV antibiotics until 2 weeks ago for postop wound necrosis Continue IV Abx, follow up with blood cx Knee aspirated by ortho in office but no results available Ortho consultation PT/OT Sinus tachycardia Resolved Anxiety - PRN Lorazepam GERD - PPI HLD - Statin DVT Px - Xarelto Full code Discharge pending ortho eval Admission and Anticipated Discharge Date Admission Date: December 20, 2023 Subjective left knee swelling and redness better, no other complaints Physical Exam Physical Exam: Well appearing, comfortable Lungs clear to auscultation bilaterally Heart RRR PA Soft, NT, ND, BS+ MSK - Swollen warm tender left knee with decreased ROM, swelling and redness improved from yesterday Skin no rash AAO#3 Non focal Results & Data Results & Data Vital Signs (Past 12 Hours) Vital Signs Temp Pulse Pulse Resp BP Pulse Ox O2 Del Method 12/22/23 11:13 36.8 C 80 16 135/83 95 Room Air 12/22/23 07:53 81 12/22/23 07:16 36.4 C L 81 16 154/86 H 96 Room Air Reviewed PG Care Time/CCT Total # of Minutes Spent Total Time Spent with Patient: Total time spent is greater than 50% in coordination of care (as documented) at patient's floor/unit and/or counseling patient: Coding Level of Care Code 90917 SUB INP/OBS CARE 2/35MIN Diagnoses Tachycardia R00.0
[2023-12-22] MEDS: ONDANSETRON 4 MG OD TAB PO PRN (18:20)
[2023-12-22] MEDS: ERTAPENEM SODIUM 1,000 MG in SYRINGE 0 ML IV SCH (23:07)
[2023-12-22] MEDS: DAPTOmycin 450 MG in SYRINGE 0 ML IV SCH (23:07)
[2023-12-23 07:35] LABS: Basophils # (auto) 0.03 K/uL (0.00-0.20); Basophils % (auto) 0.7 %; Eosinophils # (auto) 0.22 K/uL (0.00-0.50); Hematocrit (blood only) 39.4 % (37.0-47.0); Hemoglobin 12.5 g/dl (12.0-16.0); Immature Granulocytes # (auto) 0.01 K/uL (0.01-0.20); Immature Granulocytes % (auto) 0.2 %; Lymphocytes % (auto) 20.3 %; Mean Corpuscular Hgb Conc 31.7 g/dL (32.0-36.0); Mean Corpuscular Volume 88.1 fL (80.0-100.0); Mean Platelet Volume 9.1 fL (9.4-12.4); Monocytes # (auto) 0.57 K/uL (0.11-0.59); Monocytes % (auto) 12.9 %; Neutrophils % (auto) 60.9 %; Platelet Count 261 K/uL (130-400); RDW Coefficient of Variation 14.6 % (11.5-14.5); RDW Standard Deviation 46.7 fL (36.4-46.3); Red Blood Count 4.47 M/uL (4.20-5.40); White Blood Count 4.43 K/ul (4.8-10.8)
[2023-12-23 08:01] LABS: Albumin Level 3.4 gm/dl (3.4-5.0); BUN Creatinine Ratio 17.2 (10-20); Calcium 8.8 mg/dl (8.6-10.3); Creatinine Clr Calc Pharmacy 73.7 ml/min; Est GFR (African American) 112.4 ml/min; Magnesium 1.8 mg/dl (1.7-2.4); Potassium 3.8 mmol/L (3.5-5.1)
--- NOTE | 2023-12-23 13:49 | Hospitalist Progress Note ---
Date of Service December 23, 2023 Assessment & Plan (1) Infection of total knee replacement: (2) Postoperative pain of left knee: (3) Necrosis of surgical wound: (4) Status post left knee replacement: (5) Infection due to Enterococcus: (6) Elevated troponin I level: (7) Tachycardia: (8) History of DVT (deep vein thrombosis): Plan Infection of left TKA/postoperative pain/history necrosis of surgical wound/history of Enterococcus- During admission from 09/22-10/05/2023, patient was found to have Enterococcus in her necrotic wound. She completed 6 weeks of IV antibiotics, initially vancomycin, then changed to daptomycin IV, with completion date 11/30 Patient had worsening symptoms of increased heart rate, shakiness and generalized weakness, had aspiration of left knee joint performed by Ortho - unable to find more information about the aspirate - ? fluid analysis / culture Patient be placed on daptomycin IV and ertapenem IV. Consult orthopedic surgery Leukopenia Monitor closely on Daptomycin Sinus tachycardia/hypertension/minimally elevated troponin- resolved Electrolyte abnormalities corrected Hypertension Continue metoprolol succinate with hold parameters Resume losartan History of DVT- Continue Xarelto Left lower extremity Doppler negative for DVT tonight GERD- Continue pantoprazole Dispo - discharge pending ortho eval / ? fluid analysis report to decide the need for IV antibiotics Admission and Anticipated Discharge Date Admission Date: December 20, 2023 Physical Exam Physical Exam: Well appearing, comfortable Lungs clear to auscultation bilaterally Heart RRR PA Soft, NT, ND, BS+ MSK - Swollen warm tender left knee with decreased ROM, swelling and redness improved Skin no rash AAO#3 Non focal Results & Data Results & Data Vital Signs (Past 12 Hours) Vital Signs Temp Pulse Resp BP Pulse Ox O2 Del Method 12/23/23 11:24 36.5 C 81 18 130/84 96 Room Air 12/23/23 07:43 36.5 C 77 18 128/72 94 Room Air 12/23/23 03:20 36.6 C 85 18 142/80 H 92 Room Air reviewed PG Care Time/CCT Total # of Minutes Spent Total Time Spent with Patient: Total time spent is greater than 50% in coordination of care (as documented) at patient's floor/unit and/or counseling patient: Coding Level of Care Code 08849 SUB INP/OBS CARE 2/35MIN Diagnoses Infection of total knee replacement, initial encounter T84.59XA; Z96.659 Encounter type: initial encounter Postoperative pain of left knee G89.18; M25.562 Necrosis of surgical wound I97.89; I96 Status post left knee replacement Z96.652 Infection due to Enterococcus A49.1 Elevated troponin I level R79.89 Tachycardia R00.0 History of DVT (deep vein thrombosis) Z86.718 (1) Infection of total knee replacement Encounter type: initial encounter Qualified Code(s): T84.59XA - Infection and inflammatory reaction due to other internal joint prosthesis, initial encounter; Z96.659 - Presence of unspecified artificial knee joint
--- NOTE | 2023-12-23 16:00 | Discharge Summary ---
Discharge Summary Date of Service December 23, 2023 Principal Dx & Hospital Course #1 = Principal Diagnosis (1) Infection of total knee replacement: (2) Postoperative pain of left knee: (3) Necrosis of surgical wound: (4) Status post left knee replacement: (5) Infection due to Enterococcus: (6) Elevated troponin I level: (7) Tachycardia: (8) History of DVT (deep vein thrombosis): Plan Infection of left TKA/postoperative pain/history necrosis of surgical wound/history of Enterococcus- During admission from 09/22-10/05/2023, patient was found to have Enterococcus in her necrotic wound. She completed 6 weeks of IV antibiotics, initially vancomycin, then changed to daptomycin IV, with completion date 11/30 Patient had worsening symptoms of increased heart rate, shakiness and generalized weakness, had aspiration of left knee joint performed by Ortho - unable to find more information about the aspirate - ? fluid analysis / culture Patient empirically treated with daptomycin IV and ertapenem IV unit fluid analysis results were obtained. Reviewed with orthopedic surgery - d/c IV antibiotics and continue Doxycycline course for 12 months as recommended previously / orthopedics will follow up with patient with final fluid analysis results Leukopenia Monitor closely on Daptomycin Sinus tachycardia/hypertension/minimally elevated troponin- resolved Electrolyte abnormalities corrected Hypertension Continue metoprolol succinate Resume losartan History of DVT- Continue Xarelto Left lower extremity Doppler negative for DVT tonight GERD- Continue pantoprazole Dispo - discharge home Admission HPI Per Admitting Provider The patient is a 58-year-old female with a past medical history including DVT, prepatellar bursitis, surgical wound necrosis, acute kidney injury, chronic narcotic use, asthma, hypertension, hyperlipidemia, MCCLAIN, anxiety, and postlaminectomy syndrome of lumbosacral region. She underwent admission on 09/30-10/05/2023, where she was found to have an Enterococcus infection associated with wound necrosis of her left total knee arthroplasty. She was initially placed on vancomycin IV, then changed to daptomycin IV for a total of 6 weeks, which she completed on 11/30. As noted above, she has been seen by home nursing and found to have increased heart rate around 130 this afternoon, and then was seen by Dr. Felix at 330, she had drainage performed from her left knee. She then presents to the ED due to worsening generalized shakiness, weakness and fatigue. She complains of worsening pain in her left leg, for which she is on OxyContin 20 mg p.o. every 12 hours, and recently increased oxycodone to 10 mg p.o. every 6 hours as needed breakthrough pain. Discharge Exam Well appearing, comfortable Lungs clear to auscultation bilaterally Heart RRR PA Soft, NT, ND, BS+ MSK - Swollen warm tender left knee with decreased ROM, swelling and redness improved Skin no rash AAO#3 Non focal Updated Medication List Medication Instructions Recorded Confirmed Type ferrous sulfate 325 mg (65 mg 325 mg PO BID 10/23/19 12/20/23 History iron) tablet multivitamin (Multiple Vitamins 1 tab PO BID #90 tabs 06/22/20 12/20/23 Rx tablet) diclofenac sodium 1 % topical gel 2 gm topical QID PRN Pain 01/13/22 12/20/23 History calcium citrate 200 mg (950 mg) 200 mg PO DAILY 05/15/22 12/20/23 History tablet montelukast 10 mg tablet 10 mg PO HS #90 tabs 01/16/23 12/20/23 Rx pravastatin 40 mg tablet 40 mg PO QAM #90 tabs 02/08/23 12/20/23 Rx ketoconazole 1 % shampoo (Nizoral 1 applic topical .twice daily #125 03/29/23 12/20/23 Rx A-D) mL docusate sodium 100 mg capsule 100 mg PO BID PRN Constipation 05/22/23 12/20/23 History (Colace) nystatin-triamcinolone 100,000 1 applic topical BID PRN Rash 05/22/23 12/20/23 History unit/g-0.1 % topical cream Walking Cane #1 ea 08/10/23 12/20/23 Rx acetaminophen 500 mg tablet 1,000 mg (2 x 500 mg) PO Q8 #60 08/17/23 12/20/23 Rx (Tylenol Extra Strength) tabs naloxone 4 mg/actuation nasal spray 1 spray intranasal Q3M PRN opioid 08/17/23 12/20/23 Rx overdose #2 ea meclizine 25 mg tablet 25 mg PO TID PRN dizziness #90 tabs 08/29/23 12/20/23 Rx fluticasone propionate 50 1 spray intranasal DAILY 10/01/23 12/20/23 History mcg/actuation nasal spray,suspension cyanocobalamin (vitamin B-12) 1,000 mcg PO DAILY #30 caps 10/05/23 12/20/23 Rx 1,000 mcg capsule oxycodone 20 mg tablet,crush 20 mg PO BID #20 tabs 10/05/23 12/20/23 Rx resistant,extended release 12 hr (OxyContin) rivaroxaban 10 mg tablet (Xarelto) 10 mg PO Q24H #14 tabs 10/05/23 12/20/23 Rx lorazepam 0.5 mg tablet 0.5 mg PO HS #30 tabs 10/19/23 12/20/23 Rx metoprolol succinate 100 mg 100 mg PO QAM #90 tabs 10/30/23 12/20/23 Rx tablet,extended release 24 hr oxycodone 10 mg tablet 10 mg PO Q6H PRN pain #60 tabs 10/31/23 12/20/23 Rx cyclobenzaprine 10 mg tablet 10 mg PO TID #90 tabs 11/01/23 12/20/23 Rx nystatin 100,000 unit/gram topical 1 applic topical BID PRN yeast #60 11/01/23 0 12/20/23 Rx powder grams pantoprazole 40 mg tablet,delayed 40 mg PO QAM #90 tabs 11/01/23 12/20/23 Rx release bupropion HCl 150 mg tablet,12 hr 150 mg PO QAM #90 ea 11/27/23 12/20/23 Rx sustained-release ondansetron 4 mg disintegrating 4 mg PO TID PRN nausea and 11/27/23 12/20/23 Rx tablet vomiting #30 tabs sucralfate 1 gram tablet 1 g PO QID #120 tabs 11/27/23 12/20/23 Rx doxycycline hyclate 100 mg capsule 100 mg PO BID 11/29/23 12/20/23 History losartan 25 mg tablet 25 mg PO DAILY #30 tabs 11/29/23 12/20/23 Rx gabapentin 600 mg tablet 600 mg PO TID #90 tabs 12/23/23 Rx buspirone 15 mg tablet 15 mg PO TID #90 tabs 12/24/23 Rx Hospital Stay Data Consultations 12/20/23 21:31 ED Decision to Admit Stat 12/22/23 12:32 Consult Orthopedic Surgery Routine Diagnostic Imagining Performed 12/20/23 19:06 CT angio chest PE protocol Stat 12/20/23 21:57 US venous doppler LE BI Stat Pending Results Patient Have Any Pending Studies at Discharge: No Discharge Instructions Given to Patient (Per Discharging Provider) Follow up with primary care physician in 5-7 days Total Time Total Time Spent Total Time Spent (In Minutes): 40 min Coding Level of Care Code 27239 INP/OBS DISCH >30 MIN Diagnoses Infection of total knee replacement, initial encounter T84.59XA; Z96.659 Encounter type: initial encounter Postoperative pain of left knee G89.18; M25.562 Necrosis of surgical wound I97.89; I96 Status post left knee replacement Z96.652 Infection due to Enterococcus A49.1 Elevated troponin I level R79.89 Tachycardia R00.0 History of DVT (deep vein thrombosis) Z86.718
--- NOTE | 2023-12-23 17:09 | Orthopedic Consultation ---
Date of Consultation December 23, 2023 Assessment & Plan (1) Infection of total knee replacement: Patient was seen and evaluated during his hospital admission secondary to left knee pain. She has a history of left total knee replacement with postoperative infection, she underwent poly exchange and I&D and finished up her 6 weeks of IV antibiotics, Daptomycin on 11/30. While in the office this past , she had worsening symptoms of increased heart rate and generalized weakness and was referred to the hospital for further evaluation. I did discuss patient's aspiration with Dr. Felix as well as reviewed photos of her left knee during this hospital admission, at this point does not feel that her symptoms are coming from her knee. At this point it is recommended that she continue with her oral antibiotics, Doxycycline for 12 months, and is stable for discharge home. His clinic will contact patient once the final culture results are finalized. In the meantime she can ice elevate the knee continue with her physical therapy, pain control, cont with Xarelto as ordered. History of Present Illness Reason for Consultation: left knee pain Attending Physician: Stacia Nation MD History of Present Illness Yvrose is a 58-year-old female who we are consulted in regards to left knee pain. She has a history of a left total knee replacement by Dr. Felix in August of this year and subsequently underwent I&D and poly change a few weeks later. She completed her course of IV antibiotics and since has been on oral suppressive medication. She was seen in the office by Dr. Felix this past and had her knee aspirated and sent for Synovasure, those results are pending. While there she had elevated heart rate and it was recommended the patient go to the emergency room for further evaluation. At this point her knee pain has slightly improved since , she states the swelling has also improved since the aspiration. She currently denies fever chills or sweats. Allergies Allergy/AdvReac Type Severity Reaction Status Date / Time carisoprodol Allergy Intermediate HALLUCINATI Verified 12/20/23 22:57 ONS Penicillins Allergy Intermediate Hives Verified 12/20/23 22:57 aspirin Allergy Unknown NOT TO Verified 12/20/23 22:57 TAKE S/P GATRIC BYPASS clarithromycin [From Biaxin] Allergy Unknown Unknown Verified 12/20/23 22:57 glycopyrrolate [From Robinul] Allergy Unknown Unknown Verified 12/20/23 22:57 oxymorphone Allergy Unknown Unknown Verified 12/20/23 22:57 lactose AdvReac Mild Gastrointestinal Verified 12/20/23 22:57 Upset sulfamethoxazole AdvReac Unknown Verified 12/20/23 22:57 [From Bactrim] trimethoprim [From Bactrim] AdvReac Unknown Verified 12/20/23 22:57 Home Medications Medication Instructions Recorded Confirmed Type ferrous sulfate 325 mg (65 mg 325 mg PO BID 10/23/19 12/20/23 History iron) tablet multivitamin (Multiple Vitamins 1 tab PO BID #90 tabs 06/22/20 12/20/23 Rx tablet) buspirone 15 mg tablet 15 mg PO TID #90 tabs 10/20/21 12/20/23 Rx diclofenac sodium 1 % topical gel 2 gm topical QID PRN Pain 01/13/22 12/20/23 History calcium citrate 200 mg (950 mg) 200 mg PO DAILY 05/15/22 12/20/23 History tablet montelukast 10 mg tablet 10 mg PO HS #90 tabs 01/16/23 12/20/23 Rx pravastatin 40 mg tablet 40 mg PO QAM #90 tabs 02/08/23 12/20/23 Rx ketoconazole 1 % shampoo (Nizoral 1 applic topical .twice daily #125 03/29/23 12/20/23 Rx A-D) mL docusate sodium 100 mg capsule 100 mg PO BID PRN Constipation 05/22/23 12/20/23 History (Colace) nystatin-triamcinolone 100,000 1 applic topical BID PRN Rash 05/22/23 12/20/23 History unit/g-0.1 % topical cream Walking Cane #1 ea 08/10/23 12/20/23 Rx acetaminophen 500 mg tablet 1,000 mg (2 x 500 mg) PO Q8 #60 08/17/23 12/20/23 Rx (Tylenol Extra Strength) tabs naloxone 4 mg/actuation nasal spray 1 spray intranasal Q3M PRN opioid 08/17/23 12/20/23 Rx overdose #2 ea meclizine 25 mg tablet 25 mg PO TID PRN dizziness #90 tabs 08/29/23 12/20/23 Rx fluticasone propionate 50 1 spray intranasal DAILY 10/01/23 12/20/23 History mcg/actuation nasal spray,suspension cyanocobalamin (vitamin B-12) 1,000 mcg PO DAILY #30 caps 10/05/23 12/20/23 Rx 1,000 mcg capsule oxycodone 20 mg tablet,crush 20 mg PO BID #20 tabs 10/05/23 12/20/23 Rx resistant,extended release 12 hr (OxyContin) rivaroxaban 10 mg tablet (Xarelto) 10 mg PO Q24H #14 tabs 10/05/23 12/20/23 Rx lorazepam 0.5 mg tablet 0.5 mg PO HS #30 tabs 10/19/23 12/20/23 Rx metoprolol succinate 100 mg 100 mg PO QAM #90 tabs 10/30/23 12/20/23 Rx tablet,extended release 24 hr oxycodone 10 mg tablet 10 mg PO Q6H PRN pain #60 tabs 10/31/23 12/20/23 Rx cyclobenzaprine 10 mg tablet 10 mg PO TID #90 tabs 11/01/23 12/20/23 Rx nystatin 100,000 unit/gram topical 1 applic topical BID PRN yeast #60 11/01/23 12/20/23 Rx powder grams pantoprazole 40 mg tablet,delayed 40 mg PO QAM #90 tabs 11/01/23 12/20/23 Rx release bupropion HCl 150 mg tablet,12 hr 150 mg PO QAM #90 ea 11/27/23 12/20/23 Rx sustained-release gabapentin 600 mg tablet 600 mg PO TID #90 tabs 11/27/23 12/20/23 Rx ondansetron 4 mg disintegrating 4 mg PO TID PRN nausea and 11/27/23 12/20/23 Rx tablet vomiting #30 tabs sucralfate 1 gram tablet 1 g PO QID #120 tabs 11/27/23 12/20/23 Rx doxycycline hyclate 100 mg capsule 100 mg PO BID 11/29/23 12/20/23 History losartan 25 mg tablet 25 mg PO DAILY #30 tabs 11/29/23 12/20/23 Rx Patient History Medical History MCCLAIN (nonalcoholic steatohepatitis) hx Depression Asthma no inhalers, well controlled per pt Enlarged liver hx > resolved per pt Arthritis Spinal stenosis History of urinary retention "just happens when I take too many pain pills" GERD (gastroesophageal reflux disease) Hyperlipidemia DVT (deep venous thrombosis) 2020 > can't recall which leg > no longer on thinner > s/p fall HTN (hypertension) History of COVID-19 06/29/20 HOSPITALIZED WITH PNEUMONIA DIA HAINES 06/2021 RECOVERED AT HOME Surgical History History of colonoscopy History of tooth extraction History of surgery on right wrist History of cataract surgery bilat Nausea and vomiting after administration of anesthetic agent History of tonsillectomy and adenoidectomy History of appendectomy History of gastric bypass History of neck surgery ACDF > has trouble tilting head back for long periods History of hysterectomy History of esophagogastroduodenoscopy History of cholecystectomy History of section x4 History of arthroscopy of knee right Family History Father Diabetes Heart problem Cancer Other No family history of adverse response to anesthesia Social History Smoking Status: Former smoker Second Hand Exposure: No; Do You Dip or Chew Tobacco: No; Hx Alcohol Use: No Hx Substance Use: No Preferred Language: Bulgarian Communication Ability: Effective Hearing Ability: Use of Hearing Aid Laboratory Clerk Required: No Beliefs That Will Affect Care: None marital status: Current Living Situation: Family Current Living Situation Comment: LIVES WITH SPOUSE, ADULT SON current occupational status: disabled Feels Safe at Home: Yes Safety Concerns: Feels Safe At This Time Assistive Devices: Cane and Walker Review of Systems Constitutional: no fever and no chills Respiratory: no cough and no dyspnea Cardiovascular: no chest pain, no dyspnea and no orthopnea Gastrointestinal: no abdominal pain, no nausea and no vomiting Physical Exam Physical Exam: Vital Signs Temp 36.7 C 12/23/23 16:37 Pulse 83 12/23/23 16:37 Resp 18 12/23/23 16:37 BP 127/75 12/23/23 16:37 Pulse Ox 94 12/23/23 16:37 O2 Del Method Room Air 12/23/23 15:09 Intake & Output 12/22/23 12/23/23 12/23/23 18:59 06:59 18:59 Intake Total 300 / 450 150 / 450 640 / 640 Output Total Balance 300 / 450 150 / 450 637 / 637 Weight 63.5 kg 63.5 kg Intake: Oral 300 / 450 150 / 450 640 / 640 Output: # Bowel Movement s Other: # Unmeasured Voi ds 2 6 Weight Measureme nt Method Built in [facility] Constitutional: WD/WN, vitals as above Musculoskeletal: Left Knee: She has a well-healed midline incision, mild effusion noted. No erythema or warmth. She is able to perform straight leg raise without lag. Range of motion is 0/3/55. Her calf is soft and nontender, she is neurov ascularly intact distally. She is able to wiggle her toes and perform ankle plantar and dorsiflexion without pain. Results & Data Vital Signs (Past 12 Hours) Vital Signs Temp Pulse Resp BP Pulse Ox O2 Del Method 12/23/23 16:37 36.7 C 83 18 127/75 94 12/23/23 15:09 36.7 C 83 18 127/75 94 Room Air 12/23/23 11:24 36.5 C 81 18 130/84 96 Room Air 12/23/23 07:43 36.5 C 77 18 128/72 94 Room Air Laboratory Results Laboratory Results WBC 4.43 K/ul (4.8-10.8) L 12/23/23 07:17 RBC 4.47 M/uL (4.20-5.40) 12/23/23 07:17 Hgb 12.5 g/dl (12.0-16.0) 12/23/23 07:17 Hct 39.4 % (37.0-47.0) 12/23/23 07:17 MCV 88.1 fL (80.0-100.0) 12/23/23 07:17 MCH 28.0 pg (25.0-34.0) 12/23/23 07:17 MCHC 31.7 g/dL (32.0-36.0) L 12/23/23 07:17 RDW Std Deviation 46.7 fL (36.4-46.3) H 12/23/23 07:17 RDW Coeff of Arvin 14.6 % (11.5-14.5) H 12/23/23 07:17 Plt Count 261 K/uL (130-400) 12/23/23 07:17 MPV 9.1 fL (9.4-12.4) L 12/23/23 07:17 Immature Gran % (Auto) 0.2 % 12/23/23 07:17 Neut % (Auto) 60.9 % 12/23/23 07:17 Lymph % (Auto) 20.3 % 12/23/23 07:17 [place] % (Auto) 12.9 % 12/23/23 07:17 Eos % (Auto) 5.0 % 12/23/23 07:17 Baso % (Auto) 0.7 % 12/23/23 07:17 Neut # (Auto) 2.70 K/uL (1.40-6.50) 12/23/23 07:17 Lymph # (Auto) 0.90 K/uL (1.20-3.40) L 12/23/23 07:17 [place] # (Auto) 0.57 K/uL (0.11-0.59) 12/23/23 07:17 Eos # (Auto) 0.22 K/uL (0.00-0.50) 12/23/23 07:17 Baso # (Auto) 0.03 K/uL (0.00-0.20) 12/23/23 07:17 Immature Gran # (Auto) 0.01 K/uL (0.01-0.20) 12/23/23 07:17 ESR 20 mm/hr (0-30) 12/23/23 07:17 PT 10.4 Seconds (9.0-12.0) 12/20/23 17:49 INR 1.0 (0.9-1.1) 12/20/23 17:49 APTT 24 Seconds (21-31) 12/20/23 17:49 PTT Ratio 0.9 12/20/23 17:49 D-Dimer 2100 ug/L FEU (0-500) H* 12/20/23 17:49 Sodium 139 mmol/L (136-145) 12/23/23 07:17 Potassium 3.8 mmol/L (3.5-5.1) 12/23/23 07:17 Chloride 106 mmol/L (98-107) 12/23/23 07:17 Carbon Dioxide 26 mmol/L (21-32) 12/23/23 07:17 Anion Gap 7 (3-11) 12/23/23 07:17 BUN 11 mg/dl (6-23) 12/23/23 07:17 Creatinine 0.64 mg/dl (0.6-1.2) 12/23/23 07:17 Est Cr Clr Drug Dosing 73.7 ml/min 12/23/23 07:17 Est GFR ( Amer) 112.4 ml/min 12/23/23 07:17 Est GFR (Non-Af Amer) 97.0 ml/min 12/23/23 07:17 BUN/Creatinine Ratio 17.2 (10-20) 12/23/23 07:17 Glucose 116 mg/dl (70-99(Fasting)) H 12/23/23 07:17 Lactate 1.7 mmol/L (0.4-2.0) 12/20/23 18:32 Calcium 8.8 mg/dl (8.6-10.3) 12/23/23 07:17 Phosphorus 4.0 mg/dl (2.5-4.9) 12/23/23 07:17 Magnesium 1.8 mg/dl (1.7-2.4) 12/23/23 07:17 Total Bilirubin 0.4 mg/dl (0.2-1.0) 12/20/23 17:49 Direct Bilirubin 0.0 mg/dl (0-0.2) 12/20/23 17:49 AST 24 U/L (13-39) 12/20/23 17:49 ALT 27 U/L (7-52) 12/20/23 17:49 Alkaline Phosphatase 122 U/L (34-104) H 12/20/23 17:49 Total Creatine Kinase 24 U/L (26-192) L 12/22/23 09:09 Troponin I High Sens 14.3 pg/ml (0-14) H 12/20/23 20:41 C-Reactive Protein 1.61 mg/dl (0-0.5) H 12/20/23 17:49 Total Protein 7.0 gm/dl (6.0-8.3) 12/20/23 17:49 Albumin 3.4 gm/dl (3.4-5.0) 12/23/23 07:17 Procalcitonin < 0.02 ng/ml (0-0.5) 12/20/23 17:49 Urine Color Yellow 12/20/23 20:39 Urine Appearance Clear (Clear) 12/20/23 20:39 Urine pH 6.5 (4.5-7.5) 12/20/23 20:39 Ur Specific [place] 1.020 (1.000-1.030) 12/20/23 20:39 Urine Protein Negative (Negative) 12/20/23 20:39 Urine Glucose (UA) Negative (Negative) 12/20/23 20:39 Urine Ketones Negative (Negative) 12/20/23 20:39 Urine Blood Negative (Negative) 12/20/23 20:39 Urine Nitrite Negative (Negative) 12/20/23 20:39 Urine Bilirubin Negative (Negative) 12/20/23 20:39 Urine Urobilinogen Negative (Negative) 12/20/23 20:39 Ur Leukocyte Esterase Trace (Negative) H 12/20/23 20:39 Urine WBC (Auto) 0-5 /hpf (0-5) 12/20/23 20:39 Urine RBC (Auto) 0-2 /hpf (0-2) 12/20/23 20:39 U Hyaline Cast (Auto) 0-2 /lpf (0-2) 12/20/23 20:39 U Epithel Cells (Auto) 0-2 /hpf (0-2) 12/20/23 20:39 Urine Bacteria (Auto) None Seen (None Seen) 12/20/23 20:39 Impressions Chest X-Ray 12/20/23 17:45 SINGLE VIEW CHEST CLINICAL HISTORY: Sepsis FINDINGS: An AP, portable, upright chest radiograph is compared to study dated 07/26/2023. The examination is degraded by portable technique and apical lordotic positioning. The cardiomediastinal silhouette is unremarkable noting atherosclerotic calcification of the thoracic aorta. Chronic interstitial thickening is similar to previous. There is mild bibasilar scarring/atelectasis. The lungs and pleural spaces are otherwise clear. No pneumothorax is seen. The skeletal structures are osteopenic. The bony thorax is grossly intact. Fusion hardware is seen in the lower cervical spine as well as at the thoracolumbar junction. Cholecystectomy clips are noted in the right upper quadrant. IMPRESSION: No active disease in the chest. ACT 112: Negative or not required by law. Electronically signed by: Ricky Tate M.D. 12/21/2023 9:38 AM Chest CTA 12/20/23 19:06 Exam(s): CTA CHEST IV Amt: 116 ml optiray 320 EXAM: CT Angiography Chest With Intravenous Contrast CLINICAL HISTORY: PE. TECHNIQUE: Axial computed tomographic angiography images of the chest with intravenous contrast. MIPS images were created and reviewed. CTDI is 22. 08 mGy and DLP is 541.8 mGy-cm. Automated exposure control was utilized for the study. A dose lowering technique was utilized adhering to the principles of ALARA. MIP reconstructed images were created and reviewed. COMPARISON: Chest radiograph 12/20/2023 FINDINGS: Pulmonary arteries: Unremarkable. No pulmonary embolus. Aorta: Mild atherosclerosis. No thoracic aortic aneurysm. Lungs: Interseptal thickening could relate to atelectasis and/or pulmonary edema. No mass. Pleural space: Unremarkable. No significant effusion. No pneumothorax. Heart: Unremarkable. No cardiomegaly. No significant pericardial effusion. No evidence of RV dysfunction. Bones/joints: There are degenerative changes of the spine. No acute fracture. Soft tissues: Unremarkable. Lymph nodes: Unremarkable. No enlarged lymph nodes. Upper abdomen: There is elevation of the left hemidiaphragm. IMPRESSION: 1. No pulmonary embolus. 2. Interseptal thickening could relate to atelectasis and/or pulmonary edema. 3. There is elevation of the left hemidiaphragm. Electronically signed by: Ruth Olivares MD 12/20/23 21:09 PM Venous Doppler Study 12/20/23 21:57 Exam(s): US VENOUS BILATERAL LOWER EXTREMITIES EXAM: US Duplex Bilateral Lower Extremities Veins CLINICAL HISTORY: Swelling. TECHNIQUE: Real-time duplex ultrasound scan of the bilateral lower extremity veins integrating B-mode two-dimensional vascular structure, Doppler spectral analysis, color flow Doppler imaging and compression. COMPARISON: No relevant prior studies available. FINDINGS: Right deep veins: Unremarkable. No Deep vein thrombosis in the right common femoral, femoral, proximal deep femoral or popliteal veins. The veins demonstrate normal color flow, are normally compressible, with normal phasic flow and/or augmentation response. Right superficial veins: Unremarkable. No thrombus in the visualized right great saphenous vein. Left deep veins: Unremarkable. No Deep vein thrombosis in the left common femoral, femoral, proximal deep femoral or popliteal veins. The veins demonstrate normal color flow, are normally compressible, with normal phasic flow and/or augmentation response. Left superficial veins: Unremarkable. No thrombus in the visualized left great saphenous vein. Soft tissues: Mild nonspecific subcutaneous edema of the left calf. No popliteal cyst. IMPRESSION: 1. Mild nonspecific subcutaneous edema of the left calf. 2. No deep vein thrombosis of either lower extremity. Electronically signed by: Ruth Olivares MD 12/21/23 01:36 AM (1) Infection of total knee replacement Encounter type: initial encounter Qualified Code(s): T84.59XA - Infection and inflammatory reaction due to other internal joint prosthesis, initial encounter; Z96.659 - Presence of unspecified artificial knee joint
[2023-12-24] MEDS ORDERED: LOSARTAN POTASSIUM 25 MG TAB PO SCH (09:00)
--- NOTE | 2023-12-24 11:59 | Electrocardiogram Report ---
Test Reason : Blood Pressure : / mmHG Vent. Rate : 079 BPM Atrial Rate : 079 BPM P-R Int : 150 ms QRS Dur : 070 ms QT Int : 382 ms P-R-T Axes : 048 032 038 degrees QTc Int : 438 ms Normal sinus rhythm Normal ECG When compared with ECG of 20-DEC-2023 17:39, Vent. rate has decreased BY 40 BPM Confirmed by Zion Kendall ([id number]) on 12/24/2023 11:59:32 AM Referred By: REFERRED SELF Confirmed By:Zion Kendall
== END 2023-12-23 17:15 | disposition home or self-care (01) | DRG 560 ==
LOC: ED 17:25 → 4W 22:32 → SUATTDRO 22:32 → 4W 23:36
DX: T84.54XA Infection and inflammatory reaction due to internal left knee prosthesis, initial encounter; R79.89 Other specified abnormal findings of blood chemistry; Z86.16 Personal history of COVID-19; B95.2 Enterococcus as the cause of diseases classified elsewhere; Z88.0 Allergy status to penicillin; J45.909 Unspecified asthma, uncomplicated; Z79.899 Other long term (current) drug therapy; Z88.6 Allergy status to analgesic agent; Y83.1 Surgical operation with implant of artificial internal device as the cause of abnormal reaction of the patient, or of later complication, without mention of misadventure at the time of the procedure; F41.9 Anxiety disorder, unspecified; Z88.8 Allergy status to other drugs, medicaments and biological substances; I10 Essential (primary) hypertension; Z98.1 Arthrodesis status; Z86.718 Personal history of other venous thrombosis and embolism; E78.5 Hyperlipidemia, unspecified; Z87.891 Personal history of nicotine dependence; K21.9 Gastro-esophageal reflux disease without esophagitis; I96 Gangrene, not elsewhere classified; R00.0 Tachycardia, unspecified; Z79.01 Long term (current) use of anticoagulants

== ENCOUNTER 2024-05-08 10:20 | Inpatient (IN) ==
--- NOTE | 2024-05-07 08:39 | Anesthesiology Consultation ---
Date of Service May 07, 2024 Assessment & Plan (1) Encounter for pre-operative examination: Plan - patient reported to PAT RN that she had been unable to complete surgeon ordered UA-per Jennifer with surgeon's office their plan is to have this done when patient arrives for surgery 05/08. OR made aware. - Case discussed in detail with Dr. Orellana who advised determination on if additional testing is needed given recent pneumonia and sepsis will be to anesthesiologist discretion DOS. BMP still pending-fluid orders to anesthesiologist review of BMP DOS - PCP office visit 04/17/24 [place]: "...hospital follow up with her and son...fell on 04/07 and was dioriented [sic]. she had a skin avulsion on her left forearm...fever of 104...found to have sepsis and multifocal pna. her lactate was 5.2 on admission...white count was normal...finished her iv abx for her left knee infection post op. they did take her picc line out of her right arm in the hospital...xrays of her left shoulder , left wrist and left elbow which were negative for fracture...ct of her chest which showed mod pleural ds in the b/l lower lobes...ct of her abd was benign...ct of her neck which showed her degenerative changes...still has a cough and sinus congestion. no dysuria or hematuria...ct of her head was negative for acute pathology...back and ribs are still sore. no wheezing...is not having any chest pain or sob. no lightheadedness or dizziness. no falls since discharge...to start her doxycycline...we will check her labs which are ordered..." - Per sugar trucker on 05/07/24: No known infectious disease contacts, current infectious disease symptoms in past 10 days or COVID positive test result in the past 30 days. Chart Review Chart Review: Acceptable Risk for Surgery and Patient NOT seen in Pre Admission Testing History Surgery Operation Date: 05/08/24 12:00 Proposed Procedures p Left Knee Explant Total Knee Arthroplasty, Insertion Antibiotic Space versus one Stage Exchange Revision Knee Replacement - Kwasi Felix MD s Incision and Drainage Left Knee - Kwasi Felix MD Height/Weight Height: 4 ft 10 in Weight: 62 kg Allergies Allergy/AdvReac Type Severity Reaction Status Date / Time aspirin Allergy Unknown NOT TO Verified 05/08/24 09:50 TAKE S/P GATRIC BYPASS clarithromycin [From Biaxin] Allergy Unknown Unknown Verified 05/08/24 09:50 glycopyrrolate [From Robinul] Allergy Unknown Unknown Verified 05/08/24 09:50 oxymorphone Allergy Unknown Unknown Verified 05/08/24 09:50 carisoprodol AdvReac Intermediate HALLUCINATI Verified 05/08/24 09:50 ONS lactose AdvReac Mild Gastrointestinal Verified 05/08/24 09:50 Upset sulfamethoxazole AdvReac Unknown Verified 05/08/24 09:50 [From Bactrim] trimethoprim [From Bactrim] AdvReac Unknown Verified 05/08/24 09:50 Medications Home Medications Medication Instructions Recorded Confirmed Last Taken ferrous sulfate 325 mg (65 mg 325 mg PO BID 10/23/19 05/08/24 05/07/24 21:00 iron) tablet multivitamin (Multiple Vitamins 1 tab PO BID #90 tabs 06/22/20 05/08/24 05/07/24 08:00 tablet) diclofenac sodium 1 % topical gel 2 gm topical QID PRN Pain 01/13/22 05/08/24 Unknown calcium citrate 200 mg PO DAILY 05/15/22 05/08/24 05/07/24 08:00 docusate sodium 100 mg capsule 100 mg PO BID PRN Constipation 05/22/23 05/08/24 10/01/23 10:30 (Colace) Walking Cane #1 ea 08/10/23 04/17/24 Unknown cyanocobalamin (vitamin B-12) 1,000 mcg PO DAILY #30 caps 10/05/23 05/08/24 05/07/24 08:00 1,000 mcg capsule pravastatin 40 mg tablet 40 mg PO QAM #90 tabs 01/15/24 05/08/24 05/08/24 09:00 oxycodone 10 mg tablet 10 mg PO Q6H PRN pain #60 tabs 04/03/24 05/08/24 05/08/24 09:00 cyclobenzaprine 10 mg tablet 10 mg PO TID #90 tabs 04/14/24 05/08/24 05/08/24 09:00 meclizine 25 mg tablet 25 mg PO TID PRN dizziness #90 tabs 04/14/24 05/08/24 05/08/24 09:00 buspirone 15 mg tablet 15 mg PO TID #90 tabs 04/15/24 05/08/24 05/08/24 09:00 doxycycline hyclate 100 mg capsule 100 mg PO BID #20 caps 04/17/24 05/08/24 05/07/24 21:00 fluticasone propionate 50 1 spray intranasal DAILY PRN 04/17/24 05/08/24 Unknown mcg/actuation nasal Congestion spray,suspension lorazepam 0.5 mg tablet 0.5 mg PO HS #30 tabs 04/18/24 05/08/24 05/07/24 21:00 oxycodone 10 mg tablet,crush 10 mg PO BID #60 tabs 04/21/24 05/08/24 Unknown resistant,extended release 12 hr (OxyContin) nystatin 100,000 unit/gram topical 1 applic topical BID PRN yeast #60 04/22/24 05/08/24 Unknown powder grams ondansetron 4 mg disintegrating 4 mg PO TID PRN nausea and 04/22/24 05/08/24 Unknown tablet vomiting #30 tabs metoprolol succinate 100 mg 100 mg PO QAM #90 tabs 04/24/24 05/08/24 05/08/24 09:00 tablet,extended release 24 hr sucralfate 1 gram tablet 1 g PO QID #120 tabs 04/24/24 05/08/24 05/08/24 09:00 montelukast 10 mg tablet 10 mg PO HS #90 tabs 04/30/24 05/08/24 05/07/24 21:00 bupropion HCl 150 mg tablet,12 hr 150 mg PO QAM #90 ea 05/04/24 05/08/24 05/08/24 09:00 sustained-release gabapentin 600 mg tablet 600 mg PO TID #90 tabs 05/04/24 05/08/24 05/08/24 09:00 pantoprazole 40 mg tablet,delayed 40 mg PO QAM #90 tabs 05/04/24 05/08/24 05/08/24 09:00 release losartan 25 mg tablet 25 mg PO QAM 05/07/24 05/08/24 05/07/24 09:00 Active Medications Generic Name Dose Route Start Last Admin Trade Name Riaz PRN Reason Stop Dose Admin Acetaminophen 1,000 mg 05/08/24 06:00 05/08/24 11:07 Acetaminophen 500 Mg Tab PO 05/08/24 18:00 1,000 mg PREOP BRAYDEN Administration Dexamethasone Sodium Phosphate 10 mg 05/08/24 06:00 05/08/24 11:07 DexamethasonePf 10 Mg/Ml Vial IV 05/08/24 18:00 10 mg PREOP BRAYDEN Administration Famotidine 20 mg 05/08/24 06:00 05/08/24 11:07 Famotidine 20 Mg Tab PO 05/08/24 18:00 20 mg PREOP BRAYDEN Administration Gabapentin 600 mg 05/08/24 06:00 05/08/24 11:26 Gabapentin 600 Mg Dose PO 05/08/24 18:00 Not Given PREOP BRAYDEN Sodium Chloride 1,000 mls @ 15 mls/hr 05/08/24 10:30 05/08/24 11:06 Nss IV 05/09/24 10:29 15 mls/hr .Q24H BRAYDEN Administration KVO Metoclopramide HCl 10 mg 05/08/24 06:00 05/08/24 11:07 Metoclopramide Hcl 10 Mg Tablet PO 05/08/24 18:00 10 mg PREOP BRAYDEN Administration Past Medical History Medical History Postlaminectomy syndrome of lumbosacral region Chronic narcotic use Cervical post-laminectomy syndrome Cervical disc disease Brain atrophy reported per family, "confusion has gotten better since family has taken over medication administration" Chronic pain syndrome Infection due to Enterococcus hx, 12/2023 Tachycardia hx, 12/2023, isolated incident per family Elevated troponin I level hx, 12/2023, isolated incident per family; admitted to [facility] for "a few days, no recent issues" Necrosis of surgical wound Postoperative skin necrosis noted in EMR 09/28/23 MCCLAIN (nonalcoholic steatohepatitis) hx Depression Asthma no inhalers, well controlled per pt Enlarged liver hx > resolved per pt Arthritis Spinal stenosis History of urinary retention "just happens when I take too many pain pills" GERD (gastroesophageal reflux disease) Hyperlipidemia DVT (deep venous thrombosis) 2020 > can't recall which leg > no longer on thinner > s/p fall HTN (hypertension) History of COVID-19 06/29/20 HOSPITALIZED WITH PNEUMONIA [facility] 06/2021 RECOVERED AT HOME Past Family History Family History Father Diabetes Heart problem Cancer Other No family history of adverse response to anesthesia Past Surgical History Surgical History Hx of knee surgery I&D left knee w/poly exchange History of total right knee replacement History of back surgery x3 total > 06/02/19 Dr. Simon Templeton at [facility]- Midline prone multilevel osteotomies, Correction of flat back deformity, Extension of fusion to T9, T10, and T11 kyphoplasty Status post left knee replacement History of colonoscopy History of tooth extraction History of surgery on right wrist History of cataract surgery bilat Nausea and vomiting after administration of anesthetic agent and syncope History of tonsillectomy and adenoidectomy History of appendectomy History of gastric bypass more than 5 years ago History of neck surgery ACDF > has trouble tilting head back for long periods History of hysterectomy History of esophagogastroduodenoscopy History of cholecystectomy History of section x4 History of arthroscopy of knee right Social History Smoking Status: Former smoker Do You Dip or Chew Tobacco: No Hx Alcohol Use: No Hx Substance Use: No substance use type: does not use Physical Exam Vital Signs Last Vital Signs Temp 36.5 C 05/08/24 11:16 Pulse 82 05/08/24 11:16 Resp 16 05/08/24 11:16 BP 152/101 H 05/08/24 11:16 Pulse Ox 98 05/08/24 11:16 O2 Del Method Room Air 05/08/24 11:16 Lab Results Anesthesia Preop Results Results Anesthesia Widget: WBC 4.96 K/ul (4.8-10.8) 04/24/24 Hgb 12.6 g/dl (12.0-16.0) 04/24/24 Hct 38.6 % (37.0-47.0) 04/24/24 Plt 427 K/uL (130-400) H 04/24/24 Na 137 mmol/L (136-145) 05/07/24 K 4.2 mmol/L (3.5-5.1) 05/07/24 Cl 102 mmol/L (98-107) 05/07/24 CO2 27 mmol/L (21-32) 05/07/24 BUN 15 mg/dl (6-23) 05/07/24 Creat 0.74 mg/dl (0.6-1.2) 05/07/24 Glucose Level 190 mg/dl (70-99(Fasting)) H 05/07/24 PT 10.6 Seconds (9.0-12.0) 05/07/24 PTT 26 Seconds (21-31) 05/07/24 INR 1.0 (0.9-1.1) 05/07/24 SARS-CoV-2, RNA, NAAT Negative 03/13/24 Blood Type O Positive 05/07/24 Antibody Screen NEGATIVE 05/07/24 Testing Electrocardiogram Date: 04/07/24 Sinus tachycardia with premature atrial complexes with aberrant conduction, rate 123 bpm Chest X-Ray Date: 05/07/24 Probable atelectatic changes. No focal parenchymal consolidation. Echocardiogram Date: 04/08/24 EF 50-54% Normal LV wall motion Mild mitral regurgitation Cervical Spine Date: 04/07/24 CT No acute findings Other Testing Chest, abdomen or pelvis CT 04/07/24 Moderate-sized areas of parenchymal disease throughout bilateral lower lobes. Lung contusions and incidental infectious infiltrates are in the differential diagnosis. Areas of mild increased interstitial markings and ground-glass changes in the lungs bilaterally better visualized in upper loves. Mild pulmonary edema can have this imaging finding and should be considered. No evidence of vascular injury. No pneumothorax. No evidence of fracture. No evidence of visceral organ or vascular injury. Head CT 04/07/24 No acute intracranial injuries Chest CTA 12/20/23 1. No pulmonary embolus. 2. Interseptal thickening could relate to atelectasis and/or pulmonary edema. 3. There is elevation of the left hemidiaphragm. Brain MRI 07/30/23 Moderate brain atrophy with chronic small vessel ischemic disease
--- NOTE | 2024-05-07 20:53 | History & Physical Report ---
Date of Service May 07, 2024 Assessment & Plan (1) Infection of total left knee replacement: Plan: Plan is to do incision drainage irrigation and debridement and explantation of old implant. Options after that or antibiotic cement spacer or possible 1 stage exchange with antibiotic cement and long-term IV antibiotics and antibiotic suppression. Encounter type: sequela Qualified Code(s): T84.54XS - Infection and inflammatory reaction due to internal left knee prosthesis, sequela History of Present Illness Chief Complaint: Painful left knee replacement Primary Care Provider: Larry Gonzalez DO 59-year-old female with chronic left knee pain since having left knee replacement August 15, 2023. Patient's postoperative course was complicated by skin edge necrosis wound healing issues and septic knee with culture positive f or Enterococcus and incision drainage polyethylene exchange procedure 10/01/2023. Patient had Enterococcus resistant to levofloxacin. Patient was treated with 6 weeks IV antibiotics with daptomycin. She was changed to doxycycline p.o. Patient presented to the emergency room 12/20/2023 with tachycardia and not feeling well. At that point she had an aspirate of her knee which included Synovasure testing. The Synovasure was positive the staph panel was positive white cell count was 6597 with 90.7% neutrophils. The synovial C-reactive protein was elevated. Culture eventually grew out Pseudomonas. She is very back to infectious disease illness treated with intravenous Zosyn for 2 months and recommended suppression for life with doxycycline. After stopping IV antibiotics in late March she developed pneumonia and was treated for pneumonia rhinovirus at [facility]. At that time she was placed on cefpodoxime in addition to doxycycline. Because of ongoing knee pain she had a ultrasound-guided knee aspirate which was felt not to be 100% reliable specimen due to a lot of blood aspirated and not a lot of fluid noted in the suprapatellar region and more scar tissue noted. This culture grew out Pseudomonas. I repeated the culture in the office and the second culture grew out Pseudomonas as well. Patient continues to have chronic mild to moderate synovitis with no signs of sepsis. The cultures of the Pseudomonas are pansensitive. Patient denies headaches, sweats, fevers, chills, cough, sore throat, dysphagia, chest pain, sob, wheezing, n/v/d/c, numbness, tingling, urinary symptoms. ROS positive for recent pneumonia 04/07/2024 to 04/11/2024 admission at [facility]. Patient has acid reflux and significant arthritic issues including the spine. Allergies Allergy/AdvReac Type Severity Reaction Status Date / Time aspirin Allergy Unknown NOT TO Verified 05/07/24 15:18 TAKE S/P GATRIC BYPASS clarithromycin [From Biaxin] Allergy Unknown Unknown Verified 05/07/24 15:18 glycopyrrolate [From Robinul] Allergy Unknown Unknown Verified 05/07/24 15:18 oxymorphone Allergy Unknown Unknown Verified 05/07/24 15:18 carisoprodol AdvReac Intermediate HALLUCINATI Verified 05/07/24 15:18 ONS lactose AdvReac Mild Gastrointestinal Verified 05/07/24 15:18 Upset sulfamethoxazole AdvReac Unknown Verified 05/07/24 15:18 [From Bactrim] trimethoprim [From Bactrim] AdvReac Unknown Verified 05/07/24 15:18 Home Medications Medication Instructions Recorded Confirmed Type ferrous sulfate 325 mg (65 mg 325 mg PO BID 10/23/19 05/07/24 History iron) tablet multivitamin (Multiple Vitamins 1 tab PO BID #90 tabs 06/22/20 05/07/24 Rx tablet) diclofenac sodium 1 % topical gel 2 gm topical QID PRN Pain 01/13/22 05/07/24 History calcium citrate 200 mg PO DAILY 05/15/22 05/07/24 History docusate sodium 100 mg capsule 100 mg PO BID PRN Constipation 05/22/23 05/07/24 History (Colace) Walking Cane #1 ea 08/10/23 04/17/24 Rx cyanocobalamin (vitamin B-12) 1,000 mcg PO DAILY #30 caps 10/05/23 05/07/24 Rx 1,000 mcg capsule pravastatin 40 mg tablet 40 mg PO QAM #90 tabs 01/15/24 05/07/24 Rx oxycodone 10 mg tablet 10 mg PO Q6H PRN pain #60 tabs 04/03/24 05/07/24 Rx cyclobenzaprine 10 mg tablet 10 mg PO TID #90 tabs 04/14/24 05/07/24 Rx meclizine 25 mg tablet 25 mg PO TID PRN dizziness #90 tabs 04/14/24 05/07/24 Rx buspirone 15 mg tablet 15 mg PO TID #90 tabs 04/15/24 05/07/24 Rx doxycycline hyclate 100 mg capsule 100 mg PO BID #20 caps 04/17/24 05/07/24 Rx fluticasone propionate 50 1 spray intranasal DAILY PRN 04/17/24 05/07/24 History mcg/actuation nasal Congestion spray,suspension lorazepam 0.5 mg tablet 0.5 mg PO HS #30 tabs 04/18/24 05/07/24 Rx oxycodone 10 mg tablet,crush 10 mg PO BID #60 tabs 04/21/24 05/07/24 Rx resistant,extended release 12 hr (OxyContin) nystatin 100,000 unit/gram topical 1 applic topical BID PRN yeast #60 04/22/24 05/07/24 Rx powder grams ondansetron 4 mg disintegrating 4 mg PO TID PRN nausea and 04/22/24 05/07/24 Rx tablet vomiting #30 tabs metoprolol succinate 100 mg 100 mg PO QAM #90 tabs 04/24/24 05/07/24 Rx tablet,extended release 24 hr sucralfate 1 gram tablet 1 g PO QID #120 tabs 04/24/24 05/07/24 Rx montelukast 10 mg tablet 10 mg PO HS #90 tabs 04/30/24 05/07/24 Rx bupropion HCl 150 mg tablet,12 hr 150 mg PO QAM #90 ea 05/04/24 05/07/24 Rx sustained-release gabapentin 600 mg tablet 600 mg PO TID #90 tabs 05/04/24 05/07/24 Rx pantoprazole 40 mg tablet,delayed 40 mg PO QAM #90 tabs 05/04/24 05/07/24 Rx release losartan 25 mg tablet 25 mg PO QAM 05/07/24 05/07/24 History Past Med/Surg History Problem List (Updated 05/07/24 @ 21:17 by Kwasi Felix MD) Infection of total left knee replacement Infection of total right knee replacement Skin tear of left upper extremity Abrasion, right knee, initial encounter Postoperative pain of left knee Infection of total knee replacement Anemia Prepatellar bursitis Primary osteoarthritis of left knee Seborrheic dermatitis of scalp Cellulitis of skin Chronic narcotic use Opioid dependence with current use Anxiety disorder Cervical post-laminectomy syndrome Postlaminectomy syndrome of lumbosacral region Left knee DJD Bilateral knee pain History of back surgery x3 total > 06/02/19 Dr. Simon Templeton at [facility]- Midline prone multilevel osteotomies, Correction of flat back deformity, Extension of fusion to T9, T10, and T11 kyphoplasty Asthma (Chronic) Cervical disc disease (Chronic) Chronic pain syndrome (Chronic) Depression (Chronic) HTN, goal below 140/80 (Chronic) Hyperlipidemia (Chronic) Intervertebral disc degeneration (Chronic) MCCLAIN (nonalcoholic steatohepatitis) (Chronic) Medical History Postlaminectomy syndrome of lumbosacral region Chronic narcotic use Cervical post-laminectomy syndrome Cervical disc disease Brain atrophy reported per family, "confusion has gotten better since family has taken over medication administration" Chronic pain syndrome Infection due to Enterococcus hx, 12/2023 Tachycardia hx, 12/2023, isolated incident per family Elevated troponin I level hx, 12/2023, isolated incident per family; admitted to [facility] for "a few days, no recent issues" Necrosis of surgical wound Postoperative skin necrosis noted in EMR 09/28/23 MCCLAIN (nonalcoholic steatohepatitis) hx Depression Asthma no inhalers, well controlled per pt Enlarged liver hx > resolved per pt Arthritis Spinal stenosis History of urinary retention "just happens when I take too many pain pills" GERD (gastroesophageal reflux disease) Hyperlipidemia DVT (deep venous thrombosis) 2020 > can't recall which leg > no longer on thinner > s/p fall HTN (hypertension) History of COVID-19 06/29/20 [facility] REC[facility] Surgical History Hx of knee surgery I&D left knee w/poly exchange History of total right knee replacement History of back surgery x3 total > 06/02/19 Dr. Simon Tepmleton at [facility]- Midline prone multilevel osteotomies, Correction of flat back deformity, Extension of fusion to T9, T10, and T11 kyphoplasty Status post left knee replacement History of colonoscopy History of tooth extraction History of surgery on right wrist History of cataract surgery bilat Nausea and vomiting after administration of anesthetic agent and syncope History of tonsillectomy and adenoidectomy History of appendectomy History of gastric bypass more than 5 years ago History of neck surgery ACDF > has trouble tilting head back for long periods History of hysterectomy History of esophagogastroduodenoscopy History of cholecystectomy History of section x4 History of arthroscopy of knee right Family History Father Diabetes Heart problem Cancer Other No family history of adverse response to anesthesia Social History Smoking Status: Former smoker Tobacco Type: Cigarettes Age Started Using Tobacco: 14; Age Quit Using Tobacco: 40; packs per day: 1; Second Hand Exposure: Yes; Do You Dip or Chew Tobacco: No; Hx Alcohol Use: Yes (none for years) Hx Substance Use: No Preferred Language: Irish Communication Ability: Effective Hearing Ability: Use of Hearing Aid Rotary Engraver Required: No Beliefs That Will Affect Care: None marital status: Current Living Situation: Spouse and Family Current Living Situation Comment: LIVES WITH SPOUSE, ADULT SON current occupational status: disabled Feels Safe at Home: Yes Assistive Devices: Cane, Glasses and Hearing Aid - Bilateral Review of Systems All systems reviewed & are unremarkable except as noted in HPI & below Physical Exam Constitutional: WD/WN, vitals as above Respiratory: normal respiratory effort; no respiratory distress Cardiovascular: Rate/Rhythm: regular rate and regular rhythm Musculoskeletal: Left knee 0 to 95 degrees range of motion with relatively mild pain. She has a small knee effusion only. There is no draining sinus. There is no erythema. The old scar is fully epithelialized and healed. Extensor mechanism is intact. Skin: no rashes, warm and dry Neurologic: normal touch/pain/proprioception Psychiatric: A+Ox3, euthymic affect Results & Data Diagnostic Findings X-rays left knee demonstrate the [employer] knee replacement there is lucency around the medial proximal tibia underlying the plate of the tibial component at the cement bone interface area which looks like a small erosion. There is no loosening of the tibial or femoral components or patella components.
[~2024-05-08 10:20] MED LIST changes: +KETAMINE HCL 10MG/ML SYR ONE; +MIDAZOLAM HCL 1 MG/ML 2ML VIAL ONE; +PROPOFOL IV EMULSION 10 MG/ML 20 ML VIAL IV ONE; -Patient's HEIGHT &/or WEIGHT Needed SCH; +ROCURONIUM BROMIDE 10 MG/ML 5 ML VIAL IV ONE; +ROPIVACAINE 0.5% 5 MG/ML 30 ML VIAL ONE; +fentaNYL citrate PF 100 MCG/2 ML VIAL ONE
[2024-05-08] MEDS: SODIUM CHLORIDE 0.9% 1,000 ML IV SCH (11:06)
[2024-05-08] MEDS: ACETAMINOPHEN 500 MG TAB PO SCH (11:07)
[2024-05-08] MEDS: dexAMETHasone**PF** 10 MG/ML VIAL IV SCH (11:07)
[2024-05-08] MEDS: METOCLOPRAMIDE HCL 10 MG TABLET PO SCH (11:07)
[2024-05-08] MEDS: FAMOTIDINE 20 MG TAB PO SCH (11:07)
--- NOTE | 2024-05-08 11:12 | History & Physical Bridge Note ---
Date of Service May 08, 2024 History & Physical Bridge Note I have examined the patient, reviewed the History & Physical and in the interval since the performance of the History & Physical I have noted the following changes of clinical significance: no changes noted
[2024-05-08] MEDS: GABAPENTIN 600 MG DOSE PO SCH (11:26)
[2024-05-08] MEDS: TRANEXAMIC ACID 1,000 MG **IV Pre-op IV SCH (11:31)
[2024-05-08] MEDS ORDERED: ONDANSETRON INJ 2 MG/ML 2 ML VIAL IV PRN ×2 (11:33→18:30)
[2024-05-08] MEDS ORDERED: HYDROmorphone INJ 2 MG/ML SYR/VIAL IV PRN (11:33)
[2024-05-08] MEDS ORDERED: ePHEDrine sulfate 50 MG/ML AMP IV PRN (11:33)
[2024-05-08] MEDS ORDERED: ATROPINE SULFATE 0.1 MG/ML 10ML SYR IV PRN (11:33)
[2024-05-08] MEDS ORDERED: HYDROmorphone INJ 1 MG/ML SYRINGE ONE ×2 (11:48→14:04)
[2024-05-08] MEDS ORDERED: NALOXONE HCL 0.4 MG/1 ML VIAL/CARP IV PRN ×4 (12:04→19:06)
[2024-05-08] MEDS ORDERED: HYDROmorphone PCA 30 MG/30 ML IV PRN (12:04)
[2024-05-08] MEDS ORDERED: HYDROmorphone Bolus from PCA IV PRN ×2 (12:04→19:06)
[2024-05-08] MEDS ORDERED: DEXAMETHASONE SOD INJ 4 MG/ML VIAL ONE (12:07)
[2024-05-08] MEDS ORDERED: ONDANSETRON INJ 2 MG/ML 2 ML VIAL ONE ×2 (12:07→16:35)
[2024-05-08] MEDS: CEFEPIME 2000MG 2,000 MG/20 ML SYR IV STA (13:00)
[2024-05-08] MEDS ORDERED: ePHEDrine sulfate 50 MG/5 ML SYR ONE (14:03)
[2024-05-08] MEDS ORDERED: DexMEDEtomidine HCL IV 100 MCG/ML VIAL IV ONE (14:12)
[2024-05-08] MEDS ORDERED: PHENYLEPHRINE HCL 10 MG/ML VIAL ONE (14:36)
--- NOTE | 2024-05-08 15:40 | XRay Report ---
XR knee LT 1 or 2V routine CLINICAL HISTORY: MISSING SAW BLADES X 2 COMPARISON: Left knee radiographs October 01, 2023. FINDINGS: Postoperative findings consistent with explant of the left knee arthroplasty are noted. Th ere are no unexpected radiopaque foreign bodies. IMPRESSION: No unexpected radiopaque foreign bodies within the left knee. ACT 112: Negative or not required by law. Electronically signed by: Nicola Lara M.D. 05/08/2024 3:38 PM
[2024-05-08] MEDS: TOBRAMYCIN SULFATE VIAL ONE ×2 (16:01→16:02)
[2024-05-08] MEDS: VANCOMYCIN HCL 1000MG/20ML VIAL ONE (16:02)
[2024-05-08] MEDS ORDERED: HYDROmorphone INJ 2 MG/ML SYR/VIAL ONE (16:16)
[2024-05-08] MEDS: TRANEXAMIC ACID 1,000 MG **IV Intra-op IV SCH (16:20)
--- NOTE | 2024-05-08 17:29 | Operative Report ---
Post Operative Report Pre & Post Diagnosis Operation Date: 05/08/24 12:00 Pre-Op Diagnosis: Left Knee Infected Total knee arthroplasty, status post prior DAIR procedure, arthrofibrosis status post knee replacement Post-Op Diagnosis: Left Knee Infected Total knee arthroplasty, status post prior DAIR procedure, arthrofibrosis status post knee replacement I identified the patient and participated in the time-out.: Yes Procedure Operation Date: 05/08/24 12:00 Actual Procedures p Left Knee Explant Total Knee Arthroplasty, Extensive Debridement including bone and bone cement and synovium with electrocautery synovectomy, Placement of articulated antibiotic cement spacer 3 components(Left) - Kwasi Felix MD Surgeon Kwasi Felix MD Metal Tile Setter Lb GREGG Estimated Blood Loss 200 Findings Consistent with Post-Op Diagnosis Specimens Multiple cultures and bone to assess for osteomyelitis Drains 2 Hemovac and a Steiner catheter Anesthesia Type General Regional Complications none Disposition Disposition: Recovery Room Indications 59-year-old female complex history of ongoing left knee pain status post index knee replacement in August 2023 initial operation was complicated by skin edge necrosis eventual infection a DAIR procedure. Long-term IV antibiotics eventually changed to oral antibiotics but had subsequent aspiration after hospital admission with continued complaints of knee pain which only grew out Pseudomonas and was felt to be possible contaminant. Patient responded to another round of IV antibiotics with Zosyn and most recently on oral antibiotics doxycycline. Patient had another hospitalization for pneumonia in April 07 to . Patient had pain after that admission in the knee and 2 aspirations both grew out Pseudomonas. Radiographs demonstrate small erosion under the medial tibial plateau only no loosening of implants. Description of Procedure Patient was taken to the op room this is under general anesthetic. She was placed supine on the operating table. Pneumatic tourniquet was placed about the left upper thigh. Patient was a petite individual. Left knee had a small effusion. Range of motion was 0 through 95 degrees. Still had evidence of some arthrofibrosis of the knee. There is no sinus tract no drainage no erythema no increased warmth. The leg was sterilely prepped and draped with ChloraPrep. The leg was elevated exsanguinated only to below knee level and then the pneumatic tourniquet was raised to 300 mmHg. Previous scar was utilized for incision. Anterior incision was made through the scar and there was mild edema in the subcutaneous tissues. The subcutaneous tissues were reflected off of the extensor mechanism which was completely intact from the tibial tubercle to the superior quad tendon. Incision was made through medial retinaculum extending up to the mid third of the quadriceps tendon proximally and distally down to the medial tibial tubercle. Upon entering the joint there was some mildly cloudy joint fluid concerning for infection. There was some generalized synovitis in the knee joint. There was no implant loosening noted. Swab cultures were obtained. Electrocautery synovectomy was then performed removing this very thickened synovial tissue which was thickened by at least 1 to 2 cm thick. This was released along the medial lateral gutters and suprapatellar pouch and the scarred infrapatellar fat pad was resected as well. The polyethylene was then removed to aid in exposure. Cultures were taken from underneath the polyet hylene. Patella was removed with an oscillating saw. There is a few cystic changes in the bone underlying the patella component which possibly could have been related to infection. All cement was removed and these areas were curetted out. The knee was copiously irrigated and then she was administered the cefepime IV antibiotic. The femur was then removed using thin oscillating saw and flexible osteotomes and a bone tamp. Femur was very well-fixed and did not come off easily. Took some considerable time to use the osteotomes and saw to free up the femur. Femur was taken off there was some erosion of the lateral femoral condyle that communicated with the notch area concerning for possible osteomyelitis. This bone was sent for pathology evaluation. Also cultures were sent from this area. The tibia was then addressed. Thin oscillating saws were used, flexible osteotomes artist chisel's stacked osteotomes and a Xochilt extraction device was required to remove the tibia. Tibia was very well-fixed and took some time to extract this. The cement from within the tibia was then removed using small artist chisels and a pituitary rongeur to remove all the cement within the shaft and metaphysis. Also all surface cement was removed. At this point the case it was 2 hours we let the tourniquet down for 20 minutes. During this time the aqua Mantis was used to obtain hemostasis. The tourniquet was then placed back up to 300 mmHg and further irrigation of the joint was performed to Betadine soak for 3 minutes was performed. This was irrigated out. Clean sponge was placed into the wound and then all personnel changed gowns helmets gloves and a whole new set up was used to sterilely redraped out the knee joint. Trial reduction was performed using the Vanguard size 60 trial femur for the left knee which perfectly without using any cuts at all to adjust the fit. A 63 x 12 posterior stabilized poly trial was used and this fit well allowing the need obtain full extension and was able to flex to 90 degrees without difficulty. At this point the antibiotic cement was mixed. I used Refobacin cement with 1 g vancomycin and 3.6 g of tobramycin added to each packet. 1 packet was used for the femur 2 packets were used for the tibia and patella. The implants were placed in stages starting with the femur being cemented first. We waited until the somewhat doughy stage prior to placing the femur in place and then impacted into position and cleared all excess cement. After this hardened we mixed the other 2 packets and made a towel to fill the canal in the metaphysis of the tibia and cement the undersurface of the tibial polyethylene 63 x 12 posterior stabilized Vanguard polyethylene. The cement was placed into the anterior interdigitation of the polyethylene to help hold it in place. Excess minute was cleared and the knee was held in extension until the cement hardened. During this time we did cement the patella with similar antibiotic cement and a patella clamp was used. I did clip off the majority of the buttons leaving short stops only to hold the patella in place. After all the cement hardened the knee was irrigated with saline and Xperience solution. 2 Hemovac drains were brought out laterally. The quadriceps tendon and medial retinaculum were closed with interrupted [id number] #1 PDS monofilament suture material. The subcutaneous tissues were closed with interrupted [id number] 2-0 Vicryl bacterial resistant suture. Tourniquet was let down at this time and there was good capillary refill back to the skin. Skin was closed with interrupted 3-0 nylon vertical mattress sutures and Adaptic and Xeroform gauze dressing sterile Webril and an Cm wrap from foot to the thigh including a knee immobilizer was applied. Patient tolerated the procedure well. Lb GREGG participated as first line production supervisor and retracted and assisted in the closure and dressings knee immobilizer placement and postoperative care of the patient. I attest to the content of the Intraoperative Record and any orders documented therein. Any exceptions are noted below.
[2024-05-08] MEDS: fentaNYL citrate PF 100 MCG/2 ML VIAL IV PRN (17:40)
--- NOTE | 2024-05-08 18:04 | XRay Report ---
EXAMINATION: X-ray knee left 1 or 2 views CLINICAL HISTORY: Postop PRIORS: None TECHNIQUE: AP and lateral view knee left FINDINGS: A left total knee arthroplasty is present with surgical overlying drain. Mild soft tissue swelling noted with no subcutaneous gas. Alignment is near anatomic. Patella appropriately situated. Chronic appearing Sulaiman Stewart noted. No radiopaque foreign body. IMPRESSION: Left total knee arthroplasty with near anatomic alignment. Electronically signed by Tawny Castro 05-08-2024 6:04 PM
--- NOTE | 2024-05-08 18:21 | Anesthesiology Progress Note ---
Date of Service May 08, 2024 Anesthesia Post Procedure Vital Signs Vital Signs: Temp Pulse Pulse Resp BP BP Pulse Ox 05/08/24 18:05 96 H 16 145/77 H 98 05/08/24 17:55 94 H 12 136/85 98 05/08/24 17:45 97 H 13 146/82 H 98 05/08/24 17:35 36.8 C 97 H 16 142/82 H 95 05/08/24 17:25 97 H 15 137/75 97 05/08/24 17:15 99 H 16 145/77 H 100 05/08/24 17:09 37.1 C 101 H 16 142/76 H 97 05/08/24 11:16 36.5 C 82 16 152/101 H 98 O2 Del Method O2 Flow Rate 05/08/24 18:05 Nasal Cannula 2 05/08/24 17:55 Nasal Cannula 2 05/08/24 17:45 Nasal Cannula 2 05/08/24 17:35 Room Air 05/08/24 17:25 Oxymask 2 05/08/24 17:15 Oxymask 5 05/08/24 17:09 Oxymask 5 05/08/24 11:16 Room Air Pain Intensity Left Knee: Pain Intensity: 8 Transfer of Care Handoff Completed per policy Notes Mental Status: alert / awake / arousable Patient Amnestic to Procedure: Yes Nausea / Vomiting: adequately controlled Pain: adequately controlled Airway Patency, RR, SpO2: stable & adequate BP & HR: stable & adequate Hydration State: stable & adequate Anesthetic Complications: no major complications apparent
[2024-05-08] MEDS ORDERED: diphenhydrAMINE Capsule 25 MG CAP PO PRN (18:30)
[2024-05-08] MEDS ORDERED: NYSTATIN POWDER 15GM BTL EXT PRN (18:30)
[2024-05-08] MEDS ORDERED: KETOROLAC TROMETHAMINE 15 MG/ML VIAL IV PRN (18:30)
[2024-05-08] MEDS ORDERED: ONDANSETRON 4 MG OD TAB PO PRN (18:30)
[2024-05-08] MEDS ORDERED: MAGNESIUM HYDROXIDE SUSP 30 ML UDC PO PRN (18:30)
[2024-05-08] MEDS ORDERED: DOCUSATE SODIUM 100 MG CAP PO PRN (18:30)
[2024-05-08] MEDS ORDERED: ALUMINUM/MAGNESIUM SUSP 30 ML UDC PO PRN (18:30)
[2024-05-08] MEDS ORDERED: FLUTICASONE PROPIONATE NA SPR 16 GM BTL PRN (18:30)
[2024-05-08] MEDS ORDERED: bisacodyL 10 MG SUPP PR PRN (18:30)
[2024-05-08] MEDS ORDERED: METOCLOPRAMIDE HCL INJ 5 MG/ML 2 ML VIAL IV PRN (18:30)
[2024-05-08] MEDS: LR 60ML/HR IV SCH (18:34)
[2024-05-08] MEDS: CEFEPIME 2000MG 2,000 MG/20 ML SYR IV SCH (20:28)
[2024-05-08] MEDS: HYDROmorphone PCA 30 MG/30 ML IV PRN (20:39)
[2024-05-08] MEDS ORDERED: NON-FORMULARY MEDICATION (Multivitamin [Multiple Vitamins] tablet) PO SCH (21:00)
[2024-05-08] MEDS: busPIRone 15 MG TAB PO SCH (21:06)
[2024-05-08] MEDS: CYCLOBENZAPRINE HCL 10 MG TAB PO SCH (21:07)
[2024-05-08] MEDS: DOCUSATE SODIUM 100 MG CAP PO SCH (21:07)
[2024-05-08] MEDS: LORazepam 0.5 MG TAB PO SCH (21:08)
[2024-05-08] MEDS: FERROUS SULFATE 325 MG TAB PO SCH (21:08)
[2024-05-08] MEDS: GABAPENTIN 600 MG TAB PO SCH (21:08)
[2024-05-08] MEDS: DOXYCYCLINE HYCLATE 100 MG CAP PO SCH (21:08)
[2024-05-08] MEDS: MONTELUKAST SODIUM 10 MG TABLET PO SCH (21:09)
[2024-05-08] MEDS: oxyCODONE HCL 10 MG TABCR (OxyCONTIN) PO SCH (21:09)
[2024-05-08] MEDS: SENNA 8.6 MG TAB PO SCH (21:09)
[2024-05-08] MEDS: SUCRALFATE 1 GM TAB PO SCH (21:10)
[2024-05-08] MEDS: TRANEXAMIC ACID / 0.7% NACL 1,000 MG/100 ML BAG IV SCH (23:52)
[2024-05-09] MEDS: CEFEPIME 1000MG 1,000 MG/10 ML SYR IV SCH (06:00)
[2024-05-09 06:08] LABS: Hematocrit (blood only) 32.8 % (37.0-47.0); Hemoglobin 11.1 g/dl (12.0-16.0); Mean Corpuscular Hemoglobin 30.8 pg (25.0-34.0); Mean Corpuscular Hgb Conc 33.8 g/dL (32.0-36.0); Mean Corpuscular Volume 91.1 fL (80.0-100.0); Mean Platelet Volume 9.3 fL (9.4-12.4); Platelet Count 272 K/uL (130-400); White Blood Count 11.26 K/ul (4.8-10.8)
[2024-05-09 06:23] LABS: BUN Creatinine Ratio 23.4 (10-20); Creatinine Clr Calc Pharmacy 71.3 ml/min; Potassium 4.2 mmol/L (3.5-5.1)
[2024-05-09] MEDS: CALCIUM CITRATE 950 MG TAB PO SCH (08:02)
[2024-05-09] MEDS: dexAMETHasone 10 MG in SYRINGE 0 ML IV SCH (08:02)
[2024-05-09] MEDS: buPROPion SR 150 MG TABCR PO SCH (08:03)
[2024-05-09] MEDS: METOPROLOL SUCC 50MG EXT REL TAB PO SCH (08:03)
[2024-05-09] MEDS: MULTIVITAMIN TAB PO SCH (08:03)
[2024-05-09] MEDS: LOSARTAN POTASSIUM 25 MG TAB PO SCH (08:04)
[2024-05-09] MEDS: CYANOCOBALAMIN (B-12) 500 MCG TABLET PO SCH (08:04)
[2024-05-09] MEDS: MECLIZINE HCL 25 MG TAB PO PRN (08:22)
--- NOTE | 2024-05-09 08:55 | Hospitalist Consultation ---
Date of Consultation May 09, 2024 Assessment & Plan (1) Infection of total left knee replacement: Hx of TKA 08/15/23, Poly exchange 10/01/23 and now presents with repeat suspect Pseudomonas infection S/P Left Knee Explant Total Knee Arthroplasty, Extensive Debridement and synovectomy, Placement of articulated antibiotic cement spacer [address] 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 Now pre-op and intraop cultures showing Pseudomonas - ID consulted by primary team - appreciate recommendations - continue cefepime - add dapto until cultures finalize - stop doxy STATIN HELD WITH ON DAPTO PT/OT (2) Chronic pain syndrome: Continued on home regimen: gabapentin 600mg TID; oxycodone IR 10mg q6H prn and Oxycontin 10mg BID scheduled; cyclobenzaprine 10mg TID Pain management consulted by primary team - d/cd Dilaudid DISTILLATION OPERATOR. OxyContin was increased from 10mg to 20mg BID. Recommend this dose increase for 2 weeks then return to chronic regimen. - continue oxycodone 10mg q6h prn Pt does report she uses her prn oxycodone at home VERY sparingly (1-2 times per week). Her PDMP notes much more frequent refills. PCP (primary prescriber) aware - she would prefer ortho take over pain rx in the post-op period. (3) HTN, goal below 140/80: BPs are controlled Continue with Metoprolol and losartan Also with HLD - statin held as above (4) Depression: Stable Continue BuSpar and Wellbutrin Ativan qHs Supportive care (5) DVT (deep venous thrombosis): hx of DVT in 2020 - not on AC at baseline Eliquis 2.5mg po bid has been started by ortho (6) Allergic rhinitis: Continue Flonase She reports taking Zyrtec-D every morning at home or otherwise gets so congested that she gets pneumonia Add on zyrtec 10mg qAM plus sudafed 30mg po qAM scheduled Plan Dispo: medically stable, continued stay awaiting cultures DVT proph: Eliquis per ortho Thank you for allowing us to participate in the care of this patient, please reach out with any questions or concerns. Medicine will sign off. Supervising Physician Co-Signing Physician Notes PA Supervision Note: I personally saw and examined the patient. I verified all headley points and agree with MARYSOL Ernandez with the following exceptions and/or additions: S-Pt reports pain is not controlled and never will be. Has chronic pain in her back. Discussed pain control regimen No fevers here, cultures reviewed and growing Pseudomonas already O- Vitals reviewed Gen: [AAOx3, NAD] HEENT: [anicteric sclerae, EOMI] CV: [RRR no mgr nl S1S2] Pulm: [CTAB no wcr] Abd: [+BS soft NT ND no masses or hernias] Ext: [LLE in MUSTAPHA wrap not removed, no edema right leg] CBC, BMP reviewed A/P-59 yo female here with infected left knee now s/p explantation of hardware, debridement, and antibiotic spacer Continue Cefepime for PsA coverage and adding Dapto for Staph and Enterococcus previous cultures coverage, await final results Pain Management consult reviewed Blood glucose mildly elevated--> follow and if remains elevated on AM labs, would add glucose checks and possible supplemental Novolog, check A1C History of Present Illness Reason for Consultation: Medical Management Requesting Physician: Dr. felix Attending Physician: Kwasi Felix MD History of Present Illness Yvrose is a 59F with a PMHx of HTN, chronic pain on narcotics, anxiety/depression, NAFLD, hx of gastric bypass who presents to the hospital for repeat surgery with Dr. Felix for left knee infection. Patient is sitting up in the chair. Reports having pain in her left knee after working with therapy. Wanted to go over her medications with her, but she states it is all the in the computer, they only thing she is not recieiving is Zyrtec - D. Discussed her chronic narcotics, states her son keeps her PRN oxycodone locked up and she only takes 1-2 doses per week. This is significantly lower than would be expected based on frequency of her refills on PDMP. PCP (primary prescriber aware). She will take the occasional aleve, but avoids tylenol due to liver problems. Did see infectious disease this morning but does not know what they recommended. Has passed gas since surgery, no bowel movement. Tolerating diet without issue. Allergies Allergy/AdvReac Type Severity Reaction Status Date / Time aspirin Allergy Unknown NOT TO Verified 05/08/24 09:50 TAKE S/P GATRIC BYPASS clarithromycin [From Biaxin] Allergy Unknown Unknown Verified 05/08/24 09:50 glycopyrrolate [From Robinul] Allergy Unknown Unknown Verified 05/08/24 09:50 oxymorphone Allergy Unknown Unknown Verified 05/08/24 09:50 carisoprodol AdvReac Intermediate HALLUCINATI Verified 05/08/24 09:50 ONS lactose AdvReac Mild Gastrointestinal Verified 05/08/24 09:50 Upset sulfamethoxazole AdvReac Unknown Verified 05/08/24 09:50 [From Bactrim] trimethoprim [From Bactrim] AdvReac Unknown Verified 05/08/24 09:50 Home Medications Medication Instructions Recorded Confirmed Type ferrous sulfate 325 mg (65 mg 325 mg PO BID 10/23/19 05/08/24 History iron) tablet multivitamin (Multiple Vitamins 1 tab PO BID #90 tabs 06/22/20 05/08/24 Rx tablet) diclofenac sodium 1 % topical gel 2 gm topical QID PRN Pain 01/13/22 05/08/24 History calcium citrate 200 mg PO DAILY 05/15/22 05/08/24 History docusate sodium 100 mg capsule 100 mg PO BID PRN Constipation 05/22/23 05/08/24 History (Colace) Walking Cane #1 ea 08/10/23 04/17/24 Rx cyanocobalamin (vitamin B-12) 1,000 mcg PO DAILY #30 caps 10/05/23 05/08/24 Rx 1,000 mcg capsule pravastatin 40 mg tablet 40 mg PO QAM #90 tabs 01/15/24 05/08/24 Rx oxycodone 10 mg tablet 10 mg PO Q6H PRN pain #60 tabs 04/03/24 05/08/24 Rx cyclobenzaprine 10 mg tablet 10 mg PO TID #90 tabs 04/14/24 05/08/24 Rx meclizine 25 mg tablet 25 mg PO TID PRN dizziness #90 tabs 04/14/24 05/08/24 Rx buspirone 15 mg tablet 15 mg PO TID #90 tabs 04/15/24 05/08/24 Rx doxycycline hyclate 100 mg capsule 100 mg PO BID #20 caps 04/17/24 05/08/24 Rx fluticasone propionate 50 1 spray intranasal DAILY PRN 04/17/24 05/08/24 History mcg/actuation nasal Congestion spray,suspension lorazepam 0.5 mg tablet 0.5 mg PO HS #30 tabs 04/18/24 05/08/24 Rx oxycodone 10 mg tablet,crush 10 mg PO BID #60 tabs 04/21/24 05/08/24 Rx resistant,extended release 12 hr (OxyContin) nystatin 100,000 unit/gram topical 1 applic topical BID PRN yeast #60 04/22/24 05/08/24 Rx powder grams ondansetron 4 mg disintegrating 4 mg PO TID PRN nausea and 04/22/24 05/08/24 Rx tablet vomiting #30 tabs metoprolol succinate 100 mg 100 mg PO QAM #90 tabs 04/24/24 05/08/24 Rx tablet,extended release 24 hr sucralfate 1 gram tablet 1 g PO QID #120 tabs 04/24/24 05/08/24 Rx montelukast 10 mg tablet 10 mg PO HS #90 tabs 04/30/24 05/08/24 Rx bupropion HCl 150 mg tablet,12 hr 150 mg PO QAM #90 ea 05/04/24 05/08/24 Rx sustained-release gabapentin 600 mg tablet 600 mg PO TID #90 tabs 05/04/24 05/08/24 Rx pantoprazole 40 mg tablet,delayed 40 mg PO QAM #90 tabs 05/04/24 05/08/24 Rx release losartan 25 mg tablet 25 mg PO QAM 05/07/24 05/08/24 History Patient History Medical History Postlaminectomy syndrome of lumbosacral region Chronic narcotic use Cervical post-laminectomy syndrome Cervical disc disease Brain atrophy reported per family, "confusion has gotten better since family has taken over medication administration" Chronic pain syndrome Infection due to Enterococcus hx, 12/2023 Tachycardia hx, 12/2023, isolated incident per family Elevated troponin I level hx, 12/2023, isolated incident per family; admitted to [facility] for "a few days, no recent issues" Necrosis of surgical wound Postoperative skin necrosis noted in EMR 09/28/23 MCCLAIN (nonalcoholic steatohepatitis) hx Depression Asthma no inhalers, well controlled per pt Enlarged liver hx > resolved per pt Arthritis Spinal stenosis History of urinary retention "just happens when I take too many pain pills" GERD (gastroesophageal reflux disease) Hyperlipidemia DVT (deep venous thrombosis) 2020 > can't recall which leg > no longer on thinner > s/p fall HTN (hypertension) History of COVID-19 06/29/20 HOSPITALIZED WITH PNEUMONIA DIA HAINES 06/2021 RECOVERED AT HOME Surgical History Hx of knee surgery I&D left knee w/poly exchange History of total right knee replacement History of back surgery x3 total > 06/02/19 Dr. Simon Templeton at [facility]- Midline prone multilevel osteotomies, Correction of flat back deformity, Extension of fusion to T9, T10, and T11 kyphoplasty Status post left knee replacement History of colonoscopy History of tooth extraction History of surgery on right wrist History of cataract surgery bilat Nausea and vomiting after administration of anesthetic agent and syncope History of tonsillectomy and adenoidectomy History of appendectomy History of gastric bypass more than 5 years ago History of neck surgery ACDF > has trouble tilting head back for long periods History of hysterectomy History of esophagogastroduodenoscopy History of cholecystectomy History of section x4 History of arthroscopy of knee right Family History Father Diabetes Heart problem Cancer Other No family history of adverse response to anesthesia Social History Smoking Status: Former smoker Tobacco Type: Cigarettes Age Started Using Tobacco: 14; Age Quit Using Tobacco: 40; packs per day: 1; Smoking End Date: 2000; Second Hand Exposure: Yes; Do You Dip or Chew Tobacco: No; Tobacco Cessation Education Requested by Patient: No Hx Alcohol Use: Yes (none for years) Hx Substance Use: No Preferred Language: Luxembourgish Communication Ability: Effective Hearing Ability: Use of Hearing Aid Cooking Instructor Required: No Beliefs That Will Affect Care: None marital status: Current Living Situation: Spouse and Family Current Living Situation Comment: LIVES WITH SPOUSE, ADULT SON current occupational status: disabled Other Information That Helps Us Care for You: No Feels Safe at Home: Yes Safety Concerns: Feels Safe At This Time Assistive Devices: Walker Assistive Devices Comment: only uses cane prn Review of Systems Review of Systems: All systems reviewed & are unremarkable except as noted in Subjective Physical Exam Physical Exam: General: NAD, VS as above, sitting up in the chair Resp: normal respiratory effort, lungs clear to auscultation CV: RRR, no murmur, Abd: normal bowel sounds, soft, non tender Extremities: left leg in mustapha wrap Neuro: A&O x3, Results & Data Results & Data Vital Signs (Past 12 Hours) Vital Signs Temp Pulse Resp BP Pulse Ox O2 Del Method O2 Flow Rate 05/09/24 07:41 98.2 F 83 18 146/78 H 97 Room Air 05/09/24 03:00 98.1 F 92 H 18 128/76 95 Room Air 05/09/24 00:42 95 H 18 146/93 H 96 Room Air 05/08/24 23:44 98.6 F 95 H 16 151/85 H 94 Room Air 05/08/24 22:40 90 18 149/82 H 96 Room Air 05/08/24 21:40 98.1 F 97 H 20 147/75 H 97 Room Air 05/08/24 21:21 97.5 F L 89 16 168/82 H 96 Nasal Cannula 2 Laboratory Results CBC and chemistry reviewed PG Care Time/CCT Total # of Minutes Spent Total Time Spent with Patient: Total time spent is greater than 50% in coordination of care (as documented) at patient's floor/unit and/or counseling patient: Coding Level of Care Code 70542 IN/OBS CONSULT LVL 3,45M Diagnoses Infection of total left knee replacement, sequela T84.54XS Encounter type: sequela Chronic pain syndrome G89.4 HTN, goal below 140/80 I10 Depression F32.A DVT (deep venous thrombosis) I82.409 Allergic rhinitis J30.9 (1) Infection of total left knee replacement Encounter type: sequela Qualified Code(s): T84.54XS - Infection and inflammatory reaction due to internal left knee prosthesis, sequela
[2024-05-09] MEDS: PRAVASTATIN SOD 40 MG TAB PO SCH (10:01)
[2024-05-09] MEDS: PANTOprazole 40 MG TAB PO SCH (10:01)
--- NOTE | 2024-05-09 12:14 | Infectious Disease Consult ---
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 She completed 6 weeks of daptomycin ( at the time has a listed PCN allergy) in 11/2028 followed by doxycycline suppression that was scheduled for end on 11/2024. Post completion of IV daptomycin she developed increased knee swelling. Per report , Synovasure testing was positive for Pseudomonas and" staph " . She was referred to local infectious disease ((Vicente Robison DO) who evaluated the patient in 01/2024. She was started on pip-tazo 02/15/2024 for coverage of Enterococcus, Finegoldia, staph species and Pseudomonas. for 6 weeks. She completed therapy on 03/27/2024 with plan to start Cipro suppression ( per her ID docs notes). Prior to starting Cipro therapy, she developed a pneumonia and was admitted to [facility] where she was treated with cefpodoxime and doxycycline. It is unclear if she was restarted on suppression therapy. She subsequently developed increased left knee swelling 04/2024. She was evaluated by orthopedics and underwent a knee aspiration on 04/18/2024 and 04/24/2024. On both occasions cultures were positive for Pseudomonas aeruginosa. She is directly admitted t [facility] on 05/07/2024 for incision and drainage irrigation and explantation of the implant with antibiotic cement spacer. Patient is a poor historian and history obtained from chart review. On 05/08/2025, she underwent left knee explant with extensive debridement including bone and bone cement and synovium with electrocautery synovectomy and placement of articulating antibiotic cement spacers. Several intraoperative cultures are growing Pseudomonas aeruginosa so far. She is currently on cefepime and doxycycline. Infectious disease consulted for left knee prosthetic joint infection She is afebrile and hemodynamically stable. Labs noted for: WBC 12.26, BUN 15, creatinine 0.64. She complains of Knee pain and discomfort. She denies fever, chills ,sweats, abdominal pain, nausea or vomiting Microbiology Left knee OR cultures (deep left knee joint) 05/08/2024 NGTD Left knee OR culture (deep left knee joint #2) 05/08/2024 rare Pseudomonas aeruginosa Left knee OR culture (interface tibial polyethylene tibial component) 05/08/2024 NGTD Left knee OR culture ( interface tibial polyethylene tibial component #2) 05/08/2024 rare Pseudomonas aeruginosa Left knee OR culture (left patellar tissue) 05/08/2024 rare Pseudomonas aeruginosa Left knee OR culture (left femoral interface) rare Pseudomonas aeruginosa Left knee OR culture (left tibial implant bone interface) 05/08/2024 no growth to date Prior microbiology: Left knee wound culture 04/24/2024 Pseudomonas aeruginosa (pansensitive) Left knee wound culture rare Pseudomonas aeruginosa 04/18/2024 (pansensitive) Left knee joint 10/01/23: E faecalis (resistant to Levaquin, sensitive to Vanco, Dapto, ampicillin, penicillin) Left knee polyethylene tibial interface culture 10/01/2023: Enterococcus faecalis Antibiotics: Cefepime 05/08ongoing Doxycycline suppression ongoing # Left knee recurrent PJI -Status post I&D and poly exchange, with culture positive for Finegoldia and E faecalis (10/01/2023) - status post 6 weeks of daptomycin 11/2023--> doxycycline suppression - H/O + joint culture + for Pseudomonas and "Staph" ( ? 12/2023); completed 6 weeks of Zosyn 03/2024, unclear if Cipro suppression was ever started - H/o + joint fluid culture + for Pseudomonas (04/2024 times 2 ) - sp I & D and knee prosthetic explant with abx spacer 05/08/24: intraop cx +Pseudomonas so far # Spine hardware in place # Bactrim allergy Recommendations: Anticipate another 6 week course of pathogen targeted antibiotics s/p hardware removal Continue Cefepime 2 g Iv q8 hours for Pseudomonas coverage pending sensitivities Follow up Pseudomonas OR sensitivities Discontinued doxycycline. Since hardware removed, will not need continued suppression. Would treat active infection at this time Started Daptomycin 8 g /kg IV daily for h/o " Staph" and E faecalis from prior joint cx pending finalization of OR cultures . If only Pseudomonas growth, can discontinue. Ordered CRP, ESR and CPK Follow up OR culture from 05/08/24 Thank you for this consult. ID will continue to follow. ID will not round or review the chart over the weekend. Call covering provider at [facility] at [phone] with questions. Makenzie Moralez MD, MPH Infectious Disease [facility], [facility] Call [phone] with questions Consultation Information Consultation was provided via telemedicine using two-way real-time interactive telecommunication between the patient and the telemedicine provider. For the duration of the visit, the provider was performing the assessment from a different facility than the patient. This includesuse of bluetooth stethoscope forauscultationperformed by the telepresenter that the telemedicine provider can hear if described in the physical exam. Water Pollution Control Inspector contact information: Please call [facility] Call Center [phone]. (Phone Number For Physician Use Only) After establishing a telemedicine visit, patient was: Patient was verified with two unique identifiers Time Spent with Patient: Initial => 75 min History of Present Illness Reason for Consultation: Left knee PJI Requesting Physician: MARYSOL Dunn Attending Physician: Kwasi Felix MD History of Present Illness This is a 58-year-old female with a past medical history of hypertension, hyperlipidemia, spinal hardware (cervical, lumbar) status post right TKA 04/20/2015, left TKA on 08/15/2023 complicated by left knee PJI in 09/2023 with E faecalis ( tabares S) and Finegoldia. She completed 6 weeks of daptomycin ( at the time has a listed PCN allergy) in 11/2028 followed by doxycycline suppression that was scheduled for end on 11/2024. Post completion of IV daptomycin she d eveloped increased knee swelling. Per report , Synovasure testing was positive for Pseudomonas and" staph " . She was referred to local infectious disease (([facility], ) who evaluated the patient in 01/2024. She was started on pip-tazo 02/15/2024 for coverage of Enterococcus, Finegoldia, staph species and Pseudomonas. for 6 weeks. She completed therapy on 03/27/2024 with plan to start Cipro suppression ( per her ID docs notes). Prior to starting Cipro therapy, she developed a pneumonia and was admitted to [facility] where she was treated with cefpodoxime and doxycycline. It is unclear if she was restarted on suppression therapy. She subsequently developed increased left knee swelling 04/2024. She was evaluated by orthopedics and underwent a knee aspiration on 04/18/2024 and 04/24/2024. On both occasions cultures were positive for Pseudomonas aeruginosa. She is directly admitted t [facility] on 05/07/2024 for incision and drainage irrigation and explantation of the implant with antibiotic cement spacer. Patient is a poor historian and history obtained from chart review. On 05/08/2025, she underwent left knee explant with extensive debridement including bone and bone cement and synovium with electrocautery synovectomy and placement of articulating antibiotic cement spacers. Several intraoperative cultures are growing Pseudomonas aeruginosa so far. She is currently on cefepime and doxycycline. Infectious disease consulted for left knee prosthetic joint infection She is afebrile and hemodynamically stable. Labs noted for: WBC 12.26, BUN 15, creatinine 0.64. She complains of Knee pain and discomfort. She denies fever, chills ,sweats, abdominal pain, nausea or vomiting Allergies Allergy/AdvReac Type Severity Reaction Status Date / Time aspirin Allergy Unknown NOT TO Verified 05/08/24 09:50 TAKE S/P GATRIC BYPASS clarithromycin [From Biaxin] Allergy Unknown Unknown Verified 05/08/24 09:50 glycopyrrolate [From Robinul] Allergy Unknown Unknown Verified 05/08/24 09:50 oxymorphone Allergy Unknown Unknown Verified 05/08/24 09:50 carisoprodol AdvReac Intermediate HALLUCINATI Verified 05/08/24 09:50 ONS lactose AdvReac Mild Gastrointestinal Verified 05/08/24 09:50 Upset sulfamethoxazole AdvReac Unknown Verified 05/08/24 09:50 [From Bactrim] trimethoprim [From Bactrim] AdvReac Unknown Verified 05/08/24 09:50 Home Medications Medication Instructions Recorded Confirmed Type ferrous sulfate 325 mg (65 mg 325 mg PO BID 10/23/19 05/08/24 History iron) tablet multivitamin (Multiple Vitamins 1 tab PO BID #90 tabs 06/22/20 05/08/24 Rx tablet) diclofenac sodium 1 % topical gel 2 gm topical QID PRN Pain 01/13/22 05/08/24 History calcium citrate 200 mg PO DAILY 05/15/22 05/08/24 History docusate sodium 100 mg capsule 100 mg PO BID PRN Constipation 05/22/23 05/08/24 History (Colace) Walking Cane #1 ea 08/10/23 04/17/24 Rx cyanocobalamin (vitamin B-12) 1,000 mcg PO DAILY #30 caps 10/05/23 05/08/24 Rx 1,000 mcg capsule pravastatin 40 mg tablet 40 mg PO QAM #90 tabs 01/15/24 05/08/24 Rx oxycodone 10 mg tablet 10 mg PO Q6H PRN pain #60 tabs 04/03/24 05/08/24 Rx cyclobenzaprine 10 mg tablet 10 mg PO TID #90 tabs 04/14/24 05/08/24 Rx meclizine 25 mg tablet 25 mg PO TID PRN dizziness #90 tabs 04/14/24 05/08/24 Rx buspirone 15 mg tablet 15 mg PO TID #90 tabs 04/15/24 05/08/24 Rx doxycycline hyclate 100 mg capsule 100 mg PO BID #20 caps 04/17/24 05/08/24 Rx fluticasone propionate 50 1 spray intranasal DAILY PRN 04/17/24 05/08/24 History mcg/actuation nasal Congestion spray,suspension lorazepam 0.5 mg tablet 0.5 mg PO HS #30 tabs 04/18/24 05/08/24 Rx oxycodone 10 mg tablet,crush 10 mg PO BID #60 tabs 04/21/24 05/08/24 Rx resistant,extended release 12 hr (OxyContin) nystatin 100,000 unit/gram topical 1 applic topical BID PRN yeast #60 04/22/24 05/08/24 Rx powder grams ondansetron 4 mg disintegrating 4 mg PO TID PRN nausea and 04/22/24 05/08/24 Rx tablet vomiting #30 tabs metoprolol succinate 100 mg 100 mg PO QAM #90 tabs 04/24/24 05/08/24 Rx tablet,extended release 24 hr sucralfate 1 gram tablet 1 g PO QID #120 tabs 04/24/24 05/08/24 Rx montelukast 10 mg tablet 10 mg PO HS #90 tabs 04/30/24 05/08/24 Rx bupropion HCl 150 mg tablet,12 hr 150 mg PO QAM #90 ea 05/04/24 05/08/24 Rx sustained-release gabapentin 600 mg tablet 600 mg PO TID #90 tabs 05/04/24 05/08/24 Rx pantoprazole 40 mg tablet,delayed 40 mg PO QAM #90 tabs 05/04/24 05/08/24 Rx release losartan 25 mg tablet 25 mg PO QAM 05/07/24 05/08/24 History Patient History Medical History Postlaminectomy syndrome of lumbosacral region Chronic narcotic use Cervical post-laminectomy syndrome Cervical disc disease Brain atrophy reported per family, "confusion has gotten better since family has taken over medication administration" Chronic pain syndrome Infection due to Enterococcus hx, 12/2023 Tachycardia hx, 12/2023, isolated incident per family Elevated troponin I level hx, 12/2023, isolated incident per family; admitted to [facility] for "a few days, no recent issues" Necrosis of surgical wound Postoperative skin necrosis noted in EMR 09/28/23 MCCLAIN (nonalcoholic steatohepatitis) hx Depression Asthma no inhalers, well controlled per pt Enlarged liver hx > resolved per pt Arthritis Spinal stenosis History of urinary retention "just happens when I take too many pain pills" GERD (gastroesophageal reflux disease) Hyperlipidemia DVT (deep venous thrombosis) 2020 > can't recall which leg > no longer on thinner > s/p fall HTN (hypertension) History of COVID-19 06/29/20 HOSPITALIZED WITH P[facility]UMON[facility] 06/2021 RECOVERED AT HOME Surgical History Hx of knee surgery I&D left knee w/poly exchange History of total right knee replacement History of back surgery x3 total > 06/02/19 Dr. Simon Templeton at [facility]- Midline prone multilevel osteotomies, Correction of flat back deformity, Extension of fusion to T9, T10, and T11 kyphoplasty Status post left knee replacement History of colonoscopy History of tooth extraction History of surgery on right wrist History of cataract surgery bilat Nausea and vomiting after administration of anesthetic agent and syncope History of tonsillectomy and adenoidectomy History of appendectomy History of gastric bypass more than 5 years ago History of neck surgery ACDF > has trouble tilting head back for long periods History of hysterectomy History of esophagogastroduodenoscopy History of cholecystectomy History of section x4 History of arthroscopy of knee right Family History Father Diabetes Heart problem Cancer Other No family history of adverse response to anesthesia Social History Smoking Status: Former smoker Tobacco Type: Cigarettes Age Started Using Tobacco: 14; Age Quit Using Tobacco: 40; packs per day: 1; Smoking End Date: 2000; Second Hand Exposure: Yes; Do You Dip or Chew Tobacco: No; Tobacco Cessation Education Requested by Patient: No Hx Alcohol Use: Yes (none for years) Hx Substance Use: No Preferred Language: Turkish Communication Ability: Effective Hearing Ability: Use of Hearing Aid Lead Painter Required: No Beliefs That Will Affect Care: None marital status: Current Living Situation: Spouse and Family Current Living Situation Comment: LIVES WITH SPOUSE, ADULT SON current occupational status: disabled Other Information That Helps Us Care for You: No Feels Safe at Home: Yes Safety Concerns: Feels Safe At This Time Assistive Devices: Walker Assistive Devices Comment: only uses cane prn Review of System A 10 point ROS obtained. Pertinent positives as per HPI Physical Exam Physical Exam: Gen- NAD HEENT- ATNC, anicteric sclera, hard of hearing. Lungs- on RA. No increased work of breathing Abdomen- soft, NT Extremities- R knee healed TKA incision. Left knee dressed- Dressing dry; immobilizer was off. + drain Neuro- AAO times 3 Psych- cooperative Results & Data Vital Signs (Past 12 Hours) Vital Signs Temp Pulse Pulse Resp BP Pulse Ox O2 Del Method 05/09/24 11:15 36.4 C L 88 18 152/75 H 96 Room Air 05/09/24 08:00 Room Air 05/09/24 07:41 36.8 C 83 18 146/78 H 97 Room Air 05/09/24 03:00 36.7 C 92 H 18 128/76 95 Room Air 05/09/24 00:42 95 H 18 146/93 H 96 Room Air Laboratory Results Laboratory Results - last 48 hr 05/09/24 05:40 WBC 11.26 H RBC 3.60 L Hgb 11.1 L Hct 32.8 L MCV 91.1 MCH 30.8 MCHC 33.8 RDW Std Deviation 43.0 RDW Coeff of Arvin 13.0 Plt Count 272 MPV 9.3 L Sodium 135 L Potassium 4.2 Chloride 106 Carbon Dioxide 22 Anion Gap 7 BUN 15 Creatinine 0.64 Est Cr Clr Drug Dosing 71.3 eGFR 100.48 BUN/Creatinine Ratio 23.4 H Glucose 147 H Calcium 8.0 L Diagnostic Findings Microbiology 05/08/24 13:08 Knee,Left Gram Stain - Final 05/08/24 13:08 Knee,Left Aerobic and Anaerobic Culture - Preliminary Pseudomonas aeruginosa 05/08/24 13:03 Knee,Left Gram Stain - Final 05/08/24 13:03 Knee,Left Aerobic and Anaerobic Culture - Preliminary Pseudomonas aeruginosa 05/08/24 12:31 Knee,Left Gram Stain - Final 05/08/24 12:31 Knee,Left Aerobic and Anaerobic Culture - Preliminary Pseudomonas aeruginosa 05/08/24 13:01 Knee,Left Gram Stain - Final 05/08/24 13:22 Knee,Left Gram Stain - Final 05/08/24 14:03 Knee,Left Gram Stain - Final 05/08/24 12:31 Knee,Left Gram Stain - Final Knee X-Ray 05/08/24 00:00 XR knee LT 1 or 2V routine CLINICAL HISTORY: MISSING SAW BLADES X 2 COMPARISON: Left knee radiographs October 01, 2023. FINDINGS: Postoperative findings consistent with explant of the left knee arthroplasty are noted. There are no unexpected radiopaque foreign bodies. IMPRESSION: No unexpected radiopaque foreign bodies within the left knee. ACT 112: Negative or not required by law. Electronically signed by: Nicola Lara M.D. 05/08/2024 3:38 PM Knee X-Ray 05/08/24 17:31 EXAMINATION: X-ray knee left 1 or 2 views CLINICAL HISTORY: Postop PRIORS: None TECHNIQUE: AP and lateral view knee left FINDINGS: A left total knee arthroplasty is present with surgical overlying drain. Mild soft tissue swelling noted with no subcutaneous gas. Alignment is near anatomic. Patella appropriately situated. Chronic appearing [place] noted. No radiopaque foreign body. IMPRESSION: Left total knee arthroplasty with near anatomic alignment. Electronically signed by Tawny Castro 05-08-2024 6:04 PM Medications Administered Home Medications Medication Instructions Recorded Confirmed Last Taken ferrous sulfate 325 mg (65 mg 325 mg PO BID 10/23/19 05/08/24 05/07/24 21:00 iron) tablet multivitamin (Multiple Vitamins 1 tab PO BID #90 tabs 06/22/20 05/08/24 05/07/24 08:00 tablet) diclofenac sodium 1 % topical gel 2 gm topical QID PRN Pain 01/13/22 05/08/24 Unknown calcium citrate 200 mg PO DAILY 05/15/22 05/08/24 05/07/24 08:00 docusate sodium 100 mg capsule 100 mg PO BID PRN Constipation 05/22/23 05/08/24 10/01/23 10:30 (Colace) Walking Cane #1 ea 08/10/23 04/17/24 Unknown cyanocobalamin (vitamin B-12) 1,000 mcg PO DAILY #30 caps 10/05/23 05/08/24 05/07/24 08:00 1,000 mcg capsule pravastatin 40 mg tablet 40 mg PO QAM #90 tabs 01/15/24 05/08/24 05/08/24 09:00 oxycodone 10 mg tablet 10 mg PO Q6H PRN pain #60 tabs 04/03/24 05/08/24 05/08/24 09:00 cyclobenzaprine 10 mg tablet 10 mg PO TID #90 tabs 04/14/24 05/08/24 05/08/24 09:00 meclizine 25 mg tablet 25 mg PO TID PRN dizziness #90 tabs 04/14/24 05/08/24 05/08/24 09:00 buspirone 15 mg tablet 15 mg PO TID #90 tabs 04/15/24 05/08/24 05/08/24 09:00 doxycycline hyclate 100 mg capsule 100 mg PO BID #20 caps 04/17/24 05/08/24 05/07/24 21:00 fluticasone propionate 50 1 spray intranasal DAILY PRN 04/17/24 05/08/24 Unknown mcg/actuation nasal Congestion spray,suspension lorazepam 0.5 mg tablet 0.5 mg PO HS #30 tabs 04/18/24 05/08/24 05/07/24 21:00 oxycodone 10 mg tablet,crush 10 mg PO BID #60 tabs 04/21/24 05/08/24 Unknown resistant,extended release 12 hr (OxyContin) nystatin 100,000 unit/gram topical 1 applic topical BID PRN yeast #60 04/22/24 05/08/24 Unknown powder grams ondansetron 4 mg disintegrating 4 mg PO TID PRN nausea and 04/22/24 05/08/24 Unknown tablet vomiting #30 tabs metoprolol succinate 100 mg 100 mg PO QAM #90 tabs 04/24/24 05/08/24 05/08/24 09:00 tablet,extended release 24 hr sucralfate 1 gram tablet 1 g PO QID #120 tabs 04/24/24 05/08/24 05/08/24 09:00 montelukast 10 mg tablet 10 mg PO HS #90 tabs 04/30/24 05/08/24 05/07/24 21:00 bupropion HCl 150 mg tablet,12 hr 150 mg PO QAM #90 ea 05/04/24 05/08/24 05/08/24 09:00 sustained-release gabapentin 600 mg tablet 600 mg PO TID #90 tabs 05/04/24 05/08/24 05/08/24 09:00 pantoprazole 40 mg tablet,delayed 40 mg PO QAM #90 tabs 05/04/24 05/08/24 05/08/24 09:00 release losartan 25 mg tablet 25 mg PO QAM 05/07/24 05/08/24 05/07/24 09:00 Active Medications Generic Name Dose Route Start Last Admin Trade Name Freq PRN Reason Stop Dose Admin Bupropion HCl 150 mg 05/09/24 09:00 05/09/24 08:03 Bupropion Sr 150 Mg Tabcr PO 06/08/24 08:59 150 mg QAM BRAYDEN Administration Buspirone HCl 15 mg 05/08/24 21:00 05/09/24 08:04 Buspirone 15 Mg Tab PO 06/07/24 20:59 15 mg TID BRAYDEN Administration Calcium Citrate 950 mg 05/09/24 09:00 05/09/24 08:02 Calcium Citrate 950 Mg Tab PO 06/08/24 08:59 950 mg DAILY BRAYDEN Administration Cyanocobalamin 1,000 mcg 05/09/24 09:00 05/09/24 08:04 Cyanocobalamin (B-12) 500 Mcg Tablet PO 06/08/24 08:59 1,000 mcg DAILY BRAYDEN Administration Cyclobenzaprine HCl 10 mg 05/08/24 21:00 05/09/24 08:03 Cyclobenzaprine Hcl 10 Mg Tab PO 06/07/24 20:59 10 mg TID BRAYDEN Administration Docusate Sodium 100 mg 05/08/24 21:00 05/09/24 08:12 Docusate Sodium 100 Mg Cap PO 06/07/24 20:59 100 mg BID BRAYDEN Administration Doxycycline Hyclate 100 mg 05/08/24 21:00 05/09/24 08:05 Doxycycline Hyclate 100 Mg Cap PO 06/07/24 20:59 100 mg BID BRAYDEN Administration Ferrous Sulfate 325 mg 05/08/24 21:00 05/09/24 08:03 Ferrous Sulfate 325 Mg Tab PO 06/07/24 20:59 325 mg BID BRAYDEN Administration Gabapentin 600 mg 05/08/24 21:00 05/09/24 08:03 Gabapentin 600 Mg Tab PO 06/07/24 20:59 600 mg TID BRAYDEN Administration Hydromorphone HCl 30 mg 05/08/24 19:06 05/09/24 07:15 Hydromorphone Cardiology Teacher 30 Mg/30 Ml IV 05/22/24 19:05 30 mg PRN PRN Administration EXHIBIT ELECTRICIAN Pain Titration Protocol Cefepime HCl 2,000 mg in 20 mls @ 5 mls/min 05/08/24 21:00 05/09/24 06:00 Maxipime 2000mg IV 06/19/24 20:59 5 mls/min Q8H BRAYDEN Administration Lorazepam 0.5 mg 05/08/24 21:00 05/08/24 21:08 Lorazepam 0.5 Mg Tab PO 06/07/24 20:59 0.5 mg HS BRAYDEN Administration Losartan Potassium 25 mg 05/09/24 09:00 05/09/24 08:04 Losartan Potassium 25 Mg Tab PO 06/08/24 08:59 25 mg QAM BRAYDEN Administration Meclizine HCl 25 mg 05/08/24 18:30 05/09/24 08:22 Meclizine Hcl 25 Mg Tab PO 06/07/24 18:29 25 mg TID PRN Administration dizziness Metoprolol Succinate 100 mg 05/09/24 09:00 05/09/24 08:03 Metoprolol Succ 50mg Ext Rel Tab PO 06/08/24 08:59 100 mg QAM BRAYDEN Administration Montelukast Sodium 10 mg 05/08/24 21:00 05/08/24 21:09 Montelukast Sodium 10 Mg Tablet PO 06/07/24 20:59 10 mg HS BRAYDEN Administration Multivitamins 1 tab 05/09/24 09:00 05/09/24 08:03 Multivitamin Tab PO 06/08/24 08:59 1 tab QAM BRAYDEN Administration Oxycodone HCl 10 mg 05/08/24 21:00 05/09/24 08:12 Oxycodone Hcl 10 Mg Tabcr (Oxycontin) PO 05/22/24 20:59 10 mg BID BRAYDEN Administration Pantoprazole Sodium 40 mg 05/09/24 09:00 05/09/24 10:01 Pantoprazole 40 Mg Tab PO 06/08/24 08:59 40 mg QAM BRAYDEN Administration Pravastatin Sodium 40 mg 05/09/24 09:00 05/09/24 10:01 Pravastatin Sod 40 Mg Tab PO 06/08/24 08:59 40 mg QAM BRAYDEN Administration Sennosides 17.2 mg 05/08/24 21:00 05/08/24 21:09 Senna 8.6 Mg Tab PO 06/07/24 20:59 17.2 mg HS BRAYDEN Administration Sucralfate 1 gm 05/08/24 21:00 05/09/24 08:01 Sucralfate 1 Gm Tab PO 06/07/24 20:59 1 gm QID BRAYDEN Administration (1) Infection of total left knee replacement Encounter type: sequela Qualified Code(s): T84.54XS - Infection and inflammatory reaction due to internal left knee prosthesis, sequela
--- NOTE | 2024-05-09 12:40 | Pain Management Consultation ---
Date of Consultation May 09, 2024 Assessment & Plan (1) Infection of total left knee replacement: Encounter type: sequela Qualified Code(s): T84.54XS - Infection and inflammatory reaction due to internal left knee prosthesis, sequela (2) Chronic narcotic use: (3) Opioid dependence with current use: (4) Postlaminectomy syndrome of lumbosacral region: (5) Cervical post-laminectomy syndrome: (6) Chronic pain syndrome: (7) Depression: Plan 1. Discontinue Hydromorphone TAKER AWAY in preparation for discharge to home. 2. OxyContin was increased from 10mg to 20mg BID. Recommend this dose increase for 2 weeks then return to chronic regimen. 3. Continue Oxycodone 10mg q6 hours if needed for pain. 4. Patient has Narcan at home in case of accidental overdose. 5. Will sign off on the patient. Please contact with any questions or concerns. History of Present Illness Reason for Consultation: knee pain Attending Physician: Kwasi Felix MD History of Present Illness Mrs. Burch is a 59-year-old white female who is known to the pain service from outpatient evaluation due to her chronic pain complaints associated with cervical and lumbar postlaminectomy syndromes. The patient has concomitant depression and anxiety disorder and opioid dependency who has failed multiple interventional treatments and surgical intervention as well as spinal stimulator placement. She was admitted due to left knee pain with history of a left TKA performed on 08/15/2023. She has subsequently developed an infection of the left total knee and underwent debridement on 10/01/2023 and most again 05/08/2024. Patient has been placed in an immobilizing brace of the left knee. On an outpatient basis she has been utilizing OxyContin 10 mg twice daily and using oxycodone 10 mg sparingly for breakthrough pain. She states that she is taking the breakthrough oxycodone probably 4 times in the last month. Her son Oren is in charge of her pain medications. She is utilizing IV hydromorphone TAKER AWAY upon this admission which has been providing moderate relief. Over the past 15 hours she has utilized 1.6 mg without side effects. She denies change in location or characteristic of her chronic axial low back pain. She has found the area oxycodone IR to cause some difficulty with urinary incontinence. She is receiving IV antibiotic therapy during this admission. Patient has no further constitutional complaints. Case discussed with Dr. Mariaelena Kerr Allergies Allergy/AdvReac Type Severity Reaction Status Date / Time aspirin Allergy Unknown NOT TO Verified 05/08/24 09:50 TAKE S/P GATRIC BYPASS clarithromycin [From Biaxin] Allergy Unknown Unknown Verified 05/08/24 09:50 glycopyrrolate [From Robinul] Allergy Unknown Unknown Verified 05/08/24 09:50 oxymorphone Allergy Unknown Unknown Verified 05/08/24 09:50 carisoprodol AdvReac Intermediate HALLUCINATI Verified 05/08/24 09:50 ONS lactose AdvReac Mild Gastrointestinal Verified 05/08/24 09:50 Upset sulfamethoxazole AdvReac Unknown Verified 05/08/24 09:50 [From Bactrim] trimethoprim [From Bactrim] AdvReac Unknown Verified 05/08/24 09:50 Home Medications Medication Instructions Recorded Confirmed Type ferrous sulfate 325 mg (65 mg 325 mg PO BID 10/23/19 05/08/24 History iron) tablet multivitamin (Multiple Vitamins 1 tab PO BID #90 tabs 06/22/20 05/08/24 Rx tablet) diclofenac sodium 1 % topical gel 2 gm topical QID PRN Pain 01/13/22 05/08/24 History calcium citrate 200 mg PO DAILY 05/15/22 05/08/24 History docusate sodium 100 mg capsule 100 mg PO BID PRN Constipation 05/22/23 05/08/24 History (Colace) Walking Cane #1 ea 08/10/23 04/17/24 Rx cyanocobalamin (vitamin B-12) 1,000 mcg PO DAILY #30 caps 10/05/23 05/08/24 Rx 1,000 mcg capsule pravastatin 40 mg tablet 40 mg PO QAM #90 tabs 01/15/24 05/08/24 Rx oxycodone 10 mg tablet 10 mg PO Q6H PRN pain #60 tabs 04/03/24 05/08/24 Rx cyclobenzaprine 10 mg tablet 10 mg PO TID #90 tabs 04/14/24 05/08/24 Rx meclizine 25 mg tablet 25 mg PO TID PRN dizziness #90 tabs 04/14/24 05/08/24 Rx buspirone 15 mg tablet 15 mg PO TID #90 tabs 04/15/24 05/08/24 Rx doxycycline hyclate 100 mg capsule 100 mg PO BID #20 caps 04/17/24 05/08/24 Rx fluticasone propionate 50 1 spray intranasal DAILY PRN 04/17/24 05/08/24 History mcg/actuation nasal Congestion spray,suspension lorazepam 0.5 mg tablet 0.5 mg PO HS #30 tabs 04/18/24 05/08/24 Rx oxycodone 10 mg tablet,crush 10 mg PO BID #60 tabs 04/21/24 05/08/24 Rx resistant,extended release 12 hr (OxyContin) nystatin 100,000 unit/gram topical 1 applic topical BID PRN yeast #60 04/22/24 05/08/24 Rx powder grams ondansetron 4 mg disintegrating 4 mg PO TID PRN nausea and 04/22/24 05/08/24 Rx tablet vomiting #30 tabs metoprolol succinate 100 mg 100 mg PO QAM #90 tabs 04/24/24 05/08/24 Rx tablet,extended release 24 hr sucralfate 1 gram tablet 1 g PO QID #120 tabs 04/24/24 05/08/24 Rx montelukast 10 mg tablet 10 mg PO HS #90 tabs 04/30/24 05/08/24 Rx bupropion HCl 150 mg tablet,12 hr 150 mg PO QAM #90 ea 05/04/24 05/08/24 Rx sustained-release gabapentin 600 mg tablet 600 mg PO TID #90 tabs 05/04/24 05/08/24 Rx pantoprazole 40 mg tablet,delayed 40 mg PO QAM #90 tabs 05/04/24 05/08/24 Rx release losartan 25 mg tablet 25 mg PO QAM 05/07/24 05/08/24 History Patient History Medical History Postlaminectomy syndrome of lumbosacral region Chronic narcotic use Cervical post-laminectomy syndrome Cervical disc disease Brain atrophy reported per family, "confusion has gotten better since family has taken over medication administration" Chronic pain syndrome Infection due to Enterococcus hx, 12/2023 Tachycardia hx, 12/2023, isolated incident per family Elevated troponin I level hx, 12/2023, isolated incident per family; admitted to [facility] for "a few days, no recent issues" Necrosis of surgical wound Postoperative skin necrosis noted in EMR 09/28/23 MCCLAIN (nonalcoholic steatohepatitis) hx Depression Asthma no inhalers, well controlled per pt Enlarged liver hx > resolved per pt Arthritis Spinal stenosis History of urinary retention "just happens when I take too many pain pills" GERD (gastroesophageal reflux disease) Hyperlipidemia DVT (deep venous thrombosis) 2020 > can't recall which leg > no longer on thinner > s/p fall HTN (hypertension) History of COVID-19 06/29/20 HOSPITALIZED WITH PNEUMONIA DIA HAINES 06/2021 RECOVERED AT HOME Surgical History Hx of knee surgery I&D left knee w/poly exchange History of total right knee replacement History of back surgery x3 total > 06/02/19 Dr. Simon Templeton at [facility]- Midline prone multilevel osteotomies, Correction of flat back deformity, Extension of fusion to T9, T10, and T11 kyphoplasty Status post left knee replacement History of colonoscopy History of tooth extraction History of surgery on right wrist History of cataract surgery bilat Nausea and vomiting after administration of anesthetic agent and syncope History of tonsillectomy and adenoidectomy History of appendectomy History of gastric bypass more than 5 years ago History of neck surgery ACDF > has trouble tilting head back for long periods History of hysterectomy History of esophagogastroduodenoscopy History of cholecystectomy History of section x4 History of arthroscopy of knee right Family History Father Diabetes Heart problem Cancer Other No family history of adverse response to anesthesia Social History Smoking Status: Former smoker Tobacco Type: Cigarettes Age Started Using Tobacco: 14; Age Quit Using Tobacco: 40; packs per day: 1; Smoking End Date: 2000; Second Hand Exposure: Yes; Do You Dip or Chew Tobacco: No; Tobacco Cessation Education Requested by Patient: No Hx Alcohol Use: Yes (none for years) Hx Substance Use: No Preferred Language: [place] Communication Ability: Effective Hearing Ability: Use of Hearing Aid Entertainment Production 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 Eating her lunch. HEAD/FACE: Normocephalic and atraumatic. EYES: No drainage or conjunctival injection. ENT: Nose without bleeding or discharge. Oral mucosa moist. NECK: Full ROM without apparent pain. No swelling or masses noted. RESPIRATORY: Patient with unlabored breathing. No signs of respiratory distress. CHEST/AXILLA: Chest movement symmetrical. No deformities noted. ABDOMEN/GI: No distension BACK: Moves without difficulty SKIN: [place], warm and dry. No rash noted. MS/EXTREMITY: Left knee is braced. NEURO: Alert and appears oriented. Speech is fluent. Cranial Nerves are grossly intact. PSYCH: Alert, pleasant, affect is calm
[2024-05-09] MEDS: oxyCODONE HCL 20 MG TABCR (OxyCONTIN) PO SCH (13:28)
--- NOTE | 2024-05-09 13:28 | Orthopedic Progress Note ---
Date of Service May 09, 2024 Assessment & Plan (1) Infection of total left knee replacement: Plan: POD #1 s/p Left Knee Explant Total Knee Arthroplasty, Extensive Debridement including bone and bone cement and synovium with electrocautery synovectomy, Placement of articulated antibiotic cement spacer 3 components Dressing will stay in place at this time. She may weight-bear as tolerated on the left lower extremity but must wear the knee immobilizer while ambulating. PT/OTgentle range of motion of the left knee. Hemovac will remain in place until minimal drainage. Continue IV cefepime. Awaiting ID input. Patient is aware that she will probably need long-term IV antibiotics through a PICC line and oral antibiotics probably lifetime after the IVs are completed. Pain controlappreciate pain management input. DVT prophylaxisTED stockings, SCDs, Eliquis 2.5 mg twice daily x 30 days. Discharge planninguncertain at this time. Once PICC line is set up and antibiotic choice is made, the patient may be discharged home or to a nursing home facility for continued IV antibiotic treatment. Admission and Anticipated Discharge Date Admission Date: May 08, 2024 Subjective Patient's main complaint is left knee pain this morning. Some control of pain which allowed her to rest this morning. States she has been up ambulating with the knee immobilizer in place. No new complaints this morning. Physical Exam Constitutional: WD/WN, vitals as above no acute distress (Patient was comfortable and sleeping but easily arousable.) Musculoskeletal: Knee: + surgical incision (Left knee dressing C/D/I) and + surgical drain present (Hemovac drainage 175 cc since surgery.) Skin: no rashes, warm and dry Trauma: no evidence of skin trauma Neurologic: normal touch/pain/proprioception Psychiatric: A+Ox3, euthymic affect Speech: normal rate/rhythm/volume of speech Results & Data Vital Signs (Past 12 Hours) Vital Signs Temp Pulse Pulse Resp BP Pulse Ox O2 Del Method 05/09/24 11:15 36.4 C L 88 18 152/75 H 96 Room Air 05/09/24 08:00 Room Air 05/09/24 07:41 36.8 C 83 18 146/78 H 97 Room Air 05/09/24 03:00 36.7 C 92 H 18 128/76 95 Room Air Laboratory Results Laboratory Tests 05/09/24 05:40 WBC 11.26 H Hgb 11.1 L Hct 32.8 L Plt Count 272 BUN 15 Creatinine 0.64 (1) Infection of total left knee replacement Encounter type: sequela Qualified Code(s): T84.54XS - Infection and inflammatory reaction due to internal left knee prosthesis, sequela
[2024-05-09] MEDS: DAPTOmycin 500 MG in SYRINGE 0 ML IV SCH (17:59)
[2024-05-09] MEDS: APIXABAN 2.5 MG TAB PO SCH (19:42)
[2024-05-10 06:31] LABS: Basophils # (auto) 0.04 K/uL (0.00-0.20); Basophils % (auto) 0.5 %; Eosinophils # (auto) 0.06 K/uL (0.00-0.50); Eosinophils % (auto) 0.7 %; Hematocrit (blood only) 34.7 % (37.0-47.0); Hemoglobin 11.7 g/dl (12.0-16.0); Immature Granulocytes # (auto) 0.04 K/uL (0.01-0.20); Immature Granulocytes % (auto) 0.5 %; Lymphocytes # (auto) 1.24 K/uL (1.20-3.40); Lymphocytes % (auto) 15.2 %; Mean Corpuscular Hemoglobin 30.4 pg (25.0-34.0); Mean Corpuscular Hgb Conc 33.7 g/dL (32.0-36.0); Mean Corpuscular Volume 90.1 fL (80.0-100.0); Mean Platelet Volume 9.5 fL (9.4-12.4); Monocytes # (auto) 1.08 K/uL (0.11-0.59); Monocytes % (auto) 13.2 %; Neutrophils % (auto) 69.9 %; Platelet Count 255 K/uL (130-400); RDW Coefficient of Variation 13.1 % (11.5-14.5); RDW Standard Deviation 43.4 fL (36.4-46.3); Red Blood Count 3.85 M/uL (4.20-5.40); White Blood Count 8.16 K/ul (4.8-10.8)
[2024-05-10 06:54] LABS: BUN Creatinine Ratio 26.4 (10-20); Calcium 8.7 mg/dl (8.6-10.3); Creatinine Clr Calc Pharmacy 63.4 ml/min; Potassium 3.4 mmol/L (3.5-5.1)
--- NOTE | 2024-05-10 07:29 | Orthopedic Progress Note ---
Date of Service May 10, 2024 Assessment & Plan (1) Infection of total left knee replacement: Plan: POD #2 s/p Left Knee Explant Total Knee Arthroplasty, Extensive Debridement including bone and bone cement and synovium with electrocautery synovectomy, Placement of articulated antibiotic cement spacer 3 components Dressing will be removed today. New dressing may be placed with single layer of Xeroform, gauze, ABD pad. She may weight-bear as tolerated on the left lower extremity but must wear the knee immobilizer while ambulating. PT/OTgentle range of motion of the left knee. Hemovac will remain in place until minimal drainage. If there is little to no dressing throughout today, the Hemovac will be removed tomorrow. Continue IV cefepime. Appreciate ID input. Daptomycin ordered to cover previous pathogens. Awaiting intraoperative cultures to finalize. If intraoperative cultures are only growing Pseudomonas aeruginosa, the daptomycin may be discontinued. DVT prophylaxisTED stockings, SCDs, Eliquis 2.5 mg twice daily x 30 days. Discharge planninguncertain at this time. Once PICC line is set up and antibiotic choice is made, the patient may be discharged home or to a detention facility for continued IV antibiotic treatment. Admission and Anticipated Discharge Date Admission Date: May 08, 2024 Subjective No complaints this morning. Pain seems to be controlled in the left knee. Physical Exam Constitutional: WD/WN, vitals as above no acute distress (Patient was comfortable and sleeping but easily arousable.) Musculoskeletal: Knee: + surgical incision (Left knee dressing C/D/I) and + surgical drain present (25 cc of drainage over 14-hour period. Last emptied approximately 12 hours) Skin: no rashes, warm and dry Trauma: no evidence of skin trauma Neurologic: normal touch/pain/proprioception Psychiatric: A+Ox3, euthymic affect Speech: normal rate/rhythm/volume of speech Results & Data Vital Signs (Past 12 Hours) Vital Signs Temp Pulse Resp BP Pulse Ox O2 Del Method 05/09/24 20:57 36.3 C L 88 14 148/77 H 98 Room Air 05/09/24 19:42 Room Air Laboratory Results Laboratory Tests 05/10/24 05:48 Hgb 11.7 L Hct 34.7 L Plt Count 255 BUN 19 Creatinine 0.72 Awaiting CRP, ESR, CPK results. Diagnostic Findings Intraoperative cultures growing Pseudomonas aeruginosa. Pansensitive and consistent with preoperative aspiration culture and sensitivities. (1) Infection of total left knee replacement Encounter type: sequela Qualified Code(s): T84.54XS - Infection and inflammatory reaction due to internal left knee prosthesis, sequela
[2024-05-10 08:10] LABS: C Reactive Protein 2.56 mg/dl (0-0.5)
[2024-05-10] MEDS: CETIRIZINE HCL 10 MG TABLET PO SCH (08:35)
[2024-05-10] MEDS: PSEUDOEPHEDRINE HCL 30 MG TAB PO SCH (08:35)
[2024-05-10] MEDS: FLUTICASONE PROPIONATE NA SPR 16 GM BTL SCH (08:37)
[2024-05-10] MEDS: oxyCODONE HCL IR 5 MG TAB (IMMEDIATE RELEASE) PO PRN (08:48)
--- OUTSIDE RECORDS SUMMARY | 2024-05-10 19:41 | External Medical Summary | Summary of Care ---
Author Name Unknown Organization [facility] Address [address] [place] [address] Phone [phone] Care Team Providers Care Electronic Gluer Name Role Phone Larry Gonzalez DO Primary Care Provider [phone] Encounter Details Date Type Department Care Team (Late st Contact Info) Description 05/07/2024 Orders Only Radiology, [place] [address] [place] [address] Requisition, External Radiology [address] [place] [address] Preop testing* Allergies Active Allergy Reactions Criticality Noted Date Comments Acetaminophen 12/17/2013 Aspirin 07/14/2015 Sulfamethoxazole-Trimetho prim High 07/30/2023 Kidney failure Povidone Iodine Edema Other Medium 04/09/2024 Clarithromycin Nausea/vomiting 10/19/2014 Carisoprodol-Aspirin 07/14/2015 Hallucinations Hallucinations [...] as of this encounter (statuses as of 05/07/2024) Medications Tetrahydrozolin e-Zn Sulfate (VISINE-AC) 0.05-0.25 % SOLN as needed for Dry eyes. Active montelukast (SINGULAIR) 10 MG Tablet Take one tablet by mouth once daily 30 Tab 11 7 Active metoprolol succinate XL (TOPROL XL) 100 MG TB24 TAKE ONE TABLET BY MOUTH ONCE DAILY 30 Tab 5 7 Active Multiple Vitamins-Minera ls (ONE-A-DAY WOMENS PETITES) TABS Take by mouth 2 times a day. Active gabapentin (NEURONTIN) 300 MG Capsule TAKE ONE CAPSULE BY MOUTH THREE TIMES DAILY 90 Cap 3 7 Active Additional Information Patient taking differently: 600 mg Oral TID(AM/NOON/HS), Reported on 04/08/2024 pantoprazole (PROTONIX) 40 MG TBEC TAKE ONE TABLET BY MOUTH TWICE DAILY 60 Tab 2 7 Active buPROPion extended release, SR, (WELLBUTRIN SR) 150 MG TB12 TAKE ONE TABLET BY MOUTH ONCE DAILY 30 Tab 1 7 Active busPIRone (BUSPAR) 15 MG Tablet Take 1 Tab by mouth 3 times a day. 90 Tab 2 7 Active sucralfate (CARAFATE) 1 GM TabletIndicatio ns:Gastric erosions Take 1 Tab by mouth 4 times a day. Crush tab and mix with water to make a slurry 120 Tab 5 8 Active LORAzepam (ATIVAN) 0.5 MG Tablet TAKE ONE TABLET BY MOUTH TWICE DAILY 12 Tab 8 Active Additional Information Patient taking differently: 0.5 mg Oral HS, Reported on 04/08/2024 ondansetron ODT (ZOFRAN) 4 MG TBDP DISSOLVE ONE TABLET IN MOUTH EVERY EIGHT HOURS NEEDED 30 Tab 1 8 Active Ferrous Sulfate (IRON) 325 (65 Fe) MG TABS 2 times a day. Act will oxyCODONE HCl 10 MG Oral Tablet (Roxicodone) Take 1 Tablet by mouth every 6 hours as needed for Pain, Breakthrough. 2 Active Meclizine HCl 25 MG Oral Tablet (Antivert) Take 1 Tablet by mouth 3 times a day as needed for Dizziness. 1 Active Pravastatin Sodium 40 MG Oral Tablet (Pravachol) Take 1 Tablet by mouth every evening. Active Losartan Potassium 50 MG Oral Tablet (Cozaar) Take 1 Tablet by mouth in the morning. Active oxyCODONE HCl ER 10 MG Oral Tablet ER 12 Hour Abuse-Deterrent (oxyCONTIN) Take 1 Tablet by mouth in the morning and 1 Tablet before bedtime. Active Cetirizine-Pseu doephedrine ER 5-120 MG Tablet Extended Release 12 Hour (ZyrTEC-D Allergy & Congestion) Take 1 Tablet by mouth in the morning and 1 Tablet before bedtime. Active documented as of this encounter (statuses as of 05/07/2024) Active Problems Problem Noted Date Diagnosed Date Rash 04/07/2024 Gastroesophageal reflux disease 04/07/2024 Obstructive sleep apnea syndrome 04/07/2024 Type 2 diabetes mellitus wit h hemoglobin A1c goal of less than 7.0% 04/07/2024 Rhinovirus infection 04/07/2024 Pneumonia due to COVID-19 virus 06/19/2020 Memory deficit 06/19/2020 Carpal tunnel syndrome of left wrist 08/07/2018 Hyperlipidemia with target LDL less than 130 01/2017 H/O gastric bypass 09/07/2016 MCCLAIN (nonalcoholic steatohepatitis) 09/07/2016 HTN, goal below 140/90 09/07/2016 Lumbar degenerative disc disease 09/07/2016 DDD (degenerative disc disease), cervical 2016 Asthma in remission 09/07/2016 Glucose intolerance (impaired glucose tolerance) 09/07/2016 MEDICATION USE AGREEMENT 09/06/2016 Overview (09/06/2016): Med use agreement discussed with pt. She did not want to sign while in the office she needed to talk with her regarding the approved people to pickle cutter the rxs. She will sign and bring back to the clinic Candidiasis of skin 09/06/2016 documented as of this encounter (statuses as of 05/07/2024) Resolved Problems Problem Noted Date Diagnosed Date Resolved Date Sepsis 04/07/2024 04/11/2024 Syncope and collapse 04/07/2024 024 S/P PICC central line placement 04/07/2024 04/11/2024 Multifocal pneumonia 04/07/2024 024 documented as of this encounter (statuses as of 05/07/2024) Immunizations Name Administration Dates Next Due Pneumococcal Polysaccharide PPV23 (Pneumovax) Seasonal Influenza Vac., MDV, IM, 0.5 mL (Fluzon e) 05/23/2011 TDAP, Age 7 and older, IM (Adacel) 04/07/2024 documented as of this encounter Social History Tobacco Use Types Packs/Day Years Used Date Smoking Tobacco: Former Cigarettes Q uit: 07/05/2004 Smokeless Tobacco: Never Comments:states she smoked " off and on" quit 2004 Alcohol Use Standard Drinks/Week Comments No 0 (1 standard drink = 0.6 oz pur e alcohol) PHQ-2 Answer Date Recorded PHQ-2 Score 0 04/07/2018 Comments No Sex and Gender Information Value Date Recorded Sex Assigned at Female 09/19/2021 2:48 PM EDT Legal Sex Female 6:04 AM EST Gender Identity Female 09/19/2021 2:48 PM EDT Sexual Orientation Straight 09/19/2021 2: 48 PM EDT documented as of this encounter Functional Status * Are you deaf or do you have serious difficulty hearing? Answer Date of Assessment Author Yes 10/19/2014 2:06 PM EDT Washington Avila RN * Are you blind or do you have serious difficulty seeing, even when wearing glasses? Answer Date of Assessment Author No 10/19/2014 2:06 PM EDT Washington Avila RN * Do you have serious difficulty walking or climbing stairs? (5 years old or older) Answer Date of Assessment Author No 10/19/2014 2:06 PM EDT Washington Avila RN * Do you have difficulty dressing or bathing? (5 years old or older) Answer Date of Assessment Author No 10/19/2014 2:06 PM EDT Washington Avila RN * Because of a physical, mental, or emotional condition, do you have difficulty doing errands alone such as visiting a doctors office or shopping? (15 years old or older) Answer Date of Assessment Author No 10/19/2014 2:06 PM EDT Washington Avila RN documented as of this encounter Mental Status * Because of a physical, mental, or emotional condition, do you have serious difficulty concentrating, remembering, or making decisions? (5 years old or older) Answer Entry Date Author Yes 10/19/2014 2:06 PM EDT Washington Avila RN documented in this encounter Plan of Treatment Upcoming Encounters Date Type Department Care Team (Late st Contact Info) Description 05/07/2024 11:45 AM EST Imaging Radiology, [place] [address] [place] [address] Arrived Pending Results Name Type Priority Associated Diagnoses Date /Time XR CHEST 2 VIEWS Medical Imaging Routine Preop testing 05/07/2024 11:20 AM EST Scheduled Procedures Name Priority Associated Diagnoses Date/Ti me COLONOSCOPY FLEXIBLE PROXIMA L DIAGNOSTIC Recall History of colonic polyps Health Maintenance Due Date Last Done Comments HIV Screening 1978 Albumin/Creatinine Ratio 1981 Diabetic Eye Exam 1981 Diabetic Foot Exam 1981 Hepatitis C Screening 1981 Cologuard 02/02/2008 Fecal Occult Blood Test 02/02/2008 Sigmoidoscopy 02/02/2008 Zoster Vaccines (1 of 2) 2013 Pneumococcal Vaccine: Pediatrics (0 to 5 Years) and At-Risk Patients (6 to 64 Years) (2 of 2 - PCV) 05/23/2013 05/23/2012 DXA Scan 12/12/2016 12/12/2013 Depression Screening 05/15/2018 05/15/2017 Colonoscopy 10/03/2023 10/02/2018, 10/02/2018 Colorectal Cancer Screening 10/03/2023 COVID-19 Vaccine ( season) 2024 Influenza Vaccine (FLU shot) (#1) 2024 05/23/2011 HbA1c 10/06/2024 04/08/2024, 01/03, 08/18/2021, Additional history exists Mammogram 02/28/2025 02/29/2024, 11/0 02/2022, 09/08/2016, Additional history exists GFR 04/11/2025 04/11/2024, 11/0 12/2023, 04/09/2024, Additional history exists Lipid Panel 01/30/2028 01/29/2023, 08/02, 04/13/2021, Additional history exists DTap/Tdap Vaccines (2 - Td or Tdap) 04/07/2034 04/07/2024 Pap Smear Discontinued 04/17/2017 (Discussed) RETIRED - COLONOSCOPY-EVERY 5 YRS AGES 18-100 Discontinued 10/02/2018, 10/02/2018 HPV (Gardasil) Vaccine Aged Out No lo nger eligible based on patient's age to complete this topic Hepatitis B Vaccine Aged Out No longe r eligible based on patient's age to complete this topic MENINGOCOCCAL (MENACTRA/MENVEO) Aged Out No longer eligible based on patient's age to complete this topic documented as of this encounter Medical Devices Implanted Type Area Raise Drill Operator Device Identifier Shelf Expiration Date Model / Serial / Lot Cement Bone Lv G 1119-140-01 - [id number] Implanted:Qty: 2 on 10/19/2014 by Alonzo Mabry MD at [facility] Right: Knee [employer] 06/04/2016 [id number] / / [id number] Persona Femur Implanted:Qty: 1 on 10/19/2014 by Alonzo Mabry MD at [facility] Right: Knee [employer] 10/03/2023 [id number] / / [id number] Persona Natural Tibia Implanted:Qty: 1 on 10/19/2014 by Alonzo Mabry MD at [facility] Right: Knee [employer] 08/02/2024 [id number] / / [id number] Persona All-Poly Patella Implanted:Qty: 1 on 10/19/2014 by Alonzo Mabry MD at [facility] Right: Knee [employer] 03/04/2019 [id number] / / [id number] Persona Articular Surface Implanted:Qty: 1 on 10/19/2014 by Alonzo Mabry MD at [facility] Right: Knee [employer] 07/05/2017 [id number] / / [id number] documented as of this encounter Visit Diagnoses Diagnosis Preop testing- Primary Preoperative examination, unspecified documented in this encounter Advance Directives * Full Code (Latest Code Status on File) Date Activated Date Inactivated Comments 04/07/2024 11:45 PM 04/11/2024 6:16 PM This order reflects the patients wishes and were consensually agreed upon. Question Answer Comments Discussion of Advance Directives occurred with: Patient * Full Code Date Activated Date Inactivated Comments 06/19/2020 7:08 PM 06/20/2020 4:46 PM This order r eflects the patients wishes and were consensually agreed upon. Question Answer Comments Discussion of Advance Directives occurred with: Patient Does the patient have a Living Will? No Does the patient have Health Care Power of Attor sumit? No * Full Code Date Activated Date Inactivated Comments 08/08/2018 9:17 AM 08/08/2018 2:17 PM This order ref lects the patients wishes and were consensually agreed upon. Question Answer Comments Discussion of Advance Directives occurred with: Not Discussed * Full Code Date Activated Date Inactivated Comments 02/12/2018 8:30 AM 02/12/2018 3:58 PM This order r eflects the patients wishes and were consensually agreed upon. * Full Code Date Activated Date Inactivated Comments 10/19/2014 11:00 AM 10/22/2014 5:15 PM . Question Answer Comments Discussion of Advance Directives occurred with: Not Discussed Care Teams Electronic Gluer Relationship Specialty Start Date End Date Larry Gonzalez DO [address] [address] PCP - General Family Medicine 04/09/22 documented as of this encounter
--- NOTE | 2024-05-11 11:48 | Orthopedic Progress Note ---
Date of Service May 11, 2024 Assessment & Plan (1) Infection of total left knee replacement: Plan: POD #3 s/p Left Knee Explant Total Knee Arthroplasty, Extensive Debridement including bone and bone cement and synovium with electrocautery synovectomy, Placement of articulated antibiotic cement spacer 3 components Dressing changes as needed. She may weight-bear as tolerated on the left lower extremity but must wear the knee immobilizer while ambulating. PT/OTgentle range of motion of the left knee. Hemovac to be d/c'd today. Continue IV cefepime. Appreciate ID input. Daptomycin ordered to cover previous pathogens. Awaiting intraoperative cultures to finalize. Intraoperative cultures now growing staphylococcus epidermidis as a second organism. Will await sensitivities. DVT prophylaxisTED stockings, SCDs, Eliquis 2.5 mg twice daily x 30 days. Discharge planninguncertain at this time. Once cultures are finalized and antibiotic choices are finalized, the patient will be able to be discharged. Possible home with home health as she had with previous IV antibiotic use. Admission and Anticipated Discharge Date Admission Date: May 08, 2024 Subjective No complaints this morning. Pain is controlled in the left knee. States she was able to ambulate through the hallways earlier this morning. Overall, doing well. Physical Exam Constitutional: WD/WN, vitals as above no acute distress (Patient was comfortable and sleeping but easily arousable.) Musculoskeletal: Knee: + surgical incision (Left knee incision well approximated. No erythema.) and + surgical drain present (No drainage from the hemovac in 24 hours.) Skin: no rashes, warm and dry Trauma: no evidence of skin trauma Neurologic: normal touch/pain/proprioception Psychiatric: A+Ox3, euthymic affect Speech: normal rate/rhythm/volume of speech Results & Data Vital Signs (Past 12 Hours) Vital Signs Temp Pulse Resp BP Pulse Ox O2 Del Method 05/11/24 08:15 36.6 C 95 H 18 125/77 97 Room Air Diagnostic Findings Spec: [id number] Collected: 05/08/24 Received: 05/08/[address]: Kwasi Felix M.D. Source: Knee,Left OV Order: Ordered: Aer/Thao Cult/Sm Comments: Comment deep left knee joint Procedure Result Verified Site Gram Stain Final 12/05/24-1411 Gram Stain Result Rare Epithelial Cells Few Polys Rare Mononucleated Cells No Organisms Seen Aero/Thao Cult Preliminary 05/11/24-1044 Organism 1 Staphylococcus epidermidis Quantity Rare Sens Sensitivities to Follow No Anaerobes Isolated No Anaerobes Isolated (1) Infection of total left knee replacement Encounter type: sequela Qualified Code(s): T84.54XS - Infection and inflammatory reaction due to internal left knee prosthesis, sequela
--- NOTE | 2024-05-12 09:32 | Infectious Disease Progress Nt ---
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 (tabares S) and Finegoldia s/p DAIR + 6 weeks of daptomycin (at the time has a listed PCN allergy) in 11/2023 followed by doxycycline suppression that was scheduled for end on 11/2024, increased knee swelling post completion of IV dapto (per report, Synovasure testing positive for Pseudomonas and "staph") and seen by local ID (Vicente Robison DO) on 01/2024 and started on zosyn 02/15/2024 x 6wks (end 03/27) for coverage of Enterococcus, Finegoldia, Staph species and Pseudomonas (completed 03/27/2024 with plan to start Cipro suppression), c/b PNA prior to starting Cipro therapy requiring admission to [facility] where she was treated with cefpodoxime and doxycycline (unclear if she was restarted on suppression therapy), subsequently developed increased left knee swelling 04/2024 s/p knee aspiration on 04/18/2024 and 04/24/2024 (cultures from both positive for Pseudomonas aeruginosa) and directly admitted to [facility] on 05/07/2024 for surgical management. S/p OR 05/08 and underwent left knee explant of TKA with extensive debridement including bone and bone cement and synovium with electrocautery synovectomy and placement of articulating antibiotic cement spacers. Several intraoperative cultures growing Pseudomonas aeruginosa, tabares- sensitive along with MRSE and Strep gordonii. She was placed on cefepime and doxycycline. ID consulted for left knee prosthetic joint infection. She has been afebrile, vss. Labs noted for: WBC 12.26>8.16, Cr 0.72. I spoke to micro lab to add on sensitivities for Strep gordonii, which they said might need to be sent out. Given multiple organisms, including Pseudomonas and methicillin-resistant Staph Epi, she will require both cefepime and daptomycin for the full 6 weeks. Since all hardware from the left knee is removed (per review of op note and knee XR), chronic suppression is NOT recommended at this time. Another reason for suppression could be if she had been bacteremic with her other hardware, however, she has never been bacteremic based on what we have available in the EMR. Plan therefore at this point is cefepime/dapto x 6 weeks, followed by close monitoring off all antibiotics for 2-8 weeks prior to pursuing second stage. I attempted to discuss this plan with patient, including the microbiology results and that how Pseudomonas had been growing in cultures on Sunday with initial likely plans for 1 abx, but with 3 organisms, she would go home on 2 abx. Patient cut me off and told me I was wrong and to go read the chart. She said she was always planned to go home on 2 IV antibiotics as well has 1 pill that she will be on for the rest of her life. I attempted to explain to patient that she no longer has hardware to necessitate the chronic suppression and she told me I was wrong and to read the chart. I then attempted to explain to her about the organisms that grew in the past and the reasons for why certain antibiotics were used and why she was on suppression, and how this was different at this time. However, she refused to listen further and asked telepresenter to leave with the computer. I contacted the prior ID provider from last week, Makenzie Moralez, to confirm whether there were other plans that were discussed with the patient. She informed me they had never discussed a discharge plan since cultures were still in process and also agreed with no suppression since hardware was removed. Patient at that time had also been difficult and resistant to recommendations from ID. Laurel also contacted our ortho-ID provider here at [facility] to confirm management, and he agrees with current plan. # Left knee recurrent PJI s/p I&D and knee prosthetic explant with abx spacer- OR cx with P aeruginosa, MRSE, Strep gordonii # Spine hardware in place # H/o right TKA # Bactrim allergy - continue cefepime and daptomycin - please DO NOT resume outpatient doxycycline or cipro for the purposes of chronic suppression - follow up sensitivities of Strep gordonii (per lab, may be sent out for testing) - current abx should still adequately cover this organism Discharge plan: - continue cefepime 2g IV q8h - continue daptomycin 500mg (6-10mg/kg) IV daily (CrCl > 30, BMI 28, Wt 61kg) - she will need 6 weeks of IV abx (start 05/08, end through 06/19) - monitor weekly CBC w diff, CMP, ESR, CRP, and CPK - she needs close outpatient follow up with local ID provider - after completion of IV abx, monitor ESR/CRP closely off antibiotics for 2-8 weeks - since all hardware is removed from the left knee, no need for chronic suppression after IV abx ID will discontinue active follow up at this time. Please do not hesitate to reconsult the Infectious Diseases service as needed. Mimi Juares MD [facility], Division of Infectious Diseases [facility]: [phone] Admission and Anticipated Discharge Date Admission Date: May 08, 2024 Subjective Subsequent visit was provided via telemedicine using two-way real-time interactive telecommunication between the patient and the telemedicine provider. For the duration of the visit, the provider was performing the assessment from a different facility than the patient. This includesuse of bluetooth stethoscope forauscultationperformed by the telepresenter that the telemedicine provider can hear if described in the physical exam. Hydraulic Press Tender contact information: Please call [facility] Call Center [phone]. (Phone Number For Physician Use Only) After establishing a telemedicine visit, patient was: Patient was verified with two unique identifiers, Patient/authorized rep acknowledged consent and understanding and Gave permission to continue telehealth session Time Spent with Patient: Subsequent => 55 min Patient seen and examined. Complains of stable left knee pain. Has been ambulating. No abdominal pain, vomiting, diarrhea. Physical Exam Physical Exam: General: Awake, alert, no acute distress HEENT: NC/AT, EOMI, mmm Neck: supple Lungs: respirations non-labored Heart: nl peripheral perfusion Abdomen: soft, NT/ND Ext: left knee with dressing, no swelling of LLE Skin: no rash Results & Data Vital Signs (Past 12 Hours) Vital Signs Temp Pulse Resp BP Pulse Ox O2 Del Method 05/12/24 08:20 Room Air 05/12/24 08:06 36.8 C 89 18 111/70 94 Room Air 05/11/24 21:31 Room Air Laboratory Results Labs reviewed. Diagnostic Findings Imaging reviewed. (1) Infection of total left knee replacement Encounter type: sequela Qualified Code(s): T84.54XS - Infection and inflammatory reaction due to internal left knee prosthesis, sequela
--- NOTE | 2024-05-12 16:06 | Orthopedic Progress Note ---
Date of Service May 12, 2024 Assessment & Plan (1) Infection of total left knee replacement: Plan: POD #4 s/p Left Knee Explant Total Knee Arthroplasty, Extensive Debridement including bone and bone cement and synovium with electrocautery synovectomy, Placement of articulated antibiotic cement spacer 3 components Dressing changes as needed. She may weight-bear as tolerated on the left lower extremity but must wear the knee immobilizer while ambulating. PT/OTgentle range of motion of the left knee. Hemovac to be d/c'd today. Appreciate ID input. - continue cefepime 2g IV q8h - continue daptomycin 500mg (6-10mg/kg) IV daily (CrCl > 30, BMI 28, Wt 61kg) - she will need 6 weeks of IV abx (start 05/08, end through 06/19) - monitor weekly CBC w diff, CMP, ESR, CRP, and CPK - she needs close outpatient follow up with local ID provider - after completion of IV abx, monitor ESR/CRP closely off antibiotics for 2-8 weeks - since all hardware is removed from the left knee, no need for chronic suppression after IV abx DVT prophylaxisTED stockings, SCDs, Eliquis 2.5 mg twice daily x 30 days. Discharge planningplan for discharge home with home health. IV antibiotic prescriptions were placed in her chart. A prescription for weekly lab draws also placed in her chart. Once the antibiotics are set up for home, the patient may be discharged. This may happen tomorrow. Admission and Anticipated Discharge Date Admission Date: May 08, 2024 Subjective Doing well today. Pain is controlled in the left knee. Seems to be upset about antibiotic treatment. We had a long discussion of the importance of infectious disease input and antibiotic choice. No new complaints today. Physical Exam Constitutional: WD/WN, vitals as above no acute distress (Patient was comfortable and sleeping but easily arousable.) Musculoskeletal: Knee: + surgical incision (Left knee incision well approximated. No erythema.); no surgical drain present (No drainage from the hemovac in 24 hours.) Skin: no rashes, warm and dry Trauma: no evidence of skin trauma Neurologic: normal touch/pain/proprioception Psychiatric: A+Ox3, euthymic affect Speech: normal rate/rhythm/volume of speech Results & Data Vital Signs (Past 12 Hours) Vital Signs Temp Pulse Pulse Resp BP Pulse Ox O2 Del Method 05/12/24 14:28 36.7 C 82 16 93/63 L 95 Room Air 05/12/24 13:20 36.6 C 94 H 20 97/61 L 95 Room Air 05/12/24 08:20 Room Air 05/12/24 08:06 36.8 C 89 18 111/70 94 Room Air (1) Infection of total left knee replacement Encounter type: sequela Qualified Code(s): T84.54XS - Infection and inflammatory reaction due to internal left knee prosthesis, sequela
--- NOTE | 2024-05-12 16:17 | Hospitalist Progress Note ---
Date of Service May 12, 2024 Assessment & Plan (1) Infection of total left knee replacement: Plan: Hx of TKA 08/15/23, Poly exchange 10/01/23 and now presents with repeat suspect Pseudomonas infection S/P Left Knee Explant Total Knee Arthroplasty, Extensive Debridement and synovectomy, Placement of articulated antibiotic cement spacer [address] 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 OxyContin was increased from 10mg to 20mg BID. Recommend this dose increase for 2 weeks then return to chronic regimen. - continue oxycodone 10mg q6h prn Pt does report she uses her prn oxycodone at home VERY sparingly (1-2 times per week). Her PDMP notes much more frequent refills. PCP (primary prescriber) aware - she would prefer ortho take over pain rx in the post-op period. (3) HTN, goal below 140/80: Plan: Continue Metoprolol Hold Losartan on AM of 05/13 patient w/ adjustment in pain medication may be contributing to lower BP's if patient has persistent hypotension, consider fluid bolus (4) Depression: Plan: Stable Continue BuSpar and Wellbutrin Ativan qHs Supportive care (5) DVT (deep venous thrombosis): Plan: hx of DVT in 2020 - not on AC at baseline Eliquis 2.5mg po bid has been started by ortho (6) Allergic rhinitis: Plan: Continue Flonase She reports taking Zyrtec-D every morning at home or otherwise gets so congested that she gets pneumonia Add on zyrtec 10mg qAM plus sudafed 30mg po qAM scheduled Plan Dispo: medically stable for discharge. DVT proph: Eliquis per ortho Thank you for allowing us to participate in the care of this patient, please reach out with any questions or concerns. Medicine will sign off. Admission and Anticipated Discharge Date Admission Date: May 08, 2024 Subjective Patient seen and examined this afternoon. Patient reports to be feeling okay. states she is to return home tomorrow. She denies dizziness or lightheadedness. We were called back for hypotension. Nursing took patients BP earlier and it was lower at 93/63. She takes 25mg PO Losartan and 100mg PO Metoprolol each morning. Patient states her BP is off because she hasn't been getting her Zyrtec D in the hospital. Upon recheck in her room it improved to 112/75 Physical Exam 2 Constitutional: WD/WN, vitals as above Eyes: PERRL, conjunctivae normal, anicteric sclerae Respiratory: breathing unlabored Cardiovascular: well perfused Psychiatric: A+Ox3, euthymic affect Results & Data Results & Data Vital Signs (Past 12 Hours) Vital Signs Temp Pulse Pulse Resp BP Pulse Ox O2 Del Method 05/12/24 14:28 36.7 C 82 16 93/63 L 95 Room Air 05/12/24 13:20 36.6 C 94 H 20 97/61 L 95 Room Air 05/12/24 08:20 Room Air 05/12/24 08:06 36.8 C 89 18 111/70 94 Room Air Laboratory Results 05/10/24 05:48 05/10/24 05:48 PG Care Time/CCT Total # of Minutes Spent Total Time Spent with Patient: Total time spent is greater than 50% in coordination of care (as documented) at patient's floor/unit and/or counseling patient: Coding Level of Care Code 25385 SUB INP/OBS CARE 2/35MIN Diagnoses Infection of total left knee replacement, sequela T84.54XS Encounter type: sequela Chronic pain syndrome G89.4 HTN, goal below 140/80 I10 Depression F32.A DVT (deep venous thrombosis) I82.409 Allergic rhinitis J30.9 (1) Infection of total left knee replacement Encounter type: sequela Qualified Code(s): T84.54XS - Infection and inflammatory reaction due to internal left knee prosthesis, sequela
--- NOTE | 2024-05-13 17:56 | Orthopedic Progress Note ---
Date of Service May 13, 2024 Assessment & Plan (1) Infection of total left knee replacement: Plan: POD #5 s/p Left Knee Explant Total Knee Arthroplasty, Extensive Debridement including bone and bone cement and synovium with electrocautery synovectomy, Placement of articulated antibiotic cement spacer 3 components Dressing changed today. She may weight-bear as tolerated on the left lower extremity but must wear the knee immobilizer while ambulating. PT/OTgentle range of motion of the left knee. Hemovac to be d/c'd today. Appreciate ID input. - continue cefepime 2g IV q8h - continue daptomycin 500mg (6-10mg/kg) IV daily (CrCl > 30, BMI 28, Wt 61kg) - she will need 6 weeks of IV abx (start 05/08, end through 06/19) - monitor weekly CBC w diff, CMP, ESR, CRP, and CPK - she needs close outpatient follow up with local ID provider - after completion of IV abx, monitor ESR/CRP closely off antibiotics for 2-8 weeks - since all hardware is removed from the left knee, no need for chronic suppression after IV abx DVT prophylaxisTED stockings, SCDs, Eliquis 2.5 mg twice daily x 30 days. Discharge planningplan for discharge home with home health. IV antibiotic prescriptions were placed in her chart. A prescription for weekly lab draws also placed in her chart. Once the antibiotics are set up for home, the patient may be discharged. This may happen tomorrow. Admission and Anticipated Discharge Date Admission Date: May 08, 2024 Subjective Patient's pain appears to be manageable and she said she has been up walking around and doing okay. Patient states she is trying to be less angry about her situation.. Review of Systems Review of Systems: No fever chills Physical Exam Musculoskeletal: Left knee incision benign healing well no skin necrosis no drainage no erythema. No significant knee effusion minimal swelling. Knee range of motion 0 through 60 degrees at least. Distal neuro circumflex exam intact. Results & Data Vital Signs (Past 12 Hours) Vital Signs Temp Pulse Resp BP Pulse Ox O2 Del Method 05/13/24 15:10 36.7 C 92 H 16 113/70 97 Room Air 05/13/24 07:26 36.7 C 86 18 121/83 96 Room Air (1) Infection of total left knee replacement Encounter type: sequela Qualified Code(s): T84.54XS - Infection and inflammatory reaction due to internal left knee prosthesis, sequela
[2024-05-14 08:15] VITALS: RESP 14; TEMP 98.1
--- NOTE | 2024-05-14 10:10 | Orthopedic Progress Note ---
Date of Service May 14, 2024 Assessment & Plan (1) Infection of total left knee replacement: Plan: POD #6 s/p Left Knee Explant Total Knee Arthroplasty, Extensive Debridement including bone and bone cement and synovium with electrocautery synovectomy, Placement of articulated antibiotic cement spacer 3 components Dressing changes prn. She may weight-bear as tolerated on the left lower extremity but must wear the knee immobilizer while ambulating. PT/OTgentle range of motion of the left knee. Hemovac to be d/c'd today. Appreciate ID input. - continue cefepime 2g IV q8h - continue daptomycin 500mg (6-10mg/kg) IV daily (CrCl > 30, BMI 28, Wt 61kg) - she will need 6 weeks of IV abx (start 05/08, end through 06/19) - monitor weekly CBC w diff, CMP, ESR, CRP, and CPK - she needs close outpatient follow up with local ID provider - after completion of IV abx, monitor ESR/CRP closely off antibiotics for 2-8 weeks - since all hardware is removed from the left knee, no need for chronic suppression after IV abx DVT prophylaxisTED stockings, SCDs, Eliquis 2.5 mg twice daily x 30 days. Discharge planningplan for discharge home with home health. IV antibiotic prescriptions were placed in her chart. A prescription for weekly lab draws also placed in her chart. Once the antibiotics are set up for home, the patient may be discharged. Admission and Anticipated Discharge Date Admission Date: May 08, 2024 Subjective Patient is doing well today. Pain is controlled in the left knee. Feels as though she is ready to go home. Physical Exam Constitutional: WD/WN, vitals as above no acute distress (Patient was comfortable and Sitting in bed.) Musculoskeletal: Knee: + surgical incision (Left knee incision well approximated. No erythema.); no surgical drain present (No drainage from the hemovac in 24 hours.) Skin: no rashes, warm and dry Trauma: no evidence of skin trauma Neurologic: normal touch/pain/proprioception Psychiatric: A+Ox3, euthymic affect Speech: normal rate/rhythm/volume of speech Results & Data Vital Signs (Past 12 Hours) Vital Signs Temp Pulse Resp BP Pulse Ox O2 Del Method 05/14/24 07:30 36.7 C 95 H 14 124/80 99 Room Air (1) Infection of total left knee replacement Encounter type: sequela Qualified Code(s): T84.54XS - Infection and inflammatory reaction due to internal left knee prosthesis, sequela
[2024-05-14 12:53] VITALS: BP 108/68; PULSE 88; O2SAT 98
--- NOTE | 2024-05-16 14:39 | Discharge Summary ---
Date of Service May 16, 2024 Admission HPI Per Admitting Provider 59-year-old female with chronic left knee pain since having left knee replacement August 15, 2023. Patient's postoperative course was complicated by skin edge necrosis wound healing issues and septic knee with culture positive for Enterococcus and incision drainage polyethylene exchange procedure 10/01/2023. Patient had Enterococcus resistant to levofloxacin. Patient was treated with 6 weeks IV antibiotics with daptomycin. She was changed to doxycycline p.o. Patient presented to the emergency room 12/20/2023 with tachycardia and not feeling well. At that point she had an aspirate of her knee which included Synovasure testing. The Synovasure was positive the staph panel was positive white cell count was 6597 with 90.7% neutrophils. The synovial C- reactive protein was elevated. Culture eventually grew out Pseudomonas. She is very back to infectious disease illness treated with intravenous Zosyn for 2 months and recommended suppression for life with doxycycline. After stopping IV antibiotics in late March she developed pneumonia and was treated for pneumonia rhinovirus at [facility]. At that time she was placed on cefpodoxime in addition to doxycycline. Because of ongoing knee pain she had a ultrasound-guided knee aspirate which was felt not to be 100% reliable specimen due to a lot of blood aspirated and not a lot of fluid noted in the suprapatellar region and more scar tissue noted. This culture grew out Pseudomonas. I repeated the culture in the office and the second culture grew out Pseudomonas as well. Patient continues to have chronic mild to moderate synovitis with no signs of sepsis. The cultures of the Pseudomonas are pansensitive. Patient denies headaches, sweats, fevers, chills, cough, sore throat, dysphagia, chest pain, sob, wheezing, n/v/d/c, numbness, tingling, urinary symptoms. ROS positive for recent pneumonia 04/07/2024 to 04/11/2024 admission at [facility]. Patient has acid reflux and significant arthritic issues including the spine. Principal Diagnosis Left knee septic left total knee arthroplasty Discharge Exam Constitutional WD/WN, vitals as above no acute distress (Patient was comfortable and Sitting in bed.) Musculoskeletal Knee: + surgical incision (Left knee incision well approximated. No erythema.); no surgical drain present (No drainage from the hemovac in 24 hours.) Skin no rashes, warm and dry Trauma: no evidence of skin trauma Neurologic normal touch/pain/proprioception Psychiatric A+Ox3, euthymic affect Speech: normal rate/rhythm/volume of speech Discharge Data Allergies Allergy/AdvReac Type Severity Reaction Status Date / Time aspirin Allergy Unknown NOT TO Verified 05/15/24 09:08 TAKE S/P GATRIC BYPASS clarithromycin [From Biaxin] Allergy Unknown Unknown Verified 05/15/24 09:08 glycopyrrolate [From Robinul] Allergy Unknown Unknown Verified 05/15/24 09:08 oxymorphone Allergy Unknown Unknown Verified 05/15/24 09:08 carisoprodol AdvReac Intermediate HALLUCINATI Verified 05/15/24 09:08 ONS lactose AdvReac Mild Gastrointestinal Verified 05/15/24 09:08 Upset sulfamethoxazole AdvReac Unknown Verified 05/15/24 09:08 [From Bactrim] trimethoprim [From Bactrim] AdvReac Unknown Verified 05/15/24 09:08 Consultations 05/08/24 17:31 Consult Pain Management Stat 05/08/24 18:30 Consult Hospitalist Routine Consult Infectious Diseases Routine Procedures Performed Operation Date: 05/08/24 12:00 Actual Procedures p Left Knee Explant Total Knee Arthroplasty, Extensive Debridement and synovectomy, Placement of articulated antibiotic cement spacer 3 components(Left) - Kwasi Felix MD Ordered Studies 05/08/24 05:00 US - OR guided needle placemen Routine Hospital Course (1) Infection of total left knee replacement: POD #6 s/p Left Knee Explant Total Knee Arthroplasty, Extensive Debridement including bone and bone cement and synovium with electrocautery synovectomy, Placement of articulated antibiotic cement spacer 3 components Dressing changes prn. She may weight-bear as tolerated on the left lower extremity but must wear the knee immobilizer while ambulating. PT/OTgentle range of motion of the left knee. Hemovac to be d/c'd today. Appreciate ID input. - continue cefepime 2g IV q8h - continue daptomycin 500mg (6-10mg/kg) IV daily (CrCl > 30, BMI 28, Wt 61kg) - she will need 6 weeks of IV abx (start 05/08, end through 06/19) - monitor weekly CBC w diff, CMP, ESR, CRP, and CPK - she needs close outpatient follow up with local ID provider - after completion of IV abx, monitor ESR/CRP closely off antibiotics for 2-8 weeks - since all hardware is removed from the left knee, no need for chronic suppression after IV abx DVT prophylaxisTED stockings, SCDs, Eliquis 2.5 mg twice daily x 30 days. Discharge planningplan for discharge home with home health. IV antibiotic prescriptions were placed in her chart. A prescription for weekly lab draws also placed in her chart. Once the antibiotics are set up for home, the patient may be discharged. Total Time Total Time Spent Total Time Spent (In Minutes): 120 Discharge Plan Discharge Items Patient Disposition: Home - Home Health Services Reason For Visit: Left Knee Infected TKA Discharge Diagnosis: Septic left total knee arthroplasty Activity: Per Instructions section Weightbearing Comment: Weight-bear as tolerated left lower extremity in knee immobilizer Non-emergency contact: Surgeon Call non-emergency contact if: your pain is not controlled, your pain is w orsening and your temperature is above 101 Follow-up/Referrals: Larry Gonzalez DO [Primary Care Provider] - 05/21/24 3:00 pm Diet: Regular Addtl Attending Provider Instructions: ACTIVITY RECOMMENDATIONS: SELF CARE INSTRUCTIONS AFTER TOTAL KNEE REPLACEMENT A. You may need to continue a physical therapy program after discharge from the hospital. There are several options available to you. Your doctor will assist you in selecting the best one for you. 1. An out-patient facility 3 times a week for therapy. 2. Home therapy for 1 to 2 weeks with outpatient therapy to follow. 3. Continue working on all exercises taught by physical therapy three times a day for 20 minutes on non-therapy days. Your goals should be to increase the bending of your knee to 90 degrees and beyond and to fully straighten your knee. Ice and elevate knee after exercise. B. Weight as tolerated with a walker or as instructed by your physician. You must wear the knee immobilizer on the left knee while ambulating. C. It is okay to shower if minimal to no drainage from incision. No Baths. Do not soak wound. D. Make walking a part of your daily routine. Be up as much as comfortable with rest periods throughout the day. Rest with leg elevation is very important. Use the ice wrap frequently for the first 3-4 weeks. E. There are no restrictions on activities. You may ride in a car, shop, participate in public speaker and all social activities. F. Wear the long elastic stockings (PERLA hose) 20 hours a day for one month after surgery. They can be removed several times a day for laundering and when showering. G. You may return to previous diet. SPECIAL CARE INSTRUCTIONS: VERY IMPORTANT TO READ AND REVIEW A. Take Eliquis (blood thinning medications) as directed by your doctor. If on Coumadin, have a pro-time (blood test) drawn according to your doctor's instructions. This will tell the doctor how well the Coumadin is thinning your blood. B. There are a few signs you need to watch for after you are home. Call [facility] if you notice any of the followin. Increased severe knee pain. Some pain is expected especially when you exercise. 2. Increased swelling in your leg or knee; pain or swelling of the calf muscle in either lower leg. 3. Any redness or fluid drainage from the incision. 4. Shortness of breath or chest pain. 5. A Temperature of 101 degrees F or greater. C. Please call [facility] at if you have any concerns or questions about your operation or recovery. The doctor or his nurse will return your call promptly. D. You must take antibiotics before dental work, bladder, bowel or other surgery. Your doctor will provide you with a permanent care to carry describing this precaution. FOLLOW UP VISIT: If appointment is not already scheduled: Please call [facility] to make a follow-up appointment for 2 weeks after your surgery at . Pending Studies at Discharge: No Stand-Alone Forms: My [facility], Smoking Cessation Medications and DC Order Prescriptions: New Eliquis 2.5 mg Tablet 2.5 mg PO BID Qty: 60 0RF cefepime 2 gram recon soln 2 g IV Q8H 42 Days daptomycin 500 mg recon soln 500 mg IV DAILY 42 Days Rx Instructions: administer over 30 mins Continued multivitamin [Multiple Vitamins] Tablet 1 tab PO BID Qty: 90 3RF pravastatin 40 mg tablet 40 mg PO QAM Qty: 90 3RF Hold Instructions: Resume on 11/15/23. hold while on IV daptomycin oxycodone 10 mg tablet 10 mg PO Q6H PRN (Reason: pain) Qty: 60 0RF meclizine 25 mg tablet 25 mg PO TID PRN (Reason: dizziness) Qty: 90 2RF cyclobenzaprine 10 mg tablet 10 mg PO TID Qty: 90 1RF buspirone 15 mg tablet 15 mg PO TID Qty: 90 2RF oxycodone [OxyContin] 10 mg tablet,oral only,ext.rel.12 hr 10 mg PO BID Qty: 60 0RF nystatin 100,000 unit/gram powder 1 applic topical BID PRN (Reason: yeast) Qty: 60 0RF ondansetron 4 mg tablet,disintegrating 4 mg PO TID PRN (Reason: nausea and vomiting) Qty: 30 0RF metoprolol succinate 100 mg tablet extended release 24 hr 100 mg PO QAM Qty: 90 1RF sucralfate 1 gram tablet 1 g PO QID Qty: 120 1RF montelukast 10 mg tablet 10 mg PO HS Qty: 90 3RF bupropion HCl 150 mg tablet sustained-release 12 hr 150 mg PO QAM Qty: 90 0RF gabapentin 600 mg tablet 600 mg PO TID Qty: 90 0RF pantoprazole 40 mg tablet,delayed release (DR/EC) 40 mg PO QAM Qty: 90 0RF calcium citrate 200 mg (950 mg) tablet 200 mg PO DAILY ferrous sulfate 325 mg (65 mg iron) tablet 325 mg PO BID docusate sodium [Colace] 100 mg capsule 100 mg PO BID PRN (Reason: Constipation) (DME) Walking Cane Misc See Rx Instructions .Route Qty: 1 0RF Rx Instructions: As directed; falls lorazepam 0.5 mg tablet 0.5 mg PO HS Qty: 30 0RF diclofenac sodium 1 % gel 2 gm TOP QID PRN (Reason: Pain) Rx Instructions: apply to single elbow, wrist or hand; for hand includes palm/fingers/back of hand cyanocobalamin (vitamin B-12) 1,000 mcg capsule 1,000 mcg PO DAILY Qty: 30 0RF fluticasone propionate 50 mcg/actuation spray,suspension 1 spray INTRANASAL DAILY PRN (Reason: Congestion) losartan 25 mg tablet 25 mg PO QAM Discontinued doxycycline hyclate 100 mg capsule 100 mg PO BID Qty: 20 0RF Discharge Orders: Discharge Order (Routine); Ordered 05/13/24 Ordered By: Lb Joel/Other Patient Handouts: Giving IV Antibiotics Dc, Caring for Your PICC Dc, Flushing Your PICC Line at Home Admission Data Admit Date/Time: 05/08/24 17:31 Attending Provider: Kwasi Felix Admit Provider: Kwasi Felix Primary Care Provider: Larry Gonzalez Other Providers: Abdiel Gandhi; Mariaelena Kerr; Nadeem Saldaña; Ricky Bone; Katherine Chang; Dary Ramires; Liat Noland; Mimi Juares; Makenzie Moralez; Angelika Bansal; Faith Boyd Other Interventions: Discharge Summary Assessment (RN) Last Done: 05/14/24 16:33
== END 2024-05-14 18:18 | disposition home health service (06) | DRG 467 ==
LOC: ASU 10:20 → 3E 17:31

== ENCOUNTER 2024-06-29 13:37 | Inpatient (IN) ==
--- NOTE | 2024-06-29 14:55 | Emergency Department Note ---
Impression & Plan Stroke-like symptom, Dysarthria ED Provider Note NAME: JADEN NOBLE AGE: 59 SEX: F : 1965 ARRIVES VIA: Walk-In INFORMANT: Patient, ED PROVIDER(S): Pollo Salazar DO CHIEF COMPLAINT: Weakness HPI: The patient is a 59-year-old female who is status post left knee replacement who presented to the emergency department for weakness. The patient started noticing symptoms over the last 24 hours. Her who presented with her states that the symptoms began at noon. She started having difficulty speaking left frontal headache as well as weakness in her left leg. The patient has also been stuttering and having tremors. The patient denies having any recent trauma. She denies having any fever. She is still taking an antibiotic because the left knee was complicated by an infection. ROS: See above HPI for pertinent positives & negatives. A total of 10 systems reviewed and were otherwise negative. PAST MEDICAL HISTORY: See Below PAST SURGICAL HISTORY: See Below FAMILY HISTORY: See Below SOCIAL HISTORY: See Below HOME MEDICATIONS: See Below ALLERGIES: See Below VITALS: See Below PHYSICAL EXAMINATION: GENERAL: Patient is awake alert in no acute distress patient is resting comfortably and showing no signs of anxiety EYES: The conjunctivae are clear. The pupils are round and reactive. EARS, NOSE, MOUTH AND THROAT: The nose is without any evidence of any deformity. NECK: The neck is nontender and supple. RESPIRATORY: Normal respiratory effort is noted there is no evidence of wheezing rhonchi or rales CARDIOVASCULAR: Regular rate and rhythm noted there no murmurs rubs or gallops normal S1 normal S2. GASTROINTESTINAL: The abdomen is soft. Abdomen is nontender. MUSCULOSKELETAL/EXTREMITIES: There is no evidence of gross deformity full range of motion is noted in the hips and shoulders. SKIN: There is no obvious evidence of any rash. There are no petechiae, pallor or cyanosis noted. NEUROLOGIC: Patient is awake and oriented to person place and situation. The patient is aware of the year. The patient recognizes her significant other. The patient is unable to hold the left leg off the bed for greater than 5 seconds. The patient is able to hold the right leg off the bed for greater than 5 seconds. Speech is pressured but understandable. There is no facial droop. On Site [employer] Evaluator strength was symmetric. MEDICAL DECISION MAKING: The patient is a 59-year-old female who presented to the emergency department for strokelike symptoms. The patient was having trouble with speech. She also had trouble with her left leg. According to her significant other the patient had acute symptoms began yesterday. The patient was not made a stroke alert as her symptoms were greater than 24 hours old. I discussed the patient's laboratory and radiographic studies with her. Ultimately we discussed her condition with the on-call [facility] hospitalist. The patient may require further workup for strokelike symptoms. Triage Nursing notes reviewed. Prior medical records reviewed Vital Signs: reviewed and remarkable for elevated blood pressure. Differential diagnosis: Infection, dehydration, metabolic abnormality, hypo/hyperglycemia, electrolyte disturbance, anemia, hypoxia, cardiac sources, intracerebral event, toxicologic, neurologic, as well as other pathologies. ER treatment provided: See below Diagnostics interpreted by me: ECG: EKG was obtained in the emergency department. My interpretation is normal sinus rhythm at 83 bpm. There is no ectopy. There was no acute ST segment abnormalities noted. This was compared to a tracing from December 25, 2023. No changes were noted. Cardiac Monitoring: An order was placed for continuous cardiac monitoring. The monitor shows a rate of 79 bpm with sinus rhythm. Laboratory studies: As stated above and show below. Imaging studies: See below. Radiographic imaging was reviewed by myself Consultation(s): I discussed this case with Komal who is on-call for the [facility] group. Past Med/Surg History Problem List (Updated 06/29/24 @ 21:31 by Pollo Salazar DO) Dysarthria (Acute) Stroke-like symptom (Acute) Stroke-like symptom GERD (gastroesophageal reflux disease) Arthritis History of removal of joint prosthesis of left knee due to infection Infection of total left knee replacement Allergic rhinitis Infection of total right knee replacement Skin tear of left upper extremity Abrasion, right knee, initial encounter Postoperative pain of left knee Infection of total knee replacement Anemia Prepatellar bursitis Primary osteoarthritis of left knee Seborrheic dermatitis of scalp Cellulitis of skin Chronic narcotic use Opioid dependence with current use Anxiety disorder Cervical post-laminectomy syndrome Postlaminectomy syndrome of lumbosacral region Left knee DJD Bilateral knee pain History of back surgery x3 total > 06/02/19 Dr. Simon Templeton at [facility]- Midline prone multilevel osteotomies, Correction of flat back deformity, Extension of fusion to T9, T10, and T11 kyphoplasty Asthma (Chronic) Cervical disc disease (Chronic) Chronic pain syndrome (Chronic) Depression (Chronic) HTN, goal below 140/80 (Chronic) Hyperlipidemia (Chronic) Intervertebral disc degeneration (Chronic) MCCLAIN (nonalcoholic steatohepatitis) (Chronic) Medical History Postlaminectomy syndrome of lumbosacral region Chronic narcotic use Cervical post-laminectomy syndrome Cervical disc disease Brain atrophy reported per family, "confusion has gotten better since family has taken over medication administration" Chronic pain syndrome Infection due to Enterococcus hx, 12/2023 Tachycardia hx, 12/2023, isolated incident per family Elevated troponin I level hx, 12/2023, isolated incident per family; admitted to [facility] for "a few days, no recent issues" Necrosis of surgical wound Postoperative skin necrosis noted in EMR 09/28/23 MCCLAIN (nonalcoholic steatohepatitis) hx Depression Asthma no inhalers, well controlled per pt Enlarged liver hx > resolved per pt Spinal stenosis History of urinary retention "just happens when I take too many pain pills" Hyperlipidemia HTN (hypertension) History of COVID-19 06/29/20 HOSPITALIZED WITH PNEUMONIA [facility] 06/2021 RECOVERED AT HOME Surgical History Hx of knee surgery I&D left knee w/poly exchange History of total right knee replacement History of back surgery x3 total > 06/02/19 Dr. Simon Templeton at [facility]- Midline prone multilevel osteotomies, Correction of flat back deformity, Extension of fusion to T9, T10, and T11 kyphoplasty Status post left knee replacement History of colonoscopy History of tooth extraction History of surgery on right wrist History of cataract surgery bilat Nausea and vomiting after administration of anesthetic agent and syncope History of tonsillectomy and adenoidectomy History of appendectomy History of gastric bypass more than 5 years ago History of neck surgery ACDF > has trouble tilting head back for long periods History of hysterectomy History of esophagogastroduodenoscopy History of cholecystectomy History of section x4 History of arthroscopy of knee right Family History Father Diabetes Heart problem Cancer Other No family history of adverse response to anesthesia Social History Smoking Status: Former smoker Tobacco Type: Cigarettes Age Started Using Tobacco: 14; Age Quit Using Tobacco: 40; packs per day: 1; Second Hand Exposure: No; Do You Dip or Chew Tobacco: No; Tobacco Cessation Education Requested by Patient: No Hx Alcohol Use: No Hx Substance Use: No Preferred Language: Hungarian Communication Ability: Effective Hearing Ability: Use of Hearing Aid Rn Research Required: No Beliefs That Will Affect Care: None marital status: Current Living Situation: Spouse Current Living Situation Comment: LIVES WITH SPOUSE, ADULT SON current occupational status: disabled Other Information That Helps Us Care for You: No Feels Safe at Home: Yes Safety Concerns: Feels Safe At This Time Assistive Devices: Cane, Glasses, Hearing Aid - Bilateral and Walker Allergies Allergies Allergy/AdvReac Type Severity Reaction Status Date / Time aspirin Allergy Unknown NOT TO Verified 06/29/24 18:15 TAKE S/P GATRIC BYPASS clarithromycin [From Biaxin] Allergy Unknown Unknown Verified 06/29/24 18:18 glycopyrrolate [From Robinul] Allergy Unknown Unknown Verified 06/29/24 18:16 oxymorphone Allergy Unknown Unknown Verified 06/29/24 18:18 carisoprodol AdvReac Intermediate HALLUCINATI Verified 06/29/24 18:18 ONS lactose AdvReac Mild Gastrointestinal Verified 06/29/24 18:16 Upset sulfamethoxazole AdvReac Unknown Unknown Verified 06/29/24 18:17 [From Bactrim] trimethoprim [From Bactrim] AdvReac Unknown Verified 06/29/24 18:17 Home Meds Home Medications Medication Instructions Recorded Confirmed ferrous sulfate 325 mg (65 mg 325 mg PO BID 10/23/19 06/29/24 iron) tablet diclofenac sodium 1 % topical gel 2 gm topical QID PRN Pain 01/13/22 06/29/24 calcium citrate 200 mg PO DAILY 05/15/22 06/29/24 docusate sodium 100 mg capsule 100 mg PO BID PRN Constipation 05/22/23 06/29/24 (Colace) fluticasone propionate 50 1 spray intranasal DAILY PRN 04/17/24 06/29/24 mcg/actuation nasal Congestion spray,suspension Unknown Antibiotic Iv Med 06/29/24 Previous Rx's Medication Instructions Recorded multivitamin (Multiple Vitamins 1 tab PO BID #90 tabs 06/22/20 tablet) Walking Cane #1 ea 08/10/23 cyanocobalamin (vitamin B-12) 1,000 mcg PO DAILY #30 caps 10/05/23 1,000 mcg capsule pravastatin 40 mg tablet 40 mg PO QAM #90 tabs 01/15/24 oxycodone 10 mg tablet 10 mg PO Q6H PRN pain #60 tabs 04/03/24 meclizine 25 mg tablet 25 mg PO TID PRN dizziness #90 tabs 04/14/24 buspirone 15 mg tablet 15 mg PO TID #90 tabs 04/15/24 oxycodone 10 mg tablet,crush 10 mg PO BID #60 tabs 04/21/24 resistant,extended release 12 hr (OxyContin) nystatin 100,000 unit/gram topical 1 applic topical BID PRN yeast #60 04/22/24 powder grams metoprolol succinate 100 mg 100 mg PO QAM #90 tabs 04/24/24 tablet,extended release 24 hr montelukast 10 mg tablet 10 mg PO HS #90 tabs 04/30/24 bupropion HCl 150 mg tablet,12 hr 150 mg PO QAM #90 ea 05/04/24 sustained-release pantoprazole 40 mg tablet,delayed 40 mg PO QAM #90 tabs 05/04/24 release apixaban 2.5 mg tablet (Eliquis) 2.5 mg PO BID #60 tabs 05/12/24 losartan 25 mg tablet 25 mg PO QAM #90 tabs 06/05/24 ondansetron 4 mg disintegrating 4 mg PO TID PRN nausea and 06/16/24 tablet vomiting #30 tabs cyclobenzaprine 10 mg tablet 10 mg PO TID #90 tabs 06/18/24 gabapentin 600 mg tablet 600 mg PO TID #90 tabs 06/18/24 lorazepam 0.5 mg tablet 0.5 mg PO HS #30 tabs 06/18/24 Results & Data (ED) Vital Signs Vital Signs - 24 hr 06/29/24 14:06 06/29/24 14:18 06/29/24 16:24 Temperature 36.5 C Temperature Source Temporal Artery Scan Pulse Rate 81 76 Pulse Rate [Right Brachial] Pulse Rhythm [Right Brachial] Pulse Strength [Right Brachial] Respiratory Rate 20 Respiratory Effort / Characteristics Respiratory Depth Respiratory Pattern Blood Pressure 146/91 H Blood Pressure [Right Arm] Blood Pressure Mean 109 Blood Pressure Mean [Right Arm] Blood Pressure Position [Right Arm] Pulse Oximetry 97 Oxygen Delivery Method Room Air Room Air Sepsis Recent Fever Within 48 Hours No Sepsis New/Unexplained Change in Mental Status No Sepsis Action Taken by Nursing No Action Required 06/29/24 16:26 Temperature Temperature Source Pulse Rate Pulse Rate [Right Brachial] 77 Pulse Rhythm [Right Brachial] Regular Pulse Strength [Right Brachial] Normal Respiratory Rate 18 Respiratory Effort / Characteristics Non-Labored Respiratory Depth Normal Respiratory Pattern Regular Blood Pressure Blood Pressure [Right Arm] 166/86 H Blood Pressure Mean Blood Pressure Mean [Right Arm] 112 Blood Pressure Position [Right Arm] Lying Pulse Oximetry 98 Oxygen Delivery Method Room Air Sepsis Recent Fever Within 48 Hours Sepsis New/Unexplained Change in Mental Status Sepsis Action Taken by [facility]dc Medications Current Medication List: was personally reviewed by me Laboratory Data Attestation: I reviewed the patient's lab results. 06/29/24 14:22 06/29/24 14:22 Lab Results 06/29/24 06/29/24 06/29/24 Range/Units 14:22 16:55 17:03 WBC 6.67 (4.8-10.8) K/ul RBC 5.50 H (4.20-5.40) M/uL Hgb 16.0 (12.0-16.0) g/dl Hct 48.5 H (37.0-47.0) % MCV 88.2 (80.0-100.0) fL MCH 29.1 (25.0-34.0) pg MCHC 33.0 (32.0-36.0) g/dL RDW Std Deviation 45.9 (36.4-46.3) fL RDW Coeff of Arvin 14.3 (11.5-14.5) % Plt Count 257 (130-400) K/uL MPV 9.9 (9.4-12.4) fL Immature Gran % (Auto) 0.3 % Neut % (Auto) 57.1 % Lymph % (Auto) 19.3 % [place] % (Auto) 12.6 % Eos % (Auto) 9.7 % Baso % (Auto) 1.0 % Neut # (Auto) 3.80 (1.40-6.50) K/uL Lymph # (Auto) 1.29 (1.20-3.40) K/uL [place] # (Auto) 0.84 H (0.11-0.59) K/uL Eos # (Auto) 0.65 H (0.00-0.50) K/uL Baso # (Auto) 0.07 (0.00-0.20) K/uL Immature Gran # (Auto) 0.02 (0.01-0.20) K/uL PT 11.9 (9.0-12.0) Seconds INR 1.1 (0.9-1.1) APTT 28 (21-31) Seconds PTT Ratio 1.0 Sodium 140 (136-145) mmol/L Potassium 3.5 (3.5-5.1) mmol/L Chloride 110 H (98-107) mmol/L Carbon Dioxide 21 (21-32) mmol/L Anion Gap 9 (3-11) BUN 26 H (6-23) mg/dl Creatinine 1.36 H (0.6-1.2) mg/dl Est Cr Clr Drug Dosing Not Reportable eGFR 44.32 BUN/Creatinine Ratio 19.1 (10-20) Glucose 125 H (70-99(Fasting)) mg/dl POC Glucose 104 H (70-99) mg/dl Calcium 9.8 (8.6-10.3) mg/dl Magnesium 1.9 (1.7-2.4) mg/dl Total Bilirubin 0.7 (0.2-1.0) mg/dl AST 31 (13-39) U/L ALT 19 (7-52) U/L Alkaline Phosphatase 165 H (34-104) U/L Troponin I High Sens 8.0 (0-14) pg/ml Total Protein 7.8 (6.0-8.3) gm/dl Albumin 4.7 (3.4-5.0) gm/dl Globulin 3.1 (2.5-4.0) gm/dl Albumin/Globulin Ratio 1.5 (0.9-2) TSH 1.089 (0.300-4.500) uIu/ml Urine Color Yellow Urine Appearance Clear (Clear) Urine pH 6.0 (4.5-7.5) Ur Specific [place] 1.020 (1.000-1.030) Urine Protein 1+ H (Negative) Urine Glucose (UA) Negative (Negative) Urine Ketones Negative (Negative) Urine Blood Trace H (Negative) Urine Nitrite Negative (Negative) Urine Bilirubin Negative (Negative) Urine Urobilinogen Negative (Negative) Ur Leukocyte Esterase 2+ H (Negative) Urine WBC (Auto) 11-20 H (0-5) /hpf Urine RBC (Auto) 0-2 (0-2) /hpf U Hyaline Cast (Auto) 3-5 H (0-2) /lpf U Epithel Cells (Auto) 0-2 (0-2) /hpf Urine Bacteria (Auto) None Seen (None Seen) Administered Medications Sodium Chloride (Nss) 1,000 mls @ 125 mls/hr IV .Q8H BRAYDEN Stop: 06/30/24 02:29 Last Admin: 06/29/24 18:31 Dose: 125 mls/hr Documented By: TY Discontinued Medications Diphenhydramine HCl (Diphenhydramine 50 Mg/Ml Vial) 25 mg IV NOW STA Stop: 06/29/24 15:27 Last Admin: 06/29/24 15:53 Dose: 25 mg Documented By: TY Sodium Chloride (Nss) 1,000 mls @ 999 mls/hr IV .Q1H1M ONE Stop: 06/29/24 16:12 Last Infusion: 06/29/24 18:15 Dose: Infused Documented By: Admin: 06/29/24 17:04 Dose: 999 mls/hr Documented By: SHARRI Acetaminophen (Ofirmev) 1,000 mg in 100 mls @ 400 mls/hr IV NOW STA Stop: 06/29/24 15:40 Last Infusion: 06/29/24 16:14 Dose: Infused Documented By: Admin: 06/29/24 15:53 Dose: 400 mls/hr Documented By: TY Ioversol (Optiray 320 125ml) 119 ml IV ONCE ONE Stop: 06/29/24 15:41 Last Admin: 06/29/24 15:41 Dose: 119 ml Documented By: HOLDEN Ondansetron HCl (Ondansetron Inj 2 Mg/Ml 2 Ml Vial) 4 mg IV NOW STA Stop: 06/29/24 15:27 Last Admin: 06/29/24 15:53 Dose: 4 mg Documented By: TY Imaging Data Attestation: I personally reviewed and interpreted this imaging study as follows: My Impression: 1 view chest x-ray was obtained in the emergency department. My interpretation is no free air or definite infiltrate, final report below. CT of the brain was obtained in the emergency department. My interpretation is no intracranial hemorrhage or mass effect, final report below. Radiologist's Impression: Chest X-Ray 06/29/24 14:48 Chest radiograph, one view History: Neuro deficit Comparison: 12/20/2023 Findings: Single AP view of the chest performed. No focal consolidation or pleural effusion. No pneumothorax. The cardiomediastinal silhouette is within normal limits. Normal pulmonary vascularity. No evidence for lymphadenopathy. No visualized bony or soft tissue abnormality. Impression: Normal chest radiograph. Right upper extremity PICC tip at the lower SVC. Electronically signed by Edd Luther 06-29-2024 3:[address] 06/29/24 14:[address] without contrast CT angiogram of the neck CT angiogram of the brain with contrast Provided History: Weakness. Tremors Comparison: None Technique: HEAD CT: Using multidetector thin collimation helical acquisition technique, axial, coronal and sagittal CT images from the skull base to the vertex were obtained without intravenous contrast. HEAD and NECK CTA: During rapid bolus intravenous injection of nonionic contrast material, axial images were obtained using thin collimation multidetector helical technique from the base of the neck through the Vertex of vertex of the head. This CT angiogram data was reconstructed at thin intervals with mild overlap. 3D reconstructions were obtained. The axial source images, multiplanar reformations, 3D reconstructions in both maximum intensity projection display and volume rendered models were reviewed. Dose reduction techniques were achieved by using automatic exposure control and/or adjustment of mA and/or kV according to patient size and/or use of iterative reconstruction technique. Findings: Head CT: There is no intracranial hemorrhage, mass effect, or midline shift. Allred/white matter differentiation in both cerebral hemispheres is preserved. Ventricles are proportionate to the cerebral sulci. Head CTA demonstrates no aneurysm or stenosis of the major intracranial arteries. Neck CTA demonstrates mild calcified and noncalcified atherosclerosis in the proximal right ICA resulting in approximately 20 to 25% stenosis. Mild calcified plaque at the left carotid bulb without associated stenosis. Distal internal carotid arteries are widely patent. The origins of the great vessels from the aortic arch are patent. The normal distal right internal carotid artery measures 5 mm. The normal distal left internal carotid artery measures 5 mm. No mass is noted within the visualized portions of the cervical soft tissues or lung apices. Impression: 1. Head CTA demonstrates no aneurysm or stenosis of the major intracranial arteries, 2. Neck CTA demonstrates no stenosis of the major cervical arteries. 3. No intracranial hemorrhage on the noncontrast head CT. The study was analyzed using artificial intelligence software for large vessel occlusion detection. Electronically signed by Edd Luther 06-29-2024 4:15 PM Head CTA 06/29/24 14:[address] without contrast CT angiogram of the neck CT angiogram of the brain with contrast Provided History: Weakness. Tremors Comparison: None Technique: HEAD CT: Using multidetector thin collimation helical acquisition technique, axial, coronal and sagittal CT images from the skull base to the vertex were obtained without intravenous contrast. HEAD and NECK CTA: During rapid bolus intravenous injection of nonionic contrast material, axial images were obtained using thin collimation multidetector helical technique from the base of the neck through the Vertex of vertex of the head. This CT angiogram data was reconstructed at thin intervals with mild overlap. 3D reconstructions were obtained. The axial source images, multiplanar reformations, 3D reconstructions in both maximum intensity projection display and volume rendered models were reviewed. Dose reduction techniques were achieved by using automatic exposure control and/or adjustment of mA and/or kV according to patient size and/or use of iterative reconstruction technique. Findings: Head CT: There is no intracranial hemorrhage, mass effect, or midline shift. Allred/white matter differentiation in both cerebral hemispheres is preserved. Ventricles are proportionate to the cerebral sulci. Head CTA demonstrates no aneurysm or stenosis of the major intracranial arteries. Neck CTA demonstrates mild calcified and noncalcified atherosclerosis in the proximal right ICA resulting in approximately 20 to 25% stenosis. Mild calcified plaque at the left carotid bulb without associated stenosis. Distal internal carotid arteries are widely patent. The origins of the great vessels from the aortic arch are patent. The normal distal right internal carotid artery measures 5 mm. The normal distal left internal carotid artery measures 5 mm. No mass is noted within the visualized portions of the cervical soft tissues or lung apices. Impression: 1. Head CTA demonstrates no aneurysm or stenosis of the major intracranial arteries, 2. Neck CTA demonstrates no stenosis of the major cervical arteries. 3. No intracranial hemorrhage on the noncontrast head CT. The study was analyzed using artificial intelligence software for large vessel occlusion detection. Electronically signed by Edd Luther 06-29-2024 4:15 PM Neck CTA 06/29/24 14:[address] without contrast CT angiogram of the neck CT angiogram of the brain with contrast Provided History: Weakness. Tremors Comparison: None Technique: HEAD CT: Using multidetector thin collimation helical acquisition technique, axial, coronal and sagittal CT images from the skull base to the vertex were obtained without intravenous contrast. HEAD and NECK CTA: During rapid bolus intravenous injection of nonionic contrast material, axial images were obtained using thin collimation multidetector helical technique from the base of the neck through the Vertex of vertex of the head. This CT angiogram data was reconstructed at thin intervals with mild overlap. 3D reconstructions were obtained. The axial source images, multiplanar reformations, 3D reconstructions in both maximum intensity projection display and volume rendered models were reviewed. Dose reduction techniques were achieved by using automatic exposure control and/or adjustment of mA and/or kV according to patient size and/or use of iterative reconstruction technique. Findings: Head CT: There is no intracranial hemorrhage, mass effect, or midline shift. Allred/white matter differentiation in both cerebral hemispheres is preserved. Ventricles are proportionate to the cerebral sulci. Head CTA demonstrates no aneurysm or stenosis of the major intracranial arteries. Neck CTA demonstrates mild calcified and noncalcified atherosclerosis in the proximal right ICA resulting in approximately 20 to 25% stenosis. Mild calcified plaque at the left carotid bulb without associated stenosis. Distal internal carotid arteries are widely patent. The origins of the great vessels from the aortic arch are patent. The normal distal right internal carotid artery measures 5 mm. The normal distal left internal carotid artery measures 5 mm. No mass is noted within the visualized portions of the cervical soft tissues or lung apices. Impression: 1. Head CTA demonstrates no aneurysm or stenosis of the major intracranial arteries, 2. Neck CTA demonstrates no stenosis of the major cervical arteries. 3. No intracranial hemorrhage on the noncontrast head CT. The study was analyzed using artificial intelligence software for large vessel occlusion detection. Electronically signed by Edd Luther 06-29-2024 4:15 PM Discharge Plan Visit Data Chief Complaint: Neuro Symptoms/Deficit Stated Complaint: HEADACHE, TREMOR, CAN'T WALK ED Provider: Pollo Salazar Discharge Problem: Stroke-like symptom, Dysarthria Patient Disposition: Admitted As Inpatient Discharge Instructions Interventions: ED Discharge Assessment Last Done: 06/29/24 20:49
[2024-06-29 14:56] LABS: Basophils # (auto) 0.07 K/uL (0.00-0.20); Eosinophils # (auto) 0.65 K/uL (0.00-0.50); Eosinophils % (auto) 9.7 %; Hematocrit (blood only) 48.5 % (37.0-47.0); Immature Granulocytes # (auto) 0.02 K/uL (0.01-0.20); Immature Granulocytes % (auto) 0.3 %; Lymphocytes # (auto) 1.29 K/uL (1.20-3.40); Lymphocytes % (auto) 19.3 %; Mean Corpuscular Hemoglobin 29.1 pg (25.0-34.0); Mean Corpuscular Volume 88.2 fL (80.0-100.0); Mean Platelet Volume 9.9 fL (9.4-12.4); Monocytes # (auto) 0.84 K/uL (0.11-0.59); Monocytes % (auto) 12.6 %; Neutrophils % (auto) 57.1 %; Platelet Count 257 K/uL (130-400); RDW Coefficient of Variation 14.3 % (11.5-14.5); RDW Standard Deviation 45.9 fL (36.4-46.3); White Blood Count 6.67 K/ul (4.8-10.8)
[2024-06-29 15:10] LABS: Alanine Aminotransferase 19 U/L (7-52); Albumin Globulin Ratio 1.5 (0.9-2); Albumin Level 4.7 gm/dl (3.4-5.0); Alkaline Phosphatase 165 U/L (34-104); Anion Gap 9 (3-11); Aspartate Aminotransferase 31 U/L (13-39); BUN Creatinine Ratio 19.1 (10-20); Bilirubin,Total 0.7 mg/dl (0.2-1.0); Blood Urea Nitrogen 26 mg/dl (6-23); Calcium 9.8 mg/dl (8.6-10.3); Carbon Dioxide 21 mmol/L (21-32); Chloride 110 mmol/L (98-107); Globulin 3.1 gm/dl (2.5-4.0); Glucose 125 mg/dl (70-99(Fasting)); Magnesium 1.9 mg/dl (1.7-2.4); Potassium 3.5 mmol/L (3.5-5.1); Sodium 140 mmol/L (136-145); Total Protein 7.8 gm/dl (6.0-8.3)
[2024-06-29 15:16] LABS: INR 1.1 (0.9-1.1); Partial Thromboplastin Time 28 Seconds (21-31); Prothrombin Time 11.9 Seconds (9.0-12.0)
[2024-06-29 15:25] LABS: Thyroid Stimulating Hormone 1.089 uIu/ml (0.300-4.500)
--- NOTE | 2024-06-29 15:27 | XRay Report ---
Chest radiograph, one view History: Neuro deficit Comparison: 12/20/2023 Findings: Single AP view of the chest performed. No focal consolidation or pleural effusion. No pneumothorax. The cardiomediastinal silhouette is within normal limits. Normal pulmonary vascularity. No evidence for lymphadenopathy. No visualized bony or soft tissue abnormality. Impression: Normal chest radiograph. Right upper extremity PICC tip at the lower SVC. Electronically signed by Edd Luther 06-29-2024 3:27 PM
[2024-06-29] MEDS: OPTIRAY 320 125ml IV ONE (15:41)
[2024-06-29] MEDS: diphenhydrAMINE 50 MG/ML VIAL IV STA (15:53)
[2024-06-29] MEDS: ONDANSETRON INJ 2 MG/ML 2 ML VIAL IV STA (15:53)
[2024-06-29] MEDS: ACETAMINOPHEN 1,000 MG/100 ML VIAL IV STA (15:53)
--- NOTE | 2024-06-29 16:15 | CT Scan Report ---
Head CT without contrast CT angiogram of the neck CT angiogram of the brain with contrast Provided History: Weakness. Tremors Comparison: None Technique: HEAD CT: Using multidetector thin collimation helical acquisition technique, axial, coronal and sagittal CT images from the skull base to the vertex were obtained without intravenous contrast. HEAD and NECK CTA: During rapid bolus intravenous injection of nonionic contrast material, axial images were obtained using thin collimation multidetector helical technique from the base of the neck through the Vertex of vertex of the head. This CT angiogram data was reconstructed at thin intervals with mild overlap. 3D reconstructions were obtained. The axial source images, multiplanar reformations, 3D reconstructions in both maximum intensity projection display and volume rendered models were reviewed. Dose reduction techniques were achieved by using automatic exposure control and/or adjustment of mA and/or kV according to patient size and/or use of iterative reconstruction technique. Findings: Head CT: There is no intracranial hemorrhage, mass effect, or midline shift. Allred/white matter differentiation in both cerebral hemispheres is preserved. Ventricles are proportionate to the cerebral sulci. Head CTA demonstrates no aneurysm or stenosis of the major intracranial arteries. Neck CTA demonstrates mild calcified and noncalcified atherosclerosis in the proximal right ICA resulting in approximately 20 to 25% stenosis. Mild calcified plaque at the left carotid bulb without associated stenosis. Distal internal carotid arteries are widely patent. The origins of the great vessels from the aortic arch are patent. The normal distal right internal carotid artery measures 5 mm. The normal distal left internal carotid artery measures 5 mm. No mass is noted within the visualized portions of the cervical soft tissues or lung apices. Impression: 1. Head CTA demonstrates no aneurysm or stenosis of the major intracranial arteries, 2. Neck CTA demonstrates no stenosis of the major cervical arteries. 3. No intracranial hemorrhage on the noncontrast head CT. The study was analyzed using artificial intelligence software for large vessel occlusion detection. Electronically signed by Edd Luther 06-29-2024 4:15 PM
[2024-06-29] MEDS: SODIUM CHLORIDE 0.9% 1,000 ML IV ONE (17:04)
[2024-06-29 17:14] LABS: Appearance Urine Clear (Clear); Bacteria Urine Automated None Seen (None Seen); Bilirubin Urine Negative (Negative); Blood Urine Trace (Negative); Color Urine Yellow; Epithelial Cell Urine Auto 0-2 /hpf (0-2); Glucose Urine UA Negative (Negative); Ketones Urine Negative (Negative); Leukocyte Esterase Urine 2+ (Negative); Nitrite Urine Negative (Negative); Protein Urine 1+ (Negative); RBC Urine Automated 0-2 /hpf (0-2); Urobilinogen Urine Negative (Negative)
--- NOTE | 2024-06-29 18:10 | History & Physical Report ---
Date of Service June 29, 2024 Assessment & Plan (1) Stroke-like symptom: (2) Infection of total left knee replacement: (3) UTI (urinary tract infection): (4) Acute kidney injury: Plan This is a 59 year old female with past medical history of anxiety, depression, HTN, HLD, chronic narcotic who presented to the ED on 06/29/24 with a chief complaint of stroke like symptoms. #stroke like symptoms Head CT/CTA, neck CTA negative; CXR negative EKG normal sinus rhythm CBC w/o leukocytosis; TSH WNL Brain MRI pending - consider neurology consultation if abnormal findings Echo 04/08/2024 - EF 50-54%. Mild mitral regurg Repeat Echo pending Check A1c and lipid panel in AM Allow for permissive HTN for 24-48h - hold Losartan PT/OT consultation #UTI/ARTUR Urinalysis + for UTI, UC pending Abnormal creatinine of 1.36 Gentle fluid rehydration Continue IV Cefepime and IV daptomycin inpatient - patient currently on this outpatient for her left knee infection. repeat BMP/CBC in AM #left knee infection Following closely w/ ID and ortho Cefepime/Dapto is current outpatient regimen Hold statin while on Dapto Chronic conditions: GERD: PPI Chronic pain: Oxycontin, gabapentin Mental Health: Bupropion, buspirone DVT Prophylaxis: Eliquis Code status: full Case was discussed w/ Dr. Mendez at time of admission. updated at bedside 06/29 History of Present Illness Primary Care Provider: Larry Gonzalez DO This is a 59 year old female with past medical history of anxiety, depression, HTN, HLD, chronic narcotic who presented to the ED on 06/29/24 with a chief complaint of stroke like symptoms. The patient was seen and examined at bedside. present at time of encounter. Patient reports that yesterday she started to have difficulty finding her words. She was experiencing a frontal headache. 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 She has b/l arm and leg weakness. She has also been stuttering and experiencing tremors. Patient states that all of these symptoms are new for her and this has never happened before. She denies CP, SOB, N/V, abdominal pain, changes in bowels. She denies any urinary symptoms including frequency/urgency/hematuria/dysuria. She is currently on IV abx therapy outpatient for an ongoing knee infection. Per documentation, patient is on Cefepime and daptomycin. She reports she is following closely with ID and is set to get repeat cultures of her knee in the upcoming weeks. While in the ED patient underwent a head CT/CTA, neck CTA that was negative. CBC was w/o leukocytosis, hgb stable. BMP w/ creatinine of 1.36 which is above her baseline of 0.7-0.8. TSH WNL. Urinalysis + for UTI w/ a UC pending. Allergies Allergy/AdvReac Type Severity Reaction Status Date / Time aspirin Allergy Unknown NOT TO Verified 06/29/24 18:15 TAKE S/P GATRIC BYPASS clarithromycin [From Biaxin] Allergy Unknown Unknown Verified 06/29/24 18:18 glycopyrrolate [From Robinul] Allergy Unknown Unknown Verified 06/29/24 18:16 oxymorphone Allergy Unknown Unknown Verified 06/29/24 18:18 carisoprodol AdvReac Intermediate HALLUCINATI Verified 06/29/24 18:18 ONS lactose AdvReac Mild Gastrointestinal Verified 06/29/24 18:16 Upset sulfamethoxazole AdvReac Unknown Unknown Verified 06/29/24 18:17 [From Bactrim] trimethoprim [From Bactrim] AdvReac Unknown Verified 06/29/24 18:17 Home Medications Medication Instructions Recorded Confirmed Type ferrous sulfate 325 mg (65 mg 325 mg PO BID 10/23/19 06/29/24 History iron) tablet multivitamin (Multiple Vitamins 1 tab PO BID #90 tabs 06/22/20 06/29/24 Rx tablet) diclofenac sodium 1 % topical gel 2 gm topical QID PRN Pain 01/13/22 06/29/24 History calcium citrate 200 mg PO DAILY 05/15/22 06/29/24 History docusate sodium 100 mg capsule 100 mg PO BID PRN Constipation 05/22/23 06/29/24 History (Colace) Walking Cane #1 ea 08/10/23 06/27/24 Rx cyanocobalamin (vitamin B-12) 1,000 mcg PO DAILY #30 caps 10/05/23 06/29/24 Rx 1,000 mcg capsule pravastatin 40 mg tablet 40 mg PO QAM #90 tabs 01/15/24 06/29/24 Rx oxycodone 10 mg tablet 10 mg PO Q6H PRN pain #60 tabs 04/03/24 06/29/24 Rx meclizine 25 mg tablet 25 mg PO TID PRN dizziness #90 tabs 04/14/24 06/29/24 Rx buspirone 15 mg tablet 15 mg PO TID #90 tabs 04/15/24 06/29/24 Rx fluticasone propionate 50 1 spray intranasal DAILY PRN 04/17/24 06/29/24 History mcg/actuation nasal Congestion spray,suspension oxycodone 10 mg tablet,crush 10 mg PO BID #60 tabs 04/21/24 06/29/24 Rx resistant,extended release 12 hr (OxyContin) nystatin 100,000 unit/gram topical 1 applic topical BID PRN yeast #60 04/22/24 06/29/24 Rx powder grams metoprolol succinate 100 mg 100 mg PO QAM #90 tabs 04/24/24 06/29/24 Rx tablet,extended release 24 hr montelukast 10 mg tablet 10 mg PO HS #90 tabs 04/30/24 06/29/24 Rx bupropion HCl 150 mg tablet,12 hr 150 mg PO QAM #90 ea 05/04/24 06/29/24 Rx sustained-release pantoprazole 40 mg tablet,delayed 40 mg PO QAM #90 tabs 05/04/24 06/29/24 Rx release apixaban 2.5 mg tablet (Eliquis) 2.5 mg PO BID #60 tabs 05/12/24 06/29/24 Rx losartan 25 mg tablet 25 mg PO QAM #90 tabs 06/05/24 06/29/24 Rx ondansetron 4 mg disintegrating 4 mg PO TID PRN nausea and 06/16/24 06/29/24 Rx tablet vomiting #30 tabs cyclobenzaprine 10 mg tablet 10 mg PO TID #90 tabs 06/18/24 06/29/24 Rx gabapentin 600 mg tablet 600 mg PO TID #90 tabs 06/18/24 06/29/24 Rx lorazepam 0.5 mg tablet 0.5 mg PO HS #30 tabs 06/18/24 06/29/24 Rx Unknown Antibiotic Iv Med 06/29/24 History Past Med/Surg History Problem List Dysarthria (Acute) Stroke-like symptom (Acute) Stroke-like symptom GERD (gastroesophageal reflux disease) Arthritis History of removal of joint prosthesis of left knee due to infection Infection of total left knee replacement Allergic rhinitis Infection of total right knee replacement Skin tear of left upper extremity Abrasion, right knee, initial encounter Postoperative pain of left knee Infection of total knee replacement Anemia Prepatellar bursitis Primary osteoarthritis of left knee Seborrheic dermatitis of scalp Cellulitis of skin Chronic narcotic use Opioid dependence with current use Anxiety disorder Cervical post-laminectomy syndrome Postlaminectomy syndrome of lumbosacral region Left knee DJD Bilateral knee pain History of back surgery x3 total > 06/02/19 Dr. Simon Templeton at [facility]- Midline prone multilevel osteotomies, Correction of flat back deformity, Extension of fusion to T9, T10, and T11 kyphoplasty Asthma (Chronic) Cervical disc disease (Chronic) Chronic pain syndrome (Chronic) Depression (Chronic) HTN, goal below 140/80 (Chronic) Hyperlipidemia (Chronic) Intervertebral disc degeneration (Chronic) MCCLAIN (nonalcoholic steatohepatitis) (Chronic) Medical History Postlaminectomy syndrome of lumbosacral region Chronic narcotic use Cervical post-laminectomy syndrome Cervical disc disease Brain atrophy Chronic pain syndrome Infection due to Enterococcus Tachycardia Elevated troponin I level Necrosis of surgical wound MCCLAIN (nonalcoholic steatohepatitis) Depression Asthma Enlarged liver Spinal stenosis History of urinary retention Hyperlipidemia HTN (hypertension) History of COVID-19 Surgical History Hx of knee surgery History of total right knee replacement History of back surgery Status post left knee replacement History of colonoscopy History of tooth extraction History of surgery on right wrist History of cataract surgery Nausea and vomiting after administration of anesthetic agent History of tonsillectomy and adenoidectomy History of appendectomy History of gastric bypass History of neck surgery History of hysterectomy History of esophagogastroduodenoscopy History of cholecystectomy History of section History of arthroscopy of knee Family History Father Diabetes Heart problem Cancer Other No family history of adverse response to anesthesia Social History Smoking Status: Former smoker Tobacco Type: Cigarettes Age Started Using Tobacco: 14; Age Quit Using Tobacco: 40; packs per day: 1; Second Hand Exposure: No; Do You Dip or Chew Tobacco: No; Tobacco Cessation Education Requested by Patient: No Hx Alcohol Use: No Hx Substance Use: No Preferred Language: Georgian Communication Ability: Effective Hearing Ability: Use of Hearing Aid Steam Shovel Oiler Required: No Beliefs That Will Affect Care: None marital status: Current Living Situation: Spouse Current Living Situation Comment: LIVES WITH SPOUSE, ADULT SON current occupational status: disabled Other Information That Helps Us Care for You: No Feels Safe at Home: Yes Safety Concerns: Feels Safe At This Time Assistive Devices: Cane, Glasses, Hearing Aid - Bilateral and Walker Physical Exam Constitutional: WD/WN, vitals as above Eyes: PERRL, conjunctivae normal, anicteric sclerae Respiratory: normal respiratory effort, lungs clear to auscultation Cardiovascular: RRR, no murmur, no edema Gastrointestinal (Abdomen): normal bowel sounds, soft, nontender, no hepatosplenomegaly Musculoskeletal: Neurologic: patient unable to lift her left knee (per not normal) did demonstrate 5/5 strength in upper extremity. No facial drooping observed. sensation intact Psychiatric: A+Ox3, euthymic affect Results & Data Results & Data Vital Signs (Past 12 Hours) Vital Signs Temp Pulse Pulse Resp BP BP Pulse Ox 06/29/24 16:26 77 18 166/86 H 98 06/29/24 16:24 76 06/29/24 14:18 06/29/24 14:06 36.5 C 81 20 146/91 H 97 O2 Del Method 06/29/24 16:26 Room Air 06/29/24 16:24 06/29/24 14:18 Room Air 06/29/24 14:06 Room Air Code Status & VTE Plan VTE Prophylaxis Plan VTE Prophylaxis will be ordered: Yes Supervising Physician Co-Signing Physician Notes I personally saw and examined the patient. I independently reviewed the labs, EKG, imaging, problem list, medication list, past medical history and family history. I verified all headley points and agree with Katie Guzman PA-C with the following exceptions and/or additions: 59 year old female presents to the ER with decreased co-ordination and expressive dysphasia started 2-3 days ago. O/E A&Ox3, HS RRR, no murmurs, Chest CTBA, Abdo SNT, reduced co-ordination bilaterally, mild LLE weakness although she blames this on her knee issues, possible nystagmus but appears to be more of a concentration issue A/P Stroke-like symptoms - ongoing for > 24 hours therefore would expect to see something on MRI brain if this is stroke related. She denies any new medications. Possible UTI on UA although she denies any specific symptoms and currently on daptomycin and cefepime for her knee infection therefore will defer escalating antibiotics pending urine culture result. PG Care Time/CCT Total # of Minutes Spent Total Time Spent with Patient: Total time spent is greater than 50% in coordination of care (as documented) at patient's floor/unit and/or counseling patient: Coding Level of Care Code 96229 INT INP/OBS CARE 3/75MIN Diagnoses Stroke-like symptom R29.90 Infection of total left knee replacement, sequela T84.54XS Encounter type: sequela UTI (urinary tract infection) N39.0 Acute kidney injury N17.9 (2) Infection of total left knee replacement Encounter type: sequela Qualified Code(s): T84.54XS - Infection and inflammatory reaction due to internal left knee prosthesis, sequela
[2024-06-29] MEDS: SODIUM CHLORIDE 0.9% 1,000 ML IV SCH (18:31)
[2024-06-29] MEDS ORDERED: ONDANSETRON 4 MG OD TAB PO PRN (19:59)
[2024-06-29] MEDS ORDERED: MECLIZINE HCL 25 MG TAB PO PRN (19:59)
[2024-06-29] MEDS ORDERED: DOCUSATE SODIUM 100 MG CAP PO PRN (19:59)
[2024-06-29] MEDS ORDERED: DAPTOmycin 240 MG in SYRINGE 0 ML IV SCH (21:00)
[2024-06-29] MEDS: CEFEPIME 2000MG 2,000 MG/20 ML SYR IV SCH (21:48)
[2024-06-29] MEDS: FERROUS SULFATE 325 MG TAB PO SCH (21:50)
[2024-06-29] MEDS: MONTELUKAST SODIUM 10 MG TABLET PO SCH (21:50)
[2024-06-29] MEDS: GABAPENTIN 600 MG TAB PO SCH (21:50)
[2024-06-29] MEDS: CYCLOBENZAPRINE HCL 10 MG TAB PO SCH (21:50)
[2024-06-29] MEDS: APIXABAN 2.5 MG TAB PO SCH (21:50)
[2024-06-29] MEDS: busPIRone 15 MG TAB PO SCH (21:51)
[2024-06-29] MEDS: LORazepam 0.5 MG TAB PO SCH (21:58)
[2024-06-29] MEDS: oxyCODONE HCL 10 MG TABCR (OxyCONTIN) PO SCH (21:58)
[2024-06-29] MEDS: DAPTOmycin 500 MG in SYRINGE 0 ML IV SCH (22:05)
[2024-06-29 22:31] LABS: C Reactive Protein 1.16 mg/dl (0-0.5)
[2024-06-30 06:34] LABS: Hematocrit (blood only) 37.4 % (37.0-47.0); Hemoglobin 12.4 g/dl (12.0-16.0); Mean Corpuscular Hgb Conc 33.2 g/dL (32.0-36.0); Mean Corpuscular Volume 87.4 fL (80.0-100.0); Mean Platelet Volume 10.4 fL (9.4-12.4); Platelet Count 191 K/uL (130-400); RDW Coefficient of Variation 14.4 % (11.5-14.5); RDW Standard Deviation 45.9 fL (36.4-46.3); Red Blood Count 4.28 M/uL (4.20-5.40); White Blood Count 5.33 K/ul (4.8-10.8)
[2024-06-30 06:36] LABS: BUN Creatinine Ratio 17.2 (10-20); Calcium 8.4 mg/dl (8.6-10.3); Chol HDL Ratio 8.4 (0-5); Creatinine Clr Calc Pharmacy 40.7 ml/min; Potassium 3.4 mmol/L (3.5-5.1)
[2024-06-30 07:13] LABS: Estimated Average Glucose 120 mg/dl; Hemoglobin A1C 5.8 % (4.5-5.6)
[2024-06-30] MEDS: DAPTOMYCIN IV SCH (07:31)
[2024-06-30] MEDS: DAPTOmycin 200 MG in SYRINGE 0 ML IV SCH (07:31)
--- NOTE | 2024-06-30 08:41 | Hospitalist Progress Note ---
Date of Service June 30, 2024 Assessment & Plan (1) Stroke-like symptom: (2) Infection of total left knee replacement: (3) UTI (urinary tract infection): (4) Acute kidney injury: Plan This is a 59 year old female with past medical history of anxiety, depression, HTN, HLD, chronic narcotic who presented to the ED on 06/29/24 with a chief complaint of stroke like symptoms, stoke is ruled out by imaging, review of her medications lends concern for encephalopathy due to medications at home #stroke like symptoms Head CT/CTA, neck CTA negative; CXR negative EKG normal sinus rhythm CBC w/o leukocytosis; TSH WNL Brain MRI negative Echo 04/08/2024 - EF 50-54%. 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 meds, pt does have history of back surgery, estrada and gastric bypass which creates need for symptoms control and concern of medication absorption Continue IV Cefepime and IV daptomycin inpatient - unclear if patient currently on this outpatient for her left knee infection( culture positive pseudomonas) for that course the LD was supposed to be 06/19/24 Hold statin while on Dapto ARTUR resolved after fluid rehydration GERD: PPI Chronic pain: Oxycontin, significantly reduce dose of gabapentin Mental Health: Bupropion, buspirone adjust dose DVT Prophylaxis: Eliquis Code status: full updated and son at bedside Admission and Anticipated Discharge Date Admission Date: June 29, 2024 Subjective pt feels improved however is not yet at baseline related that her shaking was most concerning symptom that brought her here Physical Exam Physical Exam: pt is awake and alert no neurological deficits seen no signs of parkinsons disease cardiac is regular lungs are clear Results & Data Results & Data Vital Signs (Past 12 Hours) Vital Signs Temp Pulse Pulse Resp BP Pulse Ox O2 Del Method 06/30/24 07:25 91 H 06/30/24 07:00 97.9 F 77 20 165/85 H 97 Room Air 06/30/24 04:10 97.9 F 81 18 154/83 H 95 Room Air 06/29/24 22:33 97.5 F L 79 18 99 Room Air 06/29/24 22:03 81 Laboratory Results review cbc review chemistry PG Care Time/CCT Total # of Minutes Spent Total Time Spent with Patient: Total time spent is greater than 50% in coordination of care (as documented) at patient's floor/unit and/or counseling patient: Coding Level of Care Code 91450 SUB INP/OBS CARE 3/50MIN Diagnoses Stroke-like symptom R29.90 Infection of total left knee replacement, sequela T84.54XS Encounter type: sequela UTI (urinary tract infection) N39.0 Acute kidney injury N17.9 (2) Infection of total left knee replacement Encounter type: sequela Qualified Code(s): T84.54XS - Infection and inflammatory reaction due to internal left knee prosthesis, sequela
[2024-06-30] MEDS: PANTOprazole 40 MG TAB PO SCH (09:12)
[2024-06-30] MEDS: buPROPion SR 150 MG TABCR PO SCH (09:12)
--- NOTE | 2024-06-30 09:12 | Magnetic Resonance Report ---
EXAM: MR brain wo con CLINICAL HISTORY: Stroke-like symptoms, 'unable to walk or use extremities as per . States she fell today but didn't hit her head no hx of stroke/tia. TECHNIQUE: Multiplanar and multiecho MRI of the brain was performed without administration of IV contrast. COMPARISON: CT study dated 06/29/2024. FINDINGS: Brain Parenchyma: Multifocal T2/FLAIR hyperintense areas are seen in the centrum semiovale and periventricular regions bilaterally, suggestive of microvascular ischemic changes. No evidence of acute infarction or hemorrhage. Normal vivas-white matter differentiation. No mass lesions or focal cortical abnormalities were identified. No area of diffusion restriction is seen. Ventricles and Sulci: There is prominence of ventricles, basal cisterns, and cortical sulci likely related to age-related involutional changes. Posterior Fossa: The cerebellum and brainstem appear normal without evidence of mass lesions or signal abnormalities. Vessels: No evidence of vascular malformations or aneurysms. Intracranial arteries and veins appear normal without evidence of stenosis or occlusion. Orbits and Skull Base: Orbits and skull base structures are normal without evidence of abnormalities. IMPRESSION: 1. No acute intracranial abnormality was identified. 2. No evidence of acute infarction or hemorrhage(stable). 3. Age-related involutional and microvascular ischemic changes(stable). Electronically signed by Vadim Lr 06-30-2024 09:11 AM
[2024-06-30] MEDS: METOPROLOL SUCC 50MG EXT REL TAB PO SCH (09:13)
--- NOTE | 2024-06-30 10:02 | XCELERA ---
[id number]
--- NOTE | 2024-06-30 11:18 | Electrocardiogram Report ---
Test Reason : Blood Pressure : */* mmHG Vent. Rate : 83 BPM Atrial Rate : 83 BPM P-R Int : 120 ms QRS Dur : 68 ms QT Int : 360 ms P-R-T Axes : 27 15 37 degrees QTcB Int : 423 ms Normal sinus rhythm Normal ECG When compared with ECG of 22-Dec-2023 06:29, No significant change was found Confirmed by Pollo Ruelas ([id number]) on 06/30/2024 11:18:16 AM Referred By: Confirmed By: Pollo Ruelas
[2024-06-30] MEDS: busPIRone 7.5 MG TAB PO SCH (14:38)
[2024-06-30] MEDS: GABAPENTIN 300 MG CAP PO SCH (14:38)
[2024-06-30] MEDS: LORazepam 0.5 MG TAB PO PRN (21:51)
[2024-06-30] MEDS: CYCLOBENZAPRINE HCL 10 MG TAB PO PRN (21:51)
--- NOTE | 2024-06-30 23:32 | Magnetic Resonance Report ---
Exam(s): MRI C SPINE EXAM: MR Cervical Spine Without Intravenous Contrast CLINICAL HISTORY: Reason for exam: pt with possible radicular symptoms and h/o surger. TECHNIQUE: Magnetic resonance images of the cervical spine without intravenous contrast in multiple planes. COMPARISON: Comparison made to prior CT angiogram of the neck from June 29, 2024. FINDINGS: The study is limited secondary to motion artifact. Vertebrae: There are 7 cervical type vertebral bodies with a mild generalized curve to the left and normal cervical lordosis. There is normal vertebral body height and alignment. The bone marrow signal is normal. No acute fracture. Spinal cord: There is flattening the ventral cord at C4-5 and C6-7 with increased cord signal at C4-5 concerning cord edema. The craniocervical junction is normal without onset of Chiari malformation. Soft tissues: The cervical flow voids are intact. DISCS/SPINAL CANAL/NEURAL FORAMINA: C2-C3: There is mild disc degeneration with annular disc bulge flattening the ventral thecal sac. C3-C4: There is mild disc degeneration with annular disc bulge flattening the ventral thecal sac. C4-C5: There is mild disc degeneration with annular disc bulge flattening the ventral card and prominent ligamentum flavum flattening the dorsal cord with increased cord signal causing a critical spinal canal stenosis with AP dimer measuring 5 mm. C5-C6: There is anterior fusion across these segments. Mild to moderate facet joint arthropathy with mild to moderate synovitis with joint effusions. C6-C7: Advanced disc degeneration with annular disc bulge asymmetric to the left flattening the ventral cord without evidence of abnormal cord signal causing a severe spinal canal stenosis with AP diameter measuring 7 mm. C7-T1: Moderate disc degeneration with annular disc bulge flattening the ventral thecal sac. IMPRESSION: 1. Advanced disc degeneration at C6-7, moderate disc degeneration at C7- T1, and mild disc degeneration at C2-3, C3-4 and C4-5 with annular disc bulging flattening the ventral thecal sac and flattening the ventral cord at C4-5 and C6-7 with subtle increased cord signal at C4-5 concerning cord edema. Recommend neurosurgical consult for decompression. 2. There is a critical spinal canal stenosis at C4-5 and severe stenosis at C6-7. 3. The neural foramina are poorly visualized secondary to motion artifact. 4. No evidence of fracture, infection or tumor. Electronically signed by: Ana Mistry MD 06/30/24 23:31 PM
[2024-07-01 06:12] LABS: Hematocrit (blood only) 37.6 % (37.0-47.0); Hemoglobin 12.9 g/dl (12.0-16.0); Mean Corpuscular Hemoglobin 29.4 pg (25.0-34.0); Mean Corpuscular Hgb Conc 34.3 g/dL (32.0-36.0); Mean Corpuscular Volume 85.6 fL (80.0-100.0); Mean Platelet Volume 10.2 fL (9.4-12.4); Platelet Count 212 K/uL (130-400); RDW Coefficient of Variation 14.1 % (11.5-14.5); RDW Standard Deviation 44.3 fL (36.4-46.3); Red Blood Count 4.39 M/uL (4.20-5.40); White Blood Count 5.58 K/ul (4.8-10.8)
[2024-07-01 06:30] LABS: Albumin Globulin Ratio 1.6 (0.9-2); Albumin Level 3.6 gm/dl (3.4-5.0); BUN Creatinine Ratio 17.1 (10-20); Bilirubin,Total 0.5 mg/dl (0.2-1.0); Calcium 8.7 mg/dl (8.6-10.3); Creatinine Clr Calc Pharmacy 36.6 ml/min; Globulin 2.3 gm/dl (2.5-4.0); Potassium 3.1 mmol/L (3.5-5.1); Total Protein 5.9 gm/dl (6.0-8.3)
--- NOTE | 2024-07-01 07:20 | Hospitalist Progress Note ---
Date of Service July 01, 2024 Assessment & Plan (1) Stroke-like symptom: (2) Infection of total left knee replacement: (3) UTI (urinary tract infection): (4) Acute kidney injury: Plan This is a 59 year old female with past medical history of anxiety, depression, HTN, HLD, chronic narcotic who presented to the ED on 06/29/24 with a chief complaint of stroke like symptoms, stoke is ruled out by imaging, symptoms are positional and C spine MRI suggest some pathology at C4-5 with marrow edema, review of her medications lends concern for encephalopathy due to medications at home #stroke like symptoms stroke ruled out Head CT/CTA, neck CTA negative; Brain MRI negative, CXR negative no signs of infectious etiology resume Losartan PT/OT consultation #cervical Radiculopathy, concern of this on MRI cervical spine, supportive of Dr Burrell seeing pt, some marrow edema can consider steroids if symptoms continue # metabolic encephalopathy, pt has had stroke ruled out, urine culture <1000 recent explant and spacer in place of Left tka, 05/08/24 final determination of surgical correction still pending could be from medications, including antibiotics as cefepime can cause some encephalopathy, will follow urine culture start to reduce eliminate meds, especially lock up worker active meds, pt does have history of back surgery, estrada and gastric bypass which creates need for symptoms control and concern of medication absorption discussed case with ID, has now completed IV Cefepime and IV daptomycin for that course the LD was supposed to be 06/19/24 Hold statin while on Dapto - consult orhto for planning of future knee re implantation ARTUR resolved after fluid rehydration GERD: PPI Chronic pain: Oxycontin, significantly reduce dose of gabapentin Mental Health: Bupropion, buspirone adjust dose DVT Prophylaxis: Eliquis Code status: full updated via phone 07/01 Admission and Anticipated Discharge Date Admission Date: June 29, 2024 Subjective pt feels improved however is not yet at baseline related that her shaking was most concerning symptom that brought her here relayed information about cervical spine mri and supporting Dr Burrell review Physical Exam Physical Exam: pt is awake and alert no neurological deficits seen no signs of parkinsons disease cardiac is regular lungs are clear Results & Data Results & Data Vital Signs (Past 12 Hours) Vital Signs Temp Pulse Pulse Resp BP Pulse Ox O2 Del Method 07/01/24 07:15 74 07/01/24 05:13 98.2 F 82 18 178/96 H 97 Room Air 07/01/24 00:03 97.9 F 82 18 148/84 H 96 Room Air 06/30/24 21:55 79 06/30/24 20:30 Room Air 06/30/24 19:40 98.1 F 82 18 167/81 H 95 Room Air Laboratory Results review cbc review chemistry augment potassium discussed case with Dr Burrell PG Care Time/CCT Total # of Minutes Spent Total Time Spent with Patient: Total time spent is greater than 50% in coordination of care (as documented) at patient's floor/unit and/or counseling patient: Coding Level of Care Code 88575 SUB INP/OBS CARE 3/50MIN Diagnoses Stroke-like symptom R29.90 Infection of total left knee replacement, sequela T84.54XS Encounter type: sequela UTI (urinary tract infection) N39.0 Acute kidney injury N17.9 (2) Infection of total left knee replacement Encounter type: sequela Qualified Code(s): T84.54XS - Infection and inflammatory reaction due to internal left knee prosthesis, sequela
[2024-07-01] MEDS: POTASSIUM CHLORIDE CRTAB 20 MEQ TABCR PO STA (08:28)
[2024-07-01] MEDS: POTASSIUM CHLORIDE CRTAB 20 MEQ TABCR PO SCH (08:34)
[2024-07-01] MEDS: LOSARTAN POTASSIUM 25 MG TAB PO SCH (08:35)
--- NOTE | 2024-07-01 13:32 | XRay Report ---
XR cervical spine w flex/ext CLINICAL HISTORY: Neck pain. COMPARISON STUDY: MRI of the cervical spine June 30, 2024. Cervical spine CT July 01, 2024. FINDINGS: Postoperative findings consistent with C5-C6 anterior discectomy and fusion. The hardware i s intact. There is no evidence for cervical spine instability during flexion or extension. Severe dis c space narrowing with osteophytosis at C6-C7 is present. There is moderate multilevel facet arthrosi s. There are no osseous lesions. Prevertebral soft tissues are unremarkable. No cervical spine fractu res. IMPRESSION: 1. No cervical spine fractures. 2. Status post C5-C6 anterior discectomy and fusion. Hardware intact. 3. No evidence for cervical spine instability during flexion or extension. 4. Severe disc space narrowing with osteophyte at C6-C7. Moderate multilevel facet arthrosis. ACT 112: Negative or not required by law. Electronically signed by: Nicola Lara M.D. 07/01/2024 1:31 PM
--- NOTE | 2024-07-01 13:40 | CT Scan Report ---
CT cervical spine wo con CT DOSE: 376.36 mGy.cm CLINICAL HISTORY: neck pain. COMPARISON: 06/29/2024 TECHNIQUE: Multiple axial CT images of the cervical spine were obtained without contrast. A dose low ering technique was utilized adhering to the principles of ALARA. FINDINGS: Anterior plate screw fusion at C5-6 shows no hardware complication. There is severe degener ative disc disease at C6-7. There is minimal retrolisthesis of C3 on 4. Otherwise normal alignment. N o fracture seen. There is a small bone cyst at the odontoid. No severe central canal narrowing seen. There is mild bilateral neural foraminal narrowing at C6-7. IMPRESSION: 1. No fracture or hardware competition seen. 2. Degenerative changes as described. ACT 112: Negative or not required by law. The above report was generated using voice recognition software. It may contain grammatical, syntax o r spelling errors. Electronically signed by: Timmy Bradley M.D. 07/01/2024 1:38 PM
[2024-07-02 07:36] VITALS: RESP 19; TEMP 97.7; O2SAT 97
[2024-07-02 08:05] VITALS: BP 153/83; PULSE 77
--- NOTE | 2024-07-02 12:14 | Consultation ---
Date of Consultation July 02, 2024 Assessment & Plan (1) Cervical disc disease: Dr. Burrell has reviewed imaging as well as treatment plan. He has also discussed case with Dr. Huntley. There are no acute surgical indications. While she does have adjacent level stenosis moderate to severe there is no evidence of myelomalacia/intrinsic cord changes. She is stable. Continue conservative treatment. It is recommended she follow-up with her established surgeon Dr. Hernández at [facility]. Will sign off History of Present Illness Attending Physician: John Huntley MD History of Present Illness This is a 59-year-old female who presented to the ER complaining of tremors, headache and weakness. She has had a recent left antibiotic spacer placed by Dr. Felix and currently has a PICC line and is on IV antibiotics due to infected total knee prosthesis. At home she typically ambulates with a walker. She has chronic pain. She has had multiple cervical and thoracolumbar procedures performed at [facility] by Dr. Hernández. She has chronic pain and has been on long-term narcotics. She has no change in her symptoms. Her symptoms that she presented to the ER with have since resolved to baseline. Allergies Allergy/AdvReac Type Severity Reaction Status Date / Time aspirin Allergy Unknown NOT TO Verified 06/29/24 18:15 TAKE S/P GATRIC BYPASS clarithromycin [From Biaxin] Allergy Unknown Unknown Verified 06/29/24 18:18 glycopyrrolate [From Robinul] Allergy Unknown Unknown Verified 06/29/24 18:16 oxymorphone Allergy Unknown Unknown Verified 06/29/24 18:18 carisoprodol AdvReac Intermediate HALLUCINATI Verified 06/29/24 18:18 ONS lactose AdvReac Mild Gastrointestinal Verified 06/29/24 18:16 Upset sulfamethoxazole AdvReac Unknown Unknown Verified 06/29/24 18:17 [From Bactrim] trimethoprim [From Bactrim] AdvReac Unknown Verified 06/29/24 18:17 Home Medications Medication Instructions Recorded Confirmed Type ferrous sulfate 325 mg (65 mg 325 mg PO BID 10/23/19 06/29/24 History iron) tablet multivitamin (Multiple Vitamins 1 tab PO BID #90 tabs 06/22/20 06/29/24 Rx tablet) diclofenac sodium 1 % topical gel 2 gm topical QID PRN Pain 01/13/22 06/29/24 History calcium citrate 200 mg PO DAILY 05/15/22 06/29/24 History docusate sodium 100 mg capsule 100 mg PO BID PRN Constipation 05/22/23 06/29/24 History (Colace) Walking Cane #1 ea 08/10/23 06/27/24 Rx cyanocobalamin (vitamin B-12) 1,000 mcg PO DAILY #30 caps 10/05/23 06/29/24 Rx 1,000 mcg capsule pravastatin 40 mg tablet 40 mg PO QAM #90 tabs 01/15/24 06/29/24 Rx oxycodone 10 mg tablet 10 mg PO Q6H PRN pain #60 tabs 04/03/24 06/29/24 Rx fluticasone propionate 50 1 spray intranasal DAILY PRN 04/17/24 06/29/24 History mcg/actuation nasal Congestion spray,suspension oxycodone 10 mg tablet,crush 10 mg PO BID #60 tabs 04/21/24 06/29/24 Rx resistant,extended release 12 hr (OxyContin) nystatin 100,000 unit/gram topical 1 applic topical BID PRN yeast #60 04/22/24 06/29/24 Rx powder grams metoprolol succinate 100 mg 100 mg PO QAM #90 tabs 04/24/24 06/29/24 Rx tablet,extended release 24 hr montelukast 10 mg tablet 10 mg PO HS #90 tabs 04/30/24 06/29/24 Rx bupropion HCl 150 mg tablet,12 hr 150 mg PO QAM #90 ea 05/04/24 06/29/24 Rx sustained-release pantoprazole 40 mg tablet,delayed 40 mg PO QAM #90 tabs 05/04/24 06/29/24 Rx release apixaban 2.5 mg tablet (Eliquis) 2.5 mg PO BID #60 tabs 05/12/24 06/29/24 Rx losartan 25 mg tablet 25 mg PO QAM #90 tabs 06/05/24 06/29/24 Rx ondansetron 4 mg disintegrating 4 mg PO TID PRN nausea and 06/16/24 06/29/24 Rx tablet vomiting #30 tabs lorazepam 0.5 mg tablet 0.5 mg PO HS #30 tabs 06/18/24 06/29/24 Rx buspirone 5 mg tablet 5 mg PO UD #30 tabs 07/02/24 Rx gabapentin 300 mg capsule 300 mg PO TID #90 caps 07/02/24 Rx Patient History Medical History Postlaminectomy syndrome of lumbosacral region Chronic narcotic use Cervical post-laminectomy syndrome Cervical disc disease Brain atrophy reported per family, "confusion has gotten better since family has taken over medication administration" Chronic pain syndrome Infection due to Enterococcus hx, 12/2023 Tachycardia hx, 12/2023, isolated incident per family Elevated troponin I level hx, 12/2023, isolated incident per family; admitted to [facility] for "a few days, no recent issues" Necrosis of surgical wound Postoperative skin necrosis noted in EMR 09/28/23 MCCLAIN (nonalcoholic steatohepatitis) hx Depression Asthma no inhalers, well controlled per pt Enlarged liver hx > resolved per pt Spinal stenosis History of urinary retention "just happens when I take too many pain pills" Hyperlipidemia HTN (hypertension) History of COVID-19 06/29/20 HOSPITALIZED WITH PNEUMONIA [facility] 06/2021 RECOVERED AT HOME Surgical History Hx of knee surgery I&D left knee w/poly exchange History of total right knee replacement History of back surgery x3 total > 06/02/19 Dr. Simon Templeton at [facility]- Midline prone multilevel osteotomies, Correction of flat back deformity, Extension of fusion to T9, T10, and T11 kyphoplasty Status post left knee replacement History of colonoscopy History of tooth extraction History of surgery on right wrist History of cataract surgery bilat Nausea and vomiting after administration of anesthetic agent and syncope History of tonsillectomy and adenoidectomy History of appendectomy History of gastric bypass more than 5 years ago History of neck surgery ACDF > has trouble tilting head back for long periods History of hysterectomy History of esophagogastroduodenoscopy History of cholecystectomy History of section x4 History of arthroscopy of knee right Family History Father Diabetes Heart problem Cancer Other No family history of adverse response to anesthesia Social History Smoking Status: Former smoker Tobacco Type: Cigarettes Age Started Using Tobacco: 14; Age Quit Using Tobacco: 40; packs per day: 1; Second Hand Exposure: No; Do You Dip or Chew Tobacco: No; Hx Alcohol Use: No Hx Substance Use: No Preferred Language: Hong Konger Communication Ability: Effective Hearing Ability: Use of Hearing Aid Collar Separator Required: No Beliefs That Will Affect Care: None marital status: Current Living Situation: Spouse Current Living Situation Comment: LIVES WITH SPOUSE, ADULT SON current occupational status: disabled Feels Safe at Home: Yes Assistive Devices: Walker Review of Systems Review of Systems: All systems reviewed & are unremarkable except as noted in HPI & below Physical Exam Physical Exam: When I entered the room she is up standing independently at the bathroom sink brushing her teeth She is in no acute distress Alert and oriented x 3 She ambulates independently throughout the room She has 5 5 bilateral finger intrinsics, wrist extensors, wrist flexors, biceps, triceps, deltoid No evidence of upper motor neuron signs negative Lhermitte's, negative Spurling sign Results & Data Vital Signs (Past 12 Hours) Vital Signs Temp Pulse Pulse Resp BP BP Pulse Ox 07/02/24 08:01 36.5 C 80 77 19 146/76 H 153/83 H 97 07/02/24 07:35 36.5 C 80 19 146/76 H 97 07/02/24 03:19 36.4 C L 96 H 16 156/86 H 96 O2 Del Method 07/02/24 08:01 07/02/24 07:35 Room Air 07/02/24 03:19 Room Air Diagnostic Findings [place], [place] [phone] Magnetic Resonance Report Patient: JADEN NOBLE Admit Date: 06/29/24 MR#: [id number] Address1: [address] [place] [address] Acct ID:[id number] Address2: Date: 1965 [facility] Zip: [place] [address] Age: 59 Location: 4W Sex: F Room/Bed: [facility] Att Phy: John Huntley MD Diagnosis: HEADACHE, TREMOR, CAN'T WALK [place] Phy: Larry Gonzalez DO Service Date: 06/30/24 [facility] Phy: Interpreting Phy: Ana Mistry MDAdmit Phy: Bao Mendez MD Ordering Phy: John Huntley MD cc: ~ Exam(s): MRI C SPINE EXAM: MR Cervical Spine Without Intravenous Contrast CLINICAL HISTORY: Reason for exam: pt with possible radicular symptoms and h/o surger. TECHNIQUE: Magnetic resonance images of the cervical spine without intravenous contrast in multiple planes. COMPARISON: Comparison made to prior CT angiogram of the neck from June 29, 2024. FINDINGS: The study is limited secondary to motion artifact. Vertebrae: There are 7 cervical type vertebral bodies with a mild generalized curve to the left and normal cervical lordosis. There is normal vertebral body height and alignment. The bone marrow signal is normal. No acute fracture. Spinal cord: There is flattening the ventral cord at C4-5 and C6-7 with increased cord signal at C4-5 concerning cord edema. The craniocervical junction is normal without onset of Chiari malformation. Soft tissues: The cervical flow voids are intact. DISCS/SPINAL CANAL/NEURAL FORAMINA: C2-C3: There is mild disc degeneration with annular disc bulge flattening the ventral thecal sac. C3-C4: There is mild disc degeneration with annular disc bulge flattening the ventral thecal sac. C4-C5: There is mild disc degeneration with annular disc bulge flattening the ventral card and prominent ligamentum flavum flattening the dorsal cord with increased cord signal causing a critical spinal canal stenosis with AP dimer measuring 5 mm. C5-C6: There is anterior fusion across these segments. Mild to moderate facet joint arthropathy with mild to moderate synovitis with joint effusions. C6-C7: Advanced disc degeneration with annular disc bulge asymmetric to the left flattening the ventral cord without evidence of abnormal cord signal causing a severe spinal canal stenosis with AP diameter measuring 7 mm. C7-T1: Moderate disc degeneration with annular disc bulge flattening the ventral thecal sac. IMPRESSION: 1. Advanced disc degeneration at C6-7, moderate disc degeneration at C7- T1, and mild disc degeneration at C2-3, C3-4 and C4-5 with annular disc bulging flattening the ventral thecal sac and flattening the ventral cord at C4-5 and C6-7 with subtle increased cord signal at C4-5 concerning cord edema. Recommend neurosurgical consult for decompression. 2. There is a critical spinal canal stenosis at C4-5 and severe stenosis at C6-7. 3. The neural foramina are poorly visualized secondary to motion artifact. 4. No evidence of fracture, infection or tumor. Electronically signed by: Ana Mistry MD 06/30/24 23:31 PM Dictated: 06/30/242330 Transcribed: 06/30/242330 [place], [place] [phone] CT Scan Report Patient: JADEN NOBLE Admit Date: 06/29/24 MR#: [id number] Address1: [address] [place] [address] Acct ID:[id number] Address2: Date: 1965 [facility] Zip: [place] [address] Age: 59 Location: 4W Sex: F Room/Bed: [facility] Att Phy: John Huntley MD Diagnosis: HEADACHE, TREMOR, CAN'T WALK [place] Phy: Larry Gonzalez DO Service Date: 07/01/24 Fam Phy: Interpreting Phy: Timmy Bradley MDAdmit Phy: Bao Mendez MD Ordering Phy: Molina BurrellD.O. cc: ~ CT cervical spine wo con CT DOSE: 376.36 mGy.cm CLINICAL HISTORY: neck pain. COMPARISON: 06/29/2024 TECHNIQUE: Multiple axial CT images of the cervical spine were obtained without contrast. A dose lowering technique was utilized adhering to the principles of ALARA. FINDINGS: Anterior plate screw fusion at C5-6 shows no hardware complication. There is severe degenerative disc disease at C6-7. There is minimal retrolisthesis of C3 on 4. Otherwise normal alignment. No fracture seen. There is a small bone cyst at the odontoid. No severe central canal narrowing seen. There is mild bilateral neural foraminal narrowing at C6-7. IMPRESSION: 1. No fracture or hardware competition seen. 2. Degenerative changes as described. ACT 112: Negative or not required by law. The above report was generated using voice recognition software. It may contain grammatical, syntax or spelling errors. Electronically signed by: Timmy Bradley M.D. 07/01/2024 1:38 PM Dictated: 07/01/241334 Transcribed: 07/01/241334 [place], [place] [phone] XRay Report Patient: JADEN NOBLE Admit Date: 06/29/24 MR#: [id number] Address1: [address] [place] [address] Acct ID:[id number] Address2: Date: 1965 [facility] Zip: [place] [address] Age: 59 Location: 4W Sex: F Room/Bed: [facility] Att Phy: John Huntley MD Diagnosis: HEADACHE, TREMOR, CAN'T WALK [place] Phy: Larry Gonzalez DO Service Date: 07/01/24 Fam Phy: Interpreting Phy: Nicola Lara MDAdmit Phy: Bao Mendez MD Ordering Phy: Molina Burrell D.O. cc: ~ XR cervical spine w flex/ext CLINICAL HISTORY: Neck pain. COMPARISON STUDY: MRI of the cervical spine June 30, 2024. Cervical spine CT July 01, 2024. FINDINGS: Postoperative findings consistent with C5-C6 anterior discectomy and fusion. The hardware is intact. There is no evidence for cervical spine instability during flexion or extension. Severe disc space narrowing with osteophytosis at C6-C7 is present. There is moderate multilevel facet arthrosis. There are no osseous lesions. Prevertebral soft tissues are unremarkable. No cervical spine fractures. IMPRESSION: 1. No cervical spine fractures. 2. Status post C5-C6 anterior discectomy and fusion. Hardware intact. 3. No evidence for cervical spine instability during flexion or extension. 4. Severe disc space narrowing with osteophyte at C6-C7. Moderate multilevel facet arthrosis. ACT 112: Negative or not required by law. Electronically signed by: Nicola Lara M.D. 07/01/2024 1:31 PM Dictated: 07/01/24 1328 Transcribed: 07/01/24 132
--- NOTE | 2024-07-05 07:34 | Discharge Summary ---
Discharge Summary Date of Service July 02, 2024 Principal Dx & Hospital Course #1 = Principal Diagnosis (1) Stroke-like symptom: (2) Infection of total left knee replacement: (3) UTI (urinary tract infection): (4) Acute kidney injury: Plan This is a 59 year old female with past medical history of anxiety, depression, HTN, HLD, chronic narcotic who presented to the ED on 06/29/24 with a chief complaint of stroke like symptoms, stoke is ruled out by imaging, symptoms are positional and C spine MRI suggest some pathology at C4-5 with marrow edema, review of her medications lends concern for encephalopathy due to medications at home #stroke like symptoms stroke ruled out Head CT/CTA, neck CTA negative; Brain MRI negative, CXR negative no signs of infectious etiology resume Losartan PT/OT consultation ok for home #cervical Radiculopathy, concern of this on MRI cervical spine, supportive of Dr Burrell seeing pt, on review of Additional images, no surgical intervention recommended and Dr Burrell does not feel cervical spine issue can explain presentation # metabolic encephalopathy, pt has had stroke ruled out, urine culture <1000 recent explant and spacer in place of Left tka, 05/08/24 final determination of surgical correction still pending could be from medications, including antibiotics as cefepime can cause some encephalopathy,urine culture ruled out uti poa started to reduce/eliminate meds, especially central supply clerk active meds, pt does have history of back surgery, estrada and gastric bypass which creates need for symptoms control and concern of medication absorption discussed case with ID, has now completed IV Cefepime and IV daptomycin for that course the LD was supposed to be 06/19/24 Hold statin while on Dapto - consult orhto for planning of future knee re implan tation ARTUR resolved after fluid rehydration GERD: PPI Chronic pain: Oxycontin, significantly reduce dose of gabapentin Mental Health: Bupropion, buspirone adjust dose DVT Prophylaxis: Eliquis Code status: full updated via phone 07/01, 07/02. also spoke to son on day of discharge Notes For Next Care Provider continue to work to reduce central supply clerk affecting medications Admission HPI Per Admitting Provider This is a 59 year old female with past medical history of anxiety, depression, HTN, HLD, chronic narcotic who presented to the ED on 06/29/24 with a chief complaint of stroke like symptoms. The patient was seen and examined at bedside. present at time of encounter. Patient reports that yesterday she started to have difficulty finding her words. She was experiencing a frontal headache. 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 She has b/l arm and leg weakness. She has also been stuttering and experiencing tremors. Patient states that all of these symptoms are new for her and this has never happened before. She denies CP, SOB, N/V, abdominal pain, changes in bowels. She denies any urinary symptoms including frequency/urgency/hematuria/dysuria. She is currently on IV abx therapy outpatient for an ongoing knee infection. Per documentation, patient is on Cefepime and daptomycin. She reports she is following closely with ID and is set to get repeat cultures of her knee in the upcoming weeks. While in the ED patient underwent a head CT/CTA, neck CTA that was negative. CBC was w/o leukocytosis, hgb stable. BMP w/ creatinine of 1.36 which is above her baseline of 0.7-0.8. TSH WNL. Urinalysis + for UTI w/ a UC pending. Discharge Exam Pt is awake and alert, does endorse some pain trying to reduce pain meds and other adjunctive pain meds to reduce central supply clerk de pression Discharge Plan Discharge Items Patient Disposition: Home - Home Health Services Reason For Visit: HEADACHE, TREMOR, CAN'T WALK Discharge Diagnosis: possible medication affects current temporary left knee antibiotic spacer patent foramen ovale Activity: Per Instructions section Activity Comment: consider outpt Physical therapy Non-emergency contact: Primary Care Provider and Specialist Call non-emergency contact if: your symptoms worsen Follow-up/Referrals: Larry Gonzalez DO [Primary Care Provider] - 07/07/24 10:30 am (Hospital follow up primary care appointment scheduled for 07/07/24 at 10:30 with Glory Zambrano) Kwasi Felix MD [Surgeon] - 07/04/24 1:45 pm Diet: Regular Addtl Attending Provider Instructions: During your stay we made sure that there was not an infection, I did discuss your case with infectious disease and they feel we can stop your iv antibiotics, you will need follow up with Orthopedics we did evaluate your neck to see if you have any narrowing that would cause your symptoms and although you have some arthritic changes there is no significant narrowing to warrant concern during evaluation of your heart it was found that you have a common, but present connection from the left to right upper heart, this is called a patent foramen ovale, it occurs in about 25% of adults, it usually does not cause any symptoms but does make you have a higher risk of stroke, there are not specific medications for this but continued discussion with your primary care physician would be beneficial Addtl Labor Relations Manager Provider Instructions: We have reduces some of your medication doses and stopped others, it will be recommended that you continue to work on reducing your medictions with your primary care doctor Dr Felix's office wants to see you sunday07/04/24 at 145 pm in the [place] office. Pending Studies at Discharge: No Stand-Alone Forms: My [facility] [email or web address], Smoking Cessation Medications and DC Order Prescriptions: New gabapentin 300 mg Capsule 300 mg PO TID Qty: 90 0RF Rx Instructions: take 3x a day for one week then twice a day for one week, then just at night buspirone 5 mg tablet 5 mg PO UD Qty: 30 0RF Rx Instructions: one 3x a day for one week then 2x a day for one week then once a day in am for one week then stop Continued multivitamin [Multiple Vitamins] Tablet 1 tab PO BID Qty: 90 3RF pravastatin 40 mg tablet 40 mg PO QAM Qty: 90 3RF Hold Instructions: Resume on 11/15/23. hold while on IV daptomycin oxycodone 10 mg tablet 10 mg PO Q6H PRN (Reason: pain) Qty: 60 0RF oxycodone [OxyContin] 10 mg tablet,oral only,ext.rel.12 hr 10 mg PO BID Qty: 60 0RF nystatin 100,000 unit/gram powder 1 applic topical BID PRN (Reason: yeast) Qty: 60 0RF metoprolol succinate 100 mg tablet extended release 24 hr 100 mg PO QAM Qty: 90 1RF montelukast 10 mg tablet 10 mg PO HS Qty: 90 3RF bupropion HCl 150 mg tablet sustained-release 12 hr 150 mg PO QAM Qty: 90 0RF pantoprazole 40 mg tablet,delayed release (DR/EC) 40 mg PO QAM Qty: 90 0RF losartan 25 mg tablet 25 mg PO QAM Qty: 90 1RF ondansetron 4 mg tablet,disintegrating 4 mg PO TID PRN (Reason: nausea and vomiting) Qty: 30 0RF lorazepam 0.5 mg tablet 0.5 mg PO HS Qty: 30 0RF calcium citrate 200 mg (950 mg) tablet 200 mg PO DAILY ferrous sulfate 325 mg (65 mg iron) tablet 325 mg PO BID docusate sodium [Colace] 100 mg capsule 100 mg PO BID PRN (Reason: Constipation) (DME) Walking Cane Misc See Rx Instructions .Route Qty: 1 0RF Rx Instructions: As directed; falls diclofenac sodium 1 % gel 2 gm TOP QID PRN (Reason: Pain) Rx Instructions: apply to single elbow, wrist or hand; for hand includes palm/fingers/back of hand cyanocobalamin (vitamin B-12) 1,000 mcg capsule 1,000 mcg PO DAILY Qty: 30 0RF fluticasone propionate 50 mcg/actuation spray,suspension 1 spray INTRANASAL DAILY PRN (Reason: Congestion) Eliquis 2.5 mg Tablet 2.5 mg PO BID Qty: 60 0RF Discontinued meclizine 25 mg tablet 25 mg PO TID PRN (Reason: dizziness) Qty: 90 2RF buspirone 15 mg tablet 15 mg PO TID Qty: 90 2RF cyclobenzaprine 10 mg tablet 10 mg PO TID Qty: 90 1RF gabapentin 600 mg tablet 600 mg PO TID Qty: 90 0RF Unknown Antibiotic Iv Med Rx Instructions: PT'S SPOUSE REPORTS PT RECEIVES TWO NAME- UNKNOWN IV MEDS SEVEN DAYS A WEEK, ADMINISTERED BY HIM THRU PT'S PICC LINE. ONE OF THESE MEDS SPOUSE BELIEVES IS DOXYCYCLINE. IT IS ADMINISTERED DAILY AT 1500. SPOUSE CANNOT REMEMBER THE NAME OF THE SECOND ANTIBIOTIC, BUT STATES HE ADMIINISTERES IT AT 0600,1400, AND 2200. PT HAS BEEN ON THESE MEDS SINCE EARLY MAY 2024. THE MEDS AND SUPPLIES FOR ADMINISTRATION OF SAME ARE DELIVERED TO PT'S HOME FROM [facility] ON THE DIRECTION OF [facility] INFECTIOUS DISEASE. ALSO UNKNOWN IS THE DOSE OF EACH MED, AND THE DURATION OF THESE ADMINISTRATIONS. PT'S SPOUSE STATES THESE MEDS WERE INITIALLY ORDERED BY A [facility] PROVIDER. Discharge Orders: Discharge Order (Routine); Ordered 07/02/24 Ordered By: John E. Covaleski Admission Data Admit Date/Time: 06/29/24 17:48 Attending Provider: John Huntley Admit Provider: Bao Mendez Primary Care Provider: Larry Gonzalez Other Providers: Bao Mendez; Kwasi Felix; Molina Burrell Other Interventions: Discharge Summary Assessment (RN) Last Done: 07/02/24 08:01 Hospital Stay Data Consultations 06/29/24 17:30 ED Decision to Admit Stat 06/30/24 18:05 Consult Orthopedic Surgery Routine 07/01/24 09:31 Consult Orthopedic Spine Surgery Routine Diagnostic Imagining Performed 06/29/24 14:48 CT angio head w con Stat CT angio neck with con Stat CT head/brain wo con Stat 06/29/24 17:47 MRI Brain [MR brain wo con] Stat 06/30/24 17:43 MRI Cervical [MR cervical spine wo con] Routine 07/01/24 12:06 CT cervical spine wo con Urgent Pending Results Patient Have Any Pending Studies at Discharge: No Discharge Instructions Given to Patient (Per Discharging Provider) During your stay we made sure that there was not an infection, I did discuss your case with infectious disease and they feel we can stop your iv antibiotics, you will need follow up with Orthopedics we did evaluate your neck to see if you have any narrowing that would cause your symptoms and although you have some arthritic changes there is no significant narrowing to warrant concern during evaluation of your heart it was found that you have a common, but present connection from the left to right upper heart, this is called a patent foramen ovale, it occurs in about 25% of adults, it usually does not cause any symptoms but does make you have a higher risk of stroke, there are not specific medications for this but continued discussion with your primary care physician would be beneficial Total Time Total Time Spent Total Time Spent (In Minutes): greater than 30 minutes were required to compete dc process Coding Level of Care Code 25281 INP/OBS DISCH >30 MIN Diagnoses Stroke-like symptom R29.90 Infection of total left knee replacement, sequela T84.54XS Encounter type: sequela UTI (urinary tract infection) N39.0 Acute kidney injury N17.9
== END 2024-07-02 11:08 | disposition home health service (06) | DRG 91 ==
LOC: ED 13:37 → SUATTDRO 17:48 → 4W 17:48

== ENCOUNTER 2025-01-21 08:12 | Inpatient (IN) ==
--- NOTE | 2025-01-15 16:07 | Anesthesiology Consultation ---
Date of Service January 15, 2025 Assessment & Plan (1) Encounter for pre-operative examination: Plan - PCP office visit 01/14/25 [place]: "...Urethra appears inflamed, red, and swollen. No significant blood present; last urine culture grew E. coli, previously treate d with Macrobid. Urine sample will be sent for culture to confirm diagnosis. If urine culture shows no evidence of UTI, further investigation needed to determine cause of bleeding. If symptoms persist despite completing antibiotic course, imaging studies such as ultrasound or CT scan will be considered..." Surgeon's office made aware of above and pending urine culture. - s/p Left Knee Explantation Cement Spacer, Left knee cement spacer reimplantation, left knee electrocautery synovectomy & bone debridement 09/17 24 [facility] LMA#4 + PNB. - Per home coordinator on 01/15/25: No known infectious disease contacts, current infectious disease symptoms in past 10 days or COVID positive test result in the past 30 days. Chart Review Chart Review: Acceptable Risk for Surgery and Patient NOT seen in Pre Admission Testing History Surgery Operation Date: 01/21/25 10:10 Proposed Procedures p Left Knee Explantation Cement Spacer, Revision Total Knee Arthroplasty - Kwasi Felix MD Height/Weight Height: 4 ft 10 in Weight: 53.977 kg Allergies Allergy/AdvReac Type Severity Reaction Status Date / Time carisoprodol Allergy Severe HALLUCINATI Verified 01/15/25 15:32 ONS aspirin Allergy Unknown NOT TO Verified 01/15/25 15:32 TAKE S/P GATRIC BYPASS glycopyrrolate [From Robinul] Allergy Unknown Unknown Verified 01/15/25 15:33 clarithromycin [From Biaxin] AdvReac Mild sick Verified 01/15/25 15:32 lactose AdvReac Mild Gastrointestinal Verified 01/15/25 15:32 Upset oxymorphone AdvReac Mild sick Verified 01/15/25 15:32 sulfamethoxazole AdvReac Mild sick Verified 01/15/25 15:32 [From Bactrim] trimethoprim [From Bactrim] AdvReac Mild sick Verified 01/15/25 15:32 Medications Home Medications Medication Instructions Recorded Confirmed Last Taken ferrous sulfate 325 mg (65 mg 325 mg PO BID 10/23/19 01/15/25 09/16/24 08:00 iron) tablet multivitamin (Multiple Vitamins 1 tab PO BID #90 tabs 06/22/20 01/15/25 09/10/24 tablet) diclofenac sodium 1 % topical gel 2 gm topical QID PRN Pain 01/13/22 01/15/25 09/15/24 calcium citrate 200 mg PO DAILY 05/15/22 01/15/25 09/10/24 docusate sodium 100 mg capsule 100 mg PO BID PRN Constipation 05/22/23 01/15/25 10/01/23 10:30 (Colace) Walking Cane #1 ea 08/10/23 01/14/25 Unknown fluticasone propionate 50 1 spray intranasal DAILY PRN 04/17/24 01/15/25 Unknown mcg/actuation nasal Congestion spray,suspension walker 07/21/24 01/14/25 Unknown metoprolol succinate 100 mg 100 mg PO QAM #90 tabs 08/19/24 01/15/25 09/17/24 06:45 tablet,extended release 24 hr cholecalciferol (vitamin D3) 25 25 mcg PO DAILY 09/01/24 01/15/25 09/10/24 mcg (1,000 unit) capsule cetirizine 5 mg-pseudoephedrine ER 1 tab PO BID 09/08/24 01/15/25 09/16/24 08:00 120 mg tablet,extended release,12hr (Zyrtec-D) nystatin 100,000 unit/gram topical 1 applic topical UD PRN yeast 09/08/24 01/15/25 Unknown powder gabapentin 300 mg capsule 300 mg PO HS #90 caps 09/16/24 01/15/25 09/11/24 oxycodone 10 mg tablet 10 mg PO Q6 PRN pain #18 tabs 09/21/24 01/15/25 Unknown desonide 0.05 % topical cream 1 applic topical UD PRN Skin 10/09/24 01/15/25 Unknown Irritation #60 grams montelukast 10 mg tablet 10 mg PO HS #90 tabs 11/18/24 01/15/25 Unknown bupropion HCl 150 mg tablet,12 hr 150 mg PO QAM #90 ea 12/01/24 01/15/25 Unknown sustained-release (Wellbutrin SR) doxycycline hyclate 100 mg capsule 100 mg PO BID 12/01/24 01/15/25 Unknown ondansetron 4 mg disintegrating 4 mg PO TID PRN nausea and 12/03/24 01/15/25 Unknown tablet vomiting #30 tabs losartan 25 mg tablet 25 mg PO QAM #90 tabs 12/13/24 01/15/25 Unknown pantoprazole 40 mg tablet,delayed 40 mg PO BID #60 tabs 12/13/24 01/15/25 Unknown release (Protonix) lorazepam 0.5 mg tablet 0.5 mg PO HS #30 tabs 12/17/24 01/15/25 Unknown sucralfate 1 gram tablet (Carafate) 1 g PO QID #120 tabs 12/17/24 01/15/25 Unknown nitrofurantoin 100 mg PO Q12H 5 days #10 caps 01/15/25 01/15/25 Unknown monohydrate/macrocrystals 100 mg capsule (Macrobid) oxycodone 10 mg tablet,extended 10 mg PO BID 01/15/25 01/15/25 Unknown release,12 hr Past Medical History Medical History Anxiety and depression Brain atrophy reported per family, "confusion has gotten better since family has taken over medication administration" Cervical disc disease Cervical post-laminectomy syndrome Chronic narcotic use Chronic pain syndrome Elevated troponin I level hx, 12/2023, isolated incident per family; admitted to [facility] for "a few days, no recent issues" Enlarged liver hx > resolved per pt GERD (gastroesophageal reflux disease) History of anemia History of asthma over 30 + yr ago. History of DVT (deep vein thrombosis) both legs (unknown date details/pt notes before her wrist surgery). blood thinner was rx'd and since d/c'd. per pt: on eliquis since august 2024 due to multiple knee surgeries. History of postoperative nausea and vomiting History of urinary retention "just happens when I take too many pain pills" HTN (hypertension) Hyperlipidemia Infection due to Enterococcus hx, 12/2023 M[place]LAIN (nonalcoholic steatohepatitis) controlled per pt Necrosis of surgical wound Postoperative skin necrosis noted in EMR 09/28/23 - resolved per pt. 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 Simon Templeton at [facility]- Midline prone multilevel osteotomies, Correction of flat back deformity, Extension of fusion to T9, T10, and T11 kyphoplasty History of cataract surgery bilat History of section x4 History of cholecystectomy History of colonoscopy History of esophagogastroduodenoscopy History of gastric bypass more than 5 years ago History of hysterectomy History of left knee surgery (05/2024) for hx infection / ? procedure details/ cement spacer History of neck surgery ACDF > has trouble tilting head back for long periods History of surgery on right wrist History of tonsillectomy and adenoidectomy History of tooth extraction History of total right knee replacement Hx of knee surgery (09/2023) I&D left knee w/poly exchange>most recent surgery 09/2024 at [place] Status post left knee replacement (08/2023) Social History Smoking Status: Former smoker Do You Dip or Chew Tobacco: No Smoking End Date: 20+ years ago Hx Alcohol Use: No substance use type: does not use Testing Laboratory Results 01/08/25 WBC: 4.8 H/H: 13/40 PLATELETS: 241,000 SODIUM: 143 POTASSIUM: 4.2 CHLORIDE: 104 CO2: 26 BUN: 15 CREATININE: 1.1 GLUCOSE: 102 PT: 13.3 PTT: 24 INR: 1 UA: negative Electrocardiogram Date: 06/29/24 NSR, rate 83 bpm Chest X-Ray Date: 09/19/24 *1 view* A right upper extremity PICC tip terminates over the right side of the facial region presumably in the internal jugular vein. Adjustment recommended. Echocardiogram Date: 06/30/24 EF 60-65% No LV regional wall motion abnormalities Mild cLVH Grade I diastolic dysfunction Cervical Spine Date: 07/01/24 1. No fracture or hardware competition seen. 2. Degenerative changes as described. MRI 06/30/24 1. Advanced disc degeneration at C6-7, moderate disc degeneration at C7-T1, and mild disc degeneration at C2-3, C3-4 and C4-5 with annular disc bulging flattening the ventral thecal sac and flattening the ventral cord at C4-5 and C6-7 with subtle increased cord signal at C4-5 concerning cord edema. Recommend neurosurgical consult for decompression. 2. There is a critical spinal canal stenosis at C4-5 and severe stenosis at C6- 7. 3. The neural foramina are poorly visualized secondary to motion artifact. 4. No evidence of fracture, infection or tumor. Other Testing Abdomen pelvis CT 07/25/24 No findings to explain the patient's pain. Brain MRI 06/29/24 1. No acute intracranial abnormality was identified. 2. No evidence of acute infarction or hemorrhage(stable). 3. Age-related involutional and microvascular ischemic changes(stable). Head CT, head and neck CTA 06/29/24 1. Head CTA demonstrates no aneurysm or stenosis of the major intracranial arteries, 2. Neck CTA demonstrates no stenosis of the major cervical arteries. 3. No intracranial hemorrhage on the noncontrast head CT.
--- NOTE | 2025-01-19 13:25 | History & Physical Report ---
Date of Service January 19, 2025 Assessment & Plan (1) Infection of total left knee replacement: Plan: Clinically resolved infection status post multiple surgeries last being second articulated cement antibiotic spacer. Labs are back to normal patient asymptomatic with regard to infection. Proceed with explantation of cement spacer femoral and tibial and patellar components and proceeding with revision total knee replacement femur tibia patella. Encounter type: sequela Qualified Code(s): T84.54XS - Infection and inflammatory reaction due to internal left knee prosthesis, sequela (2) Arthrofibrosis of total knee arthroplasty: Encounter type: sequela Qualified Code(s): T84.82XS - Fibrosis due to internal orthopedic prosthetic devices, implants and grafts, sequela History of Present Illness Primary Care Provider: Larry Gonzalez DO 59-year-old female with long history of complications status post left total knee arthroplast with wound healing issues and arthrofibrosis and subsequent infection treated by DAIR procedure followed by explantation and placement of articulating cement spacer followed by revision of articulating cement spacer to another articulated cement spacer due to positive frozen sections but cultures negative and remained to be negative and ESR and C-reactive protein remained to be normal. Patient denies headaches, sweats, fevers, chills, double vision, blurred vision, cough, sore throat, dysphagia, chest pain, sob, wheezing, n/v/d/c, numbness, tingling, fatigue, urinary symptoms. ROS positive for MCCLAIN, chronic pain syndrome on chronic pain meds, depression, chronic low back pain without sciatica, acid reflux heartburn. Allergies Allergy/AdvReac Type Severity Reaction Status Date / Time carisoprodol Allergy Severe HALLUCINATI Verified 01/15/25 15:32 ONS aspirin Allergy Unknown NOT TO Verified 01/15/25 15:32 TAKE S/P GATRIC BYPASS glycopyrrolate [From Robinul] Allergy Unknown Unknown Verified 01/15/25 15:33 clarithromycin [From Biaxin] AdvReac Mild sick Verified 01/15/25 15:32 lactose AdvReac Mild Gastrointestinal Verified 01/15/25 15:32 Upset oxymorphone AdvReac Mild sick Verified 01/15/25 15:32 sulfamethoxazole AdvReac Mild sick Verified 01/15/25 15:32 [From Bactrim] trimethoprim [From Bactrim] AdvReac Mild sick Verified 01/15/25 15:32 Home Medications Medication Instructions Recorded Confirmed Type ferrous sulfate 325 mg (65 mg 325 mg PO BID 10/23/19 01/15/25 History iron) tablet multivitamin (Multiple Vitamins 1 tab PO BID #90 tabs 06/22/20 01/15/25 Rx tablet) diclofenac sodium 1 % topical gel 2 gm topical QID PRN Pain 01/13/22 01/15/25 History calcium citrate 200 mg PO DAILY 05/15/22 01/15/25 History docusate sodium 100 mg capsule 100 mg PO BID PRN Constipation 05/22/23 01/15/25 History (Colace) Walking Cane #1 ea 08/10/23 01/14/25 Rx fluticasone propionate 50 1 spray intranasal DAILY PRN 04/17/24 01/15/25 History mcg/actuation nasal Congestion spray,suspension walker 07/21/24 01/14/25 History metoprolol succinate 100 mg 100 mg PO QAM #90 tabs 08/19/24 01/15/25 Rx tablet,extended release 24 hr cholecalciferol (vitamin D3) 25 25 mcg PO DAILY 09/01/24 01/15/25 History mcg (1,000 unit) capsule cetirizine 5 mg-pseudoephedrine ER 1 tab PO BID 09/08/24 01/15/25 History 120 mg tablet,extended release,12hr (Zyrtec-D) nystatin 100,000 unit/gram topical 1 applic topical UD PRN yeast 09/08/24 01/15/25 History powder gabapentin 300 mg capsule 300 mg PO HS #90 caps 09/16/24 01/15/25 Rx oxycodone 10 mg tablet 10 mg PO Q6 PRN pain #18 tabs 09/21/24 01/15/25 Rx desonide 0.05 % topical cream 1 applic topical UD PRN Skin 10/09/24 01/15/25 Rx Irritation #60 grams montelukast 10 mg tablet 10 mg PO HS #90 tabs 11/18/24 01/15/25 Rx bupropion HCl 150 mg tablet,12 hr 150 mg PO QAM #90 ea 12/01/24 01/15/25 Rx sustained-release (Wellbutrin SR) doxycycline hyclate 100 mg capsule 100 mg PO BID 12/01/24 01/15/25 History ondansetron 4 mg disintegrating 4 mg PO TID PRN nausea and 12/03/24 01/15/25 Rx tablet vomiting #30 tabs losartan 25 mg tablet 25 mg PO QAM #90 tabs 12/13/24 01/15/25 Rx pantoprazole 40 mg tablet,delayed 40 mg PO BID #60 tabs 12/13/24 01/15/25 Rx release (Protonix) lorazepam 0.5 mg tablet 0.5 mg PO HS #30 tabs 12/17/24 01/15/25 Rx sucralfate 1 gram tablet (Carafate) 1 g PO QID #120 tabs 12/17/24 01/15/25 Rx oxycodone 10 mg tablet,extended 10 mg PO BID 01/15/25 01/15/25 History release,12 hr Past Med/Surg History Problem List Arthrofibrosis of total knee arthroplasty Memory loss Metabolic encephalopathy Cervical spinal stenosis Allergic rhinitis Infection of total left knee replacement Abrasion, right knee, initial encounter Anemia Prepatellar bursitis Arthritis GERD (gastroesophageal reflux disease) Seborrheic dermatitis of scalp Chronic narcotic use Opioid dependence with current use Anxiety disorder Cervical post-laminectomy syndrome Postlaminectomy syndrome of lumbosacral region Bilateral knee pain Asthma (Chronic) Cervical disc disease (Chronic) Chronic pain syndrome (Chronic) Depression (Chronic) HTN, goal below 140/80 (Chronic) Hyperlipidemia (Chronic) Intervertebral disc degeneration (Chronic) MCCLAIN (nonalcoholic steatohepatitis) (Chronic) Medical History Anxiety and depression History of DVT (deep vein thrombosis) both legs (unknown date details/pt notes before her wrist surgery). blood thinner was rx'd and since d/c'd. per pt: on eliquis since august 2024 due to multiple knee surgeries. 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 Postlaminectomy syndrome of lumbosacral region Chronic narcotic use Cervical post-laminectomy syndrome Cervical disc disease Brain atrophy reported per family, "confusion has gotten better since family has taken over medication administration" Chronic pain syndrome Infection due to Enterococcus hx, 12/2023 Tachycardia hx, 12/2023, isolated incident per family Elevated troponin I level hx, 12/2023, isolated incident per family; admitted to [facility] for "a few days, no recent issues" Necrosis of surgical wound Postoperative skin necrosis noted in EMR 09/28/23 - resolved per pt. MCCLAIN (nonalcoholic steatohepatitis) controlled per pt Enlarged liver hx > resolved per pt Spinal stenosis History of urinary retention "just happens when I take too many pain pills" Hyperlipidemia HTN (hypertension) Surgical History History of left knee surgery (05/2024) for hx infection / ? procedure details/ cement spacer Hx of knee surgery (09/2023) I&D left knee w/poly exchange>most recent surgery 09/2024 at [place] History of total right knee replacement History of back surgery x3 total > 06/02/19 Dr. Simon Templeton at [facility]- Midline prone multilevel osteotomies, Correction of flat back deformity, Extension of fusion to T9, T10, and T11 kyphoplasty Status post left knee replacement (08/2023) History of colonoscopy History of tooth extraction History of surgery on right wrist History of cataract surgery bilat History of tonsillectomy and adenoidectomy History of appendectomy History of gastric bypass more than 5 years ago History of neck surgery ACDF > has trouble tilting head back for long periods History of hysterectomy History of esophagogastroduodenoscopy History of cholecystectomy History of section x4 History of arthroscopy of knee right Family History Father Diabetes Heart problem Cancer Other No family history of adverse response to anesthesia Social History Smoking Status: Former smoker Tobacco Type: Cigarettes Age Started Using Tobacco: 14; Age Quit Using Tobacco: 40; packs per day: 1; Smoking End Date: 20+ years ago; Second Hand Exposure: No; Do You Dip or Chew Tobacco: No; Hx Alcohol Use: No Preferred Language: Khmer Communication Ability: Effective Hearing Ability: Use of Hearing Aid Coding Quality Coordinator Required: No Beliefs That Will Affect Care: None marital status: Current Living Situation: Family Current Living Situation Comment: and youngest son current occupational status: disabled Feels Safe at Home: Yes Safety Concerns: Feels Safe At This Time Assistive Devices: Cane, Glasses, Hearing Aid - Bilateral and Walker Assistive Devices Comment: reading glasses Review of Systems All systems reviewed & are unremarkable except as noted in HPI & below Physical Exam Constitutional: WD/WN, vitals as above Respiratory: normal respiratory effort; no respiratory distress Cardiovascular: Rate/Rhythm: regular rate and regular rhythm Musculoskeletal: Right knee 0 60 degrees with benign healed incision. Left knee 0 to 95 degrees with benign healed incision some laxity with varus valgus space consistent with articulated spacer. No extensor lag. No drainage no erythema well-healed incision minimal effusion. Skin: no rashes, warm and dry Neurologic: normal touch/pain/proprioception Psychiatric: A+Ox3, euthymic affect Results & Data Diagnostic Findings Well aligned articulating spacer left knee
[~2025-01-21 08:12] MED LIST changes: +BUPIVACAINE 0.25% PF 30 ML VIAL ONE; +BUPIVACAINE 0.5 % 5 MG/1 ML PF 10ML VIAL ONE; +DEXAMETHASONE SOD INJ 4 MG/ML VIAL ONE; +EPINEPHrine INJ 1 MG/ML AMP ONE; -KETAMINE HCL 10MG/ML SYR ONE; -MIDAZOLAM HCL 1 MG/ML 2ML VIAL ONE; -PROPOFOL IV EMULSION 10 MG/ML 20 ML VIAL IV ONE; -ROCURONIUM BROMIDE 10 MG/ML 5 ML VIAL IV ONE; -ROPIVACAINE 0.5% 5 MG/ML 30 ML VIAL ONE; -fentaNYL citrate PF 100 MCG/2 ML VIAL ONE
[2025-01-21] MEDS: LR 60ML/HR IV SCH (08:44)
[2025-01-21] MEDS: LR 15ML/HR IV SCH (08:44)
[2025-01-21] MEDS: VANCOMYCIN HCL / NSS 1,000 MG/270 ML BAG IV SCH (08:51)
[2025-01-21] MEDS: GABAPENTIN 600 MG DOSE PO SCH (08:58)
[2025-01-21] MEDS: FAMOTIDINE 20 MG TAB PO SCH (08:59)
[2025-01-21] MEDS: dexAMETHasone**PF** 10 MG/ML VIAL IV SCH (09:00)
[2025-01-21] MEDS: METOCLOPRAMIDE HCL 10 MG TABLET PO SCH (09:00)
--- NOTE | 2025-01-21 10:21 | History & Physical Bridge Note ---
Date of Service January 21, 2025 History & Physical Bridge Note I have examined the patient, reviewed the History & Physical and in the interval since the performance of the History & Physical I have noted the following changes of clinical significance: no changes noted
[2025-01-21] MEDS ORDERED: MIDAZOLAM HCL 1 MG/ML 2ML VIAL ONE (10:35)
[2025-01-21] MEDS: TRANEXAMIC ACID 1,000 MG **IV Pre-op IV SCH (10:56)
[2025-01-21] MEDS ORDERED: LIDOCAINE 2% 2 ML VIAL/AMP(20MG/ML) INFIL ONE (11:04)
[2025-01-21] MEDS ORDERED: PROPOFOL IV EMULSION 10 MG/ML 20 ML VIAL IV ONE (11:04)
[2025-01-21] MEDS ORDERED: KETAMINE HCL 10MG/ML SYR ONE (11:28)
[2025-01-21] MEDS ORDERED: HYDROmorphone INJ 2 MG/ML SYR/VIAL ONE (12:51)
[2025-01-21] MEDS ORDERED: HYDROmorphone INJ 2 MG/ML SYR/VIAL IV PRN (14:07)
[2025-01-21] MEDS ORDERED: ATROPINE SULFATE 0.1 MG/ML 10ML SYR IV PRN (14:07)
[2025-01-21] MEDS ORDERED: PROMETHAZINE HCL 6.25 MG in SODIUM CHLORIDE 0.9% 50 ML IV PRN (14:07)
[2025-01-21] MEDS ORDERED: ONDANSETRON INJ 2 MG/ML 2 ML VIAL IV PRN (14:07)
[2025-01-21] MEDS: ROPIVACAINE 0.5% HCL/PF 246 MG, Ketorolac (*for OR use only*) 30 MG, EPINEPHrine 30MG/3... INFIL SCH (14:25)
--- NOTE | 2025-01-21 16:25 | Operative Report ---
Post Operative Report Pre & Post Diagnosis Operation Date: 01/21/25 09:55 Pre-Op Diagnosis: Infection of total left knee replacement, status post DAIR followed by explantation and articulated antibiotic spacer performed x 2. Post-Op Diagnosis: Infection of total left knee replacement, status post DAIR followed by explantation and articulated antibiotic spacer performed x 2 I identified the patient and participated in the time-out.: Yes Procedure Operation Date: 01/21/25 09:55 Actual Procedures p Left Knee Explantation Cement Spacer, Revision Total Knee Arthroplasty, 3 components- Kwasi Felix MD Surgeon Kwasi Felix MD Solar Installation Supervisor MARYSOL Aguilera Estimated Blood Loss 40 Findings Consistent with Post-Op Diagnosis Specimens None Drains 2 Hemovac Anesthesia Type General Complications none Disposition Disposition: Recovery Room Indications 59-year-old female with complex history of having left knee replacement and known history of arthrofibrosis and had issues with that postoperatively and skin necrosis issues with wound healing that went on to infection and DAIR procedure where ongoing infection requiring explantation and articulated spacer placement. Patient went back for revision surgery but still had positive white blood cells per high-power field in the tibial area and it was felt that she should have a second antibiotic spacer and more IV antibiotics and oral antibiotics. Patient's inflammatory parameters returned to normal and she is doing well with no signs of infection now. Description of Procedure Patient was placed supine on the operating table and underwent general anesthetic per patient choice. Patient did not want to have any nerve blocks administered. Patient had a pneumatic tourniquet placed about her left upper thigh and left lower extremity was prepped and draped in sterile fashion. Knee exam demonstrated benign appearing scar no drainage no sinus tracts no erythema no significant knee effusion. Some relative laxity to varus valgus stress due to having spacer in place and flexion in a supine position was only to about 70 degrees. The leg was elevated exsanguinated and the pneumatic tourniquet was raised to 300 mmHg. A longitudinal incision was made in her old anterior scar. Skin was incised sharply as well as the subcutaneous flaps which were elevated off the fascia. The entire old fascial closure was intact and some of the PDS suture was still visible. Incision was made through the previous arthrotomy incision through the medial retinaculum extending up into the quadriceps tendon vertically and extended down along the medial tibial tubercle. There was some hemorrhagic synovial fluid that was evacuated no pus noted. Patient was on Eliquis. There was thick scar tissue consistent with typical arthrofibrosis scar tissue post replacement surgery. No visible signs of any obvious infection. Electrocautery synovectomy was performed removing the thickened scar tissue and synovium in the gutters suprapatellar pouch and under the quad tendon and medial retinacular areas. Bleeders were cauterized using the aqua mantis. Sharp dissection was performed to remove the scarred infrapatellar fat pad leaving some fat pad on the tendon enough for exposure. Scarred synovium in the lateral gutter was released to help mobilize the extensor mechanism. Some scarred synovium tissue in the suprapatellar pouch was resected to help mobilize the quad. Areas were cauterized with aqua mantis as needed. The patella component was removed levering it off of the bone using a curved osteotome. Cement was removed from the patella. Retractors were placed and the polyethylene spacer was identified and was intact. The curved osteotome was used to break up the cement and remove the polyethylene uneventfully. This allowed better exposure of the femur which was removed using a small thin oscillating saw blade around the component and this was removed easily. Underneath component there was some benign-appearing membrane that was curetted off the condyles of the femur and the intercondylar notch area. There was some bone loss from the prior surgeries but condyle bone was still intact for standard revision knee replacement. Retractors were placed exposing the tibia and the cement was removed with a curved osteotome and then the cement plug that was down the canal was removed and the canal membrane was benign and removed with angled curette and a pituitary rongeur. Knee was irrigated out with pulsatile saline solution. The persona [employer] revision knee system was utilized. Sequential reaming was performed down the canals of the tibia and femur to a 14 mm diameter on the tibia and 13 on the femur. With the reamer in place tibial cutting guide was placed over that and we just had to make a a skim cut off top of the tibia with minimal bone loss from the of the prior spacer. Because of the significant offset we had used a +6 offset on the tibia and this was rotated into position to get the best coverage for a C size tibia trial. The alignment and rotation was marked of the offset implant and the fins for the implant. The reamer was removed and the drill reamer was utilized followed by the trial stem followed by the boss reamer followed by broaching proximal tibia. There was some hard bone medially we had used a curette and a small saw to get through the sclerotic bone so we could fully see the approach for the fins without fracturing the tibia. After the broach was fully seated then we assembled the trial implant which was a 135 x 14 stem assembled to the C tibial tray and there was a 6 mm offset on the stem. This fit excellent. Then attention was taken to the femur. On the 13 stem we placed the distal femoral cutting guide and made skim cut which was flush with the good part of the lateral condyle of the femur but on medial side required a 5 mm augment to get bone contact. After those cuts were made went ahead and placed the distal femoral cutting guide and rotated in line with the epicondylar axis and make sure we had a parallel alignment of the guide with the tibia. Also required a +6 mm offset on the femoral stem to align the femoral component appropriately and use an tracee wing to adjust the position from anterior to posterior. After the adjustments were made this was pinned in position and then the anterior and posterior chamfer cuts were made. This required bilateral posterior 10 mm augments and a 5 mm distal medial augment. The tilt reamer and boss reamer used on the femur trial was assembled with appropriate augments and on try to set this down completely it was still about 3 mm proud from sitting flush. Adjustments were made by downsizing the stem to a 12 and degree using tilt reamer and boss reamer reassembled and trial that this fit perfectly and then replaced the trial [address] and placed the knee in full extension let the tourniquet down which was 2 hours at this point. Tourniquet set after 20 minutes and we dressed the patella by cutting out some extra cement and doing a small subperiosteal peel lateral release and doing hemostasis with the aqua mantis. After 20 minutes of revascularization the leg was really exsanguinated and tourniquet placed back up and the trials were removed the knee was extended and the skin cut was made on the patella to freshen up the patella surface and a 32 mm guide for the drill holes for the patella was placed placing the drill holes back to the similar placed position of the prior polyethylene patellar component and a trial was placed and this fit well. The trials were all removed the knee was shanta irrigated with pulsatile lavage saline solution. The final components were assembled. The final components were the 7 standard posterior stabilized revision femoral component, PRK revision, with 5 mm distal medial augment and bilateral 10 mm posterior augments symbol to a 6 mm offset stem which was 12 mm x 135 mm. Tibia was a C with a 14 x 135 mm stem with a 6 mm offset and the patella was a 32 mm symmetrical patella. The antibiotic impregnated methylmethacrylate cement was then mixed and I cemented the tibia first followed by the femur followed by placing a trial tibial polyethylene in place followed by holding knee in full extension while the patella clamp was placed on the patella component which was cemented into position. All excess cement was cleared. After cement cured the knee was irrigated with Xperience solution. The trial polyethylene was removed and the 10 mm CCK tibial polyethylene implant was inserted with the insertion device and the torque screw was placed with the torque screw device to the appropriate tension. After further irrigation with Xperience solution 2 drains were brought out laterally and connected to a Hemovac and then the quadriceps tendon and medial retinaculum were repaired. Along the medial patella VMO area I used interrupted #2 Fiber Wire sutures and additional interrupted #2 FiberWire sutures along the level of the tibial polyethylene and the remainder of the incision was closed with interrupted [id number] monofilament PDS #1 suture. Knee was taken through range of motion and was 0 through 90 degrees only. The repair was secure through full range of motion. The subcutaneous tissues were then repaired with interrupted 2-0 Vicryl sutures and the skin was closed with interrupted 4-0 nylon vertical mattress sutures and Adaptic gauze ABDs and sterile Webril and double Cm wrap was applied and when the tourniquet was let down patient had normal return of circulation to extremity and patient tolerated the procedure well without complication noted at this time. Lb GREGG was more persistent and functioned primarily as the first aid trainer and was integral part in all aspects of the procedure including the explantation and reimplantation of the implants and wound closure and dressing application and will participate in postop care of the patient. I attest to the content of the Intraoperative Record and any orders documented therein. Any exceptions are noted below.
--- NOTE | 2025-01-21 16:38 | XRay Report ---
Study: Left knee 4 views History: Postop Comparison: None Findings: There is no acute fracture or dislocation. Total knee arthroplasty in place. Postoperative fluid and air seen. Normal alignment. The hardware is intact. Bone mineralization is normal. Impression: Left knee arthroplasty intact Electronically signed by Edd Luther 01-21-2025 4:38 PM
[2025-01-21] MEDS: LABETALOL HCL IV 5 MG/ML 20ML IV STA (16:40)
--- NOTE | 2025-01-21 16:57 | Anesthesiology Progress Note ---
Date of Service January 21, 2025 Anesthesia Post Procedure Vital Signs Vital Signs: Temp Pulse Resp BP Pulse Ox O2 Del Method O2 Flow Rate 01/21/25 16:35 84 13 179/103 H 100 Oxymask 4 01/21/25 16:25 85 15 168/103 H 100 Oxymask 4 01/21/25 16:15 92 H 22 164/98 H 100 Oxymask 8 01/21/25 16:05 90 18 169/96 H 100 Oxymask 10 01/21/25 15:57 36.2 C L 95 H 10 L 150/93 H 100 Oxymask 10 01/21/25 08:23 36.6 C 76 19 154/82 H 100 Room Air Pain Intensity Left Knee: Pain Intensity: 8 Transfer of Care Handoff Completed per policy Notes Mental Status: alert / awake / arousable and participated in evaluation Patient Amnestic to Procedure: Yes Nausea / Vomiting: adequately controlled Pain: adequately controlled Airway Patency, RR, SpO2: stable & adequate BP & HR: stable & adequate Hydration State: stable & adequate Anesthetic Complications: no major complications apparent
[2025-01-21] MEDS: LABETALOL HCL IV 5 MG/ML 20ML IV ONE (17:00)
[2025-01-21] MEDS ORDERED: NYSTATIN POWDER 15GM BTL EXT PRN (17:48)
[2025-01-21] MEDS ORDERED: ALUMINUM/MAGNESIUM SUSP 30 ML UDC PO PRN (17:48)
[2025-01-21] MEDS ORDERED: FLUTICASONE PROPIONATE NA SPR 16 GM BTL PRN (17:48)
[2025-01-21] MEDS ORDERED: MAGNESIUM HYDROXIDE SUSP 30 ML UDC PO PRN (17:48)
[2025-01-21] MEDS ORDERED: METOCLOPRAMIDE HCL INJ 5 MG/ML 2 ML VIAL IV PRN (17:48)
[2025-01-21] MEDS ORDERED: DOCUSATE SODIUM 100 MG CAP PO PRN (17:48)
[2025-01-21] MEDS ORDERED: diphenhydrAMINE Capsule 25 MG CAP PO PRN (17:48)
[2025-01-21] MEDS ORDERED: NALOXONE HCL 0.4 MG/1 ML VIAL/CARP IV PRN (17:48)
[2025-01-21] MEDS: SODIUM CHLORIDE 0.9% 1,000 ML IV SCH (18:40)
[2025-01-21] MEDS: SUCRALFATE 1 GM TAB PO SCH (18:43)
[2025-01-21] MEDS: KETOROLAC TROMETHAMINE 15 MG/ML VIAL IV PRN (21:20)
[2025-01-21] MEDS: LORazepam 0.5 MG TAB PO SCH (21:21)
[2025-01-21] MEDS: DOCUSATE SODIUM 100 MG CAP PO SCH (21:22)
[2025-01-21] MEDS: GABAPENTIN 300 MG CAP PO SCH (21:23)
[2025-01-21] MEDS: DOXYCYCLINE HYCLATE 100 MG CAP PO SCH (21:23)
[2025-01-21] MEDS: FERROUS SULFATE 325 MG TAB PO SCH (21:24)
[2025-01-21] MEDS: MONTELUKAST SODIUM 10 MG TABLET PO SCH (21:25)
[2025-01-21] MEDS: PSEUDOEPHEDRINE HCL 30 MG TAB PO SCH (21:25)
[2025-01-21] MEDS: CETIRIZINE HCL 10 MG TABLET PO SCH (21:27)
[2025-01-21] MEDS: ACETAMINOPHEN 500 MG TAB PO SCH (21:48)
[2025-01-21] MEDS: SENNA 8.6 MG TAB PO SCH (21:49)
[2025-01-21] MEDS: TRANEXAMIC ACID / 0.7% NACL 1,000 MG/100 ML BAG IV SCH (21:50)
[2025-01-22 07:43] LABS: Hematocrit (blood only) 33.2 % (37.0-47.0); Hemoglobin 11.7 g/dl (12.0-16.0); Mean Corpuscular Hemoglobin 32.1 pg (25.0-34.0); Mean Corpuscular Volume 91.0 fL (80.0-100.0); Platelet Count 226 K/uL (130-400); RDW Standard Deviation 42.2 fL (36.4-46.3); Red Blood Count 3.65 M/uL (4.20-5.40); White Blood Count 8.28 K/ul (4.8-10.8)
--- NOTE | 2025-01-22 07:44 | Orthopedic Progress Note ---
Date of Service January 22, 2025 Assessment & Plan (1) Infection of total left knee replacement: Plan: Postop day 1 explantation and cement spacer revision to revision total knee replacement. Recommend another day hospital stay with continued IV antibiotics and start physical therapy no aggressive range of motion. Will be discharged home on oral antibiotics. Will start Eliquis for DVT prophylaxis today. Will continue Hemovac drain for another day. Will have social service look into home health and home PT. Follow labs. Clinically resolved infection status post multiple surgeries last being second articulated cement antibiotic spacer. Labs are back to normal patient asymptomatic with regard to infection. Proceed with explantation of cement spacer femoral and tibial and patellar components and proceeding with revision total knee replacement femur tibia patella. (2) Arthrofibrosis of total knee arthroplasty: Admission and Anticipated Discharge Date Admission Date: January 21, 2025 Subjective Having pain in the knee but appears to be tolerable. Review of Systems Review of Systems: No other complaints otherwise noncontributory Physical Exam Musculoskeletal: Toes pink and warm, can do a leg lift with assist dressing dry and intact, can extend and flex toes and foot. Still some active drainage in the Hemovac. Results & Data Vital Signs (Past 12 Hours) Vital Signs Temp Pulse Pulse Resp BP BP Pulse Ox 01/22/25 07:15 37.0 C 94 H 16 176/97 H 97 01/22/25 04:37 91 H 18 151/84 H 97 01/22/25 04:00 36.5 C 92 H 16 170/90 H 94 01/22/25 00:00 36.6 C 94 H 18 133/78 96 01/21/25 22:15 36.4 C L 87 18 143/78 H 95 01/21/25 21:15 36.6 C 94 H 18 145/79 H 01/21/25 20:16 36.4 C L 88 18 142/77 H 98 01/21/25 19:45 36.4 C L 87 18 147/75 H 100 O2 Del Method 01/22/25 07:15 Room Air 01/22/25 04:37 Room Air 01/22/25 04:00 Room Air 01/22/25 00:00 Room Air 01/21/25 22:15 Room Air 01/21/25 21:15 01/21/25 20:16 Room Air 01/21/25 19:45 Room Air Laboratory Results Pending Diagnostic Findings Satisfactory alignment revision knee replacement (1) Infection of total left knee replacement Encounter type: sequela Qualified Code(s): T84.54XS - Infection and inflammatory reaction due to internal left knee prosthesis, sequela (2) Arthrofibrosis of total knee arthroplasty Encounter type: sequela Qualified Code(s): T84.82XS - Fibrosis due to internal orthopedic prosthetic devices, implants and grafts, sequela
[2025-01-22 07:59] LABS: Anion Gap 7.0 (3-11); Blood Urea Nitrogen 16.0 mg/dl (6-23); Calcium 7.8 mg/dl (8.6-10.3); Carbon Dioxide 26.0 mmol/L (21-32); Chloride 109.0 mmol/L (98-107); Creatinine Clr Calc Pharmacy 41.7 ml/min; Glucose 117.0 mg/dl (70-99(Fasting)); Potassium 3.2 mmol/L (3.5-5.1); Sodium 142.0 mmol/L (136-145)
--- NOTE | 2025-01-22 08:14 | Pain Management Consultation ---
Date of Consultation January 22, 2025 Assessment & Plan (1) Arthrofibrosis of total knee arthroplasty: Encounter type: sequela Qualified Code(s): T84.82XS - Fibrosis due to internal orthopedic prosthetic devices, implants and grafts, sequela (2) Infection of total left knee replacement: Encounter type: sequela Qualified Code(s): T84.54XS - Infection and inflammatory reaction due to internal left knee prosthesis, sequela (3) Chronic narcotic use: (4) Opioid dependence with current use: (5) Anxiety disorder: (6) Cervical post-laminectomy syndrome: (7) Postlaminectomy syndrome of lumbosacral region: (8) Chronic pain syndrome: Plan 1. Discontinue Hydromorphone IV when preparing for discharge from hospital. Likely in the next day or two. 2. OxyContin was increased from 10mg to 20mg BID. Recommend this dose increase for 2 weeks then return to chronic regimen. 3. Oxycodone 10mg x 4 hours if needed for pain. 4. Patient has Narcan at home in case of accidental overdose. 5. Will sign off on the patient. Please contact with any questions or concerns. History of Present Illness Reason for Consultation: post op pain Attending Physician: Kwasi Felix MD History of Present Illness Mrs. Burch is a 59-year-old white female who is known to the pain service due to her chronic pain complaints associated with cervical and lumbar postlaminectomy syndromes. The patient has concomitant depression and anxiety disorder and opioid dependency who has failed multiple interventional treatments and surgical intervention as well as spinal stimulator placement. She had a left TKA performed on 08/15/2023. She has subsequently developed an infection of the left total knee and underwent debridement on 10/01/2023, 05/08/2024, and 09/17/2024. Yesterday she underwent DAIR with explantation of antibiotic spacers. Patient has been placed in an knee immobilizer. On an outpatient basis she has been utilizing OxyContin 10 mg twice daily and using oxycodone 10 mg x 6 hours if needed for breakthrough pain. She has a timed pill dispenser to make sure she is taking the correct medication at at the correct time. She does have IV hydromorphone if needed for breakthorugh pain. Patient has no further constitutional complaints. Allergies Allergy/AdvReac Type Severity Reaction Status Date / Time carisoprodol Allergy Severe HALLUCINATI Verified 01/21/25 08:36 ONS aspirin Allergy Unknown NOT TO Verified 01/21/25 08:36 TAKE S/P GATRIC BYPASS glycopyrrolate [From Robinul] Allergy Unknown Unknown Verified 01/21/25 08:36 clarithromycin [From Biaxin] AdvReac Mild sick Verified 01/21/25 08:36 lactose AdvReac Mild Gastrointestinal Verified 01/21/25 08:36 Upset oxymorphone AdvReac Mild sick Verified 01/21/25 08:36 sulfamethoxazole AdvReac Mild sick Verified 01/21/25 08:36 [From Bactrim] trimethoprim [From Bactrim] AdvReac Mild sick Verified 01/21/25 08:36 Home Medications Medication Instructions Recorded Confirmed Type ferrous sulfate 325 mg (65 mg 325 mg PO BID 10/23/19 01/21/25 History iron) tablet multivitamin (Multiple Vitamins 1 tab PO BID #90 tabs 06/22/20 01/21/25 Rx tablet) diclofenac sodium 1 % topical gel 2 gm topical QID PRN Pain 01/13/22 01/21/25 History calcium citrate 200 mg PO DAILY 05/15/22 01/21/25 History docusate sodium 100 mg capsule 100 mg PO BID PRN Constipation 05/22/23 01/21/25 History (Colace) Walking Cane #1 ea 08/10/23 01/14/25 Rx fluticasone propionate 50 1 spray intranasal DAILY PRN 04/17/24 01/21/25 History mcg/actuation nasal Congestion spray,suspension walker 07/21/24 01/14/25 History metoprolol succinate 100 mg 100 mg PO QAM #90 tabs 08/19/24 01/21/25 Rx tablet,extended release 24 hr cholecalciferol (vitamin D3) 25 25 mcg PO DAILY 09/01/24 01/21/25 History mcg (1,000 unit) capsule cetirizine 5 mg-pseudoephedrine ER 1 tab PO BID 09/08/24 01/21/25 History 120 mg tablet,extended release,12hr (Zyrtec-D) nystatin 100,000 unit/gram topical 1 applic topical UD PRN yeast 09/08/24 01/21/25 History powder gabapentin 300 mg capsule 300 mg PO HS #90 caps 09/16/24 01/21/25 Rx oxycodone 10 mg tablet 10 mg PO Q6 PRN pain #18 tabs 09/21/24 01/21/25 Rx desonide 0.05 % topical cream 1 applic topical UD PRN Skin 10/09/24 01/21/25 Rx Irritation #60 grams montelukast 10 mg tablet 10 mg PO HS #90 tabs 11/18/24 01/21/25 Rx bupropion HCl 150 mg tablet,12 hr 150 mg PO QAM #90 ea 12/01/24 01/21/25 Rx sustained-release (Wellbutrin SR) doxycycline hyclate 100 mg capsule 100 mg PO BID 12/01/24 01/21/25 History ondansetron 4 mg disintegrating 4 mg PO TID PRN nausea and 12/03/24 01/21/25 Rx tablet vomiting #30 tabs losartan 25 mg tablet 25 mg PO QAM #90 tabs 12/13/24 01/21/25 Rx pantoprazole 40 mg tablet,delayed 40 mg PO BID #60 tabs 12/13/24 01/21/25 Rx release (Protonix) lorazepam 0.5 mg tablet 0.5 mg PO HS #30 tabs 12/17/24 01/21/25 Rx sucralfate 1 gram tablet (Carafate) 1 g PO QID #120 tabs 12/17/24 01/21/25 Rx oxycodone 10 mg tablet,extended 10 mg PO BID 01/15/25 01/21/25 History release,12 hr Patient History Medical History Anxiety and depression History of DVT (deep vein thrombosis) both legs (unknown date details/pt notes before her wrist surgery). blood thinner was rx'd and since d/c'd. per pt: on eliquis since august 2024 due to multiple knee surgeries. 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 Postlaminectomy syndrome of lumbosacral region Chronic narcotic use Cervical post-laminectomy syndrome Cervical disc disease Brain atrophy reported per family, "confusion has gotten better since family has taken over medication administration" Chronic pain syndrome Infection due to Enterococcus hx, 12/2023 Tachycardia hx, 12/2023, isolated incident per family Elevated troponin I level hx, 12/2023, isolated incident per family; admitted to [facility] for "a few days, no recent issues" Necrosis of surgical wound Postoperative skin necrosis noted in EMR 09/28/23 - resolved per pt. MCCLAIN (nonalcoholic steatohepatitis) controlled per pt Enlarged liver hx > resolved per pt Spinal stenosis History of urinary retention "just happens when I take too many pain pills" Hyperlipidemia HTN (hypertension) Surgical History History of left knee surgery (05/2024) for hx infection / ? procedure details/ cement spacer Hx of knee surgery (09/2023) I&D left knee w/poly exchange>most recent surgery 09/2024 at [place] History of total right knee replacement History of back surgery x3 total > 06/02/19 Dr. Simon Templeton at [facility]- Midline prone multilevel osteotomies, Correction of flat back deformity, Extension of fusion to T9, T10, and T11 kyphoplasty Status post left knee replacement (08/2023) History of colonoscopy History of tooth extraction History of surgery on right wrist History of cataract surgery bilat History of tonsillectomy and adenoidectomy History of appendectomy History of gastric bypass more than 5 years ago History of neck surgery ACDF > has trouble tilting head back for long periods History of hysterectomy History of esophagogastroduodenoscopy History of cholecystectomy History of section x4 History of arthroscopy of knee right Family History Father Diabetes Heart problem Cancer Other No family history of adverse response to anesthesia Social History Smoking Status: Former smoker Tobacco Type: Cigarettes Age Started Using Tobacco: 14; Age Quit Using Tobacco: 40; packs per day: 1; Smoking End Date: 20+ years ago; Second Hand Exposure: No; Do You Dip or Chew Tobacco: No; Hx Alcohol Use: No Preferred Language: Slovak Communication Ability: Effective Hearing Ability: Use of Hearing Aid Marketing Analytics Specialist Required: No Beliefs That Will Affect Care: None marital status: Current Living Situation: Family Current Living Situation Comment: and youngest son current occupational status: disabled Feels Safe at Home: Yes Safety Concerns: Feels Safe At This Time Assistive Devices: Cane, Glasses, Hearing Aid - Bilateral and Walker Assistive Devices Comment: reading glasses Physical Exam Physical Exam: GENERAL: This is a 59 year old female in no acute distress. Resting comfortably in hospital bed. HEAD/FACE: Normocephalic and atraumatic. EYES: No drainage or conjunctival injection. ENT: Nose without bleeding or discharge. Oral mucosa moist. NECK: Full ROM without apparent pain. No swelling or masses noted. RESPIRATORY: Patient with unlabored breathing. No signs of respiratory distress. CHEST/AXILLA: Chest movement symmetrical. No deformities noted. ABDOMEN/GI: No distension. BACK: Moves without difficulty SKIN: [place], warm and dry. No rash noted. MS/EXTREMITY: Left knee is braced. NEURO: Alert and appears oriented. Speech is fluent. Cranial Nerves are grossly intact. PSYCH: Alert, pleasant, affect is calm
[2025-01-22] MEDS: dexAMETHasone 10 MG in SYRINGE 0 ML IV SCH (09:50)
[2025-01-22] MEDS: CALCIUM CITRATE 950 MG TAB PO SCH (09:54)
[2025-01-22] MEDS: LOSARTAN POTASSIUM 25 MG TAB PO SCH (09:58)
[2025-01-22] MEDS: CHOLECALCIFEROL 25 MCG (1000 UNITS) TAB PO SCH (09:58)
[2025-01-22] MEDS: METOPROLOL SUCC 50MG EXT REL TAB PO SCH (09:59)
[2025-01-22] MEDS: MULTIVITAMIN TAB PO SCH (09:59)
[2025-01-22] MEDS: HYDROmorphone INJ 0.5 MG/0.5 ML SYR IV PRN (14:54)
[2025-01-22] MEDS: APIXABAN 2.5 MG TAB PO SCH (20:46)
[2025-01-22] MEDS: ONDANSETRON 4 MG OD TAB PO PRN (21:39)
[2025-01-22 22:35] VITALS: RESP 16; TEMP 98.1
[2025-01-23 07:31] VITALS: BP 154/84; PULSE 87; O2SAT 94
--- NOTE | 2025-01-23 09:30 | Orthopedic Progress Note ---
Date of Service January 23, 2025 Assessment & Plan (1) Infection of total left knee replacement: Plan: Doing well postop day 2 explantation and cement spacer revision to revision total knee replacement. PT/OT today. Pain controlOxyContin 20 mg twice daily, Oxy IR 10 mg every 4 hours as needed. The patient will transition back to her OxyContin 10 mg twice daily after 2 weeks. DVT prophylaxisTED stockings, Eliquis 2.5 mg twice daily for 2 weeks. Discharge planningHome with home health today. Patient is aware that home health will be unable to come to her home until 02/01/2025. She was instructed on gentle range of motion and performing her home exercises. Clinically resolved infection status post multiple surgeries last being second articulated cement antibiotic spacer. Labs are back to normal patient asymptomatic with regard to infection. Proceed with explantation of cement spacer femoral and tibial and patellar components and proceeding with revision total knee replacement femur tibia patella. (2) Arthrofibrosis of total knee arthroplasty: Admission and Anticipated Discharge Date Admission Date: January 21, 2025 Subjective Patient states she is doing well postop day #2 from a left knee revision total knee arthroplasty. Her pain has been controlled. She had some increase in pain last evening but overall doing well. No new complaints today. She feels she is ready to head home. Physical Exam Constitutional: WD/WN, vitals as above no acute distress Musculoskeletal: Knee: + surgical incision (Left knee dressing is C/D/I) and + surgical drain present (Hemovac in place without drainage since 5 PM last evening); no deformity, no skin erythema and no ecchymosis Skin: no rashes, warm and dry Trauma: no evidence of skin trauma Neurologic: normal touch/pain/proprioception Psychiatric: A+Ox3, euthymic affect Speech: normal rate/rhythm/volume of speech Results & Data Vital Signs (Past 12 Hours) Vital Signs Temp Pulse Pulse Resp BP Pulse Ox O2 Del Method 01/23/25 07:30 36.7 C 87 16 154/84 H 94 Room Air 01/22/25 22:34 36.7 C 91 H 16 157/79 H 97 Room Air (1) Infection of total left knee replacement Encounter type: sequela Qualified Code(s): T84.54XS - Infection and inflammatory reaction due to internal left knee prosthesis, sequela (2) Arthrofibrosis of total knee arthroplasty Encounter type: sequela Qualified Code(s): T84.82XS - Fibrosis due to internal orthopedic prosthetic devices, implants and grafts, sequela
--- NOTE | 2025-01-28 12:24 | Discharge Summary ---
Date of Service January 28, 2025 Admission HPI Per Admitting Provider 59-year-old female with long history of complications status post left total knee arthroplast with wound healing issues and arthrofibrosis and subsequent infection treated by DAIR procedure followed by explantation and placement of articulating cement spacer followed by revision of articulating cement spacer to another articulated cement spacer due to positive frozen sections but cultures negative and remained to be negative and ESR and C-reactive protein remained to be normal. Patient denies headaches, sweats, fevers, chills, double vision, blurred vision, cough, sore throat, dysphagia, chest pain, sob, wheezing, n/v/d/c, numbness, tingling, fatigue, urinary symptoms. ROS positive for MCCLAIN, chronic pain syndrome on chronic pain meds, depression, chronic low back pain without sciatica, acid reflux heartburn. Principal Diagnosis Infected left total knee arthroplasty with antibiotic spacer Discharge Exam Constitutional WD/WN, vitals as above no acute distress Musculoskeletal Knee: + surgical incision (Left knee dressing is C/D/I) and + surgical drain present (Hemovac in place without drainage since 5 PM last evening); no deformity, no skin erythema and no ecchymosis Skin no rashes, warm and dry Trauma: no evidence of skin trauma Neurologic normal touch/pain/proprioception Psychiatric A+Ox3, euthymic affect Speech: normal rate/rhythm/volume of speech Discharge Data Allergies Allergy/AdvReac Type Severity Reaction Status Date / Time carisoprodol Allergy Severe HALLUCINATI Verified 01/21/25 08:36 ONS aspirin Allergy Unknown NOT TO Verified 01/21/25 08:36 TAKE S/P GATRIC BYPASS glycopyrrolate [From Robinul] Allergy Unknown Unknown Verified 01/21/25 08:36 clarithromycin [From Biaxin] AdvReac Mild sick Verified 01/21/25 08:36 lactose AdvReac Mild Gastrointestinal Verified 01/21/25 08:36 Upset oxymorphone AdvReac Mild sick Verified 01/21/25 08:36 sulfamethoxazole AdvReac Mild sick Verified 01/21/25 08:36 [From Bactrim] trimethoprim [From Bactrim] AdvReac Mild sick Verified 01/21/25 08:36 Consultations 01/21/25 17:48 Consult Pain Management Routine Procedures Performed Operation Date: 01/21/25 09:55 Actual Procedures p Left Knee Explantation Cement Spacer, Revision Total Knee Arthroplasty(Left) - Kwasi Felix MD Ordered Studies 01/21/25 05:00 US - OR guided needle placemen Routine Hospital Course (1) Infection of total left knee replacement: Doing well postop day 2 explantation and cement spacer revision to revision total knee replacement. PT/OT today. Pain controlOxyContin 20 mg twice daily, Oxy IR 10 mg every 4 hours as needed. The patient will transition back to her OxyContin 10 mg twice daily after 2 weeks. DVT prophylaxisTED stockings, Eliquis 2.5 mg twice daily for 2 weeks. Discharge planningHome with home health today. Patient is aware that home health will be unable to come to her home until 02/01/2025. She was instructed on gentle range of motion and performing her home exercises. Clinically resolved infection status post multiple surgeries last being second articulated cement antibiotic spacer. Labs are back to normal patient asymptomatic with regard to infection. Proceed with explantation of cement spacer femoral and tibial and patellar components and proceeding with revision total knee replacement femur tibia patella. (2) Arthrofibrosis of total knee arthroplasty: Total Time Total Time Spent Total Time Spent (In Minutes): 30 Discharge Plan Discharge Items Patient Disposition: Home - Home Health Services Reason For Visit: POS OP REVISION LEFT TOTAL KNEE ARTHROPLASTY Discharge Diagnosis: Left knee infected total knee arthroplasty post incision and drainage and antibiotic spacer Activity: Per Instructions section Weightbearing: Full weightbearing Non-emergency contact: Primary Care Provider and Surgeon Call non-emergency contact if: your pain is not controlled, your pain is worsening and your temperature is above 101 Follow-up/Referrals: Larry Gonzalez DO [Primary Care Provider] - Diet: Regular Addtl Attending Provider Instructions: ACTIVITY RECOMMENDATIONS: SELF CARE INSTRUCTIONS AFTER TOTAL KNEE REPLACEMENT A. You may need to continue a physical therapy program after discharge from the hospital. There are several options available to you. Your doctor will assist you in selecting the best one for you. 1. An out-patient facility 3 times a week for therapy. 2. Home therapy for 1 to 2 weeks with outpatient therapy to follow. 3. Continue working on all exercises taught by physical therapy three times a day for 20 minutes on non-therapy days. Your goals should be to increase the bending of your knee to 90 degrees and beyond and to fully straighten your knee. Ice and elevate knee after exercise. B. Weight as tolerated with a walker or as instructed by your physician. C. It is okay to shower if minimal to no drainage from incision. No Baths. Do not soak wound. D. Make walking a part of your daily routine. Be up as much as comfortable with rest periods throughout the day. Rest with leg elevation is very important. Use the ice wrap frequently for the first 3-4 weeks. E. There are no restrictions on activities. You may ride in a car, shop, participate in threader operator and all social activities. F. Wear the long elastic stockings (PERLA hose) 20 hours a day for one month after surgery. They can be removed several times a day for laundering and when showering. G. You may return to previous diet. SPECIAL CARE INSTRUCTIONS: VERY IMPORTANT TO READ AND REVIEW A. Take Coumadin, Xarelto, Aspirin or Lovenox (blood thinning medications) as directed by your doctor. If on Coumadin, have a pro-time (blood test) drawn according to your doctor's instructions. This will tell the doctor how well the Coumadin is thinning your blood. B. There are a few signs you need to watch for after you are home. Call [facility] if you notice any of the followin. Increased severe knee pain. Some pain is expected especially when you exercise. 2. Increased swelling in your leg or knee; pain or swelling of the calf muscle in either lower leg. 3. Any redness or fluid drainage from the incision. 4. Shortness of breath or chest pain. 5. A Temperature of 101 degrees F or greater. C. Please call [facility] at if you have any concerns or questions about your operation or recovery. The doctor or his nurse will return your call promptly. D. You must take antibiotics before dental work, bladder, bowel or other surgery. Your doctor will provide you with a permanent care to carry describing this precaution. FOLLOW UP VISIT: If appointment is not already scheduled: Please call [facility] to make a follow-up appointment for 2 weeks after your surgery at . Pending Studies at Discharge: No Stand-Alone Forms: My [employer], Smoking Cessation Medications and DC Order Prescriptions: New Eliquis 2.5 mg Tablet 2.5 mg PO BID Qty: 28 0RF acetaminophen [Tylenol Extra Strength] 500 mg Tablet 1,000 mg PO Q8 Qty: 90 0RF oxycodone [OxyContin] 20 mg Tablet,Oral Only,Ext.Rel.12 Hr 20 mg PO BID Qty: 28 0RF oxycodone 5 mg Tablet 10 mg PO Q4H PRN (Reason: pain) Qty: 30 0RF Continued multivitamin [Multiple Vitamins] Tablet 1 tab PO BID Qty: 90 3RF metoprolol succinate 100 mg tablet extended release 24 hr 100 mg PO QAM Qty: 90 1RF gabapentin 300 mg capsule 300 mg PO HS Qty: 90 1RF Rx Instructions: ok to refill..Looks like this came from the ER? desonide 0.05 % cream 1 applic topical UD PRN (Reason: Skin Irritation) Qty: 60 0RF montelukast 10 mg tablet 10 mg PO HS Qty: 90 3RF ondansetron 4 mg tablet,disintegrating 4 mg PO TID PRN (Reason: nausea and vomiting) Qty: 30 2RF losartan 25 mg tablet 25 mg PO QAM Qty: 90 1RF pantoprazole [Protonix] 40 mg tablet,delayed release (DR/EC) 40 mg PO BID Qty: 60 0RF calcium citrate 200 mg (950 mg) tablet 200 mg PO DAILY ferrous sulfate 325 mg (65 mg iron) tablet 325 mg PO BID docusate sodium [Colace] 100 mg capsule 100 mg PO BID PRN (Reason: Constipation) (DME) Walking Cane [facility] See Rx Instructions .Route Qty: 1 0RF Rx Instructions: As directed; falls (DME) walker [facility] See Rx Instructions .Route Rx Instructions: As directed cholecalciferol (vitamin D3) 25 mcg (1,000 unit) capsule 25 mcg PO DAILY bupropion HCl [Wellbutrin SR] 150 mg tablet sustained-release 12 hr 150 mg PO QAM Qty: 90 0RF diclofenac sodium 1 % gel 2 gm TOP QID PRN (Reason: Pain) Rx Instructions: apply to single elbow, wrist or hand; for hand includes palm/fingers/back of hand doxycycline hyclate 100 mg capsule 100 mg PO BID Qty: 120 6RF fluticasone propionate 50 mcg/actuation spray,suspension 1 spray INTRANASAL DAILY PRN (Reason: Congestion) nystatin 100,000 unit/gram powder 1 applic topical UD PRN (Reason: yeast) cetirizine-pseudoephedrine [Zyrtec-D] 5-120 mg Tablet Extended Release 12 Hr 1 tab PO BID Held oxycodone 10 mg Tablet Extended Release 12 Hr 10 mg PO BID Hold Instructions: Resume on 02/06/25. Discontinued oxycodone 10 mg tablet 10 mg PO Q6 PRN (Reason: pain) Qty: 18 0RF No Action sucralfate [Carafate] 1 gram tablet 1 g PO QID Qty: 120 1RF lorazepam 0.5 mg tablet 0.5 mg PO HS Qty: 30 0RF Admission Data Admit Date/Time: 01/21/25 16:03 Attending Provider: Kwasi Felix Admit Provider: Kwasi Felix Primary Care Provider: Larry Gonzalez Other Providers: Abdiel Gandhi; Mariaelena Kerr; Nadeem Saldaña; Ricky Bone; Katherine Chang Other Interventions: Discharge Summary Assessment (RN) Last Done: 01/23/25 10:04
== END 2025-01-23 12:39 | disposition home health service (06) | DRG 467 ==
LOC: 3N 08:12 → ASU 08:12 → OBSVTOIN 16:03